=== PATIENT | female | born 1945 | race Caucasian/White ===

== ENCOUNTER 2020-05-25 09:09 | Emergency (ER) | payer MEDICARE, SELFPAY ==
--- NOTE | ~2020-05-25 | XR_ITS ---
XR lumbar spine min 4V 05/25/2020 11:55 Indication: Low back and hip pain Procedure: 5 views of the lumbar spine Comparison: No prior studies for comparison. Findings: There is disc narrowing at all lumbar levels with vacuum phenomena at multiple levels inclu ding T12-L1, L1-2, L2-3. There is grade 1 degenerative spondylolisthesis at L4-5 secondary to facet h ypertrophy. There is moderate multilevel facet degenerative change. There is levoscoliosis. There is a laparoscopic adjustable gastric band. There are cholecystectomy clips. There is a left total hip ar throplasty. Impression: 1: Moderate-severe lumbar spondylosis with levoscoliosis. Reviewed, dictated and finalized at location A. Impression: 1: Moderate-severe lumbar spondylosis with levoscoliosis.
[2020-05-25 09:24] VITALS: BP 142/62; PULSE 57; RESP 18; TEMP 36.6; O2SAT 99
[2020-05-25] MEDS: KETOROLAC (*BKC) 60 MG/2 ML VIAL 15 MG IM (11:45)
[2020-05-25 12:28] LABS: Add Urine Microscopic? YES; Appearance Urine Cloudy (Clear); Bacteria Urine Trace /hpf; Bilirubin Urine Negative (Negative); Blood Urine Negative (Negative); Color Urine Yellow (Yellow); Glucose Urine UA Negative (Negative); Ketones Urine Negative (Negative); Leukocyte Esterase Ur 1+ LEU/UL (Negative); Mucus Urine Rare /lpf; Nitrate Urine Negative (Negative); Protein Urine 1+ mg/dL (Negative); RBC Urine 0-2 /hpf (0-2); Specific Grav Ur 1.021 (1.001-1.035); Squamous Epithelial Cell Urine Many /hpf (Few)
[2020-05-25 12:29] LABS: Basophils Percent Auto 0.6 % (0.2-1.2); Eosinophils Absolute Auto 0.3 K/mm3 (0-0.3); Eosinophils Percent Auto 5.5 % (0-4.4); Hematocrit 40.6 % (37.0-47.0); Hemoglobin 13.4 g/dL (12.0-15.0); Immature Granulocyte Absolute 0.01 K/mm3 (0.00-0.031); Immature Granulocyte Percent A 0.2 % (0-0.5); Lymphocytes Absolute Auto 1.18 K/mm3 (0.9-3.2); Lymphocytes Percent Auto 19.1 % (18.3-44.2); Mean Corpuscular Hemoglobin 30.5 pg (26-34); Mean Corpuscular Volume 92.5 fl (80-100); Mean Platelet Volume 9.5 fl (7.4-10.4); Monocytes Absolute Auto 0.5 K/mm3 (0.1-0.6); Monocytes Percent Auto 8.4 % (2.6-8.5); Neutrophils Absolute Auto 4.1 K/mm3 (1.3-6.7); Neutrophils Percent Auto 66.2 % (45.5-73.1); Platelet Count Result 207 k/mm3 (150-375); Red Blood Count 4.39 M/mm3 (4.2-5.4); Red Cell Distribution Width 13.6 % (11.5-14.5); White Blood Count 6.2 K/mm3 (4.5-10.0)
[2020-05-25 12:38] LABS: Anion Gap 6 mmol/L (8-16); Blood Urea Nitrogen 12 mg/dL (7-17); Calcium 9.5 mg/dL (8.4-10.2); Carbon Dioxide 30 mmol/L (22-30); Chloride 102 mmol/L (98-107); Estimated CRCL calculation 78 ml/min; Estimated Glomerular Filt Rate > 60; Glucose 97 mg/dL (65-105); Potassium 4.5 mmol/L (3.4-5.0); Sodium 138 mmol/L (137-145)
--- NOTE | 2020-05-25 13:08 | ED.GENADULT ---
HPI - General Adult General Chief complaint: Extremity Injury, Lower <Ion Sánchez PA-C - Last Filed: 05/25/20 13:21> Stated complaint: L hip and back pain <Ion Sánchez PA-C - Last Filed: 05/25/20 13:21> Time Seen by Provider: 05/25/20 11:07 <Ion Sánchez PA-C - Last Filed: 05/25/20 13:21> Source: patient and family <Ion Sánchez PA-C - Last Filed: 05/25/20 13:21> Mode of arrival: ambulatory <Ion Sánchez PA-C - Last Filed: 05/25/20 13:21> Limitations: no limitations <Ion Sánchez PA-C - Last Filed: 05/25/20 13:21> History of Present Illness HPI narrative: Patient is a 74-year-old female with low back pain for roughly 1 week noting aching pain to the lower lumbar radiating to the left side and into the hip. Patient denies injury trauma or similar occurrence patient has tried [id number] medications with no improvement. Patient denies recent illness or other complaints or symptoms and presents in no distress with family <Ion Sánchez PA-C - Last Filed: 05/25/20 13:21> Related Data Allergies/adverse reactions: Allergies Allergy/AdvReac Type Severity Reaction Status Date / Time Penicillins Allergy Unknown Verified 07/11/12 08:24 <Ion Sánchez PA-C - Last Filed: 05/25/20 13:21> Review of Systems Review of Systems: All systems reviewed & are unremarkable except as noted in HPI and below <Ion Sánchez PA-C - Last Filed: 05/25/20 13:21> [facility] Past Medical History Medical History: Medical History (Updated 05/25/20 @ 13:16 by Ion Sánchez PA-C) Obesity <Ion Sánchez PA-C - Last Filed: 05/25/20 13:21> Surgical History Surgical History: Surgical History History of orthopedic surgery <Ion Sánchez PA-C - Last Filed: 05/25/20 13:21> Family History Family History: Family History (Updated 07/11/12 @ 08:32 by DOCTOR UNKNOWN) Other Family history of arthritis <Ion Sánchez PA-C - Last Filed: 05/25/20 13:21> Social History Social History: Social History Smoking status: Never smoker Alcohol intake: current Gender identity (if verbalized by the patient): Female <Ion Sánchez PA-C - Last Filed: 05/25/20 13:21> Exam Narrative: Exam Narrative: GENERAL: Well-appearing, obese, and in no acute distress. HEAD: Normocephalic, atraumatic. EYES: PERRLA and EOMI. ENT: Nares clear, no rhinorrhea or epistaxis. Mucous membranes moist. CHEST: Clear to auscultation. No respiratory distress. No wheezes rales or rhonchi HEART: Regular rate and rhythm. No murmur heard. Normal peripheral pulses. ABDOMEN: Soft, nontender,distended EXTREMITIES: Normal range of motion. No edema. Midline lumbar tenderness no rashes or deformities noted SKIN: Warm, dry, no rash. NEURO: No focal deficits. Alert and oriented x3. Cranial nerves II through XII grossly intact PSYCH: Normal mood and affect. <Ion Sánchez PA-C - Last Filed: 05/25/20 13:21> Course Course Emergency Course: Patient in the room aware of case findings treatment plan and diagnosis agreeing to follow-up as directed or to return if symptoms worsen or concerns <Ion Sánchez PA-C - Last Filed: 05/25/20 13:21> Vital Signs Vital signs: Vital Signs Temperature 36.6 C 05/25/20 09:24 Pulse Rate 57 L 05/25/20 09:24 Respiratory Rate 18 05/25/20 09:24 Blood Pressure 142/62 H 05/25/20 09:24 Pulse Oximetry 99 05/25/20 09:24 Temperature 36.6 C 05/25/20 09:24 Pulse Rate 64 05/25/20 13:36 Respiratory Rate 18 05/25/20 13:36 Blood Pressure 148/66 H 05/25/20 13:36 Pulse Oximetry 96 05/25/20 13:36 <MICHAEL Lopez Last Filed: 05/25/20 13:21> Vital Signs Temperature 36.6 C 05/25/20 09:24 Pulse Rate 57 L 05/25/20 09:24 Respiratory Rate 18 09
[2020-05-25 13:36] VITALS: BP 148/66; PULSE 64; RESP 18; O2SAT 96
== END 2020-05-25 13:38 | disposition home or self-care (01) ==
PROVIDERS: Emergency Medicine Emergency Medical Services; Emergency Provider Emergency Medicine; PCP Internal Medicine
DX: N39.0 Urinary tract infection, site not specified (principal); M54.5 Low back pain; E66.9 Obesity, unspecified; Z68.42 Body mass index [BMI] 45.0-49.9, adult
CPT/HCPCS: 36415; 72110; 80048; 81001; 85025; 87086; 87088; 96372; 99283; J1885

== ENCOUNTER 2020-11-05 14:30 | Inpatient (IN) | payer MEDICARE, SELFPAY ==
[2020-11-05] VITALS (9 sets, daily range): BP systolic 138–218; BP diastolic 66–111; PULSE 65–88; RESP 18–29; TEMP 36.4–36.9; O2SAT 92–100
--- NOTE | ~2020-11-05 | XR_ITS ---
EXAMINATION: XR chest 1V portable INDICATION: Shortness of breath TECHNIQUE: Portable AP chest at 1528 hours COMPARISON: 04/08/2017 FINDINGS: There are diffuse interstitial and airspace opacities. Cardiomegaly is noted. There is no p leural effusion or pneumothorax. A gastric lap band is noted in the left upper quadrant. IMPRESSION: 1. Diffuse lung disease, consistent with pneumonia and/or pulmonary edema. Reviewed, dictated and finalized at location A. ATICS PROFESSOR
--- NOTE | ~2020-11-05 | XR_ITS ---
EXAMINATION: XR chest 1V portable EXAM DATE: 11/07/2020 08:37 INDICATION: Edema. TECHNIQUE: Portable AP frontal chest x-ray was obtained. Comparison is made to prior examination from 11/05/2020. FINDINGS: Cardiomegaly and pulmonary vascular congestion. Possible mild pulmonary edema. Linear left mid lung zone atelectasis. No confluent consolidation, pneumothorax or pleural effusion suspected. G astric banding device. Mild to moderate thoracic dextroscoliosis. IMPRESSION: 1. Findings consistent with mild CHF exacerbation. Reviewed, dictated and finalized at location B. GER OF ADMINISTRATION
--- NOTE | 2020-11-05 14:50 | ECG_ITS ---
Measurements Intervals [place] Rate: 75 P: 88 VA: 208 QRS: -54 QRSD: 106 T: 98 QT: 367 QTc: 411 Interpretive Statements SINUS RHYTHM INCOMPLETE RIGHT BUNDLE BRANCH BLOCK LEFT ANTERIOR FASCICULAR BLOCK POSSIBLE LEFT VENTRICULAR HYPERTROPHY CONSIDER HIGH LATERAL INFARCT, AGE INDETERMINATE ABNORMAL ECG Electronically Signed On 11-05-2020 15:11:29 TYPIST by Matt Yung D.O.
--- NOTE | 2020-11-05 14:54 | ED.SOB ---
HPI - SOB/Dyspnea General Chief Complaint: Shortness of Breath/Dyspnea Stated Complaint: SOB Time Seen by Provider: 11/05/20 14:41 Source: patient and family Mode of arrival: ambulatory Limitations: no limitations History of Present Illness HPI Narrative: This is a 74 year old female with history of COPD, cHf , morbid obesity who presents for evaluation of shortness of breath. She developed shortness of breath 2 days. She also reports mild cough for 2 days that is productive with clear phlegm. She denies chest pain, fever, nausea, vomiting. She was found to have audible wheezing in triage. She denies using an inhaler or nebulizer at home. Her family reports she received her covid vaccine 6 days. Related Data Home Medications Medication Instructions Recorded Confirmed aspirin 81 mg PO DAILY 11/05/20 11/05/20 atorvastatin 40 mg PO DAILY 11/05/20 11/05/20 carvedilol 12.5 mg PO BID 11/05/20 11/05/20 clopidogrel 75 mg PO DAILY 11/05/20 11/05/20 famotidine 20 mg PO DAILY 11/05/20 11/05/20 furosemide 60 mg PO BID 11/05/20 11/05/20 sacubitril-valsartan [Entresto] 1 tablet PO BID 11/05/20 11/05/20 spironolactone 12.5 mg PO DAILY 11/05/20 11/05/20 Allergies Allergy/AdvReac Type Severity Reaction Status Date / Time Penicillins Allergy Unknown Rash Verified 11/05/20 14:46 Review of Systems Review of Systems: All systems reviewed & are unremarkable except as noted in HPI and below Constitutional: Constitutional: Denies chills and Denies fever(s) Cardiovascular: Cardiovascular: Denies chest pain and Denies radiating jaw, neck or arm pain Respiratory: Respiratory: Reports cough, Reports dyspnea and Reports wheezing Gastrointestinal: Gastrointestinal: Denies abdominal pain, Denies diarrhea, Denies nausea and Denies vomiting PMF Past Medical History Medical History (Updated 11/05/20 @ 18:49 by Jerrica Perrin MD) CHF (congestive heart failure) Hypertension Obesity Surgical History Surgical History History of orthopedic surgery Family History Family History (Updated 07/11/12 @ 08:32 by DOCTOR UNKNOWN) Other Family history of arthritis Social History Social History Smoking status: Never smoker Alcohol intake: current Gender identity (if verbalized by the patient): Female Exam Const: General: alert and ill appearing Nutritional Appearance: obese Orientation/consciousness: patient oriented x3 Eyes: EOM: EOMs intact bilaterally Chest: Chest palpation & inspection: normal inspection of the chest Resp: Effort & Inspection: no retractions, tachypneic (mild tachypnea, able to talk in complete sentence) and no use of accessory muscles Auscultation: crackles Cardio: Rate: regular rate Rhythm: regular rhythm Heart sounds: no murmurs GI: GI Palp: Yes Soft to palpation, No Tenderness to palpation present (GI) and No Guarding due to palpation present (GI) Auscultation: normal bowel sounds Neuro: General: patient oriented x3 and moves all extremities Extrem: General: edema Psych: Mental Status: mental status grossly normal Affect: normal affect Course Reevaluation(s) Reevaluation #1: Patient understands she will be admitted for diuresis. She is no acute distress. Date: 11/05/20 Time: 17:00 Consultations Consultation #1: I discussed case with Mindi who accepts patient to [facility]. Agrees this is likely CHF. No antibiotics or covid test at this time Date: 11/05/20 Time: 17:00 Vital Signs Vital signs: Vital Signs Temperature 98.4 F 11/05/20 14:37 Pulse Rate 79 11/05/20 14:37 Respiratory Rate 29 H 11/05/20 14:37 Blood Pressure 218/111 H 11/05/20 14:37 Pulse Oximetry 95 11/05/20 14:37 Temperature 98.4 F 11/05/20 14:37 Pulse Rate 84 11/05/20 17:30 Respiratory Rate 20 11/05/20 17:30 Blood Pressure 138/80 11/05/20 17:30 Pulse Oxim
[2020-11-05] MEDS: ALBUTEROL SULFATE (*SP) AEROSOL 1 PUFF 8 PUFF INHALATION (15:01)
[2020-11-05 15:12] LABS: Base Excess ABG 0.6 mEq/l (+/-2.0); Carboxyhemoglobin 1.2 % THb (0-2.0); Fractional Inspired Oxygen 32 %; HCO3 ABG 26.2 mEq/l (22.0-26.0); Methemoglobin ABG 0.3 %THb (0-1.5); Oxygen Content ABG 18.4 %vol (16.0-22.0); Oxygen Saturation ABG 99.2 % (95.0-100.0); Oxyhemoglobin 97.2 % THb (90.0-100.0); PCO2 ABG 45.9 mmHg (35.0-45.0); PO2 ABG 178.7 mmHg (80.0-100.0); PO2 FiO2 Ratio Arterial Blood 5.58 %; Reduced Hemoglobin 1.3 %THb (0-5.0); Total Hemoglobin 13.2 g/dL (12.0-18.0); pH ABG 7.374 (7.350-7.450)
[2020-11-05 15:13] LABS: Device NASAL CANNULA; Modified Allen's Test Pass; Site Drawn LEFT RADIAL
[2020-11-05] MEDS: methylPREDNISolone SOD SUCC 125 MG VIAL IV PUSH (15:19)
[2020-11-05 15:24] LABS: Basophils Percent Auto 0.4 % (0.2-1.2); Eosinophils Absolute Auto 0.4 K/mm3 (0-0.3); Eosinophils Percent Auto 5.3 % (0-4.4); Hematocrit 38.7 % (37.0-47.0); Hemoglobin 12.8 g/dL (12.0-15.0); Immature Granulocyte Absolute 0.04 K/mm3 (0.00-0.031); Immature Granulocyte Percent A 0.5 % (0-0.5); Lymphocytes Absolute Auto 0.89 K/mm3 (0.9-3.2); Lymphocytes Percent Auto 11.4 % (18.3-44.2); Mean Corpuscular HGB Conc 33.1 g/dl (32-36); Mean Corpuscular Hemoglobin 30.9 pg (26-34); Mean Corpuscular Volume 93.5 fl (80-100); Mean Platelet Volume 9.2 fl (7.4-10.4); Monocytes Absolute Auto 0.6 K/mm3 (0.1-0.6); Monocytes Percent Auto 7.6 % (2.6-8.5); Neutrophils Absolute Auto 5.8 K/mm3 (1.3-6.7); Neutrophils Percent Auto 74.8 % (45.5-73.1); Platelet Count Result 191 k/mm3 (150-375); Red Blood Count 4.14 M/mm3 (4.2-5.4); Red Cell Distribution Width 13.3 % (11.5-14.5); White Blood Count 7.8 K/mm3 (4.5-10.0)
[2020-11-05 15:35] LABS: INR 0.9; Lactic Acid Reflex 0.8 mmol/L (0.7-2.1); Prothrombin Time 12.9 Seconds (11.1-14.7)
[2020-11-05 15:36] LABS: Anion Gap 6 mmol/L (8-16); Blood Urea Nitrogen 12 mg/dL (7-17); Calcium 9.1 mg/dL (8.4-10.2); Carbon Dioxide 30 mmol/L (22-30); Chloride 104 mmol/L (98-107); Estimated CRCL calculation 85 ml/min; Estimated Glomerular Filt Rate > 60; Glucose 103 mg/dL (65-105); Partial Thromboplastin Time 28.9 SECONDS (22.3-36.8); Potassium 4.1 mmol/L (3.4-5.0); Sodium 140 mmol/L (137-145)
[2020-11-05 15:48] LABS: NT Pro B Type Natriuretic Pept 1430 PG/ML (5-100); Troponin I < 0.012 ng/mL (0.000-0.034)
[2020-11-05 16:08] LABS: D Dimer 0.48 ug/mL (<0.48)
[2020-11-05 16:53] LABS: Add Urine Microscopic? YES; Appearance Urine Clear (Clear); Bilirubin Urine Negative (Negative); Blood Urine Negative (Negative); Color Urine Yellow (Yellow); Glucose Urine UA Negative (Negative); Ketones Urine Trace mg/dL (Negative); Leukocyte Esterase Ur Negative LEU/UL (Negative); Mucus Urine Rare /lpf; Nitrate Urine Negative (Negative); Protein Urine 1+ mg/dL (Negative); Specific Grav Ur 1.011 (1.001-1.035); Squamous Epithelial Cell Urine Many /hpf (Few); Urobilinogen Urine Negative mg/dL (<2.0); WBC Urine 0-3 /hpf
[2020-11-05] MEDS: FUROSEMIDE INJ 40 MG/4 ML VIAL IV PUSH ×2 (17:15→22:02)
--- NOTE | 2020-11-05 18:55 | ADMGEN ---
This patient, Alyssa Hanson, was admitted to Medical Room 349-01. Patient/family oriented to hospital policies and general routines including ID bracelet, bed and alarms, visiting hours, pain management, procedures, bathroom and other care routines, personal items, smoking policy, room service/diet, and visiting hours. Information on how to activate the Rapid Response Team has been discussed. Patient/Family are encouraged to report perceived risks to care and to ask questions if they do not understand what they are told or what they should do.
--- NOTE | 2020-11-05 19:58 | PM.IMHP ---
H&P: HPI History of Present Illness Date/Time: 11/05/20 21:00 Chief Complaint: Shortness of breath x2 days Narrative: Alyssa Hanson is a 74 year old female With a past medical history of ischemic cardiomyopathy, combined systolic and diastolic congestive heart failure, COPD and morbid obesity who presented to the ER from home due to increased shortness of breath for 2 days. The patient reports that she has CHF but does not take her Lasix as directed. She reports that she pees all the time if she takes the Lasix. So she only takes the Lasix every other day or so. She denies any orthopnea but has had progressive dyspnea on exertion for the last week or more. She denies any chest pain or palpitations. She reports that her shortness of breath was so bad today that she could not make it from her living room to her bathroom so she decided to come in. She reports that she has chronic lower extremity swelling and that her legs have been more swollen recently. She has had a 20 lb weight gain over the last 2 weeks. She does not weigh herself on a regular basis. She reports that she eats a low-salt diet ?for the most part.? She denies orthopnea but sleeps on 2 fluffy pillows at all times. She was supposed to have an outpatient sleep study but this had been put on hold due to the COVID pandemic and she has since failed to follow through with rescheduling the study. Review of Systems Review of Systems: Narrative: 12 systems were reviewed with pertinent positives and negatives per HPI. Except as documented in the HPI, all other systems were reviewed and are negative. [facility] Past Medical History Medical History (Updated 11/06/20 @ 02:34 by Ashlee Justice DO) CHF (congestive heart failure) echocardiogram April 2017 demonstrated EF of 40% with apical and apical anterior thinning, mid anterior hypokinesis, dyskinetic apical and apical anterior segments, echo from 12/2016 demonstrated grade 1 diastolic dysfunction Combined systolic and diastolic congestive heart failure COPD (chronic obstructive pulmonary disease) PFTs July 2019 demonstrated moderate obstructive lung disease without bronchodilator response and moderately decreased diffusion capacity Hypertension Ischemic cardiomyopathy Obesity Surgical History Surgical History (Updated 11/05/20 @ 20:02 by Ashlee Justice DO) History of heart artery stent patient had anterior lateral STEMI december 2016 with 2 stents to the mid LAD History of left hip replacement 10/2017 History of total bilateral knee replacement 2002 with subsequent ORIF of periprosthetic fracture of the left knee in December 2012 Hx of cholecystectomy Hx of laparoscopic gastric banding Family History Family History Mother Cerebrovascular accident Thyroid disease Sibling Thyroid disease Social History Social History (Updated 11/06/20 @ 02:39 by Ashlee Justice DO) Social History: She reports that she has been since 2019. She lives in her own home and does not have any pets. Her bedroom is up a flight of stairs. 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 Primary care physician: Dr. Rob Multani Code status: Full code Surrogate decision maker: Dania Dora (daughter) Smoking status: Never smoker Alcohol intake: never Substance use: never Gender identity (if verbalized by the patient): Female Spiritual care concerns: No Meds Home Medications and Allergies Home Medications Medication Instructions Recorded Confirmed Type acetaminophen [Tylenol Arthritis 650 mg PO Q8H PRN #10 tablet 05/25/20 11/05/20 Rx Pain] aspirin 81 mg PO DAILY 11/05/20 11/05/20 History atorvastatin 40 mg PO DAILY 11/05/20 11/05/20 History carvedilol 12.5 mg PO BID 11/05/20 11/05/20 History clopidogrel 75 mg PO DAILY 11/05/20 11/05/20 History famotidine 20 mg PO DAILY 11/05
[2020-11-05] MEDS: SACUBITRIL/VALSARTAN 97-103 MG TABLET 1 TAB PO (22:02)
[2020-11-05] MEDS: carvediloL 12.5 MG TABLET PO (22:02)
[2020-11-06] VITALS (10 sets, daily range): BP systolic 151–166; BP diastolic 64–82; PULSE 57–71; RESP 18; TEMP 36.1–36.8; O2SAT 94–98; BMI 47.2
[2020-11-06 05:40] LABS: Basophils Percent Auto 0.2 % (0.2-1.2); Hematocrit 38.9 % (37.0-47.0); Hemoglobin 12.9 g/dL (12.0-15.0); Immature Granulocyte Absolute 0.03 K/mm3 (0.00-0.031); Immature Granulocyte Percent A 0.5 % (0-0.5); Lymphocytes Absolute Auto 0.59 K/mm3 (0.9-3.2); Mean Corpuscular HGB Conc 33.2 g/dl (32-36); Mean Corpuscular Hemoglobin 30.4 pg (26-34); Mean Corpuscular Volume 91.5 fl (80-100); Mean Platelet Volume 9.3 fl (7.4-10.4); Monocytes Absolute Auto 0.1 K/mm3 (0.1-0.6); Monocytes Percent Auto 1.2 % (2.6-8.5); Neutrophils Absolute Auto 5.8 K/mm3 (1.3-6.7); Neutrophils Percent Auto 89.1 % (45.5-73.1); Platelet Count Result 238 k/mm3 (150-375); Red Blood Count 4.25 M/mm3 (4.2-5.4); Red Cell Distribution Width 13.2 % (11.5-14.5); White Blood Count 6.5 K/mm3 (4.5-10.0)
[2020-11-06 05:54] LABS: Alanine Aminotransferase 8 U/L (4-35); Alkaline Phosphatase 50 U/L (38-126); Anion Gap 4 mmol/L (8-16); Aspartate Amino Transferase 27 U/L (14-36); Bilirubin,Total 0.8 mg/dL (0.2-1.3); Blood Urea Nitrogen 17 mg/dL (7-17); Carbon Dioxide 33 mmol/L (22-30); Chloride 99 mmol/L (98-107); Estimated CRCL calculation 74 ml/min; Estimated Glomerular Filt Rate > 60; Glucose 139 mg/dL (65-105); Sodium 136 mmol/L (137-145)
[2020-11-06] MEDS: FAMOTIDINE 20 MG TABLET PO (08:58)
[2020-11-06] MEDS: FUROSEMIDE INJ 40 MG/4 ML VIAL IV PUSH ×2 (08:58→20:47)
[2020-11-06] MEDS: carvediloL 12.5 MG TABLET PO ×2 (08:58→20:47)
[2020-11-06] MEDS: SPIRONOLACTONE 12.5 MG TABLET PO (08:58)
[2020-11-06] MEDS: SACUBITRIL/VALSARTAN 97-103 MG TABLET 1 TAB PO ×2 (08:58→20:47)
[2020-11-06] MEDS: CLOPIDOGREL BISULFATE 75 MG TABLET PO (08:58)
[2020-11-06] MEDS: ENOXAPARIN 40 MG/0.4 ML SYRINGE SUB-Q (08:58)
[2020-11-06] MEDS: ASPIRIN 81 MG ENTERIC TABLET PO (08:58)
[2020-11-06] MEDS: ATORVASTATIN 40 MG TABLET PO (08:59)
--- NOTE | 2020-11-06 13:42 | PM.IMPN ---
Progress Note: A&P Assessment and Plan (1) Congestive heart failure: Qualifiers: Heart failure chronicity: acute on chronic Heart failure type: combined systolic and diastolic Qualified Code(s): I50.43 - Acute on chronic combined systolic (congestive) and diastolic (congestive) heart failure Code(s): I50.9 - Heart failure, unspecified Status: Acute Assessment and Plan: Patient has been admitted for acute on chronic systolic and diastolic congestive heart failure exacerbation with pulmonary edema. Patient has been initiated on IV Lasix 40 mg b.i.d.. Feeling slightly better today, now resting comfortably on room air. Continue monitoring. Will monitor strict I&O's and daily weights. Will continue the patient's home Entresto and beta lico. (2) COPD (chronic obstructive pulmonary disease): Code(s): J44.9 - Chronic obstructive pulmonary disease, unspecified Status: Inactive Assessment and Plan: Patient does have a history of COPD but her symptoms are not likely due to COPD exacerbation. (3) Hypertension: Code(s): I10 - Essential (primary) hypertension Status: Inactive Assessment and Plan: Will repeat electrolyte panel in a.m. due to diuretic use. the patient's blood pressures are elevated beyond goal range currently but she is due for her evening antihypertensives. Will continue to monitor blood pressures closely. (4) Noncompliance w/medication treatment due to intermit use of medication: Code(s): Z91.14 - Patient's other noncompliance with medication regimen Status: Acute Additional Plan Patient has been admitted as observation status. This document was completed by using [employer] Direct speech recognition software, therefore, data operations manager variances may occur. Despite proof reading and review of records errors may persist. Time Spent With Patient Time with patient: 25 - 35 minutes Subjective Date/time seen: 11/06/20 13:42 Interval history: Date of service 11/06/2020: Patient reports feeling slightly better today, she is no longer on any oxygen, denies shortness of breath at rest. She is still having some shortness of breath with exertion, abdominal distension and some leg swelling. She otherwise is asking when she can end up going home. She denies any chest pain, fever, chills, nausea, vomiting, abdominal pain, cough, urinary issues, lightheadedness, dizziness or any other symptoms at this time. Review of Systems Review of Systems: All systems reviewed & are unremarkable except as noted in HPI and below Exam Narrative: Exam Narrative: General: 74-year-old woman laying flat in bed with head elevated at 50?. Appears comfortable. In no acute distress. Skin: No jaundice or cyanosis. Good skin turgor. Neck: Full range of motion. Supple. Respiratory: Inspiratory crackles to all anterior and lateral lung koo. No bony chest wall tenderness. Cardiovascular: The heart has a regular rate and rhythm without murmur. Lower extremities: 2+ pitting lower extremity edema, left greater than right. Distal pulses are easily palpated. No calf tenderness to palpation. Gastrointestinal: Distended abdomen, nontympanic, nontender with active bowel sounds. Psychiatric: Lucid and oriented. Memory intact. Neurologic: No focal deficits. Speech is clear. No facial drooping. Objective Data Vital Signs Vital Signs: Vital Signs - 24 hr 11/05/20 14:37 11/05/20 14:44 11/05/20 15:44 Temperature 98.4 F Pulse Rate 79 65 Respiratory Rate 29 H 23 H Blood Pressure 218/111 H 148/66 H Pulse Oximetry 95 97 99 11/05/20 16:30 11/05/20 17:30 11/05/20 19:13 Temperature 97.5 F L Pulse Rate 88 84 73 Respiratory Rate 18 20 18 Blood Pressure 138/70 138/80 160/85 H Pulse Oximetry 100 100 92 0
[2020-11-07] VITALS (7 sets, daily range): BP systolic 114–145; BP diastolic 56–84; PULSE 57–59; RESP 14–18; TEMP 36.1–36.4; O2SAT 95–97
[2020-11-07 06:20] LABS: Anion Gap 3 mmol/L (8-16); Blood Urea Nitrogen 27 mg/dL (7-17); Calcium 9.3 mg/dL (8.4-10.2); Carbon Dioxide 34 mmol/L (22-30); Chloride 99 mmol/L (98-107); Estimated CRCL calculation 82 ml/min; Estimated Glomerular Filt Rate > 60; Glucose 96 mg/dL (65-105); Magnesium 1.9 mg/dL (1.6-2.3); Potassium 3.3 mmol/L (3.4-5.0); Sodium 136 mmol/L (137-145)
[2020-11-07] MEDS: ASPIRIN 81 MG ENTERIC TABLET PO (09:49)
[2020-11-07] MEDS: ENOXAPARIN 40 MG/0.4 ML SYRINGE SUB-Q (09:49)
[2020-11-07] MEDS: FAMOTIDINE 20 MG TABLET PO (09:49)
[2020-11-07] MEDS: POTASSIUM CHLORIDE 20 MEQ TABLET 40 MEQ PO (09:49)
[2020-11-07] MEDS: SACUBITRIL/VALSARTAN 97-103 MG TABLET 1 TAB PO ×2 (09:49→21:11)
[2020-11-07] MEDS: carvediloL 12.5 MG TABLET PO ×2 (09:50→21:11)
[2020-11-07] MEDS: SPIRONOLACTONE 12.5 MG TABLET PO (09:50)
[2020-11-07] MEDS: ATORVASTATIN 40 MG TABLET PO (09:50)
[2020-11-07] MEDS: FUROSEMIDE INJ 40 MG/4 ML VIAL IV PUSH ×2 (09:50→17:21)
[2020-11-07] MEDS: CLOPIDOGREL BISULFATE 75 MG TABLET PO (09:50)
--- NOTE | 2020-11-07 13:13 | PM.IMPN ---
Progress Note: A&P Assessment and Plan (1) Congestive heart failure: Qualifiers: Heart failure chronicity: acute on chronic Heart failure type: combined systolic and diastolic Qualified Code(s): I50.43 - Acute on chronic combined systolic (congestive) and diastolic (congestive) heart failure Code(s): I50.9 - Heart failure, unspecified Status: Acute Assessment and Plan: Patient has been admitted for acute on chronic systolic and diastolic congestive heart failure exacerbation with pulmonary edema. Patient has been initiated on IV Lasix 40 mg b.i.d.. Today shows continued mild CHF exacerbation. Feeling slightly better today, now resting comfortably on room air. was initially concerned of over diuresing her with elevated BUN levels but this is most likely due to her IV Solu-Medrol she received in the emergency room. The IV Solu-Medrol is also probably the cause of her elevated neutrophils, she does not have any signs of an infection normal WBCs. Continue monitoring. Will monitor strict I&O's and daily weights. Will continue the patient's home Entresto and beta lico. (2) COPD (chronic obstructive pulmonary disease): Code(s): J44.9 - Chronic obstructive pulmonary disease, unspecified Status: Inactive Assessment and Plan: Patient does have a history of COPD but her symptoms are not likely due to COPD exacerbation. (3) Hypertension: Code(s): I10 - Essential (primary) hypertension Status: Inactive Assessment and Plan: Blood pressure 145/61 this morning. Slightly elevated prior to her medications. Will continue to monitor blood pressures closely. (4) Noncompliance w/medication treatment due to intermit use of medication: Code(s): Z91.14 - Patient's other noncompliance with medication regimen Status: Acute Assessment and Plan: Patient has not been taking her Lasix as prescribed at home due to increased urination. Expressed the importance of taking her medications as prescribed, checking her weights daily, low-salt diet and elevating legs when possible. She understands and will try better once discharged. (5) Hypokalemia: Code(s): E87.6 - Hypokalemia Status: Acute Assessment and Plan: Patient potassium was 3.3 today. Was replenished with IV potassium 40 mEq and will have her continue taking spironolactone. I do not have concerns for hyperkalemia currently. Recheck in the morning. Additional Plan Patient has been admitted as observation status. This document was completed by using [employer] speech recognition software, therefore, business continuity planning director variances may occur. Despite proof reading and review of records errors may persist. Time Spent With Patient Time with patient: 25 - 35 minutes Subjective Date/time seen: 11/07/20 13:13 Interval history: Date of service 11/07/2020: Patient reports feeling slightly better today she can go home. She still has significant edema to extremities and crackles 2/[address] posteriorly on inspiration. She is still having some shortness of breath with exertion, but it is improving. Reports improvement of abdominal distension but still present. She denies any chest pain, fever, chills, nausea, vomiting, abdominal pain, cough, urinary issues, lightheadedness, dizziness or any other symptoms at this time. Review of Systems Review of Systems: All systems reviewed & are unremarkable except as noted in HPI and below Exam Narrative: Exam Narrative: General: 74-year-old woman sitting up in the chair with her daughter at bedside. Appears comfortable. In no acute distress. Skin: No jaundice or cyanosis. Good skin turgor. Neck: Full range of motion. Supple. Respiratory: Insp
[2020-11-08 06:00] VITALS: BP 143/60; PULSE 64; RESP 18; TEMP 36.2; O2SAT 94
[2020-11-08 06:23] LABS: Anion Gap 4 mmol/L (8-16); Blood Urea Nitrogen 31 mg/dL (7-17); Calcium 8.7 mg/dL (8.4-10.2); Carbon Dioxide 33 mmol/L (22-30); Chloride 100 mmol/L (98-107); Estimated CRCL calculation 59 ml/min; Estimated Glomerular Filt Rate 54; Glucose 96 mg/dL (65-105); Magnesium 1.8 mg/dL (1.6-2.3); Potassium 3.5 mmol/L (3.4-5.0); Sodium 137 mmol/L (137-145)
[2020-11-08 08:31] VITALS: BP 124/60
[2020-11-08] MEDS: FAMOTIDINE 20 MG TABLET PO (08:48)
[2020-11-08] MEDS: SACUBITRIL/VALSARTAN 97-103 MG TABLET 1 TAB PO (08:48)
[2020-11-08] MEDS: SPIRONOLACTONE 12.5 MG TABLET PO (08:48)
[2020-11-08] MEDS: ATORVASTATIN 40 MG TABLET PO (08:48)
[2020-11-08 08:49] VITALS: PULSE 62
[2020-11-08] MEDS: ACETAMINOPHEN 325 MG TABLET 650 MG PO (08:49)
[2020-11-08] MEDS: carvediloL 12.5 MG TABLET PO (08:49)
[2020-11-08] MEDS: ASPIRIN 81 MG ENTERIC TABLET PO (08:49)
[2020-11-08] MEDS: CLOPIDOGREL BISULFATE 75 MG TABLET PO (08:49)
[2020-11-08] MEDS: FUROSEMIDE INJ 40 MG/4 ML VIAL IV PUSH (08:49)
[2020-11-08] MEDS: ENOXAPARIN 40 MG/0.4 ML SYRINGE SUB-Q (08:49)
--- NOTE | 2020-11-08 11:11 | PM.DS ---
DS: Admitting Diagnosis Admitting Diagnosis Admitting Diagnosis: acute on chronic systolic and diastolic heart failure exacerbation with pulmonary edema DS: Discharge Diagnosis Discharge Diagnosis (1) Congestive heart failure: Qualifiers: Heart failure chronicity: acute on chronic Heart failure type: combined systolic and diastolic Qualified Code(s): I50.43 - Acute on chronic combined systolic (congestive) and diastolic (congestive) heart failure Code(s): I50.9 - Heart failure, unspecified Status: Acute Assessment and Plan: Patient admitted for acute on chronic systolic and diastolic congestive heart failure exacerbation with pulmonary edema. Patient has had good urine output, although appears to have positive fluid balance. IV Lasix 40 mg BID since arrival on 11/05. Patient feeling much better today. Minimal crackles on lung exam. She has appointment with Dr. Amado on 11/16. Encouraged low sodium diet and monitoring weight until then Resume home diuretic regimen Continue home entresto and beta lico Rec low sodium diet rec daily weights. F/u with Dr. Amado and PCP Will do BMP next week for further monitoring (2) COPD (chronic obstructive pulmonary disease): Code(s): J44.9 - Chronic obstructive pulmonary disease, unspecified Status: Inactive Assessment and Plan: Patient does have a history of COPD but her symptoms are not likely due to COPD exacerbation. F/u with PCP (3) Hypertension: Code(s): I10 - Essential (primary) hypertension Status: Inactive Assessment and Plan: Blood pressure 120s sys most recently. Will continue home CHF medications F/u with Dr. Amado (4) Noncompliance w/medication treatment due to intermit use of medication: Code(s): Z91.14 - Patient's other noncompliance with medication regimen Status: Acute Assessment and Plan: Patient has not been taking her Lasix as prescribed at home due to increased urination. Expressed the importance of taking her medications as prescribed, checking her weights daily, low-salt diet and elevating legs when possible. She understands and will try better once discharged. (5) Hypokalemia: Code(s): E87.6 - Hypokalemia Status: Acute Assessment and Plan: Patient potassium was 3.5 today Will continue home diuretic regimen BMP and mag level next week DS: Summary Hospital Course Reason for hospitalization: CHF exacerbation Hospital Course: Date of arrival: 11/05/20 Date of discharge: 11/08/20 Patient is a 74 year old female With a past medical history of ischemic cardiomyopathy, combined systolic and diastolic congestive heart failure, COPD and morbid obesity who presented to the ER from home on 11/05 due to increased shortness of breath for the previous 2 days. While in the ED, CXR showed diffuse lung disease consistent with pneumonia and/or pulmonary edema. BNP was shown to be 1430; troponin was negative. She was given IV Lasix in the ED and admitted under setting of CHF exacerbation. Patient did report noncompliance with her home diuretics as she urinated too frequently. COPD exacerbation also suspected initially, and was given IV Solumedrol initially; this was discontinued as this was less likely. Please see H&P for further details. Patient was admitted to the hospitalist service for further management/treatment. Patient continued on IV diuretics and had good urine output with improvement in her LE swelling. She was found to be hypokalemic during stay, likely from diuresis; this was replaced. Clinically, patient had improved and symptoms had improved if not resolved by day of discharge. Plan was for her to follow up with her [employer] at her [facility]
== END 2020-11-08 12:27 | disposition home or self-care (01) | DRG 292 ==
LOC: ANHED 17:37 → ANH3MED 17:48
PROVIDERS: Physician Assistant; Admitting Provider Internal Medicine; Emergency Provider General Practice; PCP Internal Medicine; Visit Provider Internal Medicine
DX: I11.0 Hypertensive heart disease with heart failure (principal); Z68.42 Body mass index [BMI] 45.0-49.9, adult; I50.43 Acute on chronic combined systolic (congestive) and diastolic (congestive) heart failure; J44.9 Chronic obstructive pulmonary disease, unspecified; Z91.14 Patient's other noncompliance with medication regimen; E87.6 Hypokalemia; E66.01 Morbid (severe) obesity due to excess calories; I25.5 Ischemic cardiomyopathy; Z95.5 Presence of coronary angioplasty implant and graft; Z96.642 Presence of left artificial hip joint; Z96.653 Presence of artificial knee joint, bilateral; Z90.49 Acquired absence of other specified parts of digestive tract; Z98.84 Bariatric surgery status
CPT/HCPCS: 36415; 36600; 71045; 80048; 80053; 81001; 82375; 82805; 83050; 83605; 83735; 83880; 84484; 85025; 85380; 85610; 85730; 87040; 93005; 96372; 96374; 96375; 96376; 97161; 97165; 99285; A9270; G0378; J1650; J1940; J2930

== ENCOUNTER 2021-12-10 20:05 | Emergency (ER) | payer MEDICARE, SELFPAY ==
[2021-12-10] VITALS (19 sets, daily range): BP systolic 80–181; BP diastolic 51–99; PULSE 70–72; RESP 16–20; TEMP 36.7; O2SAT 85–96
--- NOTE | ~2021-12-10 | CT_ITS ---
EXAMINATION: CT abdomen pelvis w con DATE: 12/10/2021 23:16 INDICATION: Small bowel obstruction. TECHNIQUE: Computed tomography (CT) of the abdomen and pelvis was performed with 100 mL Omnipaque 350 intravenous contrast. Automated exposure control and iterative reconstruction technique were employe d. The dose-length product was 1494.46 mGy-cm. COMPARISON: Chest CT 04/08/2017 FINDINGS: The visualized portions of the lung bases demonstrate mild atelectasis. There are small ple ural effusions. Cardiomegaly is noted. There are coronary artery calcifications. There is a small per icardial effusion. There is a lap band around the proximal stomach. The liver is normal. There are ch anges of cholecystectomy. The spleen, pancreas, and adrenal glands are normal. There is cortical thin jennifer of the kidneys. There is a 14 mm cyst in left kidney. There is a ventral hernia containing fat. The endometrial complex is thickened at 2.4 cm. There is diverticulosis of the colon without evidence of diverticulitis. The appendix is normal. There are no pathologically enlarged lymph nodes. There i s no free intraperitoneal fluid. There is a direct right inguinal hernia containing fat. There is a t otal left hip arthroplasty with acetabular protrusio. There is severe lumbar spondylosis. There is a chronic compression fracture of T12. Thoracolumbar levoscoliosis is noted. IMPRESSION: 1. Thickened endometrial complex. The differential diagnosis includes endometrial hyperplasia, polyp, submucosal fibroid, and carcinoma. Biopsy is recommended. 2. Small pleural effusions. 3. Small pericardial effusion. 4. Ventral hernia containing fat. Direct right inguinal hernia containing fat. Reviewed, dictated and finalized at location A. IMPRESSION: 1. Thickened endometrial complex. The differential diagnosis includes endometri al hyperplasia, polyp, submucosal fibroid, and carcinoma. Biopsy is recommended . 2. Small pleural effusions. 3. Small pericardial effusion. 4. Ventral hernia containing fat. Direct right inguinal hernia containing fat.
[2021-12-10 20:32] LABS: Basophils Percent Auto 0.8 % (0.2-1.2); Eosinophils Absolute Auto 0.2 K/mm3 (0-0.3); Eosinophils Percent Auto 2.9 % (0-4.4); Hematocrit 40.1 % (37.0-47.0); Hemoglobin 13.1 g/dL (12.0-15.0); Immature Granulocyte Absolute 0.02 K/mm3 (0.00-0.031); Immature Granulocyte Percent A 0.4 % (0-0.5); Lymphocytes Absolute Auto 1.02 K/mm3 (0.9-3.2); Lymphocytes Percent Auto 19.5 % (18.3-44.2); Mean Corpuscular HGB Conc 32.7 g/dl (32-36); Mean Corpuscular Hemoglobin 30.7 pg (26-34); Mean Corpuscular Volume 93.9 fl (80-100); Mean Platelet Volume 9.1 fl (7.4-10.4); Monocytes Absolute Auto 0.7 K/mm3 (0.1-0.6); Monocytes Percent Auto 12.8 % (2.6-8.5); Neutrophils Absolute Auto 3.3 K/mm3 (1.3-6.7); Neutrophils Percent Auto 63.6 % (45.5-73.1); Platelet Count Result 203 k/mm3 (150-375); Red Blood Count 4.27 M/mm3 (4.2-5.4); Red Cell Distribution Width 14.8 % (11.5-14.5); White Blood Count 5.2 K/mm3 (4.5-10.0)
[2021-12-10 20:42] LABS: Alanine Aminotransferase 10 U/L (4-35); Albumin Level 4.1 g/dL (3.5-5.1); Alkaline Phosphatase 62 U/L (38-126); Anion Gap 7 mmol/L (8-16); Aspartate Amino Transferase 27 U/L (14-36); Bilirubin,Total 0.6 mg/dL (0.2-1.3); Blood Urea Nitrogen 15 mg/dL (7-17); Calcium 8.8 mg/dL (8.4-10.2); Carbon Dioxide 28 mmol/L (22-30); Chloride 103 mmol/L (98-107); Estimated CRCL calculation 63 ml/min; Estimated Glomerular Filt Rate > 60; Glucose 97 mg/dL (65-110); Lipase 46 U/L (23-300); Potassium 2.9 mmol/L (3.4-5.0); Sodium 138 mmol/L (137-145)
--- NOTE | 2021-12-10 21:38 | ED.NAVMDI ---
HPI - Nausea/Vomiting/Diarrhea General Chief complaint: Nausea/Vomiting/Diarrhea Stated complaint: diarrhea Time Seen by Provider: 12/10/21 21:29 History of Present Illness HPI Narrative: 68-year-old female presents to the emergency room with complaints of vomiting and diarrhea since Saturday. Vomiting and diarrhea is associated with diffuse abdominal cramping. Patient states she has a history of cholecystectomy and adhesions, they were found on her most recent colonoscopy. Patient reports fever 2 days ago, but has since resolved. Patient also states that she has taken multiple doses of Imodium, but fears that the were vomited. Related Data Home Medications Medication Instructions Recorded Confirmed Entresto 1 tablet PO BID 11/05/20 11/05/20 aspirin 81 mg PO DAILY 11/05/20 11/05/20 atorvastatin 40 mg PO DAILY 11/05/20 11/05/20 carvedilol 12.5 mg PO BID 11/05/20 11/05/20 clopidogrel 75 mg PO DAILY 11/05/20 11/05/20 famotidine 20 mg PO DAILY 11/05/20 11/05/20 furosemide 60 mg PO BID 11/05/20 11/05/20 spironolactone 12.5 mg PO DAILY 11/05/20 11/05/20 Allergies Allergy/AdvReac Type Severity Reaction Status Date / Time Penicillins Allergy Unknown Rash Verified 12/10/21 20:11 Review of Systems Review of Systems: CONSTITUTIONAL: Denies fever, chills, or sweats. EYES: Denies visual changes, redness, or discharge. ENT: Denies rhinorrhea, congestion, sore throat, or otalgia. CARDIOVASCULAR: Denies chest pain, palpitations, or edema. RESPIRATORY: Denies cough or dyspnea. GASTROINTESTINAL: Reports diffuse abdominal pain, nausea, vomiting, diarrhea GENITOURINARY: Denies dysuria or hematuria. SKIN: Denies rash or itching. MUSCULOSKELETAL: Denies back pain, joint pain, or myalgia. NEUROLOGIC: Denies headache, numbness, dizziness, or weakness. PSYCHIATRIC: Denies anxiety or depression. [facility] Past Medical History Medical History CHF (congestive heart failure) echocardiogram April 2017 demonstrated EF of 40% with apical and apical anterior thinning, mid anterior hypokinesis, dyskinetic apical and apical anterior segments, echo from 12/2016 demonstrated grade 1 diastolic dysfunction Combined systolic and diastolic congestive heart failure COPD (chronic obstructive pulmonary disease) PFTs July 2019 demonstrated moderate obstructive lung disease without bronchodilator response and moderately decreased diffusion capacity Hypertension Ischemic cardiomyopathy Obesity Surgical History Surgical History History of heart artery stent patient had anterior lateral STEMI december 2016 with 2 stents to the mid LAD History of left hip replacement 10/2017 History of total bilateral knee replacement 2002 with subsequent ORIF of periprosthetic fracture of the left knee in December 2012 Hx of cholecystectomy Hx of laparoscopic gastric banding Family History Family History Mother Cerebrovascular accident Thyroid disease Sibling Thyroid disease Social History Social History Social History: She reports that she has been since 2018. She lives in her own home and does not have any pets. Her bedroom is up a flight of stairs. 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 She still owned several food carts that she takes to [employer]. Primary care physician: Dr. Rob Multani Code status: Full code Surrogate decision maker: Dania John (daughter) Smoking status: Never smoker Alcohol intake: never Substance use: never Gender identity (if verbalized by the patient): Female Spiritual care concerns: No Exam Narrative: GENERAL: Well-appearing, well-nourished, morbidly obese HEAD: Normocephalic, atraumatic. EYES: PERRLA and EOMI. CHEST: Clear to auscultation. No respiratory distress. No wheezes rales or r
[2021-12-10] MEDS: SODIUM CHLORIDE 0.9% IV 1,000 ML 500 ML IV CONT (21:51)
[2021-12-10] MEDS: ONDANSETRON INJ 4 MG/2 ML VIAL IV PUSH ×2 (21:51→23:53)
[2021-12-10] MEDS: SODIUM CHLORIDE 0.9% IV 250 ML 999 ML (23:51)
== END 2021-12-11 00:40 | disposition home or self-care (01) ==
PROVIDERS: Emergency Medicine; Emergency Provider Nurse Practitioner Family; PCP Internal Medicine
DX: K52.9 Noninfective gastroenteritis and colitis, unspecified (principal); I11.0 Hypertensive heart disease with heart failure; I50.40 Unspecified combined systolic (congestive) and diastolic (congestive) heart failure; J44.9 Chronic obstructive pulmonary disease, unspecified; I25.5 Ischemic cardiomyopathy; E66.9 Obesity, unspecified; Z68.41 Body mass index [BMI] 40.0-44.9, adult; Z95.5 Presence of coronary angioplasty implant and graft; Z96.642 Presence of left artificial hip joint; Z96.653 Presence of artificial knee joint, bilateral; Z98.84 Bariatric surgery status; K43.9 Ventral hernia without obstruction or gangrene; K40.90 Unilateral inguinal hernia, without obstruction or gangrene, not specified as recurrent; R93.89 Abnormal findings on diagnostic imaging of other specified body structures
CPT/HCPCS: 36415; 74177; 80053; 83690; 85025; 96361; 96374; 96376; 99284; J2405; J7030; J7050; Q9967

== ENCOUNTER 2021-12-13 17:19 | Observation (INO) | payer MEDICARE, SELFPAY ==
--- NOTE | ~2021-12-13 | XR_ITS ---
EXAMINATION: XR chest 2V Exam Date/Time: 12/13/2021 18:40 CDT CLINICAL HISTORY: Hx of CHF, swelling, SOB Comparison: CT 12/10/2021. Xray chest 11/07/2020.. RESULT: Lines, tubes, and devices: None. Lungs and pleura: Prominent pulmonary vessels. Bilateral posterior costophrenic angle blunting. Left midlung scar. Cardiomediastinal silhouette: Marked cardiomegaly. Other: No acute osseous or upper abdominal finding. IMPRESSION: Cardiomegaly with pulmonary vascular congestion. Small bilateral effusions. Reviewed, dictated and finalized at location K.
--- NOTE | ~2021-12-13 | US_ITS ---
EXAMINATION: US renal BI DATE: 12/14/2021 13:20 INDICATION: Acute kidney injury. TECHNIQUE: Multiple ultrasound grayscale images of the kidneys were obtained. COMPARISON: CT abdomen and pelvis 12/10/2021 FINDINGS: The right kidney measures 11.5 x 4.4 x 4.5 cm. The left kidney measures 12.4 x 5.1 x 5.7 cm. The kidn eys demonstrate normal parenchymal echogenicity. There is no hydronephrosis. The bladder is decompres sed by a Garcia catheter. IMPRESSION: 1. Normal kidneys. No hydronephrosis. Reviewed, dictated and finalized at location A.
--- NOTE | 2021-12-13 17:33 | ED.GENADULT ---
HPI - General Adult General Chief complaint: Weakness <Gela Curry PA-C - Last Filed: 12/13/21 23:36> Stated complaint: decreased urination, dehydration <Gela Curry PA-C - Last Filed: 12/13/21 23:36> Time Seen by Provider: 12/13/21 17:30 <Gela Curry PA-C - Last Filed: 12/13/21 23:36> Source: patient <Gela Curry PA-C - Last Filed: 12/13/21 23:36> Mode of arrival: ambulatory <MICHAEL Swanson Last Filed: 12/13/21 23:36> Limitations: no limitations <MICHAEL Swanson Last Filed: 12/13/21 23:36> History of Present Illness HPI narrative: Patient is a 76 y/o female who presents to the ED with report of oliguria. Patient reports having nausea, vomiting, diarrhea over the weekend. She was seen in the ED on Saturday at which point she had an unremarkable laboratory evaluation and had a negative CT scan of her abdomen and pelvis. She was given 1 L fluid at that time due to the history of GI losses. Patient had a follow-up phone conversation with her PCP on Saturday at which point he ordered an outpatient UA which showed a urinary tract infection. Patient was started on Cipro and prescribed Zofran on Saturday. She has been taking Cipro as directed however does not think it is helping. She reports having decreased urine output over the past 2 days. She does have fatigue and a decreased appetite, but denies any further vomiting or diarrhea. Last bowel movement on Saturday. Patient does have a history of congestive heart failure. She reports she did not take her diuretic medication (lasix) on Saturday or Saturday, but did take it today. Does report chronic BLE edema. No fever, chills, current abdominal pain, dysuria, hematuria, back/flank pain, chest pain, shortness of breath. Patient also has Hx of CAD with 2 stents 5 yrs ago. She takes ASA/Plavix. <MICHAEL Swanson Last Filed: 12/13/21 23:36> Related Data Home medications: Home Medications Medication Instructions Recorded Confirmed Entresto 1 tablet PO BID 03/06/21 03/06/21 aspirin 81 mg PO DAILY 11/05/20 11/05/20 atorvastatin 40 mg PO DAILY 11/05/20 11/05/20 carvedilol 12.5 mg PO BID 11/05/20 11/05/20 clopidogrel 75 mg PO DAILY 11/05/20 11/05/20 famotidine 20 mg PO DAILY 11/05/20 11/05/20 furosemide 60 mg PO BID 11/05/20 11/05/20 spironolactone 12.5 mg PO DAILY 11/05/20 11/05/20 <Gela Curry PA-C - Last Filed: 12/13/21 23:36> Allergies/adverse reactions: Allergies Allergy/AdvReac Type Severity Reaction Status Date / Time Penicillins Allergy Unknown Rash Verified 12/10/21 20:11 <Gela Curry PA-C - Last Filed: 12/13/21 23:36> Review of Systems Review of Systems: CONSTITUTIONAL: Reports fatigue, decreased appetite. Denies fever, chills. CARDIOVASCULAR: Reports chronic BLE edema. Denies chest pain. RESPIRATORY: Denies dyspnea. GASTROINTESTINAL: Reports nausea, constipation. Denies abdominal pain, vomiting, or diarrhea. GENITOURINARY: Reports oliguria. Denies dysuria or hematuria. MUSCULOSKELETAL: Denies back/flank pain. NEUROLOGIC: Denies headache, numbness, or weakness. <Gela Curry PA-C - Last Filed: 12/13/21 23:36> All systems reviewed & are unremarkable except as noted in HPI and below <Gela Curry PA-C - Last Filed: 12/13/21 23:36> [facility] Past Medical History Medical History: Medical History CHF (congestive heart failure) echocardiogram April 2017 demonstrated EF of 40% with apical and apical anterior thinning, mid anterior hypokinesis, dyskinetic apical and apical anterior segments, echo from 12/2016 demonstrated grade 1 diastolic dysfunction Combined systolic and diastolic congestive heart failure COPD (chronic obstructive pulmonary disease) PFTs July 2019 demonstrated moderate obstructive lung disease without bronchodilator response and moderately decreased diffusion capacity Hypertension Ischemic cardiomyopathy O
[2021-12-13 17:41] VITALS: BP 114/56; PULSE 63; RESP 20; TEMP 36.9; O2SAT 94
--- NOTE | 2021-12-13 18:16 | PC.NURSE ---
Third RN called to attempt IV access.
--- NOTE | 2021-12-13 18:39 | PC.NURSE ---
Pt to xray via stretcher
[2021-12-13 18:59] LABS: Appearance Urine Clear (Clear); Bilirubin Urine 1+ (Negative); Blood Urine Negative (Negative); Color Urine Yellow (Yellow); Glucose Urine UA Negative (Negative); Ketones Urine Negative (Negative); Leukocyte Esterase Ur Negative LEU/UL (Negative); Nitrate Urine Negative (Negative); Protein Urine Trace mg/dL (Negative); Specific Grav Ur 1.025 (1.001-1.035); Urobilinogen Urine 0.2 mg/dL (<2.0)
[2021-12-13 19:16] LABS: Basophils Percent Auto 0.5 % (0.2-1.2); Eosinophils Absolute Auto 0.4 K/mm3 (0-0.3); Eosinophils Percent Auto 5.1 % (0-4.4); Hematocrit 38.1 % (37.0-47.0); Hemoglobin 12.4 g/dL (12.0-15.0); Immature Granulocyte Absolute 0.03 K/mm3 (0.00-0.031); Immature Granulocyte Percent A 0.4 % (0-0.5); Lymphocytes Absolute Auto 1.79 K/mm3 (0.9-3.2); Lymphocytes Percent Auto 20.9 % (18.3-44.2); Mean Corpuscular HGB Conc 32.5 g/dl (32-36); Mean Corpuscular Hemoglobin 30.8 pg (26-34); Mean Corpuscular Volume 94.5 fl (80-100); Mean Platelet Volume 9.6 fl (7.4-10.4); Monocytes Absolute Auto 0.7 K/mm3 (0.1-0.6); Monocytes Percent Auto 8.3 % (2.6-8.5); Neutrophils Absolute Auto 5.6 K/mm3 (1.3-6.7); Neutrophils Percent Auto 64.8 % (45.5-73.1); Platelet Count Result 245 k/mm3 (150-375); Red Blood Count 4.03 M/mm3 (4.2-5.4); Red Cell Distribution Width 15.1 % (11.5-14.5); White Blood Count 8.6 K/mm3 (4.5-10.0)
[2021-12-13 19:21] LABS: Hyaline Casts Urine 30-49 /lpf; Mucus Urine Rare /lpf; RBC Urine 0-2 /hpf (0-2); Squamous Epithelial Cell Urine Rare /hpf (Few); WBC Urine 0-3 /hpf
[2021-12-13 19:25] LABS: Add Urine Microscopic? YES
[2021-12-13 19:27] LABS: Alanine Aminotransferase 13 U/L (4-35); Albumin Level 3.5 g/dL (3.5-5.1); Alkaline Phosphatase 52 U/L (38-126); Anion Gap 6 mmol/L (8-16); Aspartate Amino Transferase 36 U/L (14-36); Bilirubin,Total 0.4 mg/dL (0.2-1.3); Blood Urea Nitrogen 40 mg/dL (7-17); Carbon Dioxide 28 mmol/L (22-30); Chloride 101 mmol/L (98-107); Estimated Glomerular Filt Rate 22; Glucose 86 mg/dL (65-110); Lipase 149 U/L (23-300); Potassium 3.4 mmol/L (3.4-5.0); Sodium 135 mmol/L (137-145)
--- NOTE | 2021-12-13 19:34 | ECG_ITS ---
Measurements Intervals Lamar Rate: 63 P: 94 NV: 206 QRS: -60 QRSD: 121 T: 37 QT: 453 QTc: 466 Interpretive Statements SINUS RHYTHM LEFT ANTERIOR FASCICULAR BLOCK [QRS AXIS <= -45, QR IN I, RS IN II] ANTEROSEPTAL ST ELEVATION, CONSIDER RECENT INFARCTION VERSUS ANEURYSM ANTEROLATERAL INFARCTION, OLD ABNORMAL ECG COMPARED TO ECG 11/05/2020 14:45:16 NO SIGNIFICANT CHANGES Electronically Signed On 12-14-2021 16:43:56 CDT by Deny Haddad M.D.
[2021-12-13 19:42] LABS: NT Pro B Type Natriuretic Pept 11400 pg/mL (5-100)
[2021-12-13] MEDS: ENOXAPARIN 120 MG/0.8 ML SYRINGE 115 MG SUB-Q (20:44)
[2021-12-13] MEDS: FUROSEMIDE INJ 100 MG/10 ML VIAL 60 MG IV PUSH (21:26)
--- NOTE | 2021-12-13 21:35 | PM.IMHP ---
H&P: HPI History of Present Illness Date/Time: 12/13/21 21:35 Chief Complaint: Decreased urine output Narrative: This is a 76-year-old female with past medical history significant for dyslipidemia, COPD, morbid obesity, diastolic and systolic heart failure, cardiomyopathy. Patient presents to the emergency room for the 2nd time after she was evaluated over the weekend for nausea vomiting abdominal pain and diarrhea with a CT of abdomen and pelvis which showed no acute intra-abdominal abnormalities a urinalysis was clean at that time however according to medical records patient had been seen and evaluated at primary care physician's office where a urinalysis was abnormal and patient was prescribed ciprofloxacin and sent home. Patient returns today to the emergency room due to being unable to make urine. Patient denies any fevers, rigors, chills, she has not been eating or drinking well, no chest pain, no PND, no orthopnea, no shortness of breath, no cough, no sputum production, no syncope ,no near-syncope, no lightheadedness or dizziness, no palpitations. Preliminary workup was significant for a brain natriuretic peptide 11,400, creatinine of 2.2 BUN 40 troponin was 1.160 patient has been admitted for the evaluation, management and treatment. Review of Systems Review of Systems: Unable to make urine, nausea vomiting and diarrhea that has subsided now. Constitutional: Constitutional: Denies chills, Denies fatigue, Denies fever(s), Denies lethargy, Denies malaise, Denies night sweats, Denies poor appetite and Denies weakness Eyes: Eyes: Denies change in vision ENT: Denies dysphagia, Denies vertigo, Denies nasal congestion, Denies nasal discharge, Denies nasal obstruction and Denies odynophagia Cardiovascular: Cardiovascular: Denies chest pain, Denies rapid heart rate, Denies pedal edema, Denies claudication, Denies leg edema, Denies lightheadedness, Denies radiating jaw, neck or arm pain, Denies palpitations, Denies dyspnea on exertion, Denies orthopnea and Denies paroxysmal nocturnal dyspnea Respiratory: Respiratory: Denies cough and Denies excessive phlegm production Gastrointestinal: Gastrointestinal: Denies dyspepsia, Denies heartburn, Reports diarrhea, Reports nausea and Reports vomiting Genitourinary: Comments: Decreased urine output Musculoskeletal: Musculoskeletal: Denies arthralgias and Denies joint swelling Integumentary/Breasts: Skin/Breast: Denies rash Neurologic: Denies focal weakness and Denies Sensory deficit (Neuro) Psychiatric: Psychiatric: Reports no additional psychiatric complaints and Reports as per HPI Endocrine: Endocrine: Denies cold intolerance, Denies heat intolerance, Denies polydipsia and Denies palpitations Hematologic/Lymphatic: Hematologic/Lymphatic: Reports no additional hematologic/lymphatic complaints and Reports as per HPI Allergic/Immunologic: Allergic/Immunologic: Reports no additional allergic/immunologic complaints and Reports as per HPI [facility] Past Medical History Medical History (Updated 12/14/21 @ 03:46 by Elijah Bob MD) CHF (congestive heart failure) echocardiogram April 2017 demonstrated EF of 40% with apical and apical anterior thinning, mid anterior hypokinesis, dyskinetic apical and apical anterior segments, echo from 12/2016 demonstrated grade 1 diastolic dysfunction Combined systolic and diastolic congestive heart failure COPD (chronic obstructive pulmonary disease) PFTs July 2019 demonstrated moderate obstructive lung disease without bronchodilator response and moderately decreased diffusion capacity Hypertension Ischemic cardiomyopathy Obesity Surgical History Surgical History History of heart artery stent patient had anterior lateral STEMI december 2016 with 2 stents to the mid LAD History of left hip replacement 10/2017 History of total bilateral knee replacement 2002 with subsequent ORIF of periprosthetic fracture o
--- NOTE | 2021-12-13 22:17 | PC.NURSE ---
unable to perform blood draw, due to patient's vascular status. Lab contacted for lab draw. Lab aware and will draw 3 hr trop.
[2021-12-13 22:48] LABS: SARS-CoV-2 RNA PCR Negative
[2021-12-13 23:51] VITALS: BP 92/66; PULSE 66; RESP 18; O2SAT 96
[2021-12-14] VITALS (13 sets, daily range): BP systolic 117–153; BP diastolic 46–88; PULSE 62–82; RESP 16–20; TEMP 36.3–36.6; O2SAT 94–100; BMI 47.7
--- NOTE | 2021-12-14 | ECHO_ITS ---
Patient Info Name: Alyssa Hanson Age: 76 years : 1945 Gender: Female Ht: 65 in Wt: 286 lbs BSA: 2.51 m2 HR: 68 bpm BP: 120 / 46 mmHg Heart Rhythm: Sinus Rhythm Technical Quality: Poor Exam Date: 12/14/2021 12:00 PM Exam Location: [facility] Patient Status: Outpatient Admit Date: 12/13/2021 Staff Ordering Physician: Elijah Bob MD Buffer Inflated Pad: Kerry Fu RDCS Attending Provider: Elijah Bob MD Referring Physician: Paulino DOUGLASS; Exam Type: CA echo dop color flow w con Study Info Indications I50.9 - Heart failure, unspecified Complete two-dimensional, color flow and Doppler transthoracic echocardiogram is performed with contrast to opacify the left ventricle and to improve the deliniation of the left ventricle endocardial borders. Contrast/Agitated Saline Contrast/Ag. Saline: Definity Amount: 7.00 ml Administered By: Kerry Fu RDCS Existing IV Access: Yes IV Access Condition: patent with no signs of infiltration Reason for Poor Study: patient body habitus Summary 1. Left ventricular chamber dimension is mildly enlarged. 2. Left ventricular systolic function is moderately reduced, estimated at 40-45%. 3. There is mildly increased left ventricular wall thickness. 4. The left ventricular diastolic function is grade I diastolic dysfunction. 5. The inferior wall is hypokinetic. 6. The basal inferolateral wall, and mid inferolateral wall are not visualized. 7. Left atrial chamber dimension is moderately enlarged. 8. Right atrial chamber dimension is mildly enlarged. 9. There is mild mitral valve regurgitation. 10. There is mild tricuspid valve regurgitation. 11. Moderate pulmonary hypertension, estimated pulmonary arterial systolic pressure is 56 mmHg. 12. Technically difficult study. Cannot exclude other wall motion abnormality. Left Ventricle Left ventricular chamber dimension is mildly enlarged. Left ventricular systolic function is moderately reduced, estimated at 40-45%. There is mildly increased left ventricular wall thickness. The left ventricular diastolic function is grade I diastolic dysfunction. The apical septum, apical lateral wall, and apical cap are akinetic. The inferior wall is hypokinetic. The basal inferolateral wall, and mid inferolateral wall are not visualized. All other miranda appear normal. Right Ventricle Right ventricular chamber dimension is normal. Right ventricular systolic function is normal. Left Atria Left atrial chamber dimension is moderately enlarged. Right Atria Right atrial chamber dimension is mildly enlarged. Atrial Septum Intact interatrial septum visualized by color flow imaging. Aortic Valve The aortic valve is trileaflet. There is mild aortic valve sclerosis. There is no aortic valve stenosis. There is trace aortic valve regurgitation. Pulmonic Valve The pulmonic valve is normal. There is no pulmonic valve stenosis. There is trace pulmonic regurgitation. Mitral Valve The mitral valve has calcified annulus. There is no mitral valve stenosis. There is mild mitral valve regurgitation. Tricuspid Valve The tricuspid valve leaflets are normal. There is no significant tricuspid valve stenosis. There is mild tricuspid valve regurgitation. Moderate pulmonary hypertension, estimated pulmonary arterial systolic pressure is 56 mmHg. Pericardium/Pleural The pericardium appears normal.
--- NOTE | 2021-12-14 00:43 | ADMGEN ---
This patient, Alyssa Hanson, was admitted to IMU Room 207-01. Patient/family oriented to hospital policies and general routines including ID bracelet, bed and alarms, visiting hours, pain management, procedures, bathroom and other care routines, personal items, smoking policy, room service/diet, and visiting hours. Information on how to activate the Rapid Response Team has been discussed. Patient/Family are encouraged to report perceived risks to care and to ask questions if they do not understand what they are told or what they should do.
[2021-12-14 05:37] LABS: Troponin I 0.931 ng/mL (0.000-0.034)
[2021-12-14 07:46] LABS: Troponin I 0.918 ng/mL (0.000-0.034)
[2021-12-14] MEDS: carvediloL 12.5 MG TABLET PO ×2 (08:51→21:05)
[2021-12-14] MEDS: FAMOTIDINE 20 MG TABLET PO (08:51)
[2021-12-14] MEDS: ASPIRIN 81 MG ENTERIC TABLET PO (08:52)
[2021-12-14] MEDS: CLOPIDOGREL BISULFATE 75 MG TABLET PO (08:52)
[2021-12-14] MEDS: ATORVASTATIN 40 MG TABLET PO (08:52)
[2021-12-14 10:46] LABS: Basophils Absolute Auto 0.1 K/mm3 (0.0-0.1); Basophils Percent Auto 0.8 % (0.2-1.2); Eosinophils Absolute Auto 0.4 K/mm3 (0-0.3); Eosinophils Percent Auto 5.8 % (0-4.4); Hematocrit 36.4 % (37.0-47.0); Hemoglobin 11.9 g/dL (12.0-15.0); Immature Granulocyte Absolute 0.02 K/mm3 (0.00-0.031); Immature Granulocyte Percent A 0.3 % (0-0.5); Lymphocytes Absolute Auto 1.45 K/mm3 (0.9-3.2); Mean Corpuscular HGB Conc 32.7 g/dl (32-36); Mean Corpuscular Hemoglobin 30.8 pg (26-34); Mean Corpuscular Volume 94.3 fl (80-100); Monocytes Absolute Auto 0.7 K/mm3 (0.1-0.6); Monocytes Percent Auto 9.4 % (2.6-8.5); Neutrophils Percent Auto 64.7 % (45.5-73.1); Platelet Count Result 245 k/mm3 (150-375); Red Blood Count 3.86 M/mm3 (4.2-5.4); Red Cell Distribution Width 14.8 % (11.5-14.5); White Blood Count 7.7 K/mm3 (4.5-10.0)
[2021-12-14 10:47] LABS: Alanine Aminotransferase 12 U/L (4-35); Albumin Level 3.2 g/dL (3.5-5.1); Alkaline Phosphatase 49 U/L (38-126); Anion Gap 8 mmol/L (8-16); Aspartate Amino Transferase 46 U/L (14-36); Bilirubin,Total 0.6 mg/dL (0.2-1.3); Blood Urea Nitrogen 35 mg/dL (7-17); Calcium 7.9 mg/dL (8.4-10.2); Carbon Dioxide 27 mmol/L (22-30); Chloride 102 mmol/L (98-107); Estimated CRCL calculation 38 ml/min; Estimated Glomerular Filt Rate 34; Glucose 86 mg/dL (65-110); Magnesium 2.2 mg/dL (1.6-2.3); Potassium 3.3 mmol/L (3.4-5.0); Sodium 137 mmol/L (137-145)
[2021-12-14] MEDS: POTASSIUM CHLORIDE 20 MEQ TABLET 40 MEQ PO ×2 (11:51→14:22)
[2021-12-14] MEDS: PERFLUTREN LIPID MICROSPHERES 1.5 ML VIAL DILUTED TO 10 ML TOTAL VOLUME IV PUSH (12:36)
--- NOTE | 2021-12-14 14:22 | PM.IMPN ---
Progress Note: A&P Additional Plan 76-year-old female with past medical history significant for dyslipidemia, COPD, morbid obesity, diastolic and systolic heart failure, cardiomyopathy presented with c/o low urine output. Preliminary workup was significant for a brain natriuretic peptide 11,400, creatinine of 2.2 BUN 40 troponin was 1.160 patient was admitted for the evaluation, management and treatment. (1) Oliguria+ELANA: Likely secondary to nausea, vomiting and diarrhea. Patient was also taking diuretics at home Urine output has improved D/C IV fluids Renal USG unremarkable for any acute issues c/w mancera catheter Improving kidney function Will hold lasix, entresto, Aldactone for atleast another day Recheck BMP in AM Avoid nephrotoxins Supplement potassium (2) Elevated troponin: Seems to have flattened No chest pain Await echo Unlikely to be acute cardiac/ischemic etiology Await Cardiology input c/w ASA Plavix, Stain, Coreg (3) Combined systolic and diastolic congestive heart failure: Seems to be stable at moment No resp Distress Holding lasix as mentioned above 4)DVT ppx:Hep SQ 5)Code:Full 6)Dispo:pending improvement Time Spent With Patient Time with patient: 15 - 25 minutes Subjective Date/time seen: 12/14/21 14:22 Feels hungry, really wants to eat. Says hasn't eaten for past 1 week Review of Systems Constitutional: Constitutional: Reports fatigue and Reports weakness Eyes: Eyes: Reports no additional eye complaints ENT: Reports system reviewed and no additional complaints, except as documented Cardiovascular: Cardiovascular: Reports leg edema Respiratory: Respiratory: Reports chest congestion Gastrointestinal: Gastrointestinal: Reports no additional gastrointestinal complaints Neurologic: Reports system reviewed and no additional complaints, except as documented Exam Const: General: no acute distress HENMT: Mouth: Yes moist mucous membranes Eyes: Pupils: Equal, round and reactive pupils present Neck: Neck: supple Resp: Other: decreased breath sounds B/L Cardio: Rate: regular rate Rhythm: regular rhythm GI: GI Palp: Yes Soft to palpation Auscultation: normal bowel sounds Skin: General skin exam: normal color Neuro: Cognition (Neuro): normal cognition Speech: normal speech Extrem: General: pedal edema Psych: Mental Status: mental status grossly normal Objective Data Vital Signs Vital Signs: Vital Signs - 24 hr 12/13/21 17:41 12/13/21 23:51 12/14/21 00:40 Temperature 98.5 F 97.8 F Pulse Rate 63 66 68 Respiratory Rate 20 18 18 Blood Pressure 114/56 L 92/66 L 117/76 Pulse Oximetry 94 96 95 12/14/21 02:00 12/14/21 04:00 12/14/21 06:00 Temperature 97.5 F L Pulse Rate 74 79 72 Respiratory Rate 18 Blood Pressure 120/46 L Pulse Oximetry 95 12/14/21 08:00 12/14/21 08:51 12/14/21 10:00 Temperature 97.7 F Pulse Rate 62 64 73 Respiratory Rate 16 Blood Pressure 146/65 H Pulse Oximetry 95 12/14/21 12:00 Temperature 97.9 F Pulse Rate 64 Respiratory Rate 18 Blood Pressure 151/55 H Pulse Oximetry 95 Intake/Output Intake/Output: Intake & Output 12/11/21 12/12/21 12/13/21 12/14/21 23:59 23:59 23:59 23:59 Intake Total 510 Output Total 1950 Balance -1440 Meds/Results Medications: Active Medications Generic Name Dose Route Start Last Admin Trade Name Shiv PRN Reason Stop Dose Admin Acetaminophen 650 mg 12/14/21 03:08 Acetaminophen 325 Mg Tablet PO Q8H PRN Pain Rated 1-3 Aspirin 81 mg 12/14/21 09:00 12/14/21 08:52 Aspirin 81 Mg Enteric Tablet PO 81 mg QAM UBALDO Administration Atorvastatin Calcium 40 mg 12/14/21 09:00 12/14/21 08:52 Atorvastatin 40 Mg Tablet PO 40 mg DAILY UBALDO Administration Carvedilol 12.5 mg 12/14/21 09:00 12/14/21 08:51 Carvedilol 12.5 Mg Tablet PO 12.5 mg Q12HR UBALDO Administration Clopidogrel Bisulfate 75 mg 12/14/21 09:00 12/14/21 08:5
--- NOTE | 2021-12-14 14:45 | PM.CNCAR ---
Assessment and Plan Assessment and plan (1) Acute kidney injury: Code(s): N17.9 - Acute kidney failure, unspecified Status: Acute Assessment and Plan: Likely from dehydration. Temporarily hold spironolactone and Entresto. These do need to be resumed before discharge once renal function improves. (2) Elevated troponin: Code(s): R77.8 - Other specified abnormalities of plasma proteins Status: Acute Assessment and Plan: Uncertain if this represents an acute coronary syndrome or not at this point. Troponins are trending down. May be related to heart failure and renal failure (3) Congestive heart failure: Qualifiers: Heart failure chronicity: acute on chronic Heart failure type: combined systolic and diastolic Qualified Code(s): I50.43 - Acute on chronic combined systolic (congestive) and diastolic (congestive) heart failure Code(s): I50.9 - Heart failure, unspecified Status: Acute Assessment and Plan: Chronic combined systolic and diastolic heart failure. I do not think that she is in acute exacerbation. I think to her renal function has diminished and cause some degree of volume overload. Echocardiogram is ordered and pending. Continue aspirin, statin, carvedilol, clopidogrel. Resume Entresto and spironolactone when renal function stabilizes. (4) COPD (chronic obstructive pulmonary disease): Code(s): J44.9 - Chronic obstructive pulmonary disease, unspecified Status: Acute (5) Ischemic cardiomyopathy: Code(s): I25.5 - Ischemic cardiomyopathy Status: Acute Assessment and Plan: EF 45-50% previously. History of Present Illness History of Present Illness Consult date/time: 12/14/21 14:45 Requesting physician: Elijah Bob MD Consult reason: congestive heart failure Reason For Visit: CHF exacerbation, elevated troponin, ELANA Narrative: Date of service 12/14/2021 Reason consultation: CHF Requesting provider: Dr. Bob History patient is 68-year-old female patient of Dr. Calvert who has a history of coronary disease and aortic stenosis. She was seen in December of 2016 at [facility] and had an acute anterior wall myocardial infarction. She had PCI to her LAD at that point. This was difficult procedure because of tortuosity. She did receive 2 drug-eluting stents. Ejection fraction was initially very low but did recover to 40-50% range with akinesis in the mid apical anterior wall. Valve area calculated 1.3 centimeter squared. She recently saw Dr. Calvert because of concerns of shortness of breath. Patient started feel poorly last Saturday. She has had some nausea and vomiting. She was diagnosed with ?food poisoning?. She followed up at Dr. Multani is office because of the recent food poisoning incident. Lab work was performed though which was still abnormal and she was started on Cipro as well as Zofran. She felt progressively more weak. She wanted to sleep all the time. Her urinary output declined dramatically. She was short of breath doing simple things such as walking around the house. She has some swelling legs which is not new or different as well as some paroxysmal nocturnal dyspnea which is also not new or different. She denies any chest pain or syncope. Because of the weakness, decreased urinary output and shortness of breath though she decided come the hospital for further workup and evaluation. She is found to be in acute renal failure with a creatinine over 2. BNP was elevated which is triggered a cardiology consultation for heart failure. She also had an elevated troponin Review of Systems Review of Systems: All systems reviewed & are unremarkable except as noted in HPI and below Constitutional: Constitutional: Reports weakness Eyes: Eyes: Denies blurry vision ENT: Reports Normal hearing present Cardiovascular: Cardiovascular: Denies chest pain, Reports pedal edema and Reports leg edema Respira
--- NOTE | 2021-12-14 16:14 | PC.NURSE ---
This patient, Alyssa Hanson, was transferred to [[id number]] on 12/14/21 at 1542. Personal belongings sent with patient. Report given to [ CLEOPATRA Rojo @ [id number]]. Appropriate documentation sent with patient.
--- NOTE | 2021-12-14 16:49 | PC.NURSE ---
This patient, Alyssa Hanson, was received from [[id number]] on 12/14/21 at 1550. Patient/family oriented to unit policies and routines. Report received from CLEOPATRA Saucedo
[2021-12-14] MEDS: HEPARIN SODIUM 5,000 UNITS/ML VIAL 5000 UNITS SUB-Q (21:05)
[2021-12-15] VITALS: PULSE 69
[2021-12-15 04:00] VITALS: PULSE 62
[2021-12-15 06:00] VITALS: BP 149/62; PULSE 71; RESP 20; TEMP 36.2; O2SAT 91
[2021-12-15 06:15] LABS: Basophils Absolute Auto 0.1 K/mm3 (0.0-0.1); Basophils Percent Auto 0.8 % (0.2-1.2); Eosinophils Absolute Auto 0.4 K/mm3 (0-0.3); Eosinophils Percent Auto 6.2 % (0-4.4); Hematocrit 38.4 % (37.0-47.0); Hemoglobin 12.4 g/dL (12.0-15.0); Immature Granulocyte Absolute 0.02 K/mm3 (0.00-0.031); Immature Granulocyte Percent A 0.3 % (0-0.5); Lymphocytes Absolute Auto 1.13 K/mm3 (0.9-3.2); Lymphocytes Percent Auto 17.4 % (18.3-44.2); Mean Corpuscular HGB Conc 32.3 g/dl (32-36); Mean Corpuscular Hemoglobin 30.9 pg (26-34); Mean Corpuscular Volume 95.8 fl (80-100); Mean Platelet Volume 9.4 fl (7.4-10.4); Monocytes Absolute Auto 0.6 K/mm3 (0.1-0.6); Monocytes Percent Auto 9.8 % (2.6-8.5); Neutrophils Absolute Auto 4.3 K/mm3 (1.3-6.7); Neutrophils Percent Auto 65.5 % (45.5-73.1); Platelet Count Result 221 k/mm3 (150-375); Red Blood Count 4.01 M/mm3 (4.2-5.4); Red Cell Distribution Width 14.4 % (11.5-14.5); White Blood Count 6.5 K/mm3 (4.5-10.0)
[2021-12-15 06:19] LABS: Anion Gap 6 mmol/L (8-16); Blood Urea Nitrogen 26 mg/dL (7-17); Calcium 8.3 mg/dL (8.4-10.2); Carbon Dioxide 27 mmol/L (22-30); Chloride 104 mmol/L (98-107); Estimated CRCL calculation 62 ml/min; Estimated Glomerular Filt Rate > 60; Glucose 97 mg/dL (65-110); Magnesium 2.4 mg/dL (1.6-2.3); Potassium 3.7 mmol/L (3.4-5.0); Sodium 137 mmol/L (137-145)
[2021-12-15 08:00] VITALS: PULSE 59
[2021-12-15 08:22] VITALS: PULSE 70
[2021-12-15] MEDS: carvediloL 12.5 MG TABLET PO (08:22)
[2021-12-15] MEDS: FAMOTIDINE 20 MG TABLET PO (08:22)
[2021-12-15] MEDS: ATORVASTATIN 40 MG TABLET PO (08:22)
[2021-12-15] MEDS: ASPIRIN 81 MG ENTERIC TABLET PO (08:22)
[2021-12-15] MEDS: HEPARIN SODIUM 5,000 UNITS/ML VIAL 5000 UNITS SUB-Q (08:23)
[2021-12-15] MEDS: CLOPIDOGREL BISULFATE 75 MG TABLET PO (08:23)
--- NOTE | 2021-12-15 09:06 | PM.PNCARD ---
Progress Note: A&P Assessment and Plan (1) Acute kidney injury: Code(s): N17.9 - Acute kidney failure, unspecified Status: Acute Assessment and Plan: Likely from dehydration. Creatinine has normalized today, 0.90. Resume Entresto and Spironolactone (2) Elevated troponin: Code(s): R77.8 - Other specified abnormalities of plasma proteins Status: Acute Assessment and Plan: Uncertain if this represents an acute coronary syndrome or not at this point. Troponins are trending down. May be related to heart failure and renal failure (3) Congestive heart failure: Qualifiers: Heart failure chronicity: acute on chronic Heart failure type: combined systolic and diastolic Qualified Code(s): I50.43 - Acute on chronic combined systolic (congestive) and diastolic (congestive) heart failure Code(s): I50.9 - Heart failure, unspecified Status: Acute Assessment and Plan: Chronic combined systolic and diastolic heart failure. Echocardiogram showed moderate LV systolic dysfunction, EF 40-45%. She also has grade 1 diastolic dysfunction. Hypokinesis of the inferior wall. Moderate pulmonary hypertension, estimated PASP 56 mmHg. No significant valvular abnormalities Feels better today Continue aspirin, statin, carvedilol, clopidogrel. Resume Entresto and spironolactone OK for discharge home today from a cardiac perspective (4) COPD (chronic obstructive pulmonary disease): Code(s): J44.9 - Chronic obstructive pulmonary disease, unspecified Status: Acute (5) Ischemic cardiomyopathy: Code(s): I25.5 - Ischemic cardiomyopathy Status: Acute Assessment and Plan: EF unchanged from previous echo Subjective Date/time seen: 12/15/21 09:06 Cardiology follow up for CHF She feels better today. Wants to go home. Denies shortness of breath, chest pain, palpitations. She does have some very mild swelling but tells me this is no worse or different than usual for her. Review of Systems Review of Systems: All systems reviewed & are unremarkable except as noted in HPI and below Constitutional: Constitutional: Denies fatigue, Denies headache(s) and Reports weakness Eyes: Eyes: Denies blurry vision ENT: Reports Normal hearing present, Denies headache(s) and Denies neck pain Cardiovascular: Cardiovascular: Denies chest pain, Reports pedal edema, Reports leg edema and Reports dyspnea Respiratory: Respiratory: Reports dyspnea Gastrointestinal: Gastrointestinal: Denies abdominal pain, Reports nausea and Reports vomiting Genitourinary: Genitourinary: Denies flank pain Musculoskeletal: Musculoskeletal: Denies neck pain Integumentary/Breasts: Skin/Breast: Denies dry skin Neurologic: Reports Normal hearing present, Denies headache(s) and Reports weakness Psychiatric: Psychiatric: Denies anxiety Endocrine: Endocrine: Denies fatigue Hematologic/Lymphatic: Hematologic/Lymphatic: Denies easy bleeding Allergic/Immunologic: Allergic/Immunologic: Denies GI upset with certain foods Exam Narrative: Patient awake alert oriented. Appears stated age Const: General: comfortable and no acute distress HENMT: General nose exam: Normal nares present Eyes: Sclera: sclerae normal Neck: Neck: supple and no JVD Resp: Auscultation: clear to auscultation bilaterally Cardio: Rate: regular rate Rhythm: regular rhythm Heart sounds: no murmurs GI: Auscultation: normal bowel sounds Skin: General skin exam: normal color Neuro: Cranial nerves: Yes Normal hearing present Cognition (Neuro): normal cognition Speech: normal speech Extrem: General: pedal edema (trace) Psych: Mental Status: mental status grossly normal Objective Data Vital Signs Vital Signs: Vital Signs - 24 hr 12/14/21 10:00 12/14/21 12:00 12/14/21 14:00 Temperature 36.6 C Pulse Rate 73 64 62 Respiratory Rate 18 Blood Pressure 151/55 H Pulse Oximetry 95 04/
--- NOTE | 2021-12-15 09:07 | PM.IMPN ---
Progress Note: A&P Additional Plan (1) Oliguria+ELANA: resolved creatinine now down to 0.9 from 1.5 was likely secondary to nausea, vomiting and diarrhea. Patient was also taking diuretics at home Urine output has improved Renal USG unremarkable for any acute issues trial of void passed after mancera catheter was removed today. improved kidney function continue lasix, entresto, Aldactone at home. Avoid nephrotoxins Supplement potassium (2) Elevated troponin: Seems to have flattened No chest pain Await echo Unlikely to be acute cardiac/ischemic etiology she was evaluated/ co managed by cardiology and they have signed off per RN. c/w ASA Plavix, Stain, Coreg (3) Combined systolic and diastolic congestive heart failure: Seems to be stable at moment No resp Distress been holding lasix due to ELANA, can continue at home. 4)DVT ppx:Hep SQ 5)Code:Full 6)Dispo:DC home today to follow up with PCP in 3-5 days and [employer] in 1 week. Time Spent With Patient Time with patient: 15 - 25 minutes Subjective Date/time seen: 12/15/21 09:07 Patient seen lying comfortably in bed, she endorsed feeling well and stated that she really wants to be discharged home. Review of Systems Review of Systems: All systems reviewed & are unremarkable except as noted in HPI and below Exam Const: General: cooperative, comfortable and no acute distress Resp: Effort & Inspection: normal respiratory effort and able to speak in complete sentences Auscultation: clear to auscultation bilaterally Cardio: Rate: regular rate Heart sounds: S1 normal heart sound present and S2 normal heart sound present GI: Inspection: obesity GI Palp: No abdominal tenderness and Yes Soft to palpation Auscultation: normal bowel sounds Extrem: General: pedal edema Objective Data Vital Signs Vital Signs: Vital Signs - 24 hr 12/14/21 10:00 12/14/21 12:00 12/14/21 14:00 Temperature 97.9 F Pulse Rate 73 64 62 Respiratory Rate 18 Blood Pressure 151/55 H Pulse Oximetry 95 12/14/21 16:00 12/14/21 16:51 12/14/21 20:00 Temperature 97.4 F L Pulse Rate 62 62 71 Respiratory Rate 20 Blood Pressure 133/88 Pulse Oximetry 94 95 12/14/21 21:59 12/15/21 00:00 04/15/22 04:00 Temperature 98 F Pulse Rate 65 69 62 Respiratory Rate 16 Blood Pressure 153/79 H Pulse Oximetry 95 12/15/21 06:00 12/15/21 08:22 Temperature 97.2 F L Pulse Rate 71 70 Respiratory Rate 20 Blood Pressure 149/62 H Pulse Oximetry 91 Intake/Output Intake/Output: Intake & Output 12/12/21 12/13/21 12/14/21 12/15/21 23:59 23:59 23:59 23:59 Intake Total 640 200 Output Total 2050 600 Balance -1410 -400 Meds/Results Medications: Active Medications Generic Name Dose Route Start Last Admin Trade Name Freq PRN Reason Stop Dose Admin Acetaminophen 650 mg 12/14/21 03:08 Acetaminophen 325 Mg Tablet PO Q8H PRN Pain Rated 1-3 Aspirin 81 mg 12/14/21 09:00 12/15/21 08:22 Aspirin 81 Mg Enteric Tablet PO 81 mg QAM UBALDO Administration Atorvastatin Calcium 40 mg 12/14/21 09:00 12/15/21 08:22 Atorvastatin 40 Mg Tablet PO 40 mg DAILY UBALDO Administration Carvedilol 12.5 mg 12/14/21 09:00 12/15/21 08:22 Carvedilol 12.5 Mg Tablet PO 12.5 mg Q12HR UBALDO Administration Clopidogrel Bisulfate 75 mg 12/14/21 09:00 12/15/21 08:23 Clopidogrel Bisulfate 75 Mg Tablet PO 75 mg DAILY UBALDO Administration Famotidine 20 mg 12/14/21 09:00 12/15/21 08:22 Famotidine 20 Mg Tablet PO 20 mg DAILY UBALDO Administration Heparin Sodium (Porcine) 5,000 units 12/14/21 21:00 12/15/21 08:23 Heparin Sodium 5,000 Units/Ml Vial SUB-Q 5,000 units Q12HR UBALDO Administration Radiology Results: ITS Impressions Chest X-Ray 12/13/21 18:49 IMPRESSION: Cardiomegaly with pulmonary vascular congestion. Small bilateral effusions. Renal Ultrasound 12/14/21 13:23 IMPRESSION: 1. Normal kidneys. No hyd
[2021-12-15 12:00] VITALS: PULSE 66
--- NOTE | 2021-12-15 12:23 | PC.NURSE ---
provider Matthew wanted to check if cariology seen pt today and if possible to go home. call place to provider Mariel, provider stated may go home from their stand point.
--- NOTE | 2021-12-15 13:49 | PM.DS ---
DS: Admitting Diagnosis Discharge Date 12/15/2021 Admitting Diagnosis Acute on Chronic combined heart failure with pulmonary edema. Elevated troponin DS: Discharge Diagnosis Discharge Diagnosis (1) Acute exacerbation of CHF (congestive heart failure): Qualifiers: Heart failure type: combined systolic and diastolic Qualified Code(s): I50.43 - Acute on chronic combined systolic (congestive) and diastolic (congestive) heart failure Code(s): I50.9 - Heart failure, unspecified Status: Acute (2) Elevated troponin: Code(s): R77.8 - Other specified abnormalities of plasma proteins Status: Acute (3) Acute kidney injury: Code(s): N17.9 - Acute kidney failure, unspecified Status: Acute (4) Oliguria: Code(s): R34 - Anuria and oliguria Status: Acute (5) Pulmonary edema: Qualifiers: Chronicity: acute Qualified Code(s): J81.0 - Acute pulmonary edema Code(s): J81.1 - Chronic pulmonary edema Status: Acute DS: Summary Hospital Course Hospital Course: 76-year-old female with dyslipidemia, COPD, morbid obesity, diastolic and systolic heart failure, cardiomyopathy. Patient presented to the emergency room for the 2nd time after she was evaluated over the weekend for nausea, vomiting, abdominal pain and diarrhea with a CT of abdomen and pelvis which showed no acute intra-abdominal abnormalities a urinalysis was clean at that time however according to medical records patient had been seen and evaluated at primary care physician's office where a urinalysis was abnormal and patient was prescribed ciprofloxacin and sent home. Patient returned to the emergency room due to being unable to make urine. Patient denied any fevers, rigors, chills, she has not been eating or drinking well, no chest pain, no PND, no orthopnea, no shortness of breath, no cough, no sputum production, no syncope ,no near-syncope, no lightheadedness or dizziness, no palpitations. Preliminary workup was significant for a brain natriuretic peptide 11,400, creatinine of 2.2 BUN 40 troponin was 1.160 patient has been admitted for the evaluation, management and treatment. Problem list managed is as follows: (1)Oliguria+ELANA: resolved prior to discharge. as at discharge, her creatinine normalized to 0.9 from 1.5 etiology was likely secondary to nausea, vomiting and diarrhea. Patient was also taking diuretics at home Urine output has improved Renal USG unremarkable for any acute issues trial of void passed on 12/15/21 after mancera catheter was removed prior to discharge home. improved kidney function continue lasix, entresto, Aldactone at home. Avoid nephrotoxins (2) Elevated troponin: Seems to have flattened No chest pain per patient. Unlikely to be acute cardiac/ischemic etiology she was evaluated/ co managed by cardiology and they have signed off per RN. c/w ASA Plavix, Stain, Coreg (3) Combined systolic and diastolic congestive heart failure: Seems to be stable at moment No resp Distress while hospitalized, been holding lasix due to ELANA, can continue at home. Time Spent with Patient Time attestation: Total time spent providing and/or coordinating discharge services: 40 minutes Time spent: Greater than 30 minutes Exam Const: General: cooperative, comfortable and no acute distress Nutritional Appearance: obese HENMT: Head: normal to inspection, normocephalic and atraumatic Resp: Effort & Inspection: normal respiratory effort and able to speak in complete sentences Auscultation: clear to auscultation bilaterally Cardio: Rate: regular rate Rhythm: regular rhythm Heart sounds: S1 normal heart sound present and S2 normal heart sound present GI: Inspection: obesity GI Palp: Yes Soft to palpation Auscultation: normal bowel sounds Extrem: General: pedal edema DS: Data Data Completed and Pending Labs on day of discharge: Labs from last 24 hours 12/15/21 12/15/21 05:41 05:41 W
--- NOTE | 2021-12-15 16:12 | PCCCNOTE ---
On 12/15/21, the student, [Julianna Gauthier], provided care and completed [facility] documentation on this patient. I have reviewed the student's documentation and agree with the findings.
== END 2021-12-15 14:25 | disposition home or self-care (01) ==
LOC: ANHED 19:59 → ANHIMU 12-14 01:20 → ANH3MEDSUR 12-15 13:54 → ANHIMU 12-18 09:50
PROVIDERS: Internal Medicine; Physician Assistant; Admitting Provider Internal Medicine; Emergency Provider Emergency Medicine; PCP Internal Medicine; Visit Provider Internal Medicine
DX: N17.9 Acute kidney failure, unspecified (principal); I11.0 Hypertensive heart disease with heart failure; I50.40 Unspecified combined systolic (congestive) and diastolic (congestive) heart failure; I25.10 Atherosclerotic heart disease of native coronary artery without angina pectoris; R34 Anuria and oliguria; J81.0 Acute pulmonary edema; I27.20 Pulmonary hypertension, unspecified; I25.5 Ischemic cardiomyopathy; J44.9 Chronic obstructive pulmonary disease, unspecified; R77.8 Other specified abnormalities of plasma proteins; E66.01 Morbid (severe) obesity due to excess calories; Z20.822 Contact with and (suspected) exposure to COVID-19; Z79.01 Long term (current) use of anticoagulants; Z95.5 Presence of coronary angioplasty implant and graft; Z96.653 Presence of artificial knee joint, bilateral; Z96.642 Presence of left artificial hip joint
CPT/HCPCS: 36415; 71046; 76775; 80048; 80053; 81001; 83690; 83735; 83880; 84484; 85025; 93005; 96372; 96374; 96375; 99285; A9270; C8929; C9803; G0378; J1644; J1650; J1940; Q9957; U0003; U0005

== ENCOUNTER 2021-12-25 17:59 | Inpatient (IN) | payer MEDICARE, SELFPAY ==
[2021-12-25] VITALS (10 sets, daily range): BP systolic 92–145; BP diastolic 56–80; PULSE 75–91; RESP 22–35; TEMP 36.2–36.6; O2SAT 87–98; BMI 43.0
--- NOTE | ~2021-12-25 | US_ITS ---
US abdomen limited DATE: 12/26/2021 10:26 INDICATION: Abnormal liver function tests TECHNIQUE: Real-time imaging of liver, pancreas, gallbladder bed COMPARISON: 12/10/2021 CT abdomen pelvis FINDINGS: No hepatic or pancreatic space-occupying mass lesion is evident. Normal hepatopedal portal venous flow direction. No bile duct or pancreatic duct dilatation. The common bile duct measures 4.4 mm. Status post cholecystectomy.. IMPRESSION: Status post cholecystectomy Reviewed, dictated and finalized at Location [facility]. Reviewed, dictated and finalized at location A. IMPRESSION: Status post cholecystectomy
--- NOTE | ~2021-12-25 | XR_ITS ---
EXAMINATION: XR chest 1V portable INDICATION: Shortness of breath TECHNIQUE: Portable AP chest at 1823 hours COMPARISON: 12/13/2021 FINDINGS: Cardiomegaly is noted. There is a mild diffuse interstitial pattern. No definite pleural ef fusion or pneumothorax is identified. IMPRESSION: 1. Cardiomegaly with mild pulmonary edema. Reviewed, dictated and finalized at location F.
--- NOTE | ~2021-12-25 | NM_ITS ---
EXAMINATION: NM pulmonary perfusion DATE: 12/26/2021 10:51 INDICATION: Shortness of breath. Elevated d-dimer. TECHNIQUE: 5.5 mCi Tc-99m MAA by intravenous route. Scintigraphic images of the chest were obtained. COMPARISON: Chest CT dated 12/26/2021 FINDINGS: There is relatively homogeneous perfusion throughout the lungs. No discrete perfusion defect apprecia sherry. There is an enlarged cardiac silhouette correspond to both cardiomegaly and small to moderate-si zed pericardial effusion with prominent left paracardial fat pad on prior CT. IMPRESSION: 1. Low probability for pulmonary embolism. Reviewed, dictated and finalized at location B.
--- NOTE | ~2021-12-25 | CT_ITS ---
EXAMINATION: CTA chest PE protocol DATE: 12/26/2021 10:01 INDICATION: Shortness of breath. TECHNIQUE: Computed tomography (CT) pulmonary angiogram of the chest was performed with 100 mL Omnipa que-350 intravenous contrast. Additional 3D reconstructions utilizing coronal maximum intensity proje ction (MIP) were performed. Automated exposure control and iterative reconstruction technique were em ployed. The dose-length product was 887.19 mGy-cm. COMPARISON: None FINDINGS: Good contrast opacification of the pulmonary arteries. There is mild streak artifact from dense contr ast in the superior vena cava and right atrium. Mild scattered respiratory motion artifact most promi nent at the lung bases which does not significantly limit evaluation. No pulmonary embolism. Mild dep endent atelectasis in the bilateral lower lobes. There is also some mild scattered discoid atelectasi s at the lingula and right middle lobe. Mosaic attenuation in the lungs with regions of groundglass o pacity likely related to atelectasis and intervening more lucent regions of subsegmental air trapping suggesting small airway disease. Small pneumatocele at the posterior right upper lobe. Very small bi lateral pleural effusions. Cardiomegaly. Atherosclerotic coronary artery calcification. Small to mode rate-sized pericardial effusion. Enlargement of the main pulmonary artery consistent with pulmonary a rterial hypertension. Thoracic aorta is normal in caliber with no dissection. No pathologically enlar ged thoracic lymphadenopathy. Diffuse hepatic steatosis. Adjustable gastric banding procedure in expe cted position. Moderate thoracic spondylosis. IMPRESSION: 1. No pulmonary embolism. 2. Cardiomegaly and small to moderate pericardial effusion. 3. Very small bilateral pleural effusions with mild dependent and scattered discoid atelectasis in th e lungs. Reviewed, dictated and finalized at location B. IMPRESSION: 1. No pulmonary embolism. 2. Cardiomegaly and small to moderate pericardial effusion. 3. Very small bilateral pleural effusions with mild dependent and scattered dis coid atelectasis in the lungs.
--- NOTE | ~2021-12-25 | NM_ITS ---
EXAMINATION: NM mee stress w perfusion DATE: 12/27/2021 10:16 INDICATION: Dyspnea. Coronary artery disease with prior myocardial infarction. TECHNIQUE: Rest images were obtained following intravenous administration of 10.9 mCi Tc99m tetrofosm in (Myoview). The patient was infused intravenously with Lexiscan (Regadenoson). Then, 33.2 mCi Tc99m tetrofosmin (Myoview) was administered intravenously, and stress images were obtained. Data was partha nstructed into short axis and horizontal and vertical long axis SPECT images. Gated SPECT images were also obtained. COMPARISON: CT dated 12/26/2021 FINDINGS: Large severe fixed perfusion defect consistent with infarct involving the apical and surrou nding anterior, lateral, inferior and posterior apical segments as well as the mid anterior, anterola teral, posterolateral and inferolateral segments. No reversible ischemia. There is normal left ventr icular chamber size. The apical and periapical segments which appear thinned with fatty myocardial at rophy on the prior CT consistent with chronic infarct are also akinetic on the gated images. Persiste nt normal left ventricular ejection fraction measuring 51%. IMPRESSION: 1. Chronic infarct with large severe fixed perfusion defect involving the apical, periapical and mid anterior to lateral to posterior segments. No reversible ischemia. 2. Left ventricular ejection fraction measuring 51%. Reviewed, dictated and finalized at location B. IMPRESSION: 1. Chronic infarct with large severe fixed perfusion defect involving the apica l, periapical and mid anterior to lateral to posterior segments. No reversible ischemia. 2. Left ventricular ejection fraction measuring 51%.
--- NOTE | 2021-12-25 18:14 | ECG_ITS ---
Measurements Intervals [place] Rate: 85 P: 90 MS: 178 QRS: -53 QRSD: 101 T: 60 QT: 400 QTc: 476 Interpretive Statements SINUS RHYTHM LEFT ANTERIOR FASCICULAR BLOCK [QRS AXIS <= -45, QR IN I, RS IN II] MINIMAL VOLTAGE CRITERIA FOR LVH, CONSIDER NORMAL VARIANT [MEETS CRITERIA IN ONE OF: R(aVL), S(V1), R(V5), R(V5/V6)+S(V1)] ANTEROLATERAL MYOCARDIAL INFARCTION , POSSIBLY RECENT, VS LEFT VENTRICULAR ANEURYSM COMPARED TO ECG 12/13/2021 20:07:11 NO SIGNIFICANT CHANGE. Electronically Signed On 12-27-2021 13:18:52 CDT by Liza Valladares M.D.
--- NOTE | 2021-12-25 18:19 | ED.SOB ---
HPI - SOB/Dyspnea General Chief Complaint: Shortness of Breath/Dyspnea Stated Complaint: tired, hypoxic Time Seen by Provider: 12/25/21 18:18 Source: patient Mode of arrival: EMS Limitations: no limitations History of Present Illness HPI Narrative: Patient is a 76-year-old female complaining of shortness of breath, worse with exertion that started today. Patient states that she was recently admitted at this hospital due to CHF exacerbation. Patient denies any chest pain, abdominal pain, abdominal distention, nausea, diaphoresis, fever or chills. Related Data Home Medications Medication Instructions Recorded Confirmed Entresto 1 tablet PO BID 11/05/20 12/14/21 aspirin 81 mg PO DAILY 11/05/20 12/14/21 atorvastatin 40 mg PO DAILY 11/05/20 12/14/21 carvedilol 12.5 mg PO BID 11/05/20 12/14/21 clopidogrel 75 mg PO DAILY 11/05/20 12/14/21 famotidine 20 mg PO DAILY 11/05/20 12/14/21 furosemide 60 mg PO DAILY 11/05/20 12/14/21 spironolactone 12.5 mg PO DAILY 11/05/20 12/14/21 Allergies Allergy/AdvReac Type Severity Reaction Status Date / Time Penicillins Allergy Unknown Rash Verified 12/10/21 20:11 Review of Systems Review of Systems: All systems reviewed & are unremarkable except as noted in HPI and below Constitutional: Constitutional: Denies body ache(s), Denies chills, Denies excessive sweating, Denies fatigue, Denies fever(s), Denies headache(s), Denies lethargy, Denies malaise, Denies weakness and Denies weight loss Eyes: Eyes: Denies blurry vision, Denies change in vision and Denies loss of vision ENT: Denies dizziness, Denies ear discharge, Denies headache(s), Denies lip swelling, Denies epistaxis, Denies nasal congestion, Denies neck pain, Denies throat swelling and Denies tongue swelling Cardiovascular: Cardiovascular: Denies chest pain, Denies chest pain at rest, Denies chest pain with activity, Denies diaphoresis, Denies rapid heart rate, Denies edema, Denies irregular heart rhythm, Denies lightheadedness and Denies palpitations Respiratory: Respiratory: Denies chest congestion, Denies cough and Denies hemoptysis Gastrointestinal: Gastrointestinal: Denies abdominal pain, Denies melena, Denies hematochezia, Denies diarrhea, Denies nausea, Denies vomiting and Denies hematemesis Musculoskeletal: Musculoskeletal: Denies abnormal gait, Denies deformity, Denies joint swelling, Denies limited range of motion, Denies neck pain and Denies numbness Neurologic: Denies Abnormal speech present, Denies abnormal gait, Denies confusion, Denies dizziness, Denies headache(s), Denies focal weakness, Denies loss of vision, Denies numbness, Denies Other visual disturbances, Denies Sensory deficit (Neuro) and Denies weakness Psychiatric: Psychiatric: Denies confusion, Denies depression, Denies auditory hallucinations, Denies homicidal ideation and Denies suicidal ideation Endocrine: Endocrine: Denies cold intolerance, Denies excessive sweating, Denies fatigue, Denies heat intolerance and Denies palpitations Hematologic/Lymphatic: Hematologic/Lymphatic: Denies easy bleeding and Denies easy bruising Allergic/Immunologic: Allergic/Immunologic: Denies lip swelling, Denies throat swelling and Denies tongue swelling PMFSH Past Medical History Medical History CHF (congestive heart failure) echocardiogram April 2017 demonstrated EF of 40% with apical and apical anterior thinning, mid anterior hypokinesis, dyskinetic apical and apical anterior segments, echo from 12/2016 demonstrated grade 1 diastolic dysfunction Combined systolic and diastolic congestive heart failure COPD (chronic obstructive pulmonary disease) PFTs July 2019 demonstrated moderate obstructive lung disease without bronchodilator response and moderately decreased diffusion capacity Hypertension Ischemic cardiomyopathy Obesity Surgical History Surgical History History
[2021-12-25] MEDS: ALBUTEROL SULFATE NEB 2.5 MG/0.5 ML INH 5 MG INHALATION (18:29)
[2021-12-25] MEDS: IPRATROPIUM BR 0.02% INH SOLN 0.5 MG/2.5 ML VIAL INHALATION (18:29)
[2021-12-25 18:32] LABS: Alveolar/Arterial O2 Gradient 454.1 mmHg; Base Excess ABG 0.5 mEq/l (+/-2.0); Carboxyhemoglobin 1.9 % THb (0-2.0); Fractional Inspired Oxygen 100 %; HCO3 ABG 27.1 mEq/l (22.0-26.0); Methemoglobin ABG 0.3 %THb (0-1.5); Oxygen Content ABG 19.1 %vol (16.0-22.0); Oxygen Saturation ABG 99.3 % (95.0-100.0); Oxyhemoglobin 96.4 % THb (90.0-100.0); PCO2 ABG 51.2 mmHg (35.0-45.0); PO2 ABG 207.7 mmHg (80.0-100.0); PO2 FiO2 Ratio Arterial Blood 2.08 %; Reduced Hemoglobin 1.4 %THb (0-5.0); Total Hemoglobin 13.8 g/dL (12.0-18.0); pH ABG 7.341 (7.350-7.450)
[2021-12-25 18:33] LABS: Device NON-REBREATHER MASK; Modified Allen's Test Pass; Site Drawn RIGHT RADIAL
[2021-12-25] MEDS: methylPREDNISolone SOD SUCC 125 MG VIAL 80 MG IV PUSH (18:46)
[2021-12-25 18:50] LABS: Basophils Percent Auto 0.3 % (0.2-1.2); Eosinophils Percent Auto 0.1 % (0-4.4); Hematocrit 39.3 % (37.0-47.0); Hemoglobin 12.6 g/dL (12.0-15.0); Immature Granulocyte Absolute 0.12 K/mm3 (0.00-0.031); Lymphocytes Absolute Auto 0.73 K/mm3 (0.9-3.2); Lymphocytes Percent Auto 6.2 % (18.3-44.2); Mean Corpuscular HGB Conc 32.1 g/dl (32-36); Mean Corpuscular Hemoglobin 30.8 pg (26-34); Mean Corpuscular Volume 96.1 fl (80-100); Mean Platelet Volume 9.6 fl (7.4-10.4); Monocytes Absolute Auto 0.7 K/mm3 (0.1-0.6); Monocytes Percent Auto 6.3 % (2.6-8.5); Neutrophils Absolute Auto 10.1 K/mm3 (1.3-6.7); Neutrophils Percent Auto 86.1 % (45.5-73.1); Platelet Count Result 223 k/mm3 (150-375); Red Blood Count 4.09 M/mm3 (4.2-5.4); Red Cell Distribution Width 14.5 % (11.5-14.5); White Blood Count 11.7 K/mm3 (4.5-10.0)
[2021-12-25 19:02] LABS: Albumin Level 3.6 g/dL (3.5-5.1); Alkaline Phosphatase 75 U/L (38-126); Anion Gap 6 mmol/L (8-16); Bilirubin,Total 3.6 mg/dL (0.2-1.3); Blood Urea Nitrogen 18 mg/dL (7-17); Calcium 8.4 mg/dL (8.4-10.2); Carbon Dioxide 32 mmol/L (22-30); Chloride 97 mmol/L (98-107); Estimated CRCL calculation 48 ml/min; Estimated Glomerular Filt Rate 48; Glucose 114 mg/dL (65-110); Potassium 3.9 mmol/L (3.4-5.0); Sodium 135 mmol/L (137-145)
[2021-12-25 19:13] LABS: NT Pro B Type Natriuretic Pept 34800 pg/mL (5-100); Troponin I 0.662 ng/mL (0.000-0.034)
[2021-12-25 19:16] LABS: Alanine Aminotransferase 1965 U/L (4-35)
[2021-12-25 19:26] LABS: D Dimer 3.14 ug/mL (<0.48)
[2021-12-25 19:27] LABS: INR 1.9; Prothrombin Time 20.9 Seconds (11.1-14.7)
[2021-12-25 19:33] LABS: Aspartate Amino Transferase 4306 U/L (14-36)
--- NOTE | 2021-12-25 20:55 | PM.IMHP ---
H&P: HPI History of Present Illness Date/Time: 12/25/21 20:55 Chief Complaint: Shortness of breath. Narrative: This is a 76-year-old female with past medical history significant for morbid obesity, systolic heart failure, pulmonary hypertension, dyslipidemia, COPD, ischemic cardiomyopathy. Patient with recent admission and discharge from [facility] treated for congestive heart failure. Now patient comes back to emergency room due to worsening shortness of breaths on bilateral lower extremity swelling with fatigue and generalized weakness. Patient denies any chest pain, syncope, near syncope, palpitations, nausea vomiting or diarrhea, no fevers, no rigors ,no chills. Has a dry cough but feels that has chest congestion as well. Patient was supposed to be feet tested for CPAP a while back ago but never agree to it. Preliminary workup was significant for a brain natriuretic peptide 33911, LFTs 4300/1965, chest x-ray showed cardiomegaly with pulmonary edema. Patient require supplemental oxygen in emergency room. It has been decided to admit patient for further evaluation, management and treatment. Review of Systems Review of Systems: Shortness of breath, bilateral lower extremity swelling. Constitutional: Constitutional: Denies chills, Denies fatigue, Denies fever(s), Denies frequent falls, Reports lethargy, Denies malaise, Denies night sweats and Reports weakness Eyes: Eyes: Denies change in vision ENT: Denies dysphagia, Denies vertigo, Denies dizziness, Denies nasal congestion, Denies nasal discharge, Denies nasal obstruction and Denies odynophagia Cardiovascular: Cardiovascular: Reports pedal edema, Reports leg edema, Denies lightheadedness, Denies radiating jaw, neck or arm pain, Denies palpitations, Reports dyspnea, Reports dyspnea on exertion and Reports orthopnea Respiratory: Respiratory: Reports chest congestion, Denies cough and Denies excessive phlegm production Gastrointestinal: Gastrointestinal: Denies abdominal pain, Denies dyspepsia, Denies heartburn, Denies diarrhea, Denies nausea and Denies vomiting Genitourinary: Genitourinary: Reports no additional female genitourinary complaints and Reports as per HPI Musculoskeletal: Musculoskeletal: Denies back pain and Denies myalgias Integumentary/Breasts: Skin/Breast: Denies rash Neurologic: Denies focal weakness and Denies Sensory deficit (Neuro) Psychiatric: Psychiatric: Reports no additional psychiatric complaints and Reports as per HPI Endocrine: Endocrine: Denies cold intolerance, Denies heat intolerance, Denies polydipsia and Denies palpitations Hematologic/Lymphatic: Hematologic/Lymphatic: Reports no additional hematologic/lymphatic complaints and Reports as per HPI Allergic/Immunologic: Allergic/Immunologic: Reports no additional allergic/immunologic complaints and Reports as per HPI PMF Past Medical History Medical History CHF (congestive heart failure) echocardiogram April 2017 demonstrated EF of 40% with apical and apical anterior thinning, mid anterior hypokinesis, dyskinetic apical and apical anterior segments, echo from 12/2016 demonstrated grade 1 diastolic dysfunction Combined systolic and diastolic congestive heart failure COPD (chronic obstructive pulmonary disease) PFTs July 2019 demonstrated moderate obstructive lung disease without bronchodilator response and moderately decreased diffusion capacity Hypertension Ischemic cardiomyopathy Obesity Surgical History Surgical History History of heart artery stent patient had anterior lateral STEMI december 2016 with 2 stents to the mid LAD History of left hip replacement 10/2017 History of total bilateral knee replacement 2002 with subsequent ORIF of periprosthetic fracture of the left knee in December 2012 Hx of cholecystectomy Hx of laparoscopic gastric banding Family History Family Histo
--- NOTE | 2021-12-25 21:00 | PC.NURSE ---
Patient requiring new IV access for CTA. 3 unsuccessful attempts by this RN. Patient tolerated well. Bleeding controlled at unsuccessful IV sites. Yeison WHELAN was also unsuccessful with IV insertion x 3, even with US. CYNDIE Rand notified. VQ scan ordered. Nuc Med not available tonight as per EVELYN Carter. CYNDIE Rand also made aware. Will continue to monitor patient.
[2021-12-25] MEDS: FUROSEMIDE INJ 40 MG/4 ML VIAL 20 MG IV PUSH (22:39)
[2021-12-25] MEDS: ENOXAPARIN 120 MG/0.8 ML SYRINGE (22:39)
--- NOTE | 2021-12-25 23:08 | PC.NURSE ---
This patient, Alyssa Hanson, was admitted to IMU Room 232-01. Patient/family oriented to hospital policies and general routines including ID bracelet, bed and alarms, visiting hours, pain management, procedures, bathroom and other care routines, personal items, smoking policy, room service/diet, and visiting hours. Information on how to activate the Rapid Response Team has been discussed. Patient/Family are encouraged to report perceived risks to care and to ask questions if they do not understand what they are told or what they should do.
[2021-12-26] VITALS (15 sets, daily range): BP systolic 121–160; BP diastolic 48–75; PULSE 60–80; RESP 18–22; TEMP 35.9–36.3; O2SAT 90–97
--- NOTE | 2021-12-26 | EST_ITS ---
Patient Info Name: Alyssa Hanson Age: 76 years : 1945 Gender: Female Ht: 65 in Wt: 258 lbs BSA: 2.38 m2 Exam Date: 12/27/2021 8:43 AM Exam Location: [facility] Stress Patient Status: Inpatient Admit Date: 12/25/2021 Staff Ordering Physician: Juanjo Calvert MD Attending Provider: Weston Ly MD Exercise Technologist: Gerardo Moore RDCS, RT Exercise Physician: Liza Valladares MD Exam Type: CA stress mee w NM Study Info A regadenoson stress test was performed. Summary 1. No abnormal ST-T wave changes with lexiscan. 2. Nuclear test results to follow. Protocol: Lexiscan Stress ECG Details Stage: REST Duration (min): 4 min : 24 sec HR (bpm): 58 SBP (mmHg): 155 DBP (mmHg): 70 Stage: REST Duration (min): 6 min : 55 sec HR (bpm): 59 SBP (mmHg): 155 DBP (mmHg): 70 Stage: STAGE 1 Duration (min): 0 min : 59 sec HR (bpm): 65 SBP (mmHg): 142 DBP (mmHg): 69 Stage: RECOVERY Duration (min): 1 min : 0 sec HR (bpm): 67 SBP (mmHg): 142 DBP (mmHg): 69 Stage: RECOVERY Duration (min): 2 min : 0 sec HR (bpm): 65 SBP (mmHg): 148 DBP (mmHg): 64 Stage: RECOVERY Duration (min): 3 min : 0 sec HR (bpm): 64 SBP (mmHg): 144 DBP (mmHg): 65 Stage: RECOVERY Duration (min): 3 min : 51 sec HR (bpm): 64 SBP (mmHg): 144 DBP (mmHg): 65 Rest HR: 59 bpm Peak HR: 67 bpm Rest Sys BP: 155 mmHg Peak Sys BP: 148 mmHg Max Pred HR: 142 bpm % Max Pred HR: 47 % Target HR: 121 bpm Max RPP: 9,916 bpm*mmHg BP Response: Normal blood pressure response Termination Reason: Completed protocol Cardiac Symptoms: None Total Time: 1 min : 0 sec Rest Mason BP: 70 mmHg Peak Mason BP: 64 mmHg Total Dose: 0.4 mg Resting ECG Normal sinus rhythm. Poor R wave progression. Resting ST/T wave changes. Stress ECG No abnormal ST/T wave changes with exercise. Arrhythmias None. Report Signatures
--- NOTE | 2021-12-26 08:24 | PM.IMPN ---
Progress Note: A&P Assessment and Plan (1) Acute exacerbation of CHF (congestive heart failure): Qualifiers: Heart failure type: unspecified Qualified Code(s): I50.9 - Heart failure, unspecified Code(s): I50.9 - Heart failure, unspecified Status: Acute Assessment and Plan: Patient with combined systolic and diastolic heart failure Cor pulmonale as well Aggressive diuresis Daily intake and output Fluid restriction to 1500 cc [place] [address] Recent echo 12/14/2021 with ejection fraction 40-45% grade 1 diastolic dysfunction, inferior wall hypokinetic moderate pulmonary hypertension 56 mm Reamer basal inferolateral wall and mid inferolateral wall not visualized Diuresis with 40 mg IV b.i.d. (2) Elevated troponin: Code(s): R77.8 - Other specified abnormalities of plasma proteins Status: Acute Assessment and Plan: EKG with sinus rhythm, mild ST elevation noted in anteroseptal leads, similar changes in past EKG Recent admission with troponin elevation These looks like a trend from her recent admission Continue to trend Received full-dose Lovenox 12/25/2021 (3) Elevated LFTs: Code(s): R79.89 - Other specified abnormal findings of blood chemistry Status: Acute Assessment and Plan: AST 4300 or 6/ALT 1965/total bilirubin 3.6 normal alkaline phosphatase These were normal 2 weeks ago Hold statin Likely secondary to congestion Right upper quadrant ultrasound unremarkable (4) Ischemic cardiomyopathy: Code(s): I25.5 - Ischemic cardiomyopathy Status: Acute Assessment and Plan: Continue Entresto On aspirin Plavix carvedilol statin at home (5) COPD (chronic obstructive pulmonary disease): Qualifiers: COPD type: unspecified COPD Qualified Code(s): J44.9 - Chronic obstructive pulmonary disease, unspecified Code(s): J44.9 - Chronic obstructive pulmonary disease, unspecified Status: Acute Assessment and Plan: Not actively wheezing Continue to monitor. (6) Elevated d-dimer: Code(s): R79.89 - Other specified abnormal findings of blood chemistry Status: Acute Assessment and Plan: CTA chest to rule out PE has been ordered which is pending V/Q scan low probability as well as CTA negative for PE Subjective Date/time seen: 12/26/21 08:24 Interval history: HPI:This is a 76-year-old female with past medical history significant for morbid obesity, systolic heart failure, pulmonary hypertension, dyslipidemia, COPD, ischemic cardiomyopathy. Patient with recent admission and discharge from [facility] treated for congestive heart failure. Now patient comes back to emergency room due to worsening shortness of breaths on bilateral lower extremity swelling with fatigue and generalized weakness. Patient denies any chest pain, syncope, near syncope, palpitations, nausea vomiting or diarrhea, no fevers, no rigors ,no chills. Has a dry cough but feels that has chest congestion as well. Patient was supposed to be feet tested for CPAP a while back ago but never agree to it. Preliminary workup was significant for a brain natriuretic peptide 80297, LFTs 4300/1965, chest x-ray showed cardiomegaly with pulmonary edema. Patient require supplemental oxygen in emergency room. It has been decided to admit patient for further evaluation, management and treatment. 12/26/2021 no overnight events. Feels okay. Shortness of breath on exertion. Leg swelling reported. Denies any chest pain. Reports tiredness and sleepiness as her main complaint Review of Systems Review of Systems: All systems reviewed & are unremarkable except as noted in HPI and below (HPI) Exam Narrative: Const: General: cooperative, comfortable, no acute distress, HENMT: Normocephalic and atraumatic Eyes: Equal, round and reactive pupils present EOM: EOMs intact bilaterally Neck: Full ROM, no lymphadenopathy, supple an
[2021-12-26] MEDS: carvediloL 12.5 MG TABLET PO ×2 (09:08→16:43)
[2021-12-26] MEDS: SACUBITRIL/VALSARTAN 97-103 MG TABLET 1 TAB PO ×2 (09:08→21:30)
[2021-12-26] MEDS: FUROSEMIDE INJ 40 MG/4 ML VIAL IV PUSH ×2 (09:09→16:43)
[2021-12-26] MEDS: ASPIRIN 81 MG CHEWABLE TABLET PO (09:09)
[2021-12-26] MEDS: CLOPIDOGREL BISULFATE 75 MG TABLET PO (09:09)
--- NOTE | 2021-12-26 16:23 | PM.CNCAR ---
Assessment and Plan Additional Plan This is a 76-year-old lady with history of coronary artery disease and infarction of the anterior wall 5 years ago according to the history. She had very low ejection fraction acutely which apparently improved significantly with affective medical treatment and revascularization. She says now she is in the hospital with shortness of breath that is not an acute problem it has apparently been going on intermittently for a long time. She is admitted with the diagnosis of heart failure. She certainly could develop congestive heart failure but she is not in my history reporting symptoms of orthopnea or PND. One must also remember that she is morbidly obese and this will also many times and resultant dyspnea along with her ischemic LV dysfunction. The patient's recent echocardiogram does not demonstrate any new concerning findings. She has not had a recent ischemia evaluation and so I believe we should for completeness arrange for a Lexiscan stress test tomorrow morning to ensure that she does not have a significant ischemic burden. Obviously if unfavorable findings are reported we may have to consider a follow-up angiogram. I would like to look for the report of the original intervention since there are notes in the chart saying it was difficult and challenging and I am puzzled as to why it is not in our electronic record. Juanjo Calvert MD [facility] History of Present Illness History of Present Illness Consult date/time: 12/26/21 16:23 Consult reason: shortness of breath Reason For Visit: CHF Exacerbation, Elevated Troponin Narrative: This is a 76-year-old woman who is being seen this afternoon at the request of the hospitalist because of dyspnea with which she was admitted to the hospital yesterday. According to the records she is a lady that has a history of coronary artery disease and a anterior wall myocardial infarction back in 2017. The patient apparently was treated with emergency PCI with stenting of the left anterior descending which was a difficult procedure according to notes that are in the chart but ultimately successful. Apparently she had a very low ejection fraction which recovered nicely with medical therapy involving Entresto carvedilol and spironolactone. The patient says the procedure was done by Dr. Amado here at [facility] but I do not see any record of that in the electronic record. In any event she says that she follows with me in the office for follow-up of her ischemic heart disease and LV dysfunction apparently she once again had a very low ejection fraction which improved nicely and she has done well with the above-described medical treatment. She was in the hospital here recently with problems with nausea vomiting and diarrhea which was attributed to food poisoning. Because of that she developed some acute kidney insufficiency and for short time her Entresto and diuretics were placed on hold. She was discharged with medications resumed. She says that she came to the hospital this time with exertional shortness of breath. The symptom she says are not new they have been coming and going off and on intermittently for as long as a year or 2. She denies any symptoms of orthopnea or PND she says that she sleeps well at night. She does have some chronic lower extremity edema which she thinks is possibly a bit worse lately. When she walks and developed shortness of breath she is not having any obvious chest pain that accompanies this. She states that her myocardial infarction in 2017 was marked by severe pressure-like chest pain across the precordium she has not had any of this since that event. An echocardiogram was done during the recent admission described above which demonstrated left ventricular ejection fraction to be 40-45% with no significant valvular disease. Patient's ECG demonstrates sinus mechanism with evidence of previous anterior UT is unchanged compared with previous tracing. Revi
[2021-12-27] VITALS (18 sets, daily range): BP systolic 119–162; BP diastolic 40–96; PULSE 56–77; RESP 16–20; TEMP 35.6–36.6; O2SAT 90–96
[2021-12-27 06:06] LABS: Basophils Percent Auto 0.1 % (0.2-1.2); Hematocrit 41.9 % (37.0-47.0); Hemoglobin 13.2 g/dL (12.0-15.0); Immature Granulocyte Absolute 0.11 K/mm3 (0.00-0.031); Immature Granulocyte Percent A 0.7 % (0-0.5); Lymphocytes Percent Auto 4.7 % (18.3-44.2); Mean Corpuscular HGB Conc 31.5 g/dl (32-36); Mean Corpuscular Hemoglobin 30.1 pg (26-34); Mean Corpuscular Volume 95.7 fl (80-100); Mean Platelet Volume 10.3 fl (7.4-10.4); Monocytes Absolute Auto 0.9 K/mm3 (0.1-0.6); Monocytes Percent Auto 5.7 % (2.6-8.5); Neutrophils Absolute Auto 13.3 K/mm3 (1.3-6.7); Neutrophils Percent Auto 88.8 % (45.5-73.1); Platelet Count Result 174 k/mm3 (150-375); Red Blood Count 4.38 M/mm3 (4.2-5.4)
[2021-12-27 06:50] LABS: Albumin Level 3.7 g/dL (3.5-5.1); Alkaline Phosphatase 97 U/L (38-126); Anion Gap 5 mmol/L (8-16); Bilirubin,Total 1.3 mg/dL (0.2-1.3); Blood Urea Nitrogen 48 mg/dL (7-17); Calcium 8.5 mg/dL (8.4-10.2); Carbon Dioxide 33 mmol/L (22-30); Chloride 99 mmol/L (98-107); Estimated CRCL calculation 34 ml/min; Estimated Glomerular Filt Rate 31; Glucose 112 mg/dL (65-110); Magnesium 2.3 mg/dL (1.6-2.3); Potassium 3.3 mmol/L (3.4-5.0); Sodium 137 mmol/L (137-145)
[2021-12-27 06:57] LABS: Alanine Aminotransferase 2525 U/L (4-35); Aspartate Amino Transferase 3541 U/L (14-36)
[2021-12-27] MEDS: carvediloL 12.5 MG TABLET PO ×2 (09:44→17:37)
[2021-12-27] MEDS: CLOPIDOGREL BISULFATE 75 MG TABLET PO (09:44)
--- NOTE | 2021-12-27 09:44 | PM.IMPN ---
Progress Note: A&P Additional Plan (1) Acute exacerbation of CHF (congestive heart failure): -Patient with combined systolic and diastolic heart failure -[place] [address] -Recent echo 12/14/2021 with ejection fraction 40-45% grade 1 diastolic dysfunction, inferior wall hypokinetic moderate pulmonary hypertension 56 mm Reamer basal inferolateral wall and mid inferolateral wall not visualized -Diuresis with furosemide 40 mg IV b.i.d. --Daily intake and output -Fluid restriction to 1500 cc daily -Electric Transfer Operator is following. (2) Elevated troponin: Code(s): R77.8 - Other specified abnormalities of plasma proteins Status: Acute -EKG with sinus rhythm, mild ST elevation noted in anteroseptal leads, similar changes in past EKG -Recent admission with troponin elevation -These looks like a trend from her recent admission -Continue to trend -Received full-dose Lovenox 12/25/2021. -Electric Transfer Operator following. (3) Elevated LFTs: Code(s): R79.89 - Other specified abnormal findings of blood chemistry Status: Acute Assessment and Plan: -AST 4300 or 6/ALT 1965/total bilirubin 3.6 normal alkaline phosphatase -These were normal 2 weeks ago. -likely hepatic congestion related to volume overload and acute CHF. -Hold statin. -Right upper quadrant ultrasound unremarkable. (4) Ischemic cardiomyopathy: Code(s): I25.5 - Ischemic cardiomyopathy Status: Acute Assessment and Plan: Continue Entresto On aspirin Plavix carvedilol statin at home. (5) COPD (chronic obstructive pulmonary disease): Qualifiers: COPD type: unspecified COPD Qualified Code(s): J44.9 - Chronic obstructive pulmonary disease, unspecified Code(s): J44.9 - Chronic obstructive pulmonary disease, unspecified Status: Acute Assessment and Plan: Not actively wheezing Continue to monitor. (6) Elevated d-dimer: Code(s): R79.89 - Other specified abnormal findings of blood chemistry Status: Acute Assessment and Plan: -CTA chest on 12/26/21 reported as negative for PE. -V/Q scan low probability as well as CTA negative for PE (7) Acute hypokalemia: -K of 3.3 -related to ongoing diuresis. -IV KCl 40meq ordered. -follow up BMP tomorrrow. (8) ELANA: -elevated creatinine of 1.6 from 1.1 yesterday. -likely due to IV furosemide 40mg BID, will decrease to 20mg BID. -follow up BMP tomorrow. Time Spent With Patient Time with patient: 25 - 35 minutes Subjective Date/time seen: 12/27/21 09:44 Patient seen sitting up in bedside chair, her only complain was poor appetite. 2 out of 4 daughters were present at her bedside. Patient discussed, all questions were answered. Review of Systems Review of Systems: All systems reviewed & are unremarkable except as noted in HPI and below Exam Const: General: cooperative and comfortable HENMT: Head: normal to inspection and normocephalic Chest: Chest palpation & inspection: normal inspection of the chest Resp: Effort & Inspection: normal respiratory effort and able to speak in complete sentences Auscultation: crackles Cardio: Rate: regular rate Rhythm: regular rhythm Heart sounds: S1 normal heart sound present and S2 normal heart sound present GI: GI Palp: No abdominal tenderness and Yes Soft to palpation Auscultation: normal bowel sounds Skin: General skin exam: normal color Extrem: General: pedal edema present Objective Data Vital Signs Vital Signs: Vital Signs - 24 hr 12/26/21 10:00 12/26/21 12:00 12/26/21 12:05 Temperature 96.7 F L Pulse Rate 66 60 62 Respiratory Rate 22 H Blood Pressure 160/75 H Pulse Oximetry 95 95 12/26/21 14:00 12/26/21 16:00 12/26/21 16:11 Temperature 96.7 F L Pulse Rate 64 65 61 Respiratory Rate 21 H Blood Pressure 139/66 Pulse Oximetry 95 97 12/26/21 18:00 12/26/21 20:00 12/26/21 22:00 Temperature 97.3 F L Pulse Rate 64 67 76 Respiratory Rate 18
[2021-12-27] MEDS: SACUBITRIL/VALSARTAN 97-103 MG TABLET 1 TAB PO ×2 (09:45→21:18)
[2021-12-27] MEDS: FUROSEMIDE INJ 40 MG/4 ML VIAL IV PUSH (09:45)
[2021-12-27] MEDS: ASPIRIN 81 MG CHEWABLE TABLET PO (09:45)
[2021-12-27] MEDS: POTASSIUM CHLORIDE INJ 40 MEQ in SODIUM CHLORIDE 0.9% IV 500 ML 130 MEQ IVPB (09:59)
--- NOTE | 2021-12-27 16:57 | PM.PNCARD ---
Progress Note: A&P Assessment and Plan (1) Shortness of breath: Code(s): R06.02 - Shortness of breath Status: Acute Assessment and Plan: Shortness of breath likely multifactorial. Due to COPD Acute on chronic heart failure Morbid obesity (2) Acute on chronic combined systolic and diastolic CHF (congestive heart failure): Code(s): I50.43 - Acute on chronic combined systolic (congestive) and diastolic (congestive) heart failure Status: Acute Assessment and Plan: Does have small effusions, a chest x-ray consistent with some CHF, as well as some lower extremity edema and an elevated BNP consistent with acute on chronic diastolic heart failure. Already takes furosemide 60 mg daily at home as well as Entresto and carvedilol. Prior to her admission on 12/13/2021 she was taking furosemide 60 mg b.i.d., so may need a larger dose. BP looks reasonable. Add Jardiance or Farxiga, 10 mg daily. Continue daily BMP (3) CAD (coronary artery disease): Code(s): I25.10 - Atherosclerotic heart disease of [place] coronary artery without angina pectoris Status: Acute Assessment and Plan: CAD, history of anterior MA in 2017. Lexiscan showed large fixed defect but no reversible defects, so no need for cardiac catheterization History of ischemic cardiomyopathy with improvement of left ventricular function, EF 51% by Lexiscan, 40-45% by echo (4) COPD (chronic obstructive pulmonary disease): Qualifiers: COPD type: unspecified COPD Qualified Code(s): J44.9 - Chronic obstructive pulmonary disease, unspecified Code(s): J44.9 - Chronic obstructive pulmonary disease, unspecified Status: Acute (5) Pericardial effusion: Code(s): I31.3 - Pericardial effusion (noninflammatory) Status: Acute Assessment and Plan: No tamponade Check sed rate, rheumatoid factor. Subjective Date/time seen: 12/27/21 16:57 Interval history: Follow-up for shortness of breath, history of CAD, anterior MA 2017 treated with PCI. History of reduced ejection fraction, with recovery of LV function. No recent chest pain. ProBNP on admission: 35,000. Troponin 0.6. 12/2021 echo: EF 40-45%, mild LVH, mild LV enlargement, diastolic dysfunction, hypokinesis of the inferior wall, mild MR/TR, RVSP 56 mmHg. 12/26/[address] Calvert: She is admitted with the diagnosis of heart failure. She certainly could develop congestive heart failure but she is not in my history reporting symptoms of orthopnea or PND. One must also remember that she is morbidly obese and this will also many times and resultant dyspnea along with her ischemic LV dysfunction. The patient's recent echocardiogram does not demonstrate any new concerning findings. She has not had a recent ischemia evaluation and so I believe we should for completeness arrange for a Lexiscan stress test tomorrow morning to ensure that she does not have a significant ischemic burden. Obviously if unfavorable findings are reported we may have to consider a follow-up angiogram. Date of service 12/27/2021: Patient is feeling much better, ?I can not breathe again!? Patient is very apprehensive about returning home since she has had 2 recent hospitalizations and was very short of breath on admission. Off O2 at the present time. Urinating a lot. Daughter at the bedside, has seronegative rheumatoid arthritis which caused some shortness of breath and she felt a lot better with prednisone. Wonders if her mother has the same thing since she improved a lot with prednisone as well. (doubtful, but will check a rheumatoid factor and sed rate). Renal function declined some today, and IV furosemide dose reduced. High liver enzymes noted. Lexiscan as below showed a severe large chronic fixed anterior apical posterior and lateral defect. EF 51%. Review of Systems Constitutional: Constitutional: Reports no additional constitutional complaint
[2021-12-27] MEDS: FUROSEMIDE INJ 40 MG/4 ML VIAL 20 MG IV PUSH (17:38)
[2021-12-28] VITALS (19 sets, daily range): BP systolic 115–161; BP diastolic 44–81; PULSE 52–69; RESP 20–22; TEMP 35.9–36.6; O2SAT 91–99
[2021-12-28 05:21] LABS: Rheumatoid Factor < 8.6 IU/ML (<12)
[2021-12-28 05:23] LABS: Anion Gap 5 mmol/L (8-16); Blood Urea Nitrogen 45 mg/dL (7-17); Calcium 8.3 mg/dL (8.4-10.2); Carbon Dioxide 36 mmol/L (22-30); Chloride 98 mmol/L (98-107); Estimated CRCL calculation 55 ml/min; Estimated Glomerular Filt Rate 54; Glucose 89 mg/dL (65-110); Potassium 3.2 mmol/L (3.4-5.0); Sodium 139 mmol/L (137-145)
[2021-12-28 06:28] LABS: Erythrocyte Sedimentation Rate 19 mm/hr (0-20)
--- NOTE | 2021-12-28 08:39 | PM.IMPN ---
Progress Note: A&P Additional Plan (1) Acute exacerbation of biventricular CHF (congestive heart failure): -Patient with combined systolic and diastolic heart failure -[place] [address] -Recent echo 12/14/2021 with ejection fraction 40-45% grade 1 diastolic dysfunction, inferior wall hypokinetic moderate pulmonary hypertension 56 mm Reamer basal inferolateral wall and mid inferolateral wall not visualized -Diuresis with furosemide 20 mg IV b.i.d. --Daily intake and output -Fluid restriction to 1500 cc daily -Lactation Nurse is following. (2) Elevated troponin: Code(s): R77.8 - Other specified abnormalities of plasma proteins Status: Acute -EKG with sinus rhythm, mild ST elevation noted in anteroseptal leads, similar changes in past EKG -Recent admission with troponin elevation -These looks like a trend from her recent admission -Continue to trend -Received full-dose Lovenox 12/25/2021. -Lactation Nurse following. (3) Elevated LFTs: Code(s): R79.89 - Other specified abnormal findings of blood chemistry Status: Acute Assessment and Plan: -AST 4300 or 6/ALT 1965/total bilirubin 3.6 normal alkaline phosphatase -These were normal 2 weeks ago. -likely hepatic congestion related to volume overload and acute CHF. -Hold statin. -Right upper quadrant ultrasound unremarkable. (4) Ischemic cardiomyopathy: Code(s): I25.5 - Ischemic cardiomyopathy Status: Acute Assessment and Plan: Continue Entresto On aspirin Plavix carvedilol statin at home. (5) COPD (chronic obstructive pulmonary disease): Qualifiers: COPD type: unspecified COPD Qualified Code(s): J44.9 - Chronic obstructive pulmonary disease, unspecified Code(s): J44.9 - Chronic obstructive pulmonary disease, unspecified Status: Acute Assessment and Plan: Not actively wheezing Continue to monitor. (6) Elevated d-dimer: Code(s): R79.89 - Other specified abnormal findings of blood chemistry Status: Acute Assessment and Plan: -CTA chest on 12/26/21 reported as negative for PE. -V/Q scan low probability as well as CTA negative for PE (7) Acute hypokalemia: persistent -K of 3.2 -related to ongoing diuresis. -PO KCl 40meq daily -follow up BMP tomorrrow. (8) ELANA: resolved -elevated creatinine of 1.6 yesterday, decreased furosemide dose, creatinine down to 1.0 today. -follow up BMP tomorrow. (9) Leukocytosis: -no fever, clinically improving. -ROS negative. -continue to monitor closely. Time Spent With Patient Time with patient: 15 - 25 minutes Subjective Date/time seen: 12/28/21 08:39 Patient seen lying in bed, she looked comfortable but stated that she had an episode of prolonged diarrhea this morning. Daughter was present at bedside, case discussed and questions were answered. Exam Const: General: cooperative, comfortable and no acute distress Resp: Effort & Inspection: normal respiratory effort Auscultation: crackles Cardio: Rate: regular rate Rhythm: regular rhythm Heart sounds: S1 normal heart sound present and S2 normal heart sound present GI: Inspection: normal to inspection GI Palp: No abdominal tenderness Auscultation: normal bowel sounds Skin: General skin exam: normal color and no rashes or lesions noted Objective Data Vital Signs Vital Signs: Vital Signs - 24 hr 12/27/21 09:44 12/27/21 10:00 12/27/21 12:00 Temperature Pulse Rate 64 67 58 L Respiratory Rate Blood Pressure Pulse Oximetry 12/27/21 12:18 12/27/21 14:00 12/27/21 16:00 Temperature 96.1 F L Pulse Rate 59 L 60 63 Respiratory Rate 18 Blood Pressure 132/66 Pulse Oximetry 96 12/27/21 16:13 12/27/21 17:37 12/27/21 18:00 Temperature 96.7 F L Pulse Rate 61 59 L 67 Respiratory Rate 20 Blood Pressure 139/66 Pulse Oximetry 95 12/27/21 19:45 12/27/21 20:00 12/27/21 22:00 Temperature 97.8 F Pulse Rate 62 61 68 Respiratory R
[2021-12-28] MEDS: POTASSIUM CHLORIDE 20 MEQ PACKET (FOR LIQUID) 40 MEQ PO (09:30)
[2021-12-28] MEDS: SACUBITRIL/VALSARTAN 97-103 MG TABLET 1 TAB PO ×2 (09:31→20:38)
[2021-12-28] MEDS: ASPIRIN 81 MG CHEWABLE TABLET PO (09:31)
[2021-12-28] MEDS: carvediloL 12.5 MG TABLET PO ×2 (09:31→16:47)
[2021-12-28] MEDS: CLOPIDOGREL BISULFATE 75 MG TABLET PO (09:31)
[2021-12-28] MEDS: EMPAGLIFLOZIN 10 MG TABLET PO (09:31)
[2021-12-28] MEDS: FUROSEMIDE INJ 40 MG/4 ML VIAL 20 MG IV PUSH (09:32)
--- NOTE | 2021-12-28 14:14 | PM.PNCARD ---
Progress Note: A&P Assessment and Plan (1) Shortness of breath: Code(s): R06.02 - Shortness of breath Status: Acute Assessment and Plan: Shortness of breath likely multifactorial. Due to: COPD Acute on chronic heart failure Morbid obesity (2) Acute on chronic combined systolic and diastolic CHF (congestive heart failure): Code(s): I50.43 - Acute on chronic combined systolic (congestive) and diastolic (congestive) heart failure Status: Acute Assessment and Plan: Does have small effusions, a chest x-ray consistent with some CHF, as well as some lower extremity edema and an elevated BNP consistent with acute on chronic diastolic heart failure. Already takes furosemide 60 mg daily at home as well as Entresto and carvedilol. Prior to her admission on 12/13/2021 she was taking furosemide 60 mg b.i.d., so may need a larger dose. Shift to oral furosemide today 40mg b.i.d. BP looks reasonable. Continue Jardiance 10 mg daily. Add spironolactone 25mg daily as part of her HF regimen... K+ reid been low, should help with this as well Continue daily BMP (3) CAD (coronary artery disease): Code(s): I25.10 - Atherosclerotic heart disease of [place] coronary artery without angina pectoris Status: Acute Assessment and Plan: CAD, history of anterior SC in 2017. Lexiscan showed large fixed defect but no reversible defects, so no need for cardiac catheterization History of ischemic cardiomyopathy with improvement of left ventricular function, EF 51% by Lexiscan, 40-45% by echo (4) COPD (chronic obstructive pulmonary disease): Qualifiers: COPD type: unspecified COPD Qualified Code(s): J44.9 - Chronic obstructive pulmonary disease, unspecified Code(s): J44.9 - Chronic obstructive pulmonary disease, unspecified Status: Acute (5) Pericardial effusion: Code(s): I31.3 - Pericardial effusion (noninflammatory) Status: Acute Assessment and Plan: No tamponade Check sed rate, rheumatoid factor. Subjective Date/time seen: 12/28/21 14:14 Interval history: Follow-up for shortness of breath, history of CAD, anterior SC 2017 treated with PCI. History of reduced ejection fraction, with recovery of LV function. No recent chest pain. ProBNP on admission: 35,000. Troponin 0.6. 12/2021 echo: EF 40-45%, mild LVH, mild LV enlargement, diastolic dysfunction, hypokinesis of the inferior wall, mild MR/TR, RVSP 56 mmHg. 12/26/[address] Calvert: She is admitted with the diagnosis of heart failure. She certainly could develop congestive heart failure but she is not in my history reporting symptoms of orthopnea or PND. One must also remember that she is morbidly obese and this will also many times and resultant dyspnea along with her ischemic LV dysfunction. The patient's recent echocardiogram does not demonstrate any new concerning findings. She has not had a recent ischemia evaluation and so I believe we should for completeness arrange for a Lexiscan stress test tomorrow morning to ensure that she does not have a significant ischemic burden. Obviously if unfavorable findings are reported we may have to consider a follow-up angiogram. Date of service 12/27/2021: Patient is feeling much better, ?I can not breathe again!? Patient is very apprehensive about returning home since she has had 2 recent hospitalizations and was very short of breath on admission. Off O2 at the present time. Urinating a lot. Daughter at the bedside, has seronegative rheumatoid arthritis which caused some shortness of breath and she felt a lot better with prednisone. Wonders if her mother has the same thing since she improved a lot with prednisone as well. (doubtful, but will check a rheumatoid factor and sed rate). Renal function declined some today, and IV furosemide dose reduced. High liver enzymes noted. Lexiscan as below showed a severe large chronic fixed anterior ap
[2021-12-28] MEDS: FUROSEMIDE 40 MG TABLET PO (16:48)
[2021-12-29] VITALS (18 sets, daily range): BP systolic 133–166; BP diastolic 65–82; PULSE 54–68; RESP 16–24; TEMP 36.1–36.6; O2SAT 93–98
[2021-12-29 06:40] LABS: Anion Gap 3 mmol/L (8-16); Blood Urea Nitrogen 29 mg/dL (7-17); Calcium 8.4 mg/dL (8.4-10.2); Carbon Dioxide 36 mmol/L (22-30); Chloride 99 mmol/L (98-107); Estimated CRCL calculation 61 ml/min; Estimated Glomerular Filt Rate > 60; Glucose 93 mg/dL (65-110); Magnesium 1.8 mg/dL (1.6-2.3); Sodium 138 mmol/L (137-145)
--- NOTE | 2021-12-29 08:07 | PM.IMPN ---
Progress Note: A&P Additional Plan (1) Acute exacerbation of biventricular CHF (congestive heart failure): -Patient with combined systolic and diastolic heart failure -[place] [address] -Recent echo 12/14/2021 with ejection fraction 40-45% grade 1 diastolic dysfunction, inferior wall hypokinetic moderate pulmonary hypertension 56 mm Reamer basal inferolateral wall and mid inferolateral wall not visualized --Switched to PO furosemide 40 mg BID and Aldactone was started by the veterinarian on 12/28/2021. --Daily intake and output -Fluid restriction to 1500 cc daily -Solar Energy Engineer is following. (2) Elevated troponin: Code(s): R77.8 - Other specified abnormalities of plasma proteins Status: Acute -EKG with sinus rhythm, mild ST elevation noted in anteroseptal leads, similar changes in past EKG -Recent admission with troponin elevation -These looks like a trend from her recent admission -Continue to trend -Received full-dose Lovenox 12/25/2021. -Solar Energy Engineer following. (3) Elevated LFTs: Code(s): R79.89 - Other specified abnormal findings of blood chemistry Status: Acute Assessment and Plan: -AST 4300 or 6/ALT 1965/total bilirubin 3.6 normal alkaline phosphatase -These were normal 2 weeks ago. -likely hepatic congestion related to volume overload and acute CHF. -Hold statin. -Right upper quadrant ultrasound unremarkable. (4) Ischemic cardiomyopathy: Code(s): I25.5 - Ischemic cardiomyopathy Status: Acute Assessment and Plan: Continue Entresto On aspirin Plavix carvedilol statin at home. (5) COPD (chronic obstructive pulmonary disease): Qualifiers: COPD type: unspecified COPD Qualified Code(s): J44.9 - Chronic obstructive pulmonary disease, unspecified Code(s): J44.9 - Chronic obstructive pulmonary disease, unspecified Status: Acute Assessment and Plan: Not actively wheezing Continue to monitor. (6) Elevated d-dimer: Code(s): R79.89 - Other specified abnormal findings of blood chemistry Status: Acute Assessment and Plan: -CTA chest on 12/26/21 reported as negative for PE. -V/Q scan low probability as well as CTA negative for PE (7) Acute hypokalemia: persistent -K of 3.0 -related to ongoing diuresis. -IV KCl 40meq given since she does not tolerate PO KCl -follow up BMP tomorrrow. (8) ELANA: resolved -elevated creatinine of 1.6 on 12/27/21, managed by decreasing furosemide dose, creatinine down to 0.9 today. -follow up BMP tomorrow. (9) Leukocytosis: -no fever, clinically improving. -ROS negative. -continue to monitor closely. Subjective Date/time seen: 12/29/21 08:07 Patient seen lying comfortably in bed, in good spirits, she had no new complains/ Asked when she will be discharged home. Exam Const: General: cooperative, comfortable and no acute distress Resp: Effort & Inspection: normal respiratory effort and able to speak in complete sentences Auscultation: clear to auscultation bilaterally Cardio: Rate: regular rate Rhythm: regular rhythm Heart sounds: S1 normal heart sound present and S2 normal heart sound present GI: Inspection: obesity GI Palp: No abdominal tenderness and Yes Soft to palpation Auscultation: normal bowel sounds Extrem: General: normal to inspection Objective Data Vital Signs Vital Signs: Vital Signs - 24 hr 12/28/21 08:31 12/28/21 09:31 12/28/21 10:00 Temperature 96.8 F L Pulse Rate 60 61 67 Respiratory Rate 20 Blood Pressure 127/50 L Pulse Oximetry 97 12/28/21 12:00 12/28/21 12:22 12/28/21 14:00 Temperature 97.7 F Pulse Rate 52 L 54 L 61 Respiratory Rate 22 H Blood Pressure 142/65 H Pulse Oximetry 99 12/28/21 16:00 12/28/21 16:24 12/28/21 16:47 Temperature 96.9 F L Pulse Rate 61 59 L 61 Respiratory Rate 20 Blood Pressure 150/61 H Pulse Oximetry 99 12/28/21 18:00 12/28/21 20:00 12/28/21 22:15 Temperature 9
[2021-12-29] MEDS: POTASSIUM CHLORIDE INJ 40 MEQ in SODIUM CHLORIDE 0.9% IV 500 ML 130 MEQ IVPB ×2 (08:33→18:37)
[2021-12-29] MEDS: SPIRONOLACTONE 25 MG TABLET PO (08:37)
[2021-12-29] MEDS: SACUBITRIL/VALSARTAN 97-103 MG TABLET 1 TAB PO ×2 (08:37→21:04)
[2021-12-29] MEDS: carvediloL 12.5 MG TABLET PO ×2 (08:38→17:30)
[2021-12-29] MEDS: CLOPIDOGREL BISULFATE 75 MG TABLET PO (08:38)
[2021-12-29] MEDS: EMPAGLIFLOZIN 10 MG TABLET PO (08:38)
[2021-12-29] MEDS: FUROSEMIDE 40 MG TABLET PO ×2 (08:38→17:29)
[2021-12-29] MEDS: ASPIRIN 81 MG CHEWABLE TABLET PO (08:38)
--- NOTE | 2021-12-29 09:57 | PM.PNCARD ---
Progress Note: A&P Assessment and Plan (1) Shortness of breath: Code(s): R06.02 - Shortness of breath Status: Acute Assessment and Plan: Shortness of breath likely multifactorial. Due to: COPD Acute on chronic heart failure Morbid obesity (2) Acute on chronic combined systolic and diastolic CHF (congestive heart failure): Code(s): I50.43 - Acute on chronic combined systolic (congestive) and diastolic (congestive) heart failure Status: Acute Assessment and Plan: Does have small effusions, a chest x-ray consistent with some CHF, as well as some lower extremity edema and an elevated BNP consistent with acute on chronic diastolic heart failure. Already takes furosemide 60 mg daily at home as well as Entresto and carvedilol. Prior to her admission on 12/13/2021 she was taking furosemide 60 mg b.i.d., so may need a larger dose at discharge. Continue furosemide 40mg p.o. b.i.d. BP looks reasonable. Continue Jardiance 10 mg daily. Continue spironolactone 25mg daily as part of her HF regimen... K+ reid been low, should help with this as well Would be ok with me for her to discharge later this afternoon provided her repeat potassium is WNL Will arrange outpatient follow up in our office in 2-3 weeks. (3) CAD (coronary artery disease): Code(s): I25.10 - Atherosclerotic heart disease of [place] coronary artery without angina pectoris Status: Acute Assessment and Plan: CAD, history of anterior PR in 2017. Lexiscan showed large fixed defect but no reversible defects, so no need for cardiac catheterization History of ischemic cardiomyopathy with improvement of left ventricular function, EF 51% by Lexiscan, 40-45% by echo (4) COPD (chronic obstructive pulmonary disease): Qualifiers: COPD type: unspecified COPD Qualified Code(s): J44.9 - Chronic obstructive pulmonary disease, unspecified Code(s): J44.9 - Chronic obstructive pulmonary disease, unspecified Status: Acute (5) Pericardial effusion: Code(s): I31.3 - Pericardial effusion (noninflammatory) Status: Acute Assessment and Plan: No tamponade Sed rate, rheumatoid factor WNL Subjective Date/time seen: 12/29/21 09:57 Interval history: Follow-up for shortness of breath, history of CAD, anterior PR 2017 treated with PCI. History of reduced ejection fraction, with recovery of LV function. No recent chest pain. ProBNP on admission: 35,000. Troponin 0.6. 12/2021 echo: EF 40-45%, mild LVH, mild LV enlargement, diastolic dysfunction, hypokinesis of the inferior wall, mild MR/TR, RVSP 56 mmHg. 12/26/[address] Calvert: She is admitted with the diagnosis of heart failure. She certainly could develop congestive heart failure but she is not in my history reporting symptoms of orthopnea or PND. One must also remember that she is morbidly obese and this will also many times and resultant dyspnea along with her ischemic LV dysfunction. The patient's recent echocardiogram does not demonstrate any new concerning findings. She has not had a recent ischemia evaluation and so I believe we should for completeness arrange for a Lexiscan stress test tomorrow morning to ensure that she does not have a significant ischemic burden. Obviously if unfavorable findings are reported we may have to consider a follow-up angiogram. Date of service 12/27/2021: Patient is feeling much better, ?I can not breathe again!? Patient is very apprehensive about returning home since she has had 2 recent hospitalizations and was very short of breath on admission. Off O2 at the present time. Urinating a lot. Daughter at the bedside, has seronegative rheumatoid arthritis which caused some shortness of breath and she felt a lot better with prednisone. Wonders if her mother has the same thing since she improved a lot with prednisone as well. (doubtful, but will check a rheumatoid factor and sed rate). Renal fu
[2021-12-29] MEDS: FUROSEMIDE INJ 40 MG/4 ML VIAL 20 MG IV PUSH (10:54)
[2021-12-29 14:53] LABS: Potassium 3.3 mmol/L (3.4-5.0)
--- NOTE | 2021-12-29 18:03 | PC.NURSE ---
Verified written potassium IV order (see MAR) with Dr. Castro with regards to the amount of fluids pt is to receive. Dr. Castro confirmed with RN that it is okay to administer IV potassium. Care plan reviewed with Matthew and patient, RN awaiting pending pharmacy approval.
[2021-12-29] MEDS: POTASSIUM CHLORIDE 20 MEQ TABLET PO (23:25)
[2021-12-30] VITALS (8 sets, daily range): BP systolic 156–161; BP diastolic 81–97; PULSE 55–63; RESP 16–20; TEMP 36.4–36.8; O2SAT 92–93
[2021-12-30 05:28] LABS: Anion Gap 2 mmol/L (8-16); Blood Urea Nitrogen 18 mg/dL (7-17); Calcium 8.5 mg/dL (8.4-10.2); Carbon Dioxide 35 mmol/L (22-30); Chloride 101 mmol/L (98-107); Estimated CRCL calculation 68 ml/min; Estimated Glomerular Filt Rate > 60; Glucose 97 mg/dL (65-110); Potassium 3.6 mmol/L (3.4-5.0); Sodium 138 mmol/L (137-145)
--- NOTE | 2021-12-30 07:16 | PM.DS ---
DS: Admitting Diagnosis Discharge Date 12/30/2021 Admitting Diagnosis #Acute exacerbation of CHF #Elevated troponin #Elevated LFT's #Ischemic cardiomyopathy #COPD DS: Discharge Diagnosis Discharge Diagnosis (1) Acute on chronic combined systolic and diastolic CHF (congestive heart failure): Code(s): I50.43 - Acute on chronic combined systolic (congestive) and diastolic (congestive) heart failure Status: Acute (2) Elevated troponin: Code(s): R77.8 - Other specified abnormalities of plasma proteins Status: Acute (3) Elevated LFTs: Code(s): R79.89 - Other specified abnormal findings of blood chemistry Status: Acute (4) Ischemic cardiomyopathy: Code(s): I25.5 - Ischemic cardiomyopathy Status: Acute (5) Hypokalemia: Code(s): E87.6 - Hypokalemia Status: Acute (6) Acute kidney injury: Code(s): N17.9 - Acute kidney failure, unspecified Status: Acute DS: Summary Hospital Course Hospital Course: 76-year-old female with morbid obesity, systolic heart failure, pulmonary hypertension, dyslipidemia, COPD and ischemic cardiomyopathy. Patient with recent admission and discharge from [facility] treated for congestive heart failure. Now patient came back to emergency room due to worsening shortness of breath, bilateral lower extremity swelling with fatigue and generalized weakness. Patient denied any chest pain, syncope, near syncope, palpitations, nausea vomiting or diarrhea, no fevers, no rigors ,no chills. She had a dry cough but feels that she has chest congestion as well. Patient was supposed to be tested for CPAP a while back ago but never agreed to it. Preliminary workup was significant for a brain natriuretic peptide 48974, LFTs 4300/1965, chest x-ray showed cardiomegaly with pulmonary edema. Patient require supplemental oxygen in emergency room. She was admitted for further evaluation, management and treatment. The patient was managed for acute exacerbation of biventricular CHF, she has combined systolic and diastolic heart failure and Cor pulmonale [place]. [place] [address]. Recent echo 12/14/2021 with ejection fraction 40-45% grade 1 diastolic dysfunction, inferior wall hypokinetic moderate pulmonary hypertension 56 mm Reamer basal inferolateral wall and mid inferolateral wall was not visualized. Initial management with fluid restriction of 1500cc/day and IV furosemide 40mg BID with significant improvement of her presenting symptoms, total resolution of her dyspnea. Subsequently switched to PO furosemide 40 mg BID and Aldactone 25mg daily by the corporate travel expert on 12/28/2021. Shuttle Repairer also recommended for her to continue PO Jardiance 10mg daily Regarding her elevated troponin on admission, her EKG was reported with sinus rhythm, mild ST elevation noted in anteroseptal leads, similar changes in past EKG. During her recent admission she had elevated troponin levels. Deemed to be a trend from her recent admission, she did receive full-dose Lovenox 12/25/2021. Shuttle Repairer was consulted. Her LFTs were elevated on admission i.e., AST 4300 or 6/ALT 1965/total bilirubin 3.6 normal alkaline phosphatase from being normal 2 weeks ago. Etiology was likely hepatic congestion related to volume overload and acute CHF. Held her statin during this hospitalization. Right upper quadrant ultrasound done was unremarkable. For her known ischemic cardiomyopathy. Continue Entresto, aspirin, Plavix, carvedilol and statin at home. Her COPD was stable throughout her hospitalization. The patient had an elevated d-dimer on admission, CTA chest on 12/26/21 reported as negative for PE and V/Q scan low probability as well as CTA negative for PE Due to IV diuresis with furosemide she had acute hypokalemia which was replaced with IV KCl since she does not tolerate PO KCl (gives her abdominal pain and caused diarrhea according to the patient). Potassium is 3.6 as at discharge. During
[2021-12-30] MEDS: CLOPIDOGREL BISULFATE 75 MG TABLET PO (08:16)
[2021-12-30] MEDS: FUROSEMIDE 40 MG TABLET PO (08:16)
[2021-12-30] MEDS: SACUBITRIL/VALSARTAN 97-103 MG TABLET 1 TAB PO (08:16)
[2021-12-30] MEDS: SPIRONOLACTONE 25 MG TABLET PO (08:16)
[2021-12-30] MEDS: EMPAGLIFLOZIN 10 MG TABLET PO (08:16)
[2021-12-30] MEDS: carvediloL 12.5 MG TABLET PO (08:17)
[2021-12-30] MEDS: ASPIRIN 81 MG CHEWABLE TABLET PO (08:17)
--- NOTE | 2021-12-30 10:21 | PM.PNCARD ---
Progress Note: A&P Assessment and Plan (1) Shortness of breath: Code(s): R06.02 - Shortness of breath Status: Acute Assessment and Plan: Shortness of breath likely multifactorial. Due to: COPD Acute on chronic heart failure Morbid obesity (2) Acute on chronic combined systolic and diastolic CHF (congestive heart failure): Code(s): I50.43 - Acute on chronic combined systolic (congestive) and diastolic (congestive) heart failure Status: Acute Assessment and Plan: Admitted with small effusions, a chest x-ray consistent with some CHF, as well as some lower extremity edema and an elevated BNP consistent with acute on chronic diastolic heart failure. Already takes furosemide 60 mg daily at home as well as Entresto and carvedilol. Prior to her admission on 12/13/2021 she was taking furosemide 60 mg b.i.d., so may need a larger dose at discharge. Continue furosemide 40mg p.o. b.i.d. HTN but BP looks reasonable for discharge. Wiill FU in office. Continue Jardiance 10 mg daily. Continue spironolactone 25mg daily as part of her HF regimen... K+ has been low, should help with this as well OK for discharge Will arrange outpatient follow up in our office in 2-3 weeks. Reviewed daily weights, low-sodium diet, signs and symptoms of heart disease and CHF, and when to call. BMP in 2 weeks (3) CAD (coronary artery disease): Code(s): I25.10 - Atherosclerotic heart disease of [place] coronary artery without angina pectoris Status: Acute Assessment and Plan: CAD, history of anterior AK in 2017. Lexiscan showed large fixed defect but no reversible defects, so no need for cardiac catheterization History of ischemic cardiomyopathy with improvement of left ventricular function, EF 51% by Lexiscan, 40-45% by echo (4) COPD (chronic obstructive pulmonary disease): Qualifiers: COPD type: unspecified COPD Qualified Code(s): J44.9 - Chronic obstructive pulmonary disease, unspecified Code(s): J44.9 - Chronic obstructive pulmonary disease, unspecified Status: Acute Assessment and Plan: COPD exacerbation, improved (5) Pericardial effusion: Code(s): I31.3 - Pericardial effusion (noninflammatory) Status: Acute Assessment and Plan: No tamponade Sed rate, rheumatoid factor WNL Subjective Date/time seen: 12/30/21 10:21 Interval history: Follow-up for shortness of breath, history of CAD, anterior AK 2017 treated with PCI. History of reduced ejection fraction, with recovery of LV function. No recent chest pain. ProBNP on admission: 35,000. Troponin 0.6. 12/2021 echo: EF 40-45%, mild LVH, mild LV enlargement, diastolic dysfunction, hypokinesis of the inferior wall, mild MR/TR, RVSP 56 mmHg. 12/26/[address] Calvert: She is admitted with the diagnosis of heart failure. She certainly could develop congestive heart failure but she is not in my history reporting symptoms of orthopnea or PND. One must also remember that she is morbidly obese and this will also many times and resultant dyspnea along with her ischemic LV dysfunction. The patient's recent echocardiogram does not demonstrate any new concerning findings. She has not had a recent ischemia evaluation and so I believe we should for completeness arrange for a Lexiscan stress test tomorrow morning to ensure that she does not have a significant ischemic burden. Obviously if unfavorable findings are reported we may have to consider a follow-up angiogram. Date of service 12/27/2021: Patient is feeling much better, ?I can not breathe again!? Patient is very apprehensive about returning home since she has had 2 recent hospitalizations and was very short of breath on admission. Off O2 at the present time. Urinating a lot. Daughter at the bedside, has seronegative rheumatoid arthritis which caused some shortness of breath and she felt a lot better with prednisone. Wonders if he
== END 2021-12-30 12:08 | disposition home or self-care (01) | DRG 291 ==
LOC: ANHED 21:13 → ANHIMU 22:11
PROVIDERS: Internal Medicine; Internal Medicine Cardiovascular Disease; Admitting Provider Internal Medicine; Emergency Provider Emergency Medicine; PCP Internal Medicine; Visit Provider Internal Medicine
DX: I11.0 Hypertensive heart disease with heart failure (principal); I50.43 Acute on chronic combined systolic (congestive) and diastolic (congestive) heart failure; N17.9 Acute kidney failure, unspecified; Z68.41 Body mass index [BMI] 40.0-44.9, adult; I31.3 Pericardial effusion (noninflammatory); J44.9 Chronic obstructive pulmonary disease, unspecified; D72.829 Elevated white blood cell count, unspecified; E78.5 Hyperlipidemia, unspecified; E87.6 Hypokalemia; E66.01 Morbid (severe) obesity due to excess calories; I27.20 Pulmonary hypertension, unspecified; I25.5 Ischemic cardiomyopathy; I25.10 Atherosclerotic heart disease of native coronary artery without angina pectoris; I25.2 Old myocardial infarction; R77.8 Other specified abnormalities of plasma proteins; R79.89 Other specified abnormal findings of blood chemistry; Z95.5 Presence of coronary angioplasty implant and graft; Z96.642 Presence of left artificial hip joint; Z96.653 Presence of artificial knee joint, bilateral; Z90.49 Acquired absence of other specified parts of digestive tract; Z98.84 Bariatric surgery status; Z79.82 Long term (current) use of aspirin; Z79.02 Long term (current) use of antithrombotics/antiplatelets
CPT/HCPCS: 36415; 36600; 71045; 71275; 76705; 78452; 78580; 80048; 80053; 82375; 82805; 83050; 83735; 83880; 84132; 84484; 85025; 85380; 85610; 85652; 85730; 86430; 93005; 93017; 94640; 96372; 96374; 96375; 96376; 99285; A9270; A9502; A9540; G0378; J1650; J1940; J2785; J2930; J3480; J7040; Q9967

== ENCOUNTER 2022-10-15 14:45 | Emergency (ER) | payer MEDICARE, SELFPAY ==
--- NOTE | ~2022-10-15 | XR_ITS ---
EXAM: XR hip LT min 2V DATE: 10/15/2022 19:12 HISTORY: pain, swelling, can't ambulate . COMPARISON: 02/20/2018, images only. CT abdomen and pelvis 12/10/2021. FINDINGS: Decreased mineralization. Left hip arthroplasty, without hardware fracture or perihardware lucency. An acetabular fixation screw projects beyond the cortex of the medial acetabular wall, stab le finding. No acute osseous fracture or dislocation. No lytic or blastic lesion. Joint spaces are ma intained. No erosion or periosteal change. Soft tissues within normal limits. IMPRESSION: No acute finding in the left hip. Reviewed, dictated and finalized at location K. [employer]
--- NOTE | ~2022-10-15 | XR_ITS ---
EXAMINATION: XR chest 2V DATE: 10/15/2022 16:14 INDICATION: Hypertension. Leg swelling. TECHNIQUE: Frontal and lateral views of the chest were obtained. COMPARISON: Chest single view 12/25/2021, chest CT 12/26/2021 FINDINGS: There is mild atelectasis in right lower lung zone and left mid and lower lung zones. No pl eural effusion or pneumothorax. Cardiomegaly is noted. IMPRESSION: 1. Mild atelectasis in right lower lung zone and left mid and lower lung zones. 2. Cardiomegaly. Reviewed, dictated and finalized at location A. L EXAMINER
--- NOTE | ~2022-10-15 | US_ITS ---
EXAMINATION: US venous doppler [facility] DATE: 10/15/2022 18:17 INDICATION: swelling and pain . TECHNIQUE: Grayscale images without and with compression and Doppler images of the left lower extremi ty veins were obtained. COMPARISON: None FINDINGS: Left peroneal veins not visualized. The left common femoral vein, profunda femoral vein, femoral vein , popliteal vein, posterior tibial veins, gastrocnemius vein, and greater saphenous vein are patent. Left calf edema. IMPRESSION: 1. Left peroneal veins not visualized. 2. Otherwise patent left lower extremity veins. No evidence of deep venous thrombosis. Reviewed, dictated and finalized at location K. ED MATERIALS WORKER IMPRESSION: 1. Left peroneal veins not visualized. 2. Otherwise patent left lower extremity veins. No evidence of deep venous thro mbosis.
[2022-10-15 15:28] VITALS: BP 161/55; PULSE 109; RESP 20; TEMP 36.9; O2SAT 98
--- NOTE | 2022-10-15 15:31 | ECG_ITS ---
Measurements Intervals [place] Rate: 76 P: 77 OR: 240 QRS: -53 QRSD: 124 T: 81 QT: 375 QTc: 422 Interpretive Statements SINUS RHYTHM WITH FIRST DEGREE AV BLOCK WITH FREQUENT SUPRAVENTRICULAR PREMATURE COMPLEXES LEFT ANTERIOR FASCICULAR BLOCK [QRS AXIS <= -45, QR IN I, RS IN II] POSSIBLE LEFT VENTRICULAR HYPERTROPHY [VOLTAGE CRITERIA PLUS LAE OR QRS WIDENING] PROBABLE OLD ANTEROLATERAL MYOCARDIAL INFARCTION COMPARED TO ECG 12/25/2021 18:44:10 FIRST DEGREE AV BLOCK NOW PRESENT THE PREVIOUSLY NOTED ST T-WAVE CHANGES HAVE IMPROVED Electronically Signed On 10-16-2022 11:25:08 SALES OPERATIONS ANALYST by Liza Valladares M.D.
--- NOTE | 2022-10-15 17:32 | ED.EXTPRO ---
HPI - Extremity Problem General Chief complaint: Extremity Problem,Nontraumatic <MICHAEL Soni Last Filed: 10/16/22 09:14> Stated complaint: leg pain <Cami Whitman PA-C - Last Filed: 10/16/22 09:14> Time Seen by Provider: 10/15/22 17:18 <Cami Whitman PA-C - Last Filed: 10/16/22 09:14> History of Present Illness HPI Narrative: 76-year-old female with history of HFrEF (EF 40% on echo 12/22) here for evaluation of bilateral lower extremity swelling, L>R. Patient states that her legs are chronically swollen (10+ years) but over the past day they have been painful which is new for her. Denies trauma or obvious trigger. Particularly notes pain in her left hip. She saw her medical secretary receptionist who discussed increasing her 40 of Lasix BID but this has not been done yet. Patient reports chronic shortness of breath, no worse than usual. No chest pain, nausea, vomiting, fevers or chills, cough or congestion. <Cami Whitman PA-C - Last Filed: 10/16/22 09:14> Related Data Home medications: Home Medications Medication Instructions Recorded Confirmed aspirin 81 mg tablet 81 mg PO DAILY 11/05/20 12/25/21 atorvastatin 40 mg tablet 40 mg PO HS 11/05/20 12/25/21 carvedilol 12.5 mg tablet 12.5 mg PO Q12H 11/05/20 12/25/21 clopidogrel 75 mg tablet 75 mg PO DAILY 11/05/20 12/25/21 sacubitril 97 mg-valsartan 103 mg 1 tablet PO Q12H 11/05/20 12/25/21 tablet (Entresto) <MICHAEL Soni Last Filed: 10/16/22 09:14> Allergies/Adverse reactions: Allergies Allergy/AdvReac Type Severity Reaction Status Date / Time Penicillins Allergy Unknown Rash Verified 10/15/22 18:34 <MICHAEL Soni Last Filed: 10/16/22 09:14> Review of Systems Review of Systems: Gen: Denies fevers or chills Eyes: Denies eye pain or visual change ENT: Denies congestion Respiratory: Denies shortness of breath or cough CV: Denies chest pain or palpitations GI: Denies abdominal pain nausea, emesis or diarrhea : denies burning, urgency, frequency or hematuria Musculoskeletal: Reports left hip pain and leg pain and swelling Neuro: Denies numbness, tingling, weakness or focal weakness Skin: Denies rash Except as documented, all other systems reviewed and negative <Cami Whitman PA-C - Last Filed: 10/16/22 09:14> [facility] Past Medical History Medical History: Medical History CHF (congestive heart failure) echocardiogram April 2017 demonstrated EF of 40% with apical and apical anterior thinning, mid anterior hypokinesis, dyskinetic apical and apical anterior segments, echo from 12/2016 demonstrated grade 1 diastolic dysfunction Combined systolic and diastolic congestive heart failure COPD (chronic obstructive pulmonary disease) PFTs July 2019 demonstrated moderate obstructive lung disease without bronchodilator response and moderately decreased diffusion capacity Hypertension Ischemic cardiomyopathy Obesity <Cami Whitman PA-C - Last Filed: 10/16/22 09:14> Surgical History Surgical History: Surgical History History of heart artery stent patient had anterior lateral STEMI december 2016 with 2 stents to the mid LAD History of left hip replacement 10/2017 History of total bilateral knee replacement 2002 with subsequent ORIF of periprosthetic fracture of the left knee in December 2012 Hx of cholecystectomy Hx of laparoscopic gastric banding <Cami Whitman PA-C - Last Filed: 10/16/22 09:14> Family History Family History: Family History Mother Cerebrovascular accident Thyroid disease Sibling Thyroid disease <Cami Whitman PA-C - Last Filed: 10/16/22 09:14> Social History Social History: Social History (Reviewed 12/25/21 @ 18:21 by Mani
[2022-10-15 18:31] VITALS: BP 151/71; PULSE 78; RESP 18; TEMP 36.6
[2022-10-15] MEDS: ACETAMINOPHEN 325 MG TABLET 650 MG PO (18:37)
[2022-10-15 20:34] LABS: Basophils Absolute Auto 0.1 K/mm3 (0.0-0.1); Basophils Percent Auto 0.9 % (0.2-1.2); Eosinophils Absolute Auto 0.5 K/mm3 (0-0.3); Eosinophils Percent Auto 5.3 % (0-4.4); Hematocrit 40.1 % (37.0-47.0); Hemoglobin 13.1 g/dL (12.0-15.0); Immature Granulocyte Absolute 0.03 K/mm3 (0.00-0.031); Immature Granulocyte Percent A 0.3 % (0-0.5); Lymphocytes Absolute Auto 1.63 K/mm3 (0.9-3.2); Lymphocytes Percent Auto 17.9 % (18.3-44.2); Mean Corpuscular HGB Conc 32.7 g/dl (32-36); Mean Corpuscular Hemoglobin 30.8 pg (26-34); Mean Corpuscular Volume 94.4 fl (80-100); Mean Platelet Volume 9.2 fl (7.4-10.4); Monocytes Absolute Auto 0.6 K/mm3 (0.1-0.6); Neutrophils Absolute Auto 6.3 K/mm3 (1.3-6.7); Neutrophils Percent Auto 68.6 % (45.5-73.1); Platelet Count Result 227 k/mm3 (150-375); Red Blood Count 4.25 M/mm3 (4.2-5.4); White Blood Count 9.1 K/mm3 (4.5-10.0)
[2022-10-15 20:45] LABS: Alanine Aminotransferase 12 U/L (6-35); Albumin Level 4.2 g/dL (3.5-5.1); Alkaline Phosphatase 77 U/L (38-126); Anion Gap 5 mmol/L (8-16); Aspartate Amino Transferase 26 U/L (14-36); Bilirubin,Total 0.6 mg/dL (0.2-1.3); Blood Urea Nitrogen 23 mg/dL (7-17); Calcium 9.2 mg/dL (8.4-10.2); Carbon Dioxide 31 mmol/L (22-30); Chloride 100 mmol/L (98-107); Estimated CRCL calculation 51 ml/min; Estimated Glomerular Filt Rate 48; Glucose 86 mg/dL (65-110); Sodium 136 mmol/L (137-145)
[2022-10-15 20:46] LABS: INR 1.1; Prothrombin Time 13.4 Seconds (11.1-14.7)
[2022-10-15 20:47] LABS: Partial Thromboplastin Time 27.7 SECONDS (22.3-36.8)
[2022-10-15 20:56] LABS: NT Pro B Type Natriuretic Pept 962 pg/mL (19.9-100); Troponin I < 0.012 ng/mL (0.000-0.034)
--- NOTE | 2022-10-15 22:10 | PC.NURSE ---
Pt ambulated using walker with steady gait without incident.
[2022-10-15 22:11] VITALS: BP 140/78; PULSE 77; RESP 20; O2SAT 95
== END 2022-10-15 22:11 | disposition home or self-care (01) ==
PROVIDERS: Emergency Medicine; Emergency Provider Physician Assistant
DX: I11.0 Hypertensive heart disease with heart failure (principal); I50.20 Unspecified systolic (congestive) heart failure; J44.9 Chronic obstructive pulmonary disease, unspecified; I25.5 Ischemic cardiomyopathy; E66.9 Obesity, unspecified; Z68.42 Body mass index [BMI] 45.0-49.9, adult; Z95.5 Presence of coronary angioplasty implant and graft; Z96.642 Presence of left artificial hip joint; Z96.653 Presence of artificial knee joint, bilateral; Z79.82 Long term (current) use of aspirin
CPT/HCPCS: 36415; 71046; 73502; 80053; 83880; 84484; 85025; 85610; 85730; 93005; 93971; 99284; A9270

== ENCOUNTER 2022-12-21 10:16 | Inpatient (IN) | payer MEDICARE, SELFPAY ==
[2022-12-21] VITALS (12 sets, daily range): BP systolic 100–129; BP diastolic 39–71; PULSE 60–96; RESP 16–18; TEMP 36.4; O2SAT 83–100; BMI 49.1
--- NOTE | ~2022-12-21 | XR_ITS ---
XR chest 1V portable 12/21/2022 11:41 Indication: CHF Procedure: AP portable chest Comparison: Comparison to multiple prior studies sequentially, with oldest reviewed study dated 04/2021. Findings: Cardiomegaly with mild interstitial edema. No pleural effusion or pneumothorax. No acute os seous abnormality. Impression: 1: Cardiomegaly with mild interstitial edema. Reviewed, dictated and finalized at location A. Impression: 1: Cardiomegaly with mild interstitial edema.
--- NOTE | ~2022-12-21 | US_ITS ---
EXAMINATION: US renal BI DATE: 12/22/2022 10:17 INDICATION: Acute renal failure TECHNIQUE: Multiple grayscale and Doppler ultrasound images of the kidneys were obtained. COMPARISON: 12/14/2021 FINDINGS: The right kidney measures 10.1 x 4.7 x 4.9 cm. The left kidney measures 11.5 x 5.2 x 5.3 cm . The kidneys demonstrate normal parenchymal echogenicity. There is cortical thinning of the kidneys. There is no hydronephrosis. The bladder is mildly distended. IMPRESSION: 1. Cortical thinning of the kidneys without hydronephrosis. Reviewed, dictated and finalized at location A.
--- NOTE | ~2022-12-21 | US_ITS ---
EXAMINATION:US venous doppler LE BI INDICATION:Swelling and tenderness TECHNIQUE: Multiple grayscale, color flow and Doppler images of the right and left lower extremity de ep venous systems were obtained and reviewed. Limited evaluation of the left lower extremity due to i nability to tolerate compression and patient body habitus. COMPARISON:10/15/2022 FINDINGS: The right common femoral, superficial femoral and popliteal veins demonstrate normal respir atory variation, augmentation and compressibility. Color flow is also seen within the posterior tibi al, peroneal, soleus and profunda veins. The left femoral, posterior tibial, peroneal veins and great er saphenous veins are not visualized. The left common femoral, profunda femoral, popliteal, gastrocn emius veins are patent with normal color flow. IMPRESSION: 1: No lower extremity deep venous thrombosis. Limited evaluation of the left lower extremity. Reviewed, dictated and finalized at location A. IMPRESSION: 1: No lower extremity deep venous thrombosis. Limited evaluation of the left l ower extremity.
--- NOTE | 2022-12-21 11:27 | ED.EXTPRO ---
HPI - Extremity Problem General Chief complaint: Extremity Problem,Nontraumatic <Bridger Bee PA-C - Last Filed: 12/21/22 16:47> Stated complaint: Legs are draining <Bridger Bee PA-C - Last Filed: 12/21/22 16:47> Time Seen by Provider: 12/21/22 10:47 <Bridger Bee PA-C - Last Filed: 12/21/22 16:47> Source: patient <MICHAEL Avila Last Filed: 12/21/22 16:47> Mode of arrival: ambulatory <Bridger Bee PA-C - Last Filed: 12/21/22 16:47> Limitations: no limitations <Bridger Bee PA-C - Last Filed: 12/21/22 16:47> History of Present Illness HPI Narrative: This is a 77-year-old female with PMH of CHF (HFrEF with EF 40% on echo December 2021) presents to the ED with chief complaint of bilateral lower leg swelling for the past month and worse in the past couple of weeks. Patient states that she is starting to notice oozing of clear fluid worse this past week. She reports minimal pain in the legs. Reports chronic swelling of the legs and has been on diuretics for many years. Follows with Dr. Calvert. States that he recently changed her medications but is unsure what they are. She is unable to tell me what all she takes. Denies chest pain, shortness of breath, fevers, chills, abdominal pain, nausea, vomiting. <MICHAEL Avila Last Filed: 12/21/22 16:47> Related Data Home medications: Home Medications Medication Instructions Recorded Confirmed aspirin 81 mg tablet 81 mg PO BID 11/05/20 12/21/22 atorvastatin 40 mg tablet 40 mg PO HS 11/05/20 12/21/22 carvedilol 12.5 mg tablet 12.5 mg PO Q12H 11/05/20 12/21/22 clopidogrel 75 mg tablet 75 mg PO DAILY 11/05/20 12/25/21 sacubitril 97 mg-valsartan 103 mg 1 tablet PO Q12H 03/06/21 04/21/23 tablet (Entresto) bumetanide 2 mg tablet 2 mg PO BID 12/21/22 12/21/22 chlorthalidone 25 mg tablet 25 mg PO DAILY 12/21/22 12/21/22 furosemide 20 mg tablet mg 12/21/22 sacubitril 97 mg-valsartan 103 mg tablet 12/21/22 tablet (Entresto) spironolactone 25 mg tablet 12.5 mg PO 12/21/22 torsemide 20 mg tablet mg 12/21/22 <MICHAEL Avila Last Filed: 12/21/22 16:47> Allergies/Adverse reactions: Allergies Allergy/AdvReac Type Severity Reaction Status Date / Time Penicillins Allergy Unknown Rash Verified 12/21/22 15:59 <MICHAEL Avila Last Filed: 12/21/22 16:47> Review of Systems Review of Systems: CONSTITUTIONAL: Denies fever, chills, or sweats. EYES: Denies visual changes, redness, or discharge. ENT: Denies rhinorrhea, congestion, sore throat, or otalgia. CARDIOVASCULAR: Denies chest pain, palpitations, or edema. RESPIRATORY: Denies cough or dyspnea. GASTROINTESTINAL: Denies abdominal pain, nausea, vomiting, or diarrhea. GENITOURINARY: Denies dysuria or hematuria. SKIN: See HPI MUSCULOSKELETAL: See HPI NEUROLOGIC: Denies headache, numbness, dizziness, or weakness. PSYCHIATRIC: Denies anxiety or depression. <MICHAEL Avila Last Filed: 12/21/22 16:47> [facility] Past Medical History Medical History: Medical History CHF (congestive heart failure) echocardiogram April 2017 demonstrated EF of 40% with apical and apical anterior thinning, mid anterior hypokinesis, dyskinetic apical and apical anterior segments, echo from 12/2016 demonstrated grade 1 diastolic dysfunction Combined systolic and diastolic congestive heart failure COPD (chronic obstructive pulmonary disease) PFTs July 2019 demonstrated moderate obstructive lung disease without bronchodilator response and moderately decreased diffusion capacity Hyperlipidemia Hypertension Ischemic cardiomyopathy Obesity <MICHAEL Avila Last Filed: 12/21/22 16:47> Surgical History Surgical History: Surgical History (Updated 12/21/22 @ 16:42 by Mary Orozco NP) H/O cataract extraction Left eye with lens implant H/O lithotripsy History of heart artery stent patient had
[2022-12-21 12:18] LABS: Basophils Absolute Auto 0.1 K/mm3 (0.0-0.1); Basophils Percent Auto 0.6 % (0.2-1.2); Eosinophils Absolute Auto 0.6 K/mm3 (0-0.3); Eosinophils Percent Auto 6.9 % (0-4.4); Hematocrit 32.8 % (37.0-47.0); Hemoglobin 10.8 g/dL (12.0-15.0); Immature Granulocyte Absolute 0.03 K/mm3 (0.00-0.031); Immature Granulocyte Percent A 0.3 % (0-0.5); Lymphocytes Absolute Auto 1.01 K/mm3 (0.9-3.2); Lymphocytes Percent Auto 10.9 % (18.3-44.2); Mean Corpuscular HGB Conc 32.9 g/dl (32-36); Mean Corpuscular Hemoglobin 30.6 pg (26-34); Mean Corpuscular Volume 92.9 fl (80-100); Mean Platelet Volume 10.2 fl (7.4-10.4); Monocytes Absolute Auto 0.7 K/mm3 (0.1-0.6); Monocytes Percent Auto 7.2 % (2.6-8.5); Neutrophils Absolute Auto 6.9 K/mm3 (1.3-6.7); Neutrophils Percent Auto 74.1 % (45.5-73.1); Platelet Count Result 228 k/mm3 (150-375); Red Blood Count 3.53 M/mm3 (4.2-5.4); Red Cell Distribution Width 15.3 % (11.5-14.5); White Blood Count 9.3 K/mm3 (4.5-10.0)
[2022-12-21 12:31] LABS: Anion Gap 11 mmol/L (8-16); Blood Urea Nitrogen 99 mg/dL (7-17); Carbon Dioxide 29 mmol/L (22-30); Chloride 97 mmol/L (98-107); Estimated CRCL calculation 22 ml/min; Estimated Glomerular Filt Rate 17; Glucose 99 mg/dL (65-110); Potassium 4.2 mmol/L (3.4-5.0); Sodium 137 mmol/L (137-145)
[2022-12-21 12:43] LABS: NT Pro B Type Natriuretic Pept 1040 pg/mL (19.9-100); Troponin I 0.018 ng/mL (0.000-0.034)
--- NOTE | 2022-12-21 14:37 | PM.IMHP ---
H&P: HPI History of Present Illness Date/Time: 12/21/22 14:37 Chief Complaint: Edema to lower extremity Narrative: This is a 77-year-old female patient who has a history of congestive heart failure. The patient's chief complaint today was bilateral lower leg swelling for the last month. Patient stated that it has gotten worse over the last couple weeks. Patient is oozing clear fluid from her legs for the last week. She is also complaining of having some pain and swelling to her legs. She has been on diuretics for many years she follows with Dr. Cordero. The patient stated that her medications recently changed she is not sure if she still on Lasix or not. Her H&H is 10.8 and 32.8 which was normal 2 months ago. Her BUN is 99 creatinine is 2.7. BNP was 1040. Venous Doppler no lower extremity deep vein thrombosis. Limited evaluation left lower extremity. Chest x-ray was read as cardiomegaly with mild interstitial edema. The patient is able to get up and walk at least 20 ft before she short of breath. The patient was given a dose of IV Lasix in the emergency room. Cardiology has been consulted. The patient is being admitted to observation status on the date of service of 12/21/2022. Review of Systems Review of Systems: All systems reviewed & are unremarkable except as noted in HPI and below Constitutional: Constitutional: Reports as per HPI and Reports no additional constitutional complaints Eyes: Eyes: Reports as per HPI and Reports no additional eye complaints ENT: Reports system reviewed and no additional complaints, except as documented and Reports Normal hearing present Cardiovascular: Cardiovascular: Reports no additional cardiovascular complaints Respiratory: Respiratory: Reports no additional respiratory complaints and Reports no additional respiratory complaints Gastrointestinal: Gastrointestinal: Reports as per HPI and Reports no additional gastrointestinal complaints Musculoskeletal: Musculoskeletal: Reports no additional musculoskeletal complaints Integumentary/Breasts: Skin/Breast: Reports system reviewed and no additional complaints, except as docu and Reports as per HPI Neurologic: Reports system reviewed and no additional complaints, except as documented, Reports as per HPI and Reports Normal hearing present Psychiatric: Psychiatric: Reports no additional psychiatric complaints and Reports as per HPI Endocrine: Endocrine: Reports no additional endocrine complaints Hematologic/Lymphatic: Hematologic/Lymphatic: Reports no additional hematologic/lymphatic complaints Allergic/Immunologic: Allergic/Immunologic: Reports no additional allergic/immunologic complaints [facility] Past Medical History Medical History CHF (congestive heart failure) echocardiogram April 2017 demonstrated EF of 40% with apical and apical anterior thinning, mid anterior hypokinesis, dyskinetic apical and apical anterior segments, echo from 12/2016 demonstrated grade 1 diastolic dysfunction Combined systolic and diastolic congestive heart failure COPD (chronic obstructive pulmonary disease) PFTs July 2019 demonstrated moderate obstructive lung disease without bronchodilator response and moderately decreased diffusion capacity Hyperlipidemia Hypertension Ischemic cardiomyopathy Obesity Surgical History Surgical History (Updated 12/21/22 @ 16:42 by Mary Orozco NP) H/O cataract extraction Left eye with lens implant H/O lithotripsy History of heart artery stent patient had anterior lateral STEMI december 2016 with 2 stents to the mid LAD History of left hip replacement 10/2017 History of total bilateral knee replacement 2002 with subsequent ORIF of periprosthetic fracture of the left knee in December 2012 Hx of cholecystectomy Hx of laparoscopic gastric banding Family History Family History Mother Cerebrovascular acciden
[2022-12-21] MEDS: FUROSEMIDE INJ 40 MG/4 ML VIAL 20 MG IV PUSH (16:10)
[2022-12-21 16:32] LABS: Troponin I 0.012 ng/mL (0.000-0.034)
--- NOTE | 2022-12-21 16:44 | PC.NURSE ---
This patient, Alyssa Hanson, was admitted to Medical Room 260-. Patient/family oriented to hospital policies and general routines including ID bracelet, bed and alarms, visiting hours, pain management, procedures, bathroom and other care routines, personal items, smoking policy, room service/diet, and visiting hours. Information on how to activate the Rapid Response Team has been discussed. Patient/Family are encouraged to report perceived risks to care and to ask questions if they do not understand what they are told or what they should do.
[2022-12-21] MEDS: carvediloL 12.5 MG TABLET PO (21:19)
[2022-12-21] MEDS: ATORVASTATIN 40 MG TABLET PO (21:19)
[2022-12-21] MEDS: ACETAMINOPHEN 325 MG TABLET 650 MG PO (22:04)
[2022-12-22] VITALS (16 sets, daily range): BP systolic 92–125; BP diastolic 43–59; PULSE 57–101; RESP 18–20; TEMP 36.2–36.9; O2SAT 93–100
[2022-12-22] MEDS: ACETAMINOPHEN 325 MG TABLET 650 MG PO (04:22)
[2022-12-22 06:15] LABS: Basophils Absolute Auto 0.1 K/mm3 (0.0-0.1); Basophils Percent Auto 0.6 % (0.2-1.2); Eosinophils Absolute Auto 0.5 K/mm3 (0-0.3); Eosinophils Percent Auto 5.6 % (0-4.4); Hematocrit 31.7 % (37.0-47.0); Hemoglobin 10.5 g/dL (12.0-15.0); Immature Granulocyte Absolute 0.02 K/mm3 (0.00-0.031); Immature Granulocyte Percent A 0.2 % (0-0.5); Lymphocytes Absolute Auto 1.01 K/mm3 (0.9-3.2); Lymphocytes Percent Auto 10.8 % (18.3-44.2); Mean Corpuscular HGB Conc 33.1 g/dl (32-36); Mean Corpuscular Hemoglobin 30.9 pg (26-34); Mean Corpuscular Volume 93.2 fl (80-100); Mean Platelet Volume 9.9 fl (7.4-10.4); Monocytes Absolute Auto 0.7 K/mm3 (0.1-0.6); Monocytes Percent Auto 7.9 % (2.6-8.5); Neutrophils Percent Auto 74.9 % (45.5-73.1); Platelet Count Result 209 k/mm3 (150-375); White Blood Count 9.3 K/mm3 (4.5-10.0)
[2022-12-22 06:25] LABS: Alanine Aminotransferase 11 U/L (6-35); Albumin Level 3.9 g/dL (3.5-5.1); Alkaline Phosphatase 64 U/L (38-126); Anion Gap 11 mmol/L (8-16); Aspartate Amino Transferase 19 U/L (14-36); Bilirubin,Total 0.8 mg/dL (0.2-1.3); Blood Urea Nitrogen 94 mg/dL (7-17); Calcium 8.7 mg/dL (8.4-10.2); Carbon Dioxide 27 mmol/L (22-30); Chloride 98 mmol/L (98-107); Estimated CRCL calculation 23 ml/min; Estimated Glomerular Filt Rate 19; Glucose 102 mg/dL (65-110); Magnesium 2.9 mg/dL (1.6-2.3); Potassium 3.9 mmol/L (3.4-5.0); Sodium 136 mmol/L (137-145)
[2022-12-22] MEDS: carvediloL 12.5 MG TABLET PO ×2 (08:21→20:10)
[2022-12-22] MEDS: ASPIRIN 81 MG CHEWABLE TABLET PO ×2 (08:21→18:21)
[2022-12-22] MEDS: BUMETANIDE INJ 1 MG/4 ML VIAL IV PUSH ×2 (08:21→18:21)
[2022-12-22] MEDS: EUCERIN CREAM 120 GM JAR 1 APPLIC TOPICAL (08:22)
--- NOTE | 2022-12-22 09:08 | PM.CNNEP ---
Assessment and Plan Assessment and plan (1) Acute kidney injury: Code(s): N17.9 - Acute kidney failure, unspecified Status: Acute Assessment and Plan: The patient has acute kidney injury. It is unclear what is causing this. She has been on Entresto for a while but this is not a new medicine for her. I doubt if this is the primary cause for her renal failure. She has volume overload so is not over diuresed. She states that she is not taking any diuretics either. Patient does have diastolic dysfunction decreased ejection fraction and pulmonary hypertension all of which could lead to some swelling. Her chest x-ray is wet as well so she is overall volume overloaded. And EF of 47% should not be low enough to cause cardiorenal syndrome but the pulmonary hypertension and the left-sided heart issues could lead to substantial swelling and the diuretics to treat that could lead to a higher creatinine. It is just a mystery about whether she is taking her diuretics at home or not. The patient could have sleep apnea contribute to pre renal azotemia as well. This can lead to focal segmental sclerosis which leads to proteinuria and a high creatinine. Obesity can also lead to focal segmental sclerosis which also leads to proteinuria and an elevated creatinine. She does not seem to take [id number] medications and nothing is on her list about nonsteroidal anti-inflammatory agents. Renal venous hypertension could be doing this as well. Primary renal problem could be going on such as a glomerulonephritis or interstitial nephritis. Will check a renal ultrasound, urine electrolytes, fractional excretion of urea, CPK, urinalysis, and try to sort this out. She is already getting bumetanide now (2) Congestive heart failure: Qualifiers: Heart failure chronicity: acute on chronic Heart failure type: combined systolic and diastolic Qualified Code(s): I50.43 - Acute on chronic combined systolic (congestive) and diastolic (congestive) heart failure Code(s): I50.9 - Heart failure, unspecified Status: Acute Assessment and Plan: Ejection fraction is 47%. There is some pulmonary hypertension and diastolic dysfunction. She is getting treated for this. (3) COPD (chronic obstructive pulmonary disease): Qualifiers: COPD type: unspecified COPD Qualified Code(s): J44.9 - Chronic obstructive pulmonary disease, unspecified Code(s): J44.9 - Chronic obstructive pulmonary disease, unspecified Status: Acute (4) Hyperlipidemia: Code(s): E78.5 - Hyperlipidemia, unspecified Status: Acute Assessment and Plan: She is on atorvastatin History of Present Illness Reason for Consult Consult date: 12/22/22 Chief Complaint Chief complaint: ELANA/Bilateral Leg Edema/Venous Stasis Ulcer History of Present Illness Narrative: Moderate is a very pleasant 77-year-old lady who has coronary artery disease status post 2 stents, diastolic dysfunction, reduced ejection fraction of 47%, COPD, hyperlipidemia, hypertension, obesity. The patient says she was well until a month ago when she started getting swollen before that it had been minimal. The patient has a gradually progressed over the last month. She started developing blistering and weeping about a week ago. She said that was so bad that she had to put a towel underneath her feet when she sat up in a chair. Her primary care physicians are changing and so she did not call them. She did call Dr. Calvert on the day of admission and he told her to go to the hospital. In the emergency room she was found to be very swollen. Venous Dopplers were negative. Blood pressure was well controlled. The patient was found have a creatinine of 2.7. This was repeated this morning and is down to 2.5. Renal consultation was requested. In patient denies any bloody urine, foamy urine, kidney stones, bladder infections. No nausea vomiting diarrhea
[2022-12-22 10:00] LABS: Creatine Kinase 111 U/L (30-135)
[2022-12-22 10:08] LABS: Complement C3 132 mg/dL (88-165)
--- NOTE | 2022-12-22 10:30 | PM.IMPN ---
Progress Note: A&P Assessment and Plan (1) CHF (congestive heart failure): Code(s): I50.9 - Heart failure, unspecified Status: Acute Assessment and Plan: Echo on 10/24/2022 shows an EF estimated at 40-45%. Grade 1 diastolic dysfunction. appears to be an acute on chronic diastolic heart failure in exacerbation Chest xray shows cardiomegaly with mild interstitial edema Currently on Bumex 1mg BID for now hold Entresto, jardiance, and chlorthalidone due to Acute on chronic kidney failure Cardiology has been consulted. Fluid restriction of 1200 cc. Continue with Coreg Strict I&O Daily weight (2) ELANA (acute kidney injury): Code(s): N17.9 - Acute kidney failure, unspecified Status: Acute Assessment and Plan: Creatinine 2.7 with a GFR is 17 on admission current BUN/Cr 94/2.50 Baseline appears to be 0.8-1.10 consider Nephrology consult Renal ultrasound urine labs Continue Bumex for now trend labs avoid nephrotoxic medications Most likely medication induced as she is on chlorthalidone and Entresto (3) Hyperlipidemia: Code(s): E78.5 - Hyperlipidemia, unspecified Status: Acute Assessment and Plan: Continue with heart healthy diet and atorvastatin (4) Venous stasis ulcer: Code(s): I83.009 - Varicose veins of unspecified lower extremity with ulcer of unspecified site; L97.909 - Non-pressure chronic ulcer of unspecified part of unspecified lower leg with unspecified severity Status: Acute Assessment and Plan: Left lower leg consider wound consult Continue Minerin creme and wrap trend symptoms consider a wound culture if there is drainage most likely related to CHF exacerbation venous doppler no DVT noted Time Spent With Patient Time: 56 minutes Time with patient: Greater than 35 minutes Subjective Date/time seen: 12/22/22 1030 Interval history: 12/22/22 1030 Patient is currently lying in bed. Patient stated that she is having some major pain in her legs. She currently said that her pain is about a 7/10. She also complains of feeling bowel me today. Creatinine is a little better at 2.5. She denies any chest pain, shortness a breath, nausea, vomiting, diarrhea constipation. She does complain about her legs being swollen and weeping. 12/21/22? 14:37 This is a 77-year-old female patient who has a history of congestive heart failure.? The patient's chief complaint today was bilateral lower leg swelling for the last month.? Patient stated that it has gotten worse over the last couple weeks.? Patient is oozing clear fluid from her legs for the last week.? She is also complaining of having some pain and swelling to her legs.? She has been on diuretics for many years she follows with Dr. Cordero.? The patient stated that her medications recently changed she is not sure if she still on Lasix or not.? Her H&H is 10.8 and 32.8 which was normal 2 months ago.? Her BUN is 99 creatinine is 2.7.? BNP was 1040.? Venous Doppler no lower extremity deep vein thrombosis.? Limited evaluation left lower extremity.? Chest x-ray was read as cardiomegaly with mild interstitial edema.? The patient is able to get up and walk at least 20 ft before she short of breath.? The patient was given a dose of IV Lasix in the emergency room.? Cardiology has been consulted.? The patient is being admitted to observation status on the date of service of 12/21/2022. Review of Systems Review of Systems: All systems reviewed & are unremarkable except as noted in HPI and below Exam Narrative: General: well-nourished, well-appearing 77-year-old female, laying in bed, comfortable, NARD Neuro: awake, alert and oriented x4, speech clear, no focal neuro deficits noted HEENMT: normocephalic, atraumatic, EOMI, sclerae anicteric, moist oral mucosa Respiratory: Clear to auscultation bilaterally with
[2022-12-22 10:38] LABS: Erythrocyte Sedimentation Rate 133 mm/hr (0-20)
--- NOTE | 2022-12-22 11:21 | PM.CNCAR ---
Assessment and Plan Assessment and plan (1) Ischemic cardiomyopathy: Code(s): I25.5 - Ischemic cardiomyopathy Status: Acute Plan this is a 77-year-old lady with coronary disease who does have mild LV systolic dysfunction following prior myocardial infarction. She has much more edema and volume overload then we can explain based on her mildly depressed LV function. Despite aggressive diuretic outpatient efforts this has continued to worsen and she is now hospitalized. Her BUN and creatinine are much higher than they were several months ago. Despite this she is obviously not volume overloaded. For now her Entresto has been placed on hold. I would agree with continuing the IV bumetanide and I am going to try adding some low-dose dopamine to see if a diuresis can be stimulated. Juanjo Calvert MD [facility] History of Present Illness History of Present Illness Consult date/time: 12/22/22 11:21 Reason For Visit: ELANA/Bilateral Leg Edema/Venous Stasis Ulcer Narrative: this is a 77-year-old woman I am seeing at the request of the hospitalist because she was admitted to the hospital with severe weeping lower extremity edema. This is a patient who is known to me with coronary artery disease and is followed in my office for the last several years. She presented to the hospital a few years ago with acute myocardial infarction/ ACS and underwent emergency LAD intervention at this hospital. Following that she has been for is seen in the office regularly in follow-up. She has not had any recurrent ischemic problems and initially had a very low ejection fraction which then improved with medical therapy including carvedilol Entresto and Aldactone. She has had difficulty in recent months with increasing lower extremity edema she has been very frustrated that this has continued to bother her. I have seen her regularly in the office and had been advancing her diuretics. She has currently been on a combination of high-dose IV bumetanide along with chlorthalidone to try to affect diuresis. Despite this she has had worsening weeping edema and comes into the hospital for further evaluation. She is not reporting any chest pain or shortness of breath. She has laboratory data indicating significant worsening in her renal function her BUN is 99 with a creatinine of 2.7 on admission. She is not volume depleted as stated above she is markedly edematous and has weeping edema. Renal consult was obtained this morning. Her currently she has orders for her IV bumetanide her Entresto has been placed on hold presumably because of her worsening renal function. She does have a recent echocardiogram in the office showing her ejection fraction to be about 45%. She does not have any significant valvular dysfunction. In this setting we are seeing her in consultation Review of Systems Constitutional: Constitutional: Reports lethargy Eyes: Eyes: Reports no additional eye complaints ENT: Reports system reviewed and no additional complaints, except as documented Cardiovascular: Cardiovascular: Reports leg edema Respiratory: Respiratory: Reports dyspnea on exertion Gastrointestinal: Gastrointestinal: Reports no additional gastrointestinal complaints Musculoskeletal: Musculoskeletal: Reports back pain Integumentary/Breasts: Skin/Breast: Reports system reviewed and no additional complaints, except as docu Endocrine: Endocrine: Reports no additional endocrine complaints Hematologic/Lymphatic: Hematologic/Lymphatic: Reports no additional hematologic/lymphatic complaints Allergic/Immunologic: Allergic/Immunologic: Reports no additional allergic/immunologic complaints PMFSH Past Medical History Medical History CHF (congestive heart failure) echocardiogram April 2017 demonstrated EF of 40% with apical and apical anterior thinning, mid anterior hypokinesis, dyskinetic apical and apical anterior segmen
--- NOTE | 2022-12-22 12:30 | PC.NURSE ---
This patient, Alyssa Hanson, was received from [facility] on 12/22/22 at 1230. Patient/family oriented to unit policies and routines
[2022-12-22] MEDS: DOPamine 400 MG/D5W 250 ML 400 MG/250 ML BAG 12.66 MG IV CONT (13:22)
[2022-12-22 15:44] LABS: Creatinine Urine 54.4 mg/dL; Urea Random Urine 456 MG/DL
[2022-12-22 15:46] LABS: Creatinine Urine 54.6 mg/dL; Total Protein Urine Random 9 mg/dL; Ur Ttl Prot Creatinine Ratio 0.16 mg/mg (0-0.20)
[2022-12-22 15:47] LABS: Sodium Urine Random 80 meq/L
[2022-12-22 15:48] LABS: Appearance Urine Clear (Clear); Bacteria Urine None Seen /hpf; Bilirubin Urine Negative (Negative); Blood Urine Negative (Negative); Color Urine Yellow (Yellow); Glucose Urine UA Negative (Negative); Ketones Urine Negative (Negative); Leukocyte Esterase Ur 1+ LEU/UL (NEGATIVE); Need Manual Microscopic Reviewed; Nitrate Urine Negative (Negative); Protein Urine Negative (Negative); RBC Urine 0-2 /hpf (0-2); Specific Grav Ur 1.011 (1.001-1.035); Squamous Epithelial Cell Urine None seen /hpf (Few); Urobilinogen Urine 0.2 mg/dL (<2.0); WBC Urine 0-5 /hpf (0-3)
[2022-12-22 15:49] LABS: Add Urine Microscopic? YES
[2022-12-22] MEDS: SPIRONOLACTONE 12.5 MG TABLET PO (18:21)
[2022-12-22] MEDS: ATORVASTATIN 40 MG TABLET PO (20:10)
--- NOTE | 2022-12-22 22:53 | PCRCNOTE ---
pt refuse apnea link tonight.
[2022-12-23] VITALS (17 sets, daily range): BP systolic 100–122; BP diastolic 38–74; PULSE 56–107; RESP 18–20; TEMP 35.8–36.5; O2SAT 95–100
[2022-12-23] MEDS: ACETAMINOPHEN 325 MG TABLET 650 MG PO (02:33)
[2022-12-23 04:16] LABS: Basophils Percent Auto 0.4 % (0.2-1.2); Eosinophils Absolute Auto 0.4 K/mm3 (0-0.3); Eosinophils Percent Auto 3.7 % (0-4.4); Hematocrit 30.8 % (37.0-47.0); Hemoglobin 10.5 g/dL (12.0-15.0); Immature Granulocyte Absolute 0.06 K/mm3 (0.00-0.031); Immature Granulocyte Percent A 0.6 % (0-0.5); Lymphocytes Absolute Auto 1.02 K/mm3 (0.9-3.2); Lymphocytes Percent Auto 9.5 % (18.3-44.2); Mean Corpuscular HGB Conc 34.1 g/dl (32-36); Mean Corpuscular Hemoglobin 31.5 pg (26-34); Mean Corpuscular Volume 92.5 fl (80-100); Mean Platelet Volume 9.8 fl (7.4-10.4); Monocytes Absolute Auto 0.8 K/mm3 (0.1-0.6); Monocytes Percent Auto 7.1 % (2.6-8.5); Neutrophils Absolute Auto 8.4 K/mm3 (1.3-6.7); Neutrophils Percent Auto 78.7 % (45.5-73.1); Platelet Count Result 244 k/mm3 (150-375); Red Blood Count 3.33 M/mm3 (4.2-5.4); Red Cell Distribution Width 14.8 % (11.5-14.5); White Blood Count 10.7 K/mm3 (4.5-10.0)
[2022-12-23 04:25] LABS: Alanine Aminotransferase 11 U/L (6-35); Alkaline Phosphatase 67 U/L (38-126); Anion Gap 7 mmol/L (8-16); Aspartate Amino Transferase 20 U/L (14-36); Bilirubin,Total 0.9 mg/dL (0.2-1.3); Blood Urea Nitrogen 88 mg/dL (7-17); Calcium 9.1 mg/dL (8.4-10.2); Carbon Dioxide 30 mmol/L (22-30); Chloride 98 mmol/L (98-107); Estimated CRCL calculation 29 ml/min; Estimated Glomerular Filt Rate 24; Glucose 111 mg/dL (65-110); Magnesium 2.8 mg/dL (1.6-2.3); Phosphorus 4.7 mg/dL (2.5-4.5); Potassium 3.9 mmol/L (3.4-5.0); Sodium 135 mmol/L (137-145)
--- NOTE | 2022-12-23 05:39 | PCRCNOTE ---
Apnea link devices was shut off. No data was recorded. Rt will try again tonight.
--- NOTE | 2022-12-23 08:34 | PM.PNNEP ---
Progress Note: A&P Assessment and Plan (1) Acute kidney injury: Code(s): N17.9 - Acute kidney failure, unspecified Status: Acute Assessment and Plan: The patient has acute kidney injury. Urine sodium is not low (due to diuretics) but he fractional excretion of urea is only 20% consistent with pre renal azotemia. Renal sonogram shows no hydronephrosis but does show parenchymal atrophy. Sleep test is pending Serology and immunofixation are pending The patient has gotten diuretics and dopamine. Urine output is better. Creatinine has improved is I suspect that she has renal venous hypertension from her pulmonary hypertension and substantial volume overload. Patient denies sleep apnea but we will see what the apnea link shows. Long discussion with the patient (2) Congestive heart failure: Qualifiers: Heart failure chronicity: acute on chronic Heart failure type: combined systolic and diastolic Qualified Code(s): I50.43 - Acute on chronic combined systolic (congestive) and diastolic (congestive) heart failure Code(s): I50.9 - Heart failure, unspecified Status: Acute Assessment and Plan: Ejection fraction is 47%. There is some pulmonary hypertension and diastolic dysfunction. She is getting treated for this. (3) COPD (chronic obstructive pulmonary disease): Qualifiers: COPD type: unspecified COPD Qualified Code(s): J44.9 - Chronic obstructive pulmonary disease, unspecified Code(s): J44.9 - Chronic obstructive pulmonary disease, unspecified Status: Acute (4) Hyperlipidemia: Code(s): E78.5 - Hyperlipidemia, unspecified Status: Acute Assessment and Plan: She is on atorvastatin Subjective Date/time seen: 12/23/22 08:34 Interval history: Alyssa is feeling about the same. She is now on a dopamine drip. Review of Systems Cardiovascular: Cardiovascular: Reports no additional cardiovascular complaints Respiratory: Respiratory: Reports no additional respiratory complaints Gastrointestinal: Gastrointestinal: Reports no additional gastrointestinal complaints Genitourinary: Genitourinary: Reports no additional female genitourinary complaints Exam Narrative: WDWN in NAD skin no rash head ncat lungs clear cor reg no rub abd BS+ nontender and soft ext 2+ bilateral edema. Objective Data Vital Signs Vital Signs: Vital Signs - 24 hr 12/22/22 12:00 12/22/22 13:04 12/22/22 13:22 Temperature 97.1 F L Pulse Rate 59 L 57 L 62 Respiratory Rate 20 Blood Pressure 101/59 L Pulse Oximetry 100 Oxygen Delivery 12/22/22 16:00 12/22/22 16:00 12/22/22 16:00 Temperature 97.6 F Pulse Rate 101 H 62 Respiratory Rate 20 Blood Pressure 98/51 L Pulse Oximetry 93 Oxygen Delivery Room Air 12/22/22 18:00 12/22/22 19:55 12/22/22 20:10 Temperature 97.7 F Pulse Rate 64 66 83 Respiratory Rate 20 Blood Pressure 92/52 L Pulse Oximetry 100 Oxygen Delivery 12/22/22 23:06 12/22/22 20:00 12/22/22 20:00 Temperature 97.4 F L Pulse Rate 71 66 Respiratory Rate 20 Blood Pressure 125/46 L Pulse Oximetry 99 Oxygen Delivery Room Air 12/22/22 22:00 12/23/22 00:00 12/23/22 02:00 Temperature Pulse Rate 80 107 H 80 Respiratory Rate Blood Pressure Pulse Oximetry Oxygen Delivery 12/23/22 00:00 12/23/22 03:46 12/23/22 04:00 Temperature 97.7 F Pulse Rate 64 Respiratory Rate 20 Blood Pressure 112/45 L Pulse Oximetry 99 Oxygen Delivery Room Air Room Air 12/23/22 04:00 12/23/22 06:00 Temperature Pulse Rate 65 58 L Respiratory Rate Blood Pressure Pulse Oximetry Oxygen Delivery Intake/Output Intake/Output: Intake & Output 12/20/22 12/21/22 12/22/22 12/23/22 23:59 23:59 23:59 23:59 Intake Total 240 1080 240 Output Total 100 1750 400 Balance 140 -670 -160 Meds/Results Medications: Active Medications Generic Na
[2022-12-23] MEDS: SPIRONOLACTONE 12.5 MG TABLET PO (10:14)
[2022-12-23] MEDS: EUCERIN CREAM 120 GM JAR 1 APPLIC TOPICAL (10:14)
[2022-12-23] MEDS: carvediloL 12.5 MG TABLET PO ×2 (10:14→20:26)
[2022-12-23] MEDS: BUMETANIDE INJ 1 MG/4 ML VIAL IV PUSH ×2 (10:15→17:56)
[2022-12-23] MEDS: ASPIRIN 81 MG CHEWABLE TABLET PO ×2 (10:15→17:56)
[2022-12-23] MEDS: DOPamine 400 MG/D5W 250 ML 400 MG/250 ML BAG 12.66 MG IV CONT (10:15)
--- NOTE | 2022-12-23 10:15 | P.PNIM_ITS ---
Progress Note: A&P Assessment and Plan (1) CHF (congestive heart failure): Code(s): I50.9 - Heart failure, unspecified Status: Acute Assessment and Plan: * Echo on 10/24/2022 shows an EF estimated at 40-45%. Grade 1 diastolic dysfunction. * appears to be an acute on chronic diastolic heart failure in exacerbation * Chest xray shows cardiomegaly with mild interstitial edema * Currently on Bumex 1mg BID, continued * hold Entresto, jardiance, and chlorthalidone due to Acute on chronic kidney failure * Cardiology has been consulted. * Fluid restriction of 1200 cc. * Continue with Coreg * Strict I&O * Daily weight * Started on dopamine drip for better cardiac support while diuresing (2) Ischemic cardiomyopathy: Code(s): I25.5 - Ischemic cardiomyopathy Status: Acute Assessment and Plan: * See above (3) ELANA (acute kidney injury): Code(s): N17.9 - Acute kidney failure, unspecified Status: Acute Assessment and Plan: * Creatinine 2.7 with a GFR is 17 on admission * current BUN/Cr 88/2.00 * Baseline appears to be 0.8-1.10 * consider Nephrology consult * Renal ultrasound cortical thinning of the kidneys with hydronephrosis * urine labs * Continue Bumex for now * trend labs * avoid nephrotoxic medications * Most likely medication induced as she is on chlorthalidone and Entresto (4) Hyperlipidemia: Code(s): E78.5 - Hyperlipidemia, unspecified Status: Acute Assessment and Plan: * Continue with heart healthy diet and atorvastatin (5) Venous stasis ulcer: Code(s): I83.009 - Varicose veins of unspecified lower extremity with ulcer of unspecified site; L97.909 - Non-pressure chronic ulcer of unspecified part of unspecified lower leg with unspecified severity Status: Acute Assessment and Plan: * Left lower leg * consider wound consult * Continue Minerin creme and wrap * trend symptoms * consider a wound culture if there is drainage * most likely related to CHF exacerbation * venous doppler no DVT noted (6) COPD (chronic obstructive pulmonary disease): Qualifiers: COPD type: unspecified COPD Qualified Code(s): J44.9 - Chronic obstructive pulmonary disease, unspecified Code(s): J44.9 - Chronic obstructive pulmonary disease, unspecified Status: Acute Assessment and Plan: * Stable and chronic * No home medications * no supplemental oxygen demand noted * Continue to trend respiratory status * adjust therapy as indicated Time Spent With Patient Time: 52 minutes Time with patient: Greater than 35 minutes Subjective Date/time seen: 12/23/22 1015 Interval history: 12/23/22 1015 patient seems to be doing okay. She is sitting on the side the bed. She stated that she feels pretty okay however she follow that up with feels like she did when she walked in. She denies any chest pain, shortness a breath, nausea, vomiting, diarrhea constipation. She also stated that she feels like her legs have gone down. Creatinine is better today. 12/22/22 1030 Patient is currently lying in bed. Patient stated that she is having some major pain in her legs. She currently said that her pain is about a 7/10. She also complains of f
--- NOTE | 2022-12-23 10:15 | PM.IMPN ---
Progress Note: A&P Assessment and Plan (1) CHF (congestive heart failure): Code(s): I50.9 - Heart failure, unspecified Status: Acute Assessment and Plan: Echo on 10/24/2022 shows an EF estimated at 40-45%. Grade 1 diastolic dysfunction. appears to be an acute on chronic diastolic heart failure in exacerbation Chest xray shows cardiomegaly with mild interstitial edema Currently on Bumex 1mg BID, continued hold Entresto, jardiance, and chlorthalidone due to Acute on chronic kidney failure Cardiology has been consulted. Fluid restriction of 1200 cc. Continue with Coreg Strict I&O Daily weight Started on dopamine drip for better cardiac support while diuresing (2) Ischemic cardiomyopathy: Code(s): I25.5 - Ischemic cardiomyopathy Status: Acute Assessment and Plan: See above (3) ELANA (acute kidney injury): Code(s): N17.9 - Acute kidney failure, unspecified Status: Acute Assessment and Plan: Creatinine 2.7 with a GFR is 17 on admission current BUN/Cr 88/2.00 Baseline appears to be 0.8-1.10 consider Nephrology consult Renal ultrasound cortical thinning of the kidneys with hydronephrosis urine labs Continue Bumex for now trend labs avoid nephrotoxic medications Most likely medication induced as she is on chlorthalidone and Entresto (4) Hyperlipidemia: Code(s): E78.5 - Hyperlipidemia, unspecified Status: Acute Assessment and Plan: Continue with heart healthy diet and atorvastatin (5) Venous stasis ulcer: Code(s): I83.009 - Varicose veins of unspecified lower extremity with ulcer of unspecified site; L97.909 - Non-pressure chronic ulcer of unspecified part of unspecified lower leg with unspecified severity Status: Acute Assessment and Plan: Left lower leg consider wound consult Continue Minerin creme and wrap trend symptoms consider a wound culture if there is drainage most likely related to CHF exacerbation venous doppler no DVT noted (6) COPD (chronic obstructive pulmonary disease): Qualifiers: COPD type: unspecified COPD Qualified Code(s): J44.9 - Chronic obstructive pulmonary disease, unspecified Code(s): J44.9 - Chronic obstructive pulmonary disease, unspecified Status: Acute Assessment and Plan: Stable and chronic No home medications no supplemental oxygen demand noted Continue to trend respiratory status adjust therapy as indicated Time Spent With Patient Time: 52 minutes Time with patient: Greater than 35 minutes Subjective Date/time seen: 12/23/22 1015 Interval history: 12/23/22 1015 patient seems to be doing okay. She is sitting on the side the bed. She stated that she feels pretty okay however she follow that up with feels like she did when she walked in. She denies any chest pain, shortness a breath, nausea, vomiting, diarrhea constipation. She also stated that she feels like her legs have gone down. Creatinine is better today. 12/22/22 1030 Patient is currently lying in bed. Patient stated that she is having some major pain in her legs. She currently said that her pain is about a 7/10. She also complains of feeling bowel me today. Creatinine is a little better at 2.5. She denies any chest pain, shortness a breath, nausea, vomiting, diarrhea constipation. She does complain about her legs being swollen and weeping. 12/21/22? 14:37 This is a 77-year-old female patient who has a history of congestive heart failure.? The patient's chief complaint today was bilateral lower leg swelling for the last month.? Patient stated that it has gotten worse over the last couple weeks.? Patient is oozing clear fluid from her legs for the last week.? She is also complaining of having some pain and swelling to her legs.? She has been on diuretic
--- NOTE | 2022-12-23 10:28 | PM.PNCARD ---
Progress Note: A&P Assessment and Plan (1) CAD (coronary artery disease): Code(s): I25.10 - Atherosclerotic heart disease of [place] coronary artery without angina pectoris Status: Acute (2) Congestive heart failure: Qualifiers: Heart failure chronicity: acute on chronic Heart failure type: combined systolic and diastolic Qualified Code(s): I50.43 - Acute on chronic combined systolic (congestive) and diastolic (congestive) heart failure Code(s): I50.9 - Heart failure, unspecified Status: Acute Plan 77-year-old female with: Problematic challenging lower extremity edema. Patient has some LV systolic function dysfunction as mentioned in my note but certainly not enough to create this severe edema. She does seem to be responding to low-dose dopamine which hopefully will augment renal perfusion. We will continue this along with IV Bumex as long as it is resulting in benefit. She will probably be in the hospital for a while since she is markedly volume overloaded. When she is in a state of euvolemia will have to determine whether to resume Entresto or some alternative vasodilators such as hydralazine if desires to preserve renal function. Juanjo Calvert MD [facility] Subjective Date/time seen: Date of service: 12/23/22 10:28 Interval history: Follow-up visit in this 77-year-old lady with: Coronary artery disease with previous MA and PCI a number of years ago. She has been stable without any ischemic problems in recent years. She does have mildly depressed LV function with ejection fraction of about 45%. Recent problems have been that of resistant problematic lower extremity edema despite outpatient advances in her diuretics. Patient also has had worsening renal function despite ongoing volume overload. Today she says she feels better after being started on low-dose dopamine yesterday. She is making a diuretic response and today's metabolic profile demonstrates improvement in creatinine. No shortness of breath or other complaints. Upon walking in the room the patient was seated at the bedside with her feet on the floor. Reinforce the need/recommendation for lower extremity elevation as much as possible. Exam Const: General: comfortable Other: Pleasant morbidly obese elderly lady no distress of any kind HENMT: Mouth: Yes moist mucous membranes Eyes: Sclera: sclerae normal Neck: Neck: supple and no JVD Resp: Effort & Inspection: normal respiratory effort Auscultation: clear to auscultation bilaterally Cardio: Rate: regular rate Rhythm: regular rhythm GI: GI Palp: Yes Soft to palpation Auscultation: normal bowel sounds Skin: General skin exam: normal color Neuro: Other: Alert and oriented x3 Extrem: Other: Significant bilateral lower extremity edema some improvement compared with yesterday no longer weeping today Objective Data Vital Signs Vital Signs: Vital Signs - 24 hr 12/22/22 12:00 12/22/22 13:04 12/22/22 13:22 Temperature 36.2 C L Pulse Rate 59 L 57 L 62 Respiratory Rate 20 Blood Pressure 101/59 L Pulse Oximetry 100 Oxygen Delivery 12/22/22 16:00 12/22/22 16:00 12/22/22 16:00 Temperature 36.4 C Pulse Rate 101 H 62 Respiratory Rate 20 Blood Pressure 98/51 L Pulse Oximetry 93 Oxygen Delivery Room Air 12/22/22 18:00 12/22/22 19:55 12/22/22 20:10 Temperature 36.5 C Pulse Rate 64 66 83 Respiratory Rate 20 Blood Pressure 92/52 L Pulse Oximetry 100 Oxygen Delivery 12/22/22 23:06 12/22/22 20:00 12/22/22 20:00 Temperature 36.3 C L Pulse Rate 71 66 Respiratory Rate 20 Blood Pressure 125/46 L Pulse Oximetry 99 Oxygen Delivery Room Air 12/22/22 22:00 12/23/22 00:00 12/23/22 02:00 Temperature Pulse Rate 80 107 H 80 Respiratory Rate Blood Pressure Pulse Oximetry Oxygen Delivery 12/23/22 00:00 12/23/22 03:46 12/23/22 04:00 Temperature 36.5 C Pulse Rate 64 Res
[2022-12-23] MEDS: ATORVASTATIN 40 MG TABLET PO (20:26)
[2022-12-24] VITALS (15 sets, daily range): BP systolic 94–131; BP diastolic 35–84; PULSE 56–99; RESP 18–22; TEMP 36.1–36.8; O2SAT 99–100
[2022-12-24 05:05] LABS: Basophils Absolute Auto 0.1 K/mm3 (0.0-0.1); Basophils Percent Auto 0.8 % (0.2-1.2); Eosinophils Absolute Auto 0.5 K/mm3 (0-0.3); Eosinophils Percent Auto 6.2 % (0-4.4); Hematocrit 29.8 % (37.0-47.0); Immature Granulocyte Absolute 0.02 K/mm3 (0.00-0.031); Immature Granulocyte Percent A 0.3 % (0-0.5); Lymphocytes Percent Auto 13.9 % (18.3-44.2); Mean Corpuscular HGB Conc 33.6 g/dl (32-36); Mean Corpuscular Hemoglobin 31.4 pg (26-34); Mean Corpuscular Volume 93.7 fl (80-100); Mean Platelet Volume 9.7 fl (7.4-10.4); Monocytes Absolute Auto 0.7 K/mm3 (0.1-0.6); Monocytes Percent Auto 8.6 % (2.6-8.5); Neutrophils Absolute Auto 5.5 K/mm3 (1.3-6.7); Neutrophils Percent Auto 70.2 % (45.5-73.1); Platelet Count Result 213 k/mm3 (150-375); Red Blood Count 3.18 M/mm3 (4.2-5.4); Red Cell Distribution Width 14.7 % (11.5-14.5); White Blood Count 7.9 K/mm3 (4.5-10.0)
[2022-12-24 05:19] LABS: Alanine Aminotransferase 10 U/L (6-35); Albumin Level 3.7 g/dL (3.5-5.1); Alkaline Phosphatase 62 U/L (38-126); Anion Gap 9 mmol/L (8-16); Aspartate Amino Transferase 21 U/L (14-36); Bilirubin,Total 0.9 mg/dL (0.2-1.3); Blood Urea Nitrogen 84 mg/dL (7-17); Calcium 8.7 mg/dL (8.4-10.2); Carbon Dioxide 29 mmol/L (22-30); Chloride 96 mmol/L (98-107); Estimated CRCL calculation 30 ml/min; Estimated Glomerular Filt Rate 26; Glucose 108 mg/dL (65-110); Magnesium 2.7 mg/dL (1.6-2.3); Phosphorus 4.9 mg/dL (2.5-4.5); Potassium 3.6 mmol/L (3.4-5.0); Sodium 134 mmol/L (137-145)
[2022-12-24] MEDS: DOPamine 400 MG/D5W 250 ML 400 MG/250 ML BAG 12.66 MG IV CONT (05:32)
--- NOTE | 2022-12-24 08:00 | P.PNIM_ITS ---
Progress Note: A&P Assessment and Plan (1) CHF (congestive heart failure): Code(s): I50.9 - Heart failure, unspecified Status: Acute Assessment and Plan: * Echo on 10/24/2022 shows an EF estimated at 40-45%. Grade 1 diastolic dysfunction. * appears to be an acute on chronic diastolic heart failure in exacerbation * Chest xray shows cardiomegaly with mild interstitial edema * Currently on Bumex 1mg BID, continued * hold Entresto, jardiance, and chlorthalidone due to Acute on chronic kidney failure * Cardiology has been consulted. * Fluid restriction of 1200 cc. * Continue with Coreg * Strict I&O * Daily weight * Started on dopamine drip for better cardiac support while diuresing * Appears to be down about 2 liters (2) Ischemic cardiomyopathy: Code(s): I25.5 - Ischemic cardiomyopathy Status: Acute Assessment and Plan: * See above (3) ELANA (acute kidney injury): Code(s): N17.9 - Acute kidney failure, unspecified Status: Acute Assessment and Plan: * Creatinine 2.7 with a GFR is 17 on admission * current BUN/Cr 84/1.90 * Baseline appears to be 0.8-1.10 * consider Nephrology consult * Renal ultrasound cortical thinning of the kidneys with hydronephrosis * urine labs * Continue Bumex for now * trend labs * avoid nephrotoxic medications * Most likely medication induced as she is on chlorthalidone and Entresto (4) Hyperlipidemia: Code(s): E78.5 - Hyperlipidemia, unspecified Status: Acute Assessment and Plan: * Continue with heart healthy diet and atorvastatin (5) Venous stasis ulcer: Code(s): I83.009 - Varicose veins of unspecified lower extremity with ulcer of unspecified site; L97.909 - Non-pressure chronic ulcer of unspecified part of unspecified lower leg with unspecified severity Status: Acute Assessment and Plan: * Left lower leg * consider wound consult * Continue Minerin creme and wrap * trend symptoms * consider a wound culture if there is drainage * most likely related to CHF exacerbation * venous doppler no DVT noted (6) COPD (chronic obstructive pulmonary disease): Qualifiers: COPD type: unspecified COPD Qualified Code(s): J44.9 - Chronic obstructive pulmonary disease, unspecified Code(s): J44.9 - Chronic obstructive pulmonary disease, unspecified Status: Acute Assessment and Plan: * Stable and chronic * No home medications * no supplemental oxygen demand noted * Continue to trend respiratory status * adjust therapy as indicated Time Spent With Patient Time: 48 minutes Time with patient: Greater than 35 minutes Subjective Date/time seen: 12/24/22 0800 Interval history: 12/24/22 0800 Patient is resting in bed. Patient states that her legs look better today. She also stated that she is feeling a lot better. She denies any current chest pain, shortness a breath, nausea, vomiting, diarrhea or constipation. She is eating well. Patient is itching to go home however she is diuresing pretty well with the dopamine. Will continue diuresis as indicated at this time. Currently patient is stable per tele monitor will continue trend output. 12/23/22 1015 patient seems to be doing okay. She
--- NOTE | 2022-12-24 08:00 | PM.IMPN ---
Progress Note: A&P Assessment and Plan (1) CHF (congestive heart failure): Code(s): I50.9 - Heart failure, unspecified Status: Acute Assessment and Plan: Echo on 10/24/2022 shows an EF estimated at 40-45%. Grade 1 diastolic dysfunction. appears to be an acute on chronic diastolic heart failure in exacerbation Chest xray shows cardiomegaly with mild interstitial edema Currently on Bumex 1mg BID, continued hold Entresto, jardiance, and chlorthalidone due to Acute on chronic kidney failure Cardiology has been consulted. Fluid restriction of 1200 cc. Continue with Coreg Strict I&O Daily weight Started on dopamine drip for better cardiac support while diuresing Appears to be down about 2 liters (2) Ischemic cardiomyopathy: Code(s): I25.5 - Ischemic cardiomyopathy Status: Acute Assessment and Plan: See above (3) ELANA (acute kidney injury): Code(s): N17.9 - Acute kidney failure, unspecified Status: Acute Assessment and Plan: Creatinine 2.7 with a GFR is 17 on admission current BUN/Cr 84/1.90 Baseline appears to be 0.8-1.10 consider Nephrology consult Renal ultrasound cortical thinning of the kidneys with hydronephrosis urine labs Continue Bumex for now trend labs avoid nephrotoxic medications Most likely medication induced as she is on chlorthalidone and Entresto (4) Hyperlipidemia: Code(s): E78.5 - Hyperlipidemia, unspecified Status: Acute Assessment and Plan: Continue with heart healthy diet and atorvastatin (5) Venous stasis ulcer: Code(s): I83.009 - Varicose veins of unspecified lower extremity with ulcer of unspecified site; L97.909 - Non-pressure chronic ulcer of unspecified part of unspecified lower leg with unspecified severity Status: Acute Assessment and Plan: Left lower leg consider wound consult Continue Minerin creme and wrap trend symptoms consider a wound culture if there is drainage most likely related to CHF exacerbation venous doppler no DVT noted (6) COPD (chronic obstructive pulmonary disease): Qualifiers: COPD type: unspecified COPD Qualified Code(s): J44.9 - Chronic obstructive pulmonary disease, unspecified Code(s): J44.9 - Chronic obstructive pulmonary disease, unspecified Status: Acute Assessment and Plan: Stable and chronic No home medications no supplemental oxygen demand noted Continue to trend respiratory status adjust therapy as indicated Time Spent With Patient Time: 48 minutes Time with patient: Greater than 35 minutes Subjective Date/time seen: 12/24/22 0800 Interval history: 12/24/22 0800 Patient is resting in bed. Patient states that her legs look better today. She also stated that she is feeling a lot better. She denies any current chest pain, shortness a breath, nausea, vomiting, diarrhea or constipation. She is eating well. Patient is itching to go home however she is diuresing pretty well with the dopamine. Will continue diuresis as indicated at this time. Currently patient is stable per tele monitor will continue trend output. 12/23/22 1015 patient seems to be doing okay. She is sitting on the side the bed. She stated that she feels pretty okay however she follow that up with feels like she did when she walked in. She denies any chest pain, shortness a breath, nausea, vomiting, diarrhea constipation. She also stated that she feels like her legs have gone down. Creatinine is better today. 12/22/22 1030 Patient is currently lying in bed. Patient stated that she is having some major pain in her legs. She currently said that her pain is about a 7/10. She also complains of feeling bowel me today. Creatinine is a little better at 2.5. She denies any chest pain, shortness a breath, nausea, v
[2022-12-24] MEDS: BUMETANIDE INJ 1 MG/4 ML VIAL IV PUSH ×2 (09:31→18:05)
[2022-12-24] MEDS: ASPIRIN 81 MG CHEWABLE TABLET PO ×2 (09:31→18:05)
[2022-12-24] MEDS: EUCERIN CREAM 120 GM JAR 1 APPLIC TOPICAL (09:31)
[2022-12-24] MEDS: carvediloL 12.5 MG TABLET PO ×2 (09:31→21:15)
[2022-12-24] MEDS: SPIRONOLACTONE 12.5 MG TABLET PO (09:31)
--- NOTE | 2022-12-24 09:55 | PM.PNNEP ---
Progress Note: A&P Assessment and Plan (1) Acute kidney injury: Code(s): N17.9 - Acute kidney failure, unspecified Status: Acute Assessment and Plan: slow improvement noted with current therapy evaluation to date: renal ultrasound cortical thinning which would suggest some element of renal insufficiency/CKD urine electrolytes/FeUrea c/w pre-renal azotemia no significant proteinuria serologies pending better UOP and creatinine with IV dopamine + diuretics suspect renal venous HTN from her pulmonary HTN + volume overload (which is being relieved with current interventions) follow repeat labs and UOP (2) Congestive heart failure: Qualifiers: Heart failure chronicity: acute on chronic Heart failure type: combined systolic and diastolic Qualified Code(s): I50.43 - Acute on chronic combined systolic (congestive) and diastolic (congestive) heart failure Code(s): I50.9 - Heart failure, unspecified Status: Acute Assessment and Plan: EF ~ 47% with some pulmonary hypertension and diastolic dysfunction Cardiology following continue current therapy Subjective Date/time seen: 12/24/22 09:55 Chart reviewed -- assuming care from Dr. Galvan; she states her lower extremity swelling/edema is better but still not back to baseline; no apparent distress noted on my visit; renal function improving with current therapy. Exam Narrative: General: elderly female in NAD Heart: normal S1 and S2; no rub Lungs: clear anteriorly Abdomen: soft, nontender, nondistended, positive bowel sounds Extremities: no cyanosis or clubbing; 1 - 2+ edema Skin: warm and dry Objective Data Vital Signs Vital Signs: Vital Signs Temp Pulse Resp BP Pulse Ox O2 Del Method 12/24/22 09:31 61 12/24/22 08:00 61 12/24/22 08:00 98.3 F 56 L 18 94/35 L 99 12/24/22 06:00 63 12/24/22 04:00 97.7 F 61 22 H 119/69 100 12/24/22 04:00 Room Air 12/24/22 04:00 63 12/24/22 02:00 66 12/24/22 00:00 66 12/24/22 00:00 Room Air 12/23/22 22:00 60 12/23/22 20:00 Room Air 12/23/22 20:00 58 L 12/23/22 22:55 97.6 F 63 20 122/74 99 12/23/22 20:00 97.4 F L 62 20 112/62 100 12/23/22 20:26 56 L 12/23/22 18:00 60 12/23/22 16:00 62 12/23/22 14:00 66 12/23/22 12:00 60 12/23/22 16:00 Room Air 12/23/22 16:00 97.7 F 62 18 115/38 L 99 12/23/22 12:00 96.8 F L 56 L 20 100/41 L 95 12/23/22 11:47 Room Air Intake/Output Intake/Output: Intake & Output 12/21/22 12/22/22 12/23/22 12/24/22 23:59 23:59 23:59 23:59 Intake Total 240 1080 1160 450 Output Total 100 1750 1650 1250 Balance 197 -890 -040 -500 Meds/Results Medications: Active Medications Generic Name Dose Route Start Last Admin Trade Name Freq PRN Reason Stop Dose Admin Acetaminophen 650 mg 12/22/22 04:10 12/23/22 02:33 Acetaminophen 325 Mg Tablet PO 650 mg Q4H PRN Administration Pain 1-4 or fever Aspirin 81 mg 12/22/22 09:00 12/24/22 09:31 Aspirin 81 Mg Chewable Tablet PO 81 mg BID UBALDO Administration Atorvastatin Calcium 40 mg 12/21/22 21:00 12/23/22 20:26 Atorvastatin 40 Mg Tablet PO 40 mg HS UBALDO Administration Bumetanide 1 mg 12/22/22 09:00 12/24/22 09:31 Bumetanide Inj 1 Mg/4 Ml Vial IV PUSH 1 mg BID UBALDO Administration Bumetanide 2 mg 12/22/22 17:00 12/22/22 17:54 Bumetanide 1 Mg Tablet PO Not Given BID UBALDO Carvedilol 12.5 mg 12/21/22 21:00 12/24/22 09:31 Carvedilol 12.5 Mg Tablet PO 12.5 mg Q12H UBALDO Administration Dopamine HCl/Dextrose 400 mg in 250 mls @ 12.656 mls/hr 12/22/22 12:40 12/24/22 05:32 Dopamine 400 Mg/D5w 250 Ml IV CONT 2.5 mcg/kg/min .[id number] UBALDO 12.66 mls/hr Administration 2.5 MCG/KG/MIN Multi-Ingred Cream/Lotion/Oil/Oint 1 applic 12/22/22 09:00 12/24/22
--- NOTE | 2022-12-24 13:20 | PM.PNCARD ---
Progress Note: A&P Assessment and Plan (1) Pulmonary edema: Qualifiers: Chronicity: acute Qualified Code(s): J81.0 - Acute pulmonary edema Code(s): J81.1 - Chronic pulmonary edema Status: Acute Plan 77-year-old lady with worsening chronic kidney disease also has mild LV systolic dysfunction. She seems to be having significant improvement of her edema using low-dose dopamine to augment renal perfusion. We will continue this regimen for now since she is clearly benefiting from it. Since her LV systolic function is not markedly depressed I may resume alternative vasodilators such as hydralazine once she is euvolemic in hopes of preserving renal function as much as can be Juanjo Calvert MD [facility] Subjective Date/time seen: Date of service: 12/24/22 13:20 Interval history: Follow-up visit in this 77-year-old lady with: Severe peripheral edema resistant to outpatient attempts at diuresis. Patient has some underlying LV systolic dysfunction with previous [place] and also significant intrinsic renal disease. She seems to be having a good response to the combination of low-dose dopamine and IV bumetanide. Patient looks and feels better today she does notice for the last couple of days notable decrease in her chronic edema. Exam Const: General: comfortable and no acute distress Other: Pleasant morbidly obese elderly lady no distress of any kind HENMT: Mouth: Yes moist mucous membranes Eyes: Sclera: sclerae normal Pupils: Equal, round and reactive pupils present Neck: Neck: supple and no JVD Other: cannot assess for JVD given her body habitus Resp: Effort & Inspection: normal respiratory effort Auscultation: clear to auscultation bilaterally Other: may have a few crackles at the bases otherwise essentially clear breath sounds Cardio: Rate: regular rate Rhythm: regular rhythm Other: PMI is not palpable no audible murmur gallop GI: Auscultation: normal bowel sounds Skin: General skin exam: normal color Neuro: Cranial nerves: Yes Equal, round and reactive pupils present Other: Alert and oriented x3 Extrem: Other: Patient now has moderate bilateral edema notable improvement for the last 48 hours. No longer any weeping. Objective Data Vital Signs Vital Signs: Vital Signs - 24 hr 12/23/22 16:00 12/23/22 16:00 12/23/22 14:00 Temperature 36.5 C Pulse Rate 62 66 Respiratory Rate 18 Blood Pressure 115/38 L Pulse Oximetry 99 Oxygen Delivery Room Air 12/23/22 16:00 12/23/22 18:00 12/23/22 20:26 Temperature Pulse Rate 62 60 56 L Respiratory Rate Blood Pressure Pulse Oximetry Oxygen Delivery 12/23/22 20:00 12/23/22 22:55 12/23/22 20:00 Temperature 36.3 C L 36.4 C Pulse Rate 62 63 58 L Respiratory Rate 20 20 Blood Pressure 112/62 122/74 Pulse Oximetry 100 99 Oxygen Delivery 12/23/22 20:00 12/23/22 22:00 12/24/22 00:00 Temperature Pulse Rate 60 Respiratory Rate Blood Pressure Pulse Oximetry Oxygen Delivery Room Air Room Air 12/24/22 00:00 12/24/22 02:00 12/24/22 04:00 Temperature Pulse Rate 66 66 63 Respiratory Rate Blood Pressure Pulse Oximetry Oxygen Delivery 12/24/22 04:00 12/24/22 04:00 12/24/22 06:00 Temperature 36.5 C Pulse Rate 61 63 Respiratory Rate 22 H Blood Pressure 119/69 Pulse Oximetry 100 Oxygen Delivery Room Air 12/24/22 08:00 12/24/22 08:00 12/24/22 09:31 Temperature 36.8 C Pulse Rate 56 L 61 61 Respiratory Rate 18 Blood Pressure 94/35 L Pulse Oximetry 99 Oxygen Delivery 12/24/22 12:00 Temperature 36.4 C Pulse Rate 63 Respiratory Rate 20 Blood Pressure 94/44 L Pulse Oximetry 100 Oxygen Delivery Intake/Output Intake/Output: Intake & Output 12/21/22 12/22/22 12/23/22 12/24/22 23:59 23:59 23:59 23:59 Intake Total 240 1080 1160 690 Output Total 100 1750 1650 1850 Balance 140 -670 -490 -1160 Meds/Resul
[2022-12-24] MEDS: ATORVASTATIN 40 MG TABLET PO (21:15)
[2022-12-25] VITALS (17 sets, daily range): BP systolic 106–131; BP diastolic 52–87; PULSE 56–107; RESP 20–22; TEMP 36.2–36.7; O2SAT 96–100
[2022-12-25] MEDS: DOPamine 400 MG/D5W 250 ML 400 MG/250 ML BAG 12.66 MG IV CONT (02:48)
[2022-12-25 05:08] LABS: Basophils Absolute Auto 0.1 K/mm3 (0.0-0.1); Basophils Percent Auto 0.6 % (0.2-1.2); Eosinophils Absolute Auto 0.5 K/mm3 (0-0.3); Eosinophils Percent Auto 5.5 % (0-4.4); Hematocrit 31.4 % (37.0-47.0); Hemoglobin 10.6 g/dL (12.0-15.0); Immature Granulocyte Absolute 0.04 K/mm3 (0.00-0.031); Immature Granulocyte Percent A 0.4 % (0-0.5); Lymphocytes Absolute Auto 1.28 K/mm3 (0.9-3.2); Mean Corpuscular HGB Conc 33.8 g/dl (32-36); Mean Corpuscular Hemoglobin 31.5 pg (26-34); Mean Corpuscular Volume 93.2 fl (80-100); Mean Platelet Volume 9.1 fl (7.4-10.4); Monocytes Absolute Auto 0.8 K/mm3 (0.1-0.6); Monocytes Percent Auto 7.8 % (2.6-8.5); Neutrophils Absolute Auto 7.2 K/mm3 (1.3-6.7); Neutrophils Percent Auto 72.7 % (45.5-73.1); Platelet Count Result 214 k/mm3 (150-375); Red Blood Count 3.37 M/mm3 (4.2-5.4); Red Cell Distribution Width 14.8 % (11.5-14.5); White Blood Count 9.9 K/mm3 (4.5-10.0)
[2022-12-25 05:28] LABS: Alanine Aminotransferase 12 U/L (6-35); Albumin Level 3.9 g/dL (3.5-5.1); Alkaline Phosphatase 62 U/L (38-126); Anion Gap 8 mmol/L (8-16); Aspartate Amino Transferase 22 U/L (14-36); Bilirubin,Total 0.8 mg/dL (0.2-1.3); Blood Urea Nitrogen 84 mg/dL (7-17); Calcium 9.1 mg/dL (8.4-10.2); Carbon Dioxide 32 mmol/L (22-30); Chloride 96 mmol/L (98-107); Estimated CRCL calculation 30 ml/min; Estimated Glomerular Filt Rate 26; Glucose 105 mg/dL (65-110); Magnesium 2.6 mg/dL (1.6-2.3); Potassium 3.9 mmol/L (3.4-5.0); Sodium 136 mmol/L (137-145)
[2022-12-25] MEDS: SPIRONOLACTONE 12.5 MG TABLET PO (09:25)
[2022-12-25] MEDS: EUCERIN CREAM 120 GM JAR 1 APPLIC TOPICAL (09:26)
[2022-12-25] MEDS: BUMETANIDE INJ 1 MG/4 ML VIAL IV PUSH (09:26)
[2022-12-25] MEDS: ASPIRIN 81 MG CHEWABLE TABLET PO ×2 (09:29→18:05)
[2022-12-25] MEDS: carvediloL 12.5 MG TABLET PO ×2 (09:29→21:04)
--- NOTE | 2022-12-25 09:38 | PM.PNNEP ---
Progress Note: A&P Assessment and Plan (1) Acute kidney injury: Code(s): N17.9 - Acute kidney failure, unspecified Status: Acute Assessment and Plan: slow improvement noted with current therapy evaluation to date: renal ultrasound cortical thinning which would suggest some element of renal insufficiency/CKD urine electrolytes/FeUrea c/w pre-renal azotemia no significant proteinuria serologies pending better UOP and creatinine with IV dopamine + diuretics suspect renal venous HTN from her pulmonary HTN + volume overload (which is being relieved with current interventions) this might be a situation where we have to accept a higher creatinine to maintain stability in her LE edema follow repeat labs and UOP (2) Congestive heart failure: Qualifiers: Heart failure chronicity: acute on chronic Heart failure type: combined systolic and diastolic Qualified Code(s): I50.43 - Acute on chronic combined systolic (congestive) and diastolic (congestive) heart failure Code(s): I50.9 - Heart failure, unspecified Status: Acute Assessment and Plan: EF ~ 47% with some pulmonary hypertension and diastolic dysfunction Cardiology following continue current therapy (3) COPD (chronic obstructive pulmonary disease): Qualifiers: COPD type: unspecified COPD Qualified Code(s): J44.9 - Chronic obstructive pulmonary disease, unspecified Code(s): J44.9 - Chronic obstructive pulmonary disease, unspecified Status: Acute Assessment and Plan: stable at this time Will continue to follow. Subjective Date/time seen: 12/25/22 09:38 Ongoing reasonable diuresis with combination therapy of dopamine gtt and IV diuretics; creatinine stable in the last 24 hours and better in comparison to admission; LE edema seems to be improving as well; no apparent distress noted. Exam Narrative: General: elderly female in NAD Heart: normal S1 and S2; no rub Lungs: clear anteriorly Abdomen: soft, nontender, nondistended, positive bowel sounds Extremities: no cyanosis or clubbing; 1 - 2+ edema Skin: warm and intact Objective Data Vital Signs Vital Signs: Vital Signs Temp Pulse Resp BP Pulse Ox O2 Del Method 12/25/22 09:29 67 12/25/22 08:00 97.9 F 64 20 127/52 L 96 12/25/22 06:00 60 12/25/22 04:00 Room Air 12/25/22 04:00 56 L 12/25/22 04:00 97.1 F L 60 22 H 108/56 L 98 12/25/22 02:00 56 L 12/25/22 00:00 64 12/25/22 00:00 Room Air 12/24/22 23:07 97.5 F L 65 20 116/59 L 99 12/24/22 22:00 65 12/24/22 20:00 Room Air 12/24/22 20:00 68 12/24/22 21:15 66 12/24/22 20:00 96.9 F L 64 20 131/84 99 12/24/22 18:00 62 12/24/22 16:00 97.6 F 58 L 18 106/51 L 99 12/24/22 16:00 Room Air 12/24/22 16:00 63 12/24/22 12:00 Room Air 12/24/22 14:00 63 12/24/22 12:00 99 12/24/22 10:00 62 12/24/22 12:00 97.6 F 63 20 94/44 L 100 Intake/Output Intake/Output: Intake & Output 12/22/22 12/23/22 12/24/22 12/25/22 23:59 23:59 23:59 23:59 Intake Total 1080 1160 930 610 Output Total 1750 1650 0690 726 Zcpuhyv -670 -490 -1720 -116 Meds/Results Medications: Active Medications Generic Name Dose Route Start Last Admin Trade Name Shiv PRN Reason Stop Dose Admin Acetaminophen 650 mg 12/22/22 04:10 12/23/22 02:33 Acetaminophen 325 Mg Tablet PO 650 mg Q4H PRN Administration Pain 1-4 or fever Aspirin 81 mg 12/22/22 09:00 12/25/22 09:29 Aspirin 81 Mg Chewable Tablet PO 81 mg BID UBALDO Administration Atorvastatin Calcium 40 mg 12/21/22 21:00 12/24/22 21:15 Atorvastatin 40 Mg Tablet PO 40 mg HS UBALDO Administration Bumetanide 1 mg 12/22/22 09:00 12/25/22 09:26 Bumetanide Inj 1 Mg/4 Ml Vial IV PUSH 1 mg BID UBALDO Administration Bumetanide 2 mg 12/22
--- NOTE | 2022-12-25 10:45 | P.PNIM_ITS ---
Progress Note: A&P Assessment and Plan (1) CHF (congestive heart failure): Code(s): I50.9 - Heart failure, unspecified Status: Acute Assessment and Plan: * Presented with worsening bilateral lower extremity edema * Echo on 10/24/2022 shows an EF estimated at 40-45%. Grade 1 diastolic dysfunction. * appears to be an acute on chronic diastolic heart failure in exacerbation * Chest xray shows cardiomegaly with mild interstitial edema * Currently on Bumex 1mg BID, continued * hold Entresto, Jardiance, and chlorthalidone due to Acute on chronic kidney failure * Cardiology has been consulted. * Fluid restriction of 1200 cc. * Continue with Coreg * Strict I&O * Daily weight * Continue on dopamine drip as it is helping her diuresis * Appears to be down about 2 liters (2) Ischemic cardiomyopathy: Code(s): I25.5 - Ischemic cardiomyopathy Status: Acute Assessment and Plan: * See above (3) ELANA (acute kidney injury): Code(s): N17.9 - Acute kidney failure, unspecified Status: Acute Assessment and Plan: * Creatinine 2.7 with a GFR is 17 on admission * current BUN/Cr 84/1.90 * Baseline appears to be 0.8-1.10 * consider Nephrology consult * Renal ultrasound cortical thinning of the kidneys with hydronephrosis * urine labs * Continue Bumex for now * trend labs * avoid nephrotoxic medications * Most likely medication induced as she is on chlorthalidone and Entresto (4) Hyperlipidemia: Code(s): E78.5 - Hyperlipidemia, unspecified Status: Acute Assessment and Plan: * Continue with heart healthy diet and atorvastatin (5) Venous stasis ulcer: Code(s): I83.009 - Varicose veins of unspecified lower extremity with ulcer of unspecified site; L97.909 - Non-pressure chronic ulcer of unspecified part of unspecified lower leg with unspecified severity Status: Acute Assessment and Plan: * Left lower leg * consider wound consult * Continue Minerin creme and wrap * trend symptoms * consider a wound culture if there is drainage * most likely related to CHF exacerbation * venous doppler no DVT noted (6) COPD (chronic obstructive pulmonary disease): Qualifiers: COPD type: unspecified COPD Qualified Code(s): J44.9 - Chronic obstructive pulmonary disease, unspecified Code(s): J44.9 - Chronic obstructive pulmonary disease, unspecified Status: Acute Assessment and Plan: * Stable and chronic * No home medications * no supplemental oxygen demand noted * Continue to trend respiratory status * adjust therapy as indicated Time Spent With Patient Time: 48 minutes Time with patient: Greater than 35 minutes Subjective Date/time seen: 12/25/22 11:31 Interval history: 12/25/22 1045 Patient stated that she is doing okay at this time. She really would like to go home however she still on the dopamine drip. She denies any chest pain, shortness a breath, nausea, vomiting, diarrhea constipation. Legs look to be still swollen but have gone down. Will try Samir hose 12/24/22 0800 Patient is resting in bed. Patient states that her legs look better today. She also stated that she is feeling a lot better. She denies any current chest
--- NOTE | 2022-12-25 10:45 | PM.IMPN ---
Progress Note: A&P Assessment and Plan (1) CHF (congestive heart failure): Code(s): I50.9 - Heart failure, unspecified Status: Acute Assessment and Plan: Presented with worsening bilateral lower extremity edema Echo on 10/24/2022 shows an EF estimated at 40-45%. Grade 1 diastolic dysfunction. appears to be an acute on chronic diastolic heart failure in exacerbation Chest xray shows cardiomegaly with mild interstitial edema Currently on Bumex 1mg BID, continued hold Entresto, Jardiance, and chlorthalidone due to Acute on chronic kidney failure Cardiology has been consulted. Fluid restriction of 1200 cc. Continue with Coreg Strict I&O Daily weight Continue on dopamine drip as it is helping her diuresis Appears to be down about 2 liters (2) Ischemic cardiomyopathy: Code(s): I25.5 - Ischemic cardiomyopathy Status: Acute Assessment and Plan: See above (3) ELANA (acute kidney injury): Code(s): N17.9 - Acute kidney failure, unspecified Status: Acute Assessment and Plan: Creatinine 2.7 with a GFR is 17 on admission current BUN/Cr 84/1.90 Baseline appears to be 0.8-1.10 consider Nephrology consult Renal ultrasound cortical thinning of the kidneys with hydronephrosis urine labs Continue Bumex for now trend labs avoid nephrotoxic medications Most likely medication induced as she is on chlorthalidone and Entresto (4) Hyperlipidemia: Code(s): E78.5 - Hyperlipidemia, unspecified Status: Acute Assessment and Plan: Continue with heart healthy diet and atorvastatin (5) Venous stasis ulcer: Code(s): I83.009 - Varicose veins of unspecified lower extremity with ulcer of unspecified site; L97.909 - Non-pressure chronic ulcer of unspecified part of unspecified lower leg with unspecified severity Status: Acute Assessment and Plan: Left lower leg consider wound consult Continue Minerin creme and wrap trend symptoms consider a wound culture if there is drainage most likely related to CHF exacerbation venous doppler no DVT noted (6) COPD (chronic obstructive pulmonary disease): Qualifiers: COPD type: unspecified COPD Qualified Code(s): J44.9 - Chronic obstructive pulmonary disease, unspecified Code(s): J44.9 - Chronic obstructive pulmonary disease, unspecified Status: Acute Assessment and Plan: Stable and chronic No home medications no supplemental oxygen demand noted Continue to trend respiratory status adjust therapy as indicated Time Spent With Patient Time: 48 minutes Time with patient: Greater than 35 minutes Subjective Date/time seen: 12/25/22 11:31 Interval history: 12/25/22 1045 Patient stated that she is doing okay at this time. She really would like to go home however she still on the dopamine drip. She denies any chest pain, shortness a breath, nausea, vomiting, diarrhea constipation. Legs look to be still swollen but have gone down. Will try Samir hose 12/24/22 0800 Patient is resting in bed. Patient states that her legs look better today. She also stated that she is feeling a lot better. She denies any current chest pain, shortness a breath, nausea, vomiting, diarrhea or constipation. She is eating well. Patient is itching to go home however she is diuresing pretty well with the dopamine. Will continue diuresis as indicated at this time. Currently patient is stable per tele monitor will continue trend output. 12/23/22 1015 patient seems to be doing okay. She is sitting on the side the bed. She stated that she feels pretty okay however she follow that up with feels like she did when she walked in. She denies any chest pain, shortness a breath, nausea, vomiting, diarrhea constipation. She also stated that she feels like her legs hav
--- NOTE | 2022-12-25 11:14 | PM.PNCARD ---
Progress Note: A&P Assessment and Plan (1) Congestive heart failure: Qualifiers: Heart failure chronicity: acute on chronic Heart failure type: combined systolic and diastolic Qualified Code(s): I50.43 - Acute on chronic combined systolic (congestive) and diastolic (congestive) heart failure Code(s): I50.9 - Heart failure, unspecified Status: Acute (2) Acute kidney injury: Code(s): N17.9 - Acute kidney failure, unspecified Status: Acute (3) Bilateral lower extremity edema: Code(s): R60.0 - Localized edema Status: Acute Plan 77-year-old lady with worsening chronic kidney disease and also has mild LV systolic dysfunction.? She seems to be having significant improvement of her edema using low-dose dopamine to augment?renal perfusion.? We will continue this regimen for now since she is clearly benefiting from it and lower extremities still remain edematous. Given the degree of her renal dysfunction, will be limited in GDMT options for her cardiomyopathy. Subjective Date/time seen: 12/25/22 11:14 Interval history: Reason for visit: Lower extremity edema, cardiomyopathy HPI: This is a 77-year-old woman I am seeing at the request of the hospitalist because she was admitted to the hospital with severe weeping lower extremity edema.? This is a patient who is known to me with coronary artery disease and is followed in my office for the last several years.? She presented to the hospital a few years ago with acute myocardial infarction/ ACS and underwent emergency LAD intervention at this hospital.? Following that she has been for is seen in the office regularly in follow-up.? She has not had any recurrent ischemic problems and initially had a very low ejection fraction which then improved with medical therapy including carvedilol Entresto and Aldactone.? She has had difficulty in recent months with increasing lower extremity edema she has been very frustrated that this has continued to bother her.? I have seen her regularly in the office and had been advancing her diuretics.? She has currently been on a combination of high-dose IV bumetanide along with chlorthalidone to try to affect diuresis.? Despite this she has had worsening weeping edema and comes into the hospital for further evaluation.? She is not reporting any chest pain or shortness of breath.? She has laboratory data indicating significant worsening in her renal function her BUN is 99 with a creatinine of 2.7 on admission.? She is not volume depleted as stated above she is markedly edematous and has weeping edema.? Renal consult was obtained this morning.? Her currently she has orders for her IV bumetanide her Entresto has been placed on hold presumably because of her worsening renal function.? She does have a recent echocardiogram in the office showing her ejection fraction to be about 45%.? She does not have any significant valvular dysfunction.? In this setting we are seeing her in consultation Date of service 12/23: Today she says she feels better after being started on low-dose dopamine yesterday.? She is making a diuretic response and today's metabolic profile demonstrates improvement in creatinine.? No shortness of breath or other complaints.? Upon walking in the room the patient was seated at the bedside with her feet on the floor.? Reinforce the need/recommendation for lower extremity elevation as much as possible. Date of service 12/24: Patient looks and feels better today she does notice for the last couple of days notable decrease in her chronic edema. Date of service 12/25: Patient feeling better today. Improving lower extremity edema. Review of Systems Review of Systems: 8 point ROS obtained. Negative, unless stated in HPI. Exam Const: General: comfortable and no acute distress Other: Pleasant morbidly obese elderly lady in no distress of any kind HENMT: Mouth: Yes moist mucous membranes Eyes: General: appearance normal, both eye
[2022-12-25] MEDS: PHENTOLAMINE MESYLATE 5 MG/ML VIAL XX (20:38)
[2022-12-25] MEDS: ATORVASTATIN 40 MG TABLET PO (21:04)
--- NOTE | 2022-12-25 22:17 | PC.NURSE ---
Patient noted to have extravasation to left arm from infiltrated Dopamine IV infusion. Unknown as to when IV infiltrated due to medication not being paused in OCT. ALVARADO Hendricks notified and received orders for 5 mg Regitine SQ to localized area. Orders also received to have PICC line placed. RN submitted request to [facility] at 1950 and did not receive phone call back within the hour as stated on website. RN called [facility] at 2108 and was notified that no calls would be placed after 2100. ALVARADO Hendricks updated that patient would be receiving a PICC line this evening. Numerous attempts taken to try to gain peripheral IV access with and without ultrasound with no success. Medication administered to effected area on left arm and arm elevated. Area marked to monitor for any additional spreading of the extravasation. Will continue to monitor.
[2022-12-26] VITALS (18 sets, daily range): BP systolic 102–148; BP diastolic 49–68; PULSE 65–114; RESP 16–22; TEMP 35.8–37; O2SAT 95–98
[2022-12-26 05:27] LABS: Alanine Aminotransferase 14 U/L (6-35); Albumin Level 4.5 g/dL (3.5-5.1); Alkaline Phosphatase 72 U/L (38-126); Anion Gap 9 mmol/L (8-16); Aspartate Amino Transferase 31 U/L (14-36); Bilirubin,Total 1.1 mg/dL (0.2-1.3); Blood Urea Nitrogen 64 mg/dL (7-17); Calcium 9.7 mg/dL (8.4-10.2); Carbon Dioxide 30 mmol/L (22-30); Chloride 98 mmol/L (98-107); Estimated CRCL calculation 44 ml/min; Estimated Glomerular Filt Rate 40; Glucose 121 mg/dL (65-110); Magnesium 2.4 mg/dL (1.6-2.3); Potassium 3.6 mmol/L (3.4-5.0); Sodium 137 mmol/L (137-145)
[2022-12-26 05:34] LABS: Basophils Percent Auto 0.3 % (0.2-1.2); Eosinophils Absolute Auto 0.1 K/mm3 (0-0.3); Eosinophils Percent Auto 0.8 % (0-4.4); Hematocrit 34.8 % (37.0-47.0); Hemoglobin 11.6 g/dL (12.0-15.0); Immature Granulocyte Absolute 0.08 K/mm3 (0.00-0.031); Immature Granulocyte Percent A 0.6 % (0-0.5); Lymphocytes Percent Auto 2.9 % (18.3-44.2); Mean Corpuscular HGB Conc 33.3 g/dl (32-36); Mean Corpuscular Hemoglobin 31.3 pg (26-34); Mean Corpuscular Volume 93.8 fl (80-100); Mean Platelet Volume 9.7 fl (7.4-10.4); Monocytes Absolute Auto 0.8 K/mm3 (0.1-0.6); Monocytes Percent Auto 5.9 % (2.6-8.5); Neutrophils Absolute Auto 12.4 K/mm3 (1.3-6.7); Neutrophils Percent Auto 89.5 % (45.5-73.1); Platelet Count Result 230 k/mm3 (150-375); Red Blood Count 3.71 M/mm3 (4.2-5.4); Red Cell Distribution Width 14.8 % (11.5-14.5); White Blood Count 13.8 K/mm3 (4.5-10.0)
[2022-12-26] MEDS: BUMETANIDE INJ 1 MG/4 ML VIAL IV PUSH ×2 (09:04→17:32)
[2022-12-26] MEDS: EUCERIN CREAM 120 GM JAR 1 APPLIC TOPICAL (09:04)
[2022-12-26] MEDS: SPIRONOLACTONE 12.5 MG TABLET PO (09:04)
[2022-12-26] MEDS: carvediloL 12.5 MG TABLET PO ×2 (09:04→20:24)
--- NOTE | 2022-12-26 09:24 | PM.PNCARD ---
Progress Note: A&P Assessment and Plan (1) Congestive heart failure: Qualifiers: Heart failure chronicity: acute on chronic Heart failure type: combined systolic and diastolic Qualified Code(s): I50.43 - Acute on chronic combined systolic (congestive) and diastolic (congestive) heart failure Code(s): I50.9 - Heart failure, unspecified Status: Acute (2) Acute kidney injury: Code(s): N17.9 - Acute kidney failure, unspecified Status: Acute (3) Bilateral lower extremity edema: Code(s): R60.0 - Localized edema Status: Acute Plan 77-year-old lady with worsening chronic kidney disease and also has mild LV systolic dysfunction.? She seems to be having significant improvement of her edema using low-dose dopamine to augment?renal perfusion.? We will continue this regimen for now since she is clearly benefiting from it and lower extremities still remain edematous, although significant improvement. Given the degree of her renal dysfunction, will be limited in GDMT options for her cardiomyopathy. Will continue Dopamine + IV diuersis for today. Hoping to stop Dopamine and transition back to oral diuretics tomorrow. Subjective Date/time seen: 12/26/22 09:24 Interval history: Reason for visit: Lower extremity edema, cardiomyopathy HPI: This is a 77-year-old woman I am seeing at the request of the hospitalist because she was admitted to the hospital with severe weeping lower extremity edema.? This is a patient who is known to me with coronary artery disease and is followed in my office for the last several years.? She presented to the hospital a few years ago with acute myocardial infarction/ ACS and underwent emergency LAD intervention at this hospital.? Following that she has been for is seen in the office regularly in follow-up.? She has not had any recurrent ischemic problems and initially had a very low ejection fraction which then improved with medical therapy including carvedilol Entresto and Aldactone.? She has had difficulty in recent months with increasing lower extremity edema she has been very frustrated that this has continued to bother her.? I have seen her regularly in the office and had been advancing her diuretics.? She has currently been on a combination of high-dose IV bumetanide along with chlorthalidone to try to affect diuresis.? Despite this she has had worsening weeping edema and comes into the hospital for further evaluation.? She is not reporting any chest pain or shortness of breath.? She has laboratory data indicating significant worsening in her renal function her BUN is 99 with a creatinine of 2.7 on admission.? She is not volume depleted as stated above she is markedly edematous and has weeping edema.? Renal consult was obtained this morning.? Her currently she has orders for her IV bumetanide her Entresto has been placed on hold presumably because of her worsening renal function.? She does have a recent echocardiogram in the office showing her ejection fraction to be about 45%.? She does not have any significant valvular dysfunction.? In this setting we are seeing her in consultation Date of service 12/23: Today she says she feels better after being started on low-dose dopamine yesterday.? She is making a diuretic response and today's metabolic profile demonstrates improvement in creatinine.? No shortness of breath or other complaints.? Upon walking in the room the patient was seated at the bedside with her feet on the floor.? Reinforce the need/recommendation for lower extremity elevation as much as possible. Date of service 12/24: Patient looks and feels better today she does notice for the last couple of days notable decrease in her chronic edema. Date of service 12/25: Patient feeling better today. Improving lower extremity edema. Date of service 12/26: No acute events overnight. Still diuresing well. Improving lower extremity edema. Renal function has had significant improvement. Revi
[2022-12-26] MEDS: ASPIRIN 81 MG CHEWABLE TABLET PO ×2 (09:58→17:32)
--- NOTE | 2022-12-26 13:06 | PM.PNNEP ---
Progress Note: A&P Assessment and Plan (1) Acute kidney injury: Code(s): N17.9 - Acute kidney failure, unspecified Status: Acute Assessment and Plan: slow improvement noted with current therapy evaluation to date: renal ultrasound cortical thinning which would suggest some element of renal insufficiency/CKD urine electrolytes/FeUrea c/w pre-renal azotemia no significant proteinuria serologies pending better UOP and creatinine with IV dopamine + diuretics suspect renal venous HTN from her pulmonary HTN + volume overload (which is being relieved with current interventions) this might be a situation where we have to accept a higher creatinine to maintain stability in her LE edema follow repeat labs and UOP (2) Congestive heart failure: Qualifiers: Heart failure chronicity: acute on chronic Heart failure type: combined systolic and diastolic Qualified Code(s): I50.43 - Acute on chronic combined systolic (congestive) and diastolic (congestive) heart failure Code(s): I50.9 - Heart failure, unspecified Status: Acute Assessment and Plan: EF ~ 47% with some pulmonary hypertension and diastolic dysfunction Cardiology following continue current therapy (3) COPD (chronic obstructive pulmonary disease): Qualifiers: COPD type: unspecified COPD Qualified Code(s): J44.9 - Chronic obstructive pulmonary disease, unspecified Code(s): J44.9 - Chronic obstructive pulmonary disease, unspecified Status: Acute Assessment and Plan: stable at this time Will continue to follow. Subjective Date/time seen: 12/26/22 13:46 Sleeping comfortably at the time of my visit; renal function continues to improve with current interventions; negative fluid balance noted; LE swelling/edema slowly getting better; no apparent distress noted. Exam Narrative: General: elderly female in NAD Heart: normal S1 and S2; no rub Lungs: clear anteriorly Abdomen: soft, nontender, nondistended, positive bowel sounds Extremities: no cyanosis or clubbing; 1 - 2+ edema Skin: warm and intact Objective Data Vital Signs Vital Signs: Vital Signs Temp Pulse Resp BP Pulse Ox O2 Del Method 12/26/22 12:00 65 12/26/22 12:00 97.4 F L 65 20 131/68 96 12/26/22 10:00 74 12/26/22 08:00 76 12/26/22 08:00 Room Air 12/26/22 08:00 98.6 F 74 20 118/65 95 12/26/22 09:04 70 12/26/22 06:00 86 12/26/22 04:00 101 H 12/26/22 02:58 87 22 H 96 Room Air 12/26/22 02:53 97.9 F 87 22 H 148/65 H 96 12/26/22 02:00 102 H 12/26/22 00:00 81 12/25/22 23:44 97.8 F 83 22 H 129/77 98 12/25/22 23:32 76 22 H 99 Room Air 12/25/22 22:00 76 12/25/22 20:00 74 12/25/22 20:00 76 22 H 99 Room Air 12/25/22 20:00 98.0 F 73 22 H 131/66 99 12/25/22 21:04 76 12/25/22 19:00 90 106/87 12/25/22 18:00 79 12/25/22 16:00 62 12/25/22 16:00 Room Air 12/25/22 16:00 97.8 F 63 20 106/87 100 12/25/22 14:00 65 Intake/Output Intake/Output: Intake & Output 12/23/22 12/24/22 12/25/22 12/26/22 23:59 23:59 23:59 23:59 Intake Total 1160 938 075 1256 Output Total 1650 2650 2250 1001 Uabjuri -640 -1664 -1340 219 Meds/Results Medications: Active Medications Generic Name Dose Route Start Last Admin Trade Name Shiv PRN Reason Stop Dose Admin Acetaminophen 650 mg 12/22/22 04:10 12/23/22 02:33 Acetaminophen 325 Mg Tablet PO 650 mg Q4H PRN Administration Pain 1-4 or fever Aspirin 81 mg 12/22/22 09:00 12/26/22 09:58 Aspirin 81 Mg Chewable Tablet PO 81 mg BID UBALDO Administration Atorvastatin Calcium 40 mg 12/21/22 21:00 12/25/22 21:04 Atorvastatin 40 Mg Tablet PO 40 mg HS UBALDO Administration Bumetanide 1 mg 12/22/22 09:00 12/26/22 09:04 Bumetanide Inj 1 Mg/4 Ml Vial I
[2022-12-26] MEDS: DOPamine 400 MG/D5W 250 ML 400 MG/250 ML BAG 12.66 MG IV CONT (14:09)
[2022-12-26 15:51] LABS: Osmolality, Urine 361 mOsm/kg (50-1200)
--- NOTE | 2022-12-26 16:13 | P.PNIM_ITS ---
Progress Note: A&P Assessment and Plan (1) CHF (congestive heart failure): Code(s): I50.9 - Heart failure, unspecified Status: Acute Assessment and Plan: * Presented with worsening bilateral lower extremity edema * Echo on 10/24/2022 shows an EF estimated at 40-45%. Grade 1 diastolic dysfunction. * appears to be an acute on chronic diastolic heart failure in exacerbation * Chest xray shows cardiomegaly with mild interstitial edema * Currently on Bumex 1mg BID, continued * hold Entresto, Jardiance, and chlorthalidone due to Acute on chronic kidney failure * Cardiology has been consulted. * Fluid restriction of 1200 cc. * Continue with Coreg * Strict I&O * Daily weight * Continue on dopamine drip as it is helping her diuresis * Appears to be down about 2 liters (2) Ischemic cardiomyopathy: Code(s): I25.5 - Ischemic cardiomyopathy Status: Acute Assessment and Plan: * See above (3) ELANA (acute kidney injury): Code(s): N17.9 - Acute kidney failure, unspecified Status: Acute Assessment and Plan: * Creatinine 2.7 with a GFR is 17 on admission * current BUN/Cr 84/1.90 * Baseline appears to be 0.8-1.10 * consider Nephrology consult * Renal ultrasound cortical thinning of the kidneys with hydronephrosis * urine labs * Continue Bumex for now * trend labs * avoid nephrotoxic medications * Most likely medication induced as she is on chlorthalidone and Entresto (4) Hyperlipidemia: Code(s): E78.5 - Hyperlipidemia, unspecified Status: Acute Assessment and Plan: * Continue with heart healthy diet and atorvastatin (5) Venous stasis ulcer: Code(s): I83.009 - Varicose veins of unspecified lower extremity with ulcer of unspecified site; L97.909 - Non-pressure chronic ulcer of unspecified part of unspecified lower leg with unspecified severity Status: Acute Assessment and Plan: * Left lower leg * consider wound consult * Continue Minerin creme and wrap * trend symptoms * consider a wound culture if there is drainage * most likely related to CHF exacerbation * venous doppler no DVT noted (6) COPD (chronic obstructive pulmonary disease): Qualifiers: COPD type: unspecified COPD Qualified Code(s): J44.9 - Chronic obstructive pulmonary disease, unspecified Code(s): J44.9 - Chronic obstructive pulmonary disease, unspecified Status: Acute Assessment and Plan: * Stable and chronic * No home medications * no supplemental oxygen demand noted * Continue to trend respiratory status * adjust therapy as indicated Subjective Date/time seen: 12/26/22 16:13 Interval history: Patient has no new complaints at this time. Continue to diurese per cardiology. Hopeful for discharge tomorrow. Exam Narrative: GENERAL: Comfortable, no acute distress HENMT: moist mucous membranes EYES: EOM intact b/l NECK: no lymphadenopathy RESPIRATORY: clear to auscultation CARDIO: RRR GI: soft, nontender, bowel sounds present SKIN: no rashes EXTREMITIES: 1+ piting edema from mid mueller down. multiple sores around the ankle from weeping edema Objective Data Vital Signs Vital Signs:
--- NOTE | 2022-12-26 16:13 | PM.IMPN ---
Progress Note: A&P Assessment and Plan (1) CHF (congestive heart failure): Code(s): I50.9 - Heart failure, unspecified Status: Acute Assessment and Plan: Presented with worsening bilateral lower extremity edema Echo on 10/24/2022 shows an EF estimated at 40-45%. Grade 1 diastolic dysfunction. appears to be an acute on chronic diastolic heart failure in exacerbation Chest xray shows cardiomegaly with mild interstitial edema Currently on Bumex 1mg BID, continued hold Entresto, Jardiance, and chlorthalidone due to Acute on chronic kidney failure Cardiology has been consulted. Fluid restriction of 1200 cc. Continue with Coreg Strict I&O Daily weight Continue on dopamine drip as it is helping her diuresis Appears to be down about 2 liters (2) Ischemic cardiomyopathy: Code(s): I25.5 - Ischemic cardiomyopathy Status: Acute Assessment and Plan: See above (3) ELANA (acute kidney injury): Code(s): N17.9 - Acute kidney failure, unspecified Status: Acute Assessment and Plan: Creatinine 2.7 with a GFR is 17 on admission current BUN/Cr 84/1.90 Baseline appears to be 0.8-1.10 consider Nephrology consult Renal ultrasound cortical thinning of the kidneys with hydronephrosis urine labs Continue Bumex for now trend labs avoid nephrotoxic medications Most likely medication induced as she is on chlorthalidone and Entresto (4) Hyperlipidemia: Code(s): E78.5 - Hyperlipidemia, unspecified Status: Acute Assessment and Plan: Continue with heart healthy diet and atorvastatin (5) Venous stasis ulcer: Code(s): I83.009 - Varicose veins of unspecified lower extremity with ulcer of unspecified site; L97.909 - Non-pressure chronic ulcer of unspecified part of unspecified lower leg with unspecified severity Status: Acute Assessment and Plan: Left lower leg consider wound consult Continue Minerin creme and wrap trend symptoms consider a wound culture if there is drainage most likely related to CHF exacerbation venous doppler no DVT noted (6) COPD (chronic obstructive pulmonary disease): Qualifiers: COPD type: unspecified COPD Qualified Code(s): J44.9 - Chronic obstructive pulmonary disease, unspecified Code(s): J44.9 - Chronic obstructive pulmonary disease, unspecified Status: Acute Assessment and Plan: Stable and chronic No home medications no supplemental oxygen demand noted Continue to trend respiratory status adjust therapy as indicated Subjective Date/time seen: 12/26/22 16:13 Interval history: Patient has no new complaints at this time. Continue to diurese per cardiology. Hopeful for discharge tomorrow. Exam Narrative: GENERAL: Comfortable, no acute distress HENMT: moist mucous membranes EYES: EOM intact b/l NECK: no lymphadenopathy RESPIRATORY: clear to auscultation CARDIO: RRR GI: soft, nontender, bowel sounds present SKIN: no rashes EXTREMITIES: 1+ piting edema from mid mueller down. multiple sores around the ankle from weeping edema Objective Data Vital Signs Vital Signs: Vital Signs - 24 hr 12/25/22 18:00 12/25/22 19:00 12/25/22 21:04 Temperature Pulse Rate 79 90 76 Respiratory Rate Blood Pressure 106/87 Pulse Oximetry Oxygen Delivery 12/25/22 20:00 12/25/22 20:00 12/25/22 20:00 Temperature 98.0 F Pulse Rate 73 76 74 Respiratory Rate 22 H 22 H Blood Pressure 131/66 Pulse Oximetry 99 99 Oxygen Delivery Room Air 12/25/22 22:00 12/25/22 23:32 12/25/22 23:44 Temperature 97.8 F Pulse Rate 76 76 83 Respiratory Rate 22 H 22 H Blood Pressure 129/77 Pulse Oximetry 99 98 Oxygen Delivery Room Air 12/26/22 00:00 12/26/22 02:00 12/26/22 02:53 Temperature 97.9 F Pulse Rate 81 102 H 87 Respir
[2022-12-26 18:15] LABS: Complement Total CH50 >60 U/mL (31-60)
[2022-12-26] MEDS: ATORVASTATIN 40 MG TABLET PO (20:24)
[2022-12-27] VITALS (9 sets, daily range): BP systolic 103–123; BP diastolic 46–63; PULSE 59–104; RESP 20–24; TEMP 36.5–36.8; O2SAT 95–99
[2022-12-27 04:35] LABS: Hematocrit 30.9 % (37.0-47.0); Hemoglobin 10.5 g/dL (12.0-15.0); Mean Corpuscular Hemoglobin 31.2 pg (26-34); Mean Corpuscular Volume 91.7 fl (80-100); Mean Platelet Volume 8.8 fl (7.4-10.4); Platelet Count Result 187 k/mm3 (150-375); Red Blood Count 3.37 M/mm3 (4.2-5.4); White Blood Count 9.8 K/mm3 (4.5-10.0)
[2022-12-27 04:52] LABS: Alanine Aminotransferase 16 U/L (6-35); Alkaline Phosphatase 64 U/L (38-126); Anion Gap 7 mmol/L (8-16); Aspartate Amino Transferase 29 U/L (14-36); Blood Urea Nitrogen 46 mg/dL (7-17); Calcium 9.2 mg/dL (8.4-10.2); Carbon Dioxide 33 mmol/L (22-30); Chloride 97 mmol/L (98-107); Estimated CRCL calculation 41 ml/min; Estimated Glomerular Filt Rate 36; Glucose 105 mg/dL (65-110); Potassium 3.3 mmol/L (3.4-5.0); Sodium 137 mmol/L (137-145)
[2022-12-27] MEDS: carvediloL 12.5 MG TABLET PO (09:29)
[2022-12-27] MEDS: SPIRONOLACTONE 12.5 MG TABLET PO (09:31)
[2022-12-27] MEDS: ASPIRIN 81 MG CHEWABLE TABLET PO (09:31)
[2022-12-27] MEDS: POTASSIUM CHLORIDE 20 MEQ PACKET (FOR LIQUID) 40 MEQ PO (09:33)
[2022-12-27] MEDS: EUCERIN CREAM 120 GM JAR 1 APPLIC TOPICAL (09:33)
--- NOTE | 2022-12-27 10:34 | PM.PNCARD ---
Progress Note: A&P Assessment and Plan (1) Congestive heart failure: Qualifiers: Heart failure chronicity: acute on chronic Heart failure type: combined systolic and diastolic Qualified Code(s): I50.43 - Acute on chronic combined systolic (congestive) and diastolic (congestive) heart failure Code(s): I50.9 - Heart failure, unspecified Status: Acute (2) Acute kidney injury: Code(s): N17.9 - Acute kidney failure, unspecified Status: Acute (3) Bilateral lower extremity edema: Code(s): R60.0 - Localized edema Status: Acute Plan 77-year-old lady with worsening chronic kidney disease and also has mild LV systolic dysfunction.? Significant improvement of her edema using low-dose dopamine to augment?renal perfusion.? Stop Dopamine this morning and transition to PO diuretic. Will arrange for follow up in our office. Okay to discharge home this afternoon from our standpoint. Subjective Date/time seen: 12/27/22 10:34 Interval history: Reason for visit: Lower extremity edema, cardiomyopathy HPI: This is a 77-year-old woman I am seeing at the request of the hospitalist because she was admitted to the hospital with severe weeping lower extremity edema.? This is a patient who is known to me with coronary artery disease and is followed in my office for the last several years.? She presented to the hospital a few years ago with acute myocardial infarction/ ACS and underwent emergency LAD intervention at this hospital.? Following that she has been for is seen in the office regularly in follow-up.? She has not had any recurrent ischemic problems and initially had a very low ejection fraction which then improved with medical therapy including carvedilol Entresto and Aldactone.? She has had difficulty in recent months with increasing lower extremity edema she has been very frustrated that this has continued to bother her.? I have seen her regularly in the office and had been advancing her diuretics.? She has currently been on a combination of high-dose IV bumetanide along with chlorthalidone to try to affect diuresis.? Despite this she has had worsening weeping edema and comes into the hospital for further evaluation.? She is not reporting any chest pain or shortness of breath.? She has laboratory data indicating significant worsening in her renal function her BUN is 99 with a creatinine of 2.7 on admission.? She is not volume depleted as stated above she is markedly edematous and has weeping edema.? Renal consult was obtained this morning.? Her currently she has orders for her IV bumetanide her Entresto has been placed on hold presumably because of her worsening renal function.? She does have a recent echocardiogram in the office showing her ejection fraction to be about 45%.? She does not have any significant valvular dysfunction.? In this setting we are seeing her in consultation Date of service 12/23: Today she says she feels better after being started on low-dose dopamine yesterday.? She is making a diuretic response and today's metabolic profile demonstrates improvement in creatinine.? No shortness of breath or other complaints.? Upon walking in the room the patient was seated at the bedside with her feet on the floor.? Reinforce the need/recommendation for lower extremity elevation as much as possible. Date of service 12/24: Patient looks and feels better today she does notice for the last couple of days notable decrease in her chronic edema. Date of service 12/25: Patient feeling better today. Improving lower extremity edema. Date of service 12/26: No acute events overnight. Still diuresing well. Improving lower extremity edema. Renal function has had significant improvement. Date of service 12/27: No acute events overnight. Patient feeling better. Review of Systems Review of Systems: 8 point ROS obtained. Negative, unless stated in HPI. Exam Const: General: comfortable and no acute distress Other:
[2022-12-27] MEDS: BUMETANIDE 1 MG TABLET 2 MG PO (10:48)
--- NOTE | 2022-12-27 12:17 | PM.PNNEP ---
Progress Note: A&P Assessment and Plan (1) Acute kidney injury: Code(s): N17.9 - Acute kidney failure, unspecified Status: Acute Assessment and Plan: slow improvement noted evaluation to date: renal ultrasound cortical thinning noted urine electrolytes/FeUrea c/w pre-renal azotemia no significant proteinuria serologies pending better UOP and creatinine with s/p IV dopamine + IV diuretics suspect ELANA due to renal venous HTN from her pulmonary HTN + volume overload however, history and renal ultrasound suggest some degree of renal insufficiency/CKD furthermore, this might be a situation where we have to accept a higher creatinine to maintain stability in her LE edema follow repeat labs and UOP (2) Congestive heart failure: Qualifiers: Heart failure chronicity: acute on chronic Heart failure type: combined systolic and diastolic Qualified Code(s): I50.43 - Acute on chronic combined systolic (congestive) and diastolic (congestive) heart failure Code(s): I50.9 - Heart failure, unspecified Status: Acute Assessment and Plan: EF ~ 47% with some pulmonary hypertension and diastolic dysfunction Cardiology following continue current therapy (3) COPD (chronic obstructive pulmonary disease): Qualifiers: COPD type: unspecified COPD Qualified Code(s): J44.9 - Chronic obstructive pulmonary disease, unspecified Code(s): J44.9 - Chronic obstructive pulmonary disease, unspecified Status: Acute Assessment and Plan: stable at this time Will continue to follow. Subjective Date/time seen: 12/27/22 12:17 Dopamine gtt off and transitioned to oral diuretics at this time; sleeping comfortably at the time of my visit; swelling/edema in LEs appears better if not stable; renal function relatively stable as well; no issues/events overnight or earlier this AM. Exam Narrative: General: elderly female in NAD Heart: normal S1 and S2; no rub Lungs: clear anteriorly Abdomen: soft, nontender, nondistended, positive bowel sounds Extremities: no cyanosis or clubbing; 1+ edema Skin: warm and intact Objective Data Vital Signs Vital Signs: Vital Signs Temp Pulse Resp BP Pulse Ox O2 Del Method 12/27/22 12:00 98.0 F 62 20 114/59 L 99 12/27/22 09:29 65 12/27/22 08:00 98.2 F 60 24 H 103/46 L 97 12/27/22 06:00 86 12/27/22 04:00 66 12/27/22 04:00 97.7 F 68 22 H 123/63 96 12/27/22 04:00 104 H 22 H 95 Room Air 12/27/22 01:54 104 H 12/27/22 00:00 75 12/26/22 22:00 65 12/27/22 00:00 72 22 H 95 Room Air 12/26/22 23:27 97.8 F 72 22 H 140/60 95 12/26/22 20:00 114 H 12/26/22 20:00 97.2 F L 65 22 H 128/49 L 96 12/26/22 20:24 67 12/26/22 20:00 68 16 98 Room Air 12/26/22 18:00 68 12/26/22 16:00 71 12/26/22 14:00 66 12/26/22 16:00 Room Air 12/26/22 16:00 96.4 F L 65 16 102/68 98 12/26/22 14:09 68 Intake/Output Intake/Output: Intake & Output 12/24/22 12/25/22 12/26/22 12/27/22 23:59 23:59 23:59 23:59 Intake Total 505 156 0116 220 Output Total 2650 2250 1601 1350 Balance -1720 -1340 109 -1130 Meds/Results Medications: Active Medications Generic Name Dose Route Start Last Admin Trade Name Shiv PRN Reason Stop Dose Admin Acetaminophen 650 mg 12/22/22 04:10 12/23/22 02:33 Acetaminophen 325 Mg Tablet PO 650 mg Q4H PRN Administration Pain 1-4 or fever Aspirin 81 mg 12/22/22 09:00 12/27/22 09:31 Aspirin 81 Mg Chewable Tablet PO 81 mg BID UBALDO Administration Atorvastatin Calcium 40 mg 12/21/22 21:00 12/26/22 20:24 Atorvastatin 40 Mg Tablet PO 40 mg HS UBALDO Administration Bumetanide 2 mg 12/27/22 09:35 12/27/22 10:48 Bumetanide 1 Mg Tablet PO 2 mg BID UBALDO Administration Carvedilol 12.5 mg 12/21/22 21:00 12/27/22
[2022-12-27 13:12] LABS: Potassium 3.8 mmol/L (3.4-5.0)
[2022-12-27 13:29] LABS: Kappa\\Lambda Light Chains 2.42 (0.26-1.65); Lambda Light Chain 40.1 mg/L (5.7-26.3)
[2022-12-27 13:49] LABS: Anti Nuclear Antibody Titer 1:40 (Negative)
--- NOTE | 2022-12-27 14:07 | P.DS_ITS ---
DS: Admitting Diagnosis Discharge Date 12/27/22 Admitting Diagnosis CHF exacerbation, ELANA DS: Discharge Diagnosis Discharge Diagnosis (1) CHF (congestive heart failure): Code(s): I50.9 - Heart failure, unspecified Status: Acute Assessment and Plan: * Presented with worsening bilateral lower extremity edema * Echo on 10/24/2022 shows an EF estimated at 40-45%. Grade 1 diastolic dysfunction. * appears to be an acute on chronic diastolic heart failure in exacerbation * Chest xray shows cardiomegaly with mild interstitial edema * hold Entresto, Jardiance, and chlorthalidone due to Acute on chronic kidney failure * Cardiology has been consulted. * Fluid restriction of 1200 cc. * Continue with Coreg * Strict I&O * Daily weight * 12/27 Dopamine drip discontinued and started on Bumex p.o. 2 mg b.i.d. * Appears to be down about 2 liters * Significant improvement in lower extremity edema (2) Ischemic cardiomyopathy: Code(s): I25.5 - Ischemic cardiomyopathy Status: Acute Assessment and Plan: * See above (3) ELANA (acute kidney injury): Code(s): N17.9 - Acute kidney failure, unspecified Status: Acute Assessment and Plan: * Creatinine 2.7 with a GFR is 17 on admission * consider Nephrology consult * Renal ultrasound cortical thinning of the kidneys with hydronephrosis * urine labs * Continue Bumex for now * trend labs * avoid nephrotoxic medications * Most likely medication induced as she is on chlorthalidone and Entresto * Nephrology following patient. On discharge patient BUN and creatinine 46/1.4. Discussed with Nephrology and they believe this could be patient's ne w normal. They are okay with patient being seen by their primary care diff primary care is uncomfortable with following kidney disease they can refer back to Nephrology. (4) Hyperlipidemia: Code(s): E78.5 - Hyperlipidemia, unspecified Status: Acute Assessment and Plan: * Continue with heart healthy diet and atorvastatin (5) Venous stasis ulcer: Code(s): I83.009 - Varicose veins of unspecified lower extremity with ulcer of unspecified site; L97.909 - Non-pressure chronic ulcer of unspecified part of unspecified lower leg with unspecified severity Status: Acute Assessment and Plan: * Left lower leg * wound consult * Continue Minerin creme and wrap * trend symptoms * consider a wound culture if there is drainage * most likely related to CHF exacerbation * venous doppler no DVT noted (6) COPD (chronic obstructive pulmonary disease): Qualifiers: COPD type: unspecified COPD Qualified Code(s): J44.9 - Chronic obstructive pulmonary disease, unspecified Code(s): J44.9 - Chronic obstructive pulmonary disease, unspecified Status: Acute Assessment and Plan: * Stable and chronic * No home medications * no supplemental oxygen demand noted * Continue to trend respiratory status * adjust therapy as indicated DS: Summary Hospital Course Hospital Course: This is a 77-year-old female with a past medical history of congestive heart failure with EF of 40%, COPD, noncompliance with medical treatment, CAD, and venous stasis of present to the ED on 12/21/2022 due to bilateral lower
--- NOTE | 2022-12-27 14:07 | PM.DS ---
DS: Admitting Diagnosis Discharge Date 12/27/22 Admitting Diagnosis CHF exacerbation, ELANA DS: Discharge Diagnosis Discharge Diagnosis (1) CHF (congestive heart failure): Code(s): I50.9 - Heart failure, unspecified Status: Acute Assessment and Plan: Presented with worsening bilateral lower extremity edema Echo on 10/24/2022 shows an EF estimated at 40-45%. Grade 1 diastolic dysfunction. appears to be an acute on chronic diastolic heart failure in exacerbation Chest xray shows cardiomegaly with mild interstitial edema hold Entresto, Jardiance, and chlorthalidone due to Acute on chronic kidney failure Cardiology has been consulted. Fluid restriction of 1200 cc. Continue with Coreg Strict I&O Daily weight 12/27 Dopamine drip discontinued and started on Bumex p.o. 2 mg b.i.d. Appears to be down about 2 liters Significant improvement in lower extremity edema (2) Ischemic cardiomyopathy: Code(s): I25.5 - Ischemic cardiomyopathy Status: Acute Assessment and Plan: See above (3) ELANA (acute kidney injury): Code(s): N17.9 - Acute kidney failure, unspecified Status: Acute Assessment and Plan: Creatinine 2.7 with a GFR is 17 on admission consider Nephrology consult Renal ultrasound cortical thinning of the kidneys with hydronephrosis urine labs Continue Bumex for now trend labs avoid nephrotoxic medications Most likely medication induced as she is on chlorthalidone and Entresto Nephrology following patient. On discharge patient BUN and creatinine 46/1.4. Discussed with Nephrology and they believe this could be patient's new normal. They are okay with patient being seen by their primary care diff primary care is uncomfortable with following kidney disease they can refer back to Nephrology. (4) Hyperlipidemia: Code(s): E78.5 - Hyperlipidemia, unspecified Status: Acute Assessment and Plan: Continue with heart healthy diet and atorvastatin (5) Venous stasis ulcer: Code(s): I83.009 - Varicose veins of unspecified lower extremity with ulcer of unspecified site; L97.909 - Non-pressure chronic ulcer of unspecified part of unspecified lower leg with unspecified severity Status: Acute Assessment and Plan: Left lower leg wound consult Continue Minerin creme and wrap trend symptoms consider a wound culture if there is drainage most likely related to CHF exacerbation venous doppler no DVT noted (6) COPD (chronic obstructive pulmonary disease): Qualifiers: COPD type: unspecified COPD Qualified Code(s): J44.9 - Chronic obstructive pulmonary disease, unspecified Code(s): J44.9 - Chronic obstructive pulmonary disease, unspecified Status: Acute Assessment and Plan: Stable and chronic No home medications no supplemental oxygen demand noted Continue to trend respiratory status adjust therapy as indicated DS: Summary Hospital Course Hospital Course: This is a 77-year-old female with a past medical history of congestive heart failure with EF of 40%, COPD, noncompliance with medical treatment, CAD, and venous stasis of present to the ED on 12/21/2022 due to bilateral lower leg edema. Patient does report chronic swelling has been on diuretics for many years. Patient follows Dr. Calvert. Patient reports oozing clear liquid from her legs. Patient's BUN and creatinine on admission was 99/2.7. Patient's BNP was 1040. Venous Doppler lower extremities negative for DVT. Chest x-ray revealing cardiomegaly with mild interstitial edema. Patient started on IV Lasix and Cardiology consulted. Nephrology also consulted due to ELANA. Patient put on a fluid restriction of 1200 cc, daily weights and strict I&Os. Per Cardiology patient was switched to IV be tandem I would on 12/22/2022 and a l
[2023-01-04 15:42] LABS: Creatinine, Random Urine 54 mg/dL (20-275); Total Protein/Creatinine Ratio 93 mg/g creat (24-184)
== END 2022-12-27 15:50 | disposition home or self-care (01) | DRG 291 ==
LOC: ANHED 14:36 → ANH2MED 15:10 → ANHIMU 12-22 12:35
PROVIDERS: Internal Medicine Nephrology; Nurse Practitioner; Admitting Provider Internal Medicine; Emergency Provider Physician Assistant; PCP Physician Assistant Medical; Visit Provider Internal Medicine Critical Care Medicine
DX: I13.0 Hypertensive heart and chronic kidney disease with heart failure and stage 1 through stage 4 chronic kidney disease, or unspecified chronic kidney disease (principal); I50.43 Acute on chronic combined systolic (congestive) and diastolic (congestive) heart failure; Z68.42 Body mass index [BMI] 45.0-49.9, adult; N17.9 Acute kidney failure, unspecified; L97.829 Non-pressure chronic ulcer of other part of left lower leg with unspecified severity; N18.30 Chronic kidney disease, stage 3 unspecified; I83.028 Varicose veins of left lower extremity with ulcer other part of lower leg; E78.5 Hyperlipidemia, unspecified; E66.9 Obesity, unspecified; I25.5 Ischemic cardiomyopathy; I27.20 Pulmonary hypertension, unspecified; I25.2 Old myocardial infarction; I25.10 Atherosclerotic heart disease of native coronary artery without angina pectoris; J44.9 Chronic obstructive pulmonary disease, unspecified; T50.2X5A Adverse effect of carbonic-anhydrase inhibitors, benzothiadiazides and other diuretics, initial encounter; T44.5X5A Adverse effect of predominantly beta-adrenoreceptor agonists, initial encounter; Z91.199 Patient's noncompliance with other medical treatment and regimen due to unspecified reason; Z79.82 Long term (current) use of aspirin; Z79.02 Long term (current) use of antithrombotics/antiplatelets; Z96.653 Presence of artificial knee joint, bilateral; Z90.49 Acquired absence of other specified parts of digestive tract; Z98.84 Bariatric surgery status; Z98.42 Cataract extraction status, left eye; Z96.1 Presence of intraocular lens; Z95.5 Presence of coronary angioplasty implant and graft; Z88.0 Allergy status to penicillin
CPT/HCPCS: 36415; 71045; 76775; 80048; 80053; 81001; 82550; 82570; 83735; 83880; 83883; 83935; 84100; 84132; 84156; 84166; 84300; 84443; 84484; 84540; 85025; 85027; 85652; 86038; 86039; 86160; 86162; 86334; 86335; 93970; 96365; 96366; 96375; 99285; A9270; G0378; J1265; J1940; J2760

== ENCOUNTER 2022-12-29 18:49 | Inpatient (IN) | payer MEDICARE, SELFPAY ==
--- NOTE | ~2022-12-29 | XR_ITS ---
EXAMINATION: XR chest 1V portable DATE: 12/29/2022 19:18 INDICATION: Weakness TECHNIQUE: frontal view of the chest was obtained. COMPARISON: Chest radiograph dated 12/21/2022 FINDINGS: Mild elevation the left hemidiaphragm. Cardiomegaly with bilateral small paracardial fat pads. No foc al airspace opacities, pulmonary edema, pleural effusion or pneumothorax. Adjustable lap scopic vadim ng procedure in expected position. IMPRESSION: 1. Cardiomegaly. No other acute cardiopulmonary disease. Reviewed, dictated and finalized at location A.
[2022-12-29 18:53] VITALS: BP 87/48; PULSE 62; RESP 16; TEMP 36.7; O2SAT 97
--- NOTE | 2022-12-29 19:03 | ECG_ITS ---
Measurements Intervals [place] Rate: 62 P: 85 NC: 214 QRS: -49 QRSD: 123 T: 79 QT: 417 QTc: 425 Interpretive Statements SINUS RHYTHM WITH FIRST DEGREE AV BLOCK LEFT ANTERIOR FASCICULAR BLOCK [QRS AXIS <= -45, QR IN I, RS IN II] LEFT VENTRICULAR HYPERTROPHY AND ST-T CHANGE [VOLTAGE CRITERIA PLUS ST/T ABNORMALITY] ANTEROLATERAL MYOCARDIAL INFARCTION , OLD COMPARED TO ECG 10/15/2022 15:44:52 NO SIGNIFICANT CHANGES Electronically Signed On 12-30-2022 13:38:31 CDT by Chey Duncan M.D.
[2022-12-29 19:16] LABS: Basophils Absolute Auto 0.1 K/mm3 (0.0-0.1); Basophils Percent Auto 0.5 % (0.2-1.2); Eosinophils Absolute Auto 0.3 K/mm3 (0-0.3); Eosinophils Percent Auto 2.1 % (0-4.4); Hematocrit 31.2 % (37.0-47.0); Hemoglobin 10.6 g/dL (12.0-15.0); Immature Granulocyte Absolute 0.08 K/mm3 (0.00-0.031); Immature Granulocyte Percent A 0.6 % (0-0.5); Lymphocytes Absolute Auto 1.17 K/mm3 (0.9-3.2); Lymphocytes Percent Auto 8.1 % (18.3-44.2); Mean Corpuscular Hemoglobin 31.3 pg (26-34); Mean Platelet Volume 9.7 fl (7.4-10.4); Monocytes Absolute Auto 1.4 K/mm3 (0.1-0.6); Monocytes Percent Auto 9.7 % (2.6-8.5); Neutrophils Absolute Auto 11.4 K/mm3 (1.3-6.7); Platelet Count Result 252 k/mm3 (150-375); Red Blood Count 3.39 M/mm3 (4.2-5.4); Red Cell Distribution Width 15.7 % (11.5-14.5); White Blood Count 14.4 K/mm3 (4.5-10.0)
[2022-12-29 19:45] LABS: Alanine Aminotransferase 19 U/L (6-35); Albumin Level 4.2 g/dL (3.5-5.1); Alkaline Phosphatase 67 U/L (38-126); Anion Gap 13 mmol/L (8-16); Aspartate Amino Transferase 31 U/L (14-36); Bilirubin,Total 0.9 mg/dL (0.2-1.3); Blood Urea Nitrogen 79 mg/dL (7-17); Calcium 8.9 mg/dL (8.4-10.2); Carbon Dioxide 26 mmol/L (22-30); Chloride 94 mmol/L (98-107); Estimated CRCL calculation 14 ml/min; Estimated Glomerular Filt Rate 10; Glucose 118 mg/dL (65-110); Potassium 3.8 mmol/L (3.4-5.0); Sodium 133 mmol/L (137-145)
[2022-12-29 19:52] LABS: Appearance Urine Clear (Clear); Bilirubin Urine Negative (Negative); Blood Urine Negative (Negative); Color Urine Yellow (Yellow); Glucose Urine UA Negative (Negative); Ketones Urine Negative (Negative); Leukocyte Esterase Ur Negative LEU/UL (Negative); Nitrate Urine Negative (Negative); Protein Urine 1+ mg/dL (Negative); Specific Grav Ur 1.015 (1.001-1.035); Urobilinogen Urine 0.2 mg/dL (<2.0)
--- NOTE | 2022-12-29 19:58 | ED.WEAKNESS ---
HPI - Weakness General Chief complaint: Weakness Stated complaint: feels horrible Time Seen by Provider: 12/29/22 19:10 History of Present Illness HPI Narrative: Patient is a 77-year-old female with a history of diabetes, CHF, CKD presenting with generalized weakness. Patient states that she was discharged 2 days ago after being admitted for IV diuresis. States that since going home she has been feeling generally unwell. States that she feels weak all over. States that she has had multiple episodes of diarrhea today. She denies pain. No chest pain, shortness of breath, cough, abdominal pain, nausea or vomiting, dysuria. States that her leg swelling has significantly improved. Related Data Home Medications Medication Instructions Recorded Confirmed aspirin 81 mg tablet 81 mg PO BID 11/05/20 12/30/22 carvedilol 12.5 mg tablet 12.5 mg PO Q12H 11/05/20 12/30/22 sacubitril 97 mg-valsartan 103 mg 1 tablet PO Q12H 11/05/20 12/30/22 tablet (Entresto) bumetanide 2 mg tablet 2 mg PO BID 12/21/22 12/30/22 atorvastatin 40 mg tablet 40 mg PO HS 12/30/22 12/30/22 Allergies Allergy/AdvReac Type Severity Reaction Status Date / Time Penicillins Allergy Unknown Rash Verified 12/30/22 00:20 Review of Systems Review of Systems: All systems reviewed & are unremarkable except as noted in HPI and below PMFSH Past Medical History Medical History (Updated 12/30/22 @ 19:56 by Sissy Castellanos MD) CHF (congestive heart failure) echocardiogram April 2017 demonstrated EF of 40% with apical and apical anterior thinning, mid anterior hypokinesis, dyskinetic apical and apical anterior segments, echo from 12/2016 demonstrated grade 1 diastolic dysfunction Chronic renal failure, stage 3 (moderate) Combined systolic and diastolic congestive heart failure COPD (chronic obstructive pulmonary disease) PFTs July 2019 demonstrated moderate obstructive lung disease without bronchodilator response and moderately decreased diffusion capacity Hyperlipidemia Hypertension Ischemic cardiomyopathy Obesity Surgical History Surgical History H/O cataract extraction Left eye with lens implant H/O lithotripsy History of heart artery stent patient had anterior lateral STEMI december 2016 with 2 stents to the mid LAD History of left hip replacement 10/2017 History of total bilateral knee replacement 2002 with subsequent ORIF of periprosthetic fracture of the left knee in December 2012 Hx of cholecystectomy Hx of laparoscopic gastric banding Family History Family History Mother Cerebrovascular accident Thyroid disease Sibling Thyroid disease Social History Social History Social History: She reports that she has been since 2019. She lives in her own home and does not have any pets. Her bedroom is up a flight of stairs. 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 She has 5 children. Primary care physician: Dr. Rob Multani Code status: Full code Surrogate decision maker: Dania John (daughter) Smoking status: Never smoker Second hand tobacco smoke exposure: No Alcohol intake: never Substance use: never Substance use type: does not use Lack of Transportation: No Lack of Food: Never True Current Housing: I Have Housing Concerned About Future Housing: No Difficulty Paying Gas/Electric Bills: No Difficulty Paying for Meds: No Currently Unemployed: No Education: Trade/Vocational Certificate Difficulty w/ Childcare or Family Care: No Gender identity (if verbalized by the patient): Female Spiritual care concerns: No Exam Narrative: GENERAL: Obese elderly female laying in bed in no acute distress HEAD: Normocephalic, atraumatic. EYES: PERRLA and EOMI. ENT: Nares clear,
[2022-12-29 20:00] VITALS: BP 93/50; PULSE 57; RESP 14; O2SAT 100
[2022-12-29] MEDS: SODIUM CHLORIDE 0.9% IV 1,000 ML 999 ML IV CONT (20:03)
[2022-12-29 20:16] LABS: Add Urine Microscopic? YES; Bacteria Urine None Seen /hpf; Hyaline Casts Urine Present /lpf; Mucus Urine Present /lpf; Non Pathogenic Casts >20; RBC Urine 0-2 /hpf (0-2); Squamous Epithelial Cell Urine Few /hpf (Few); WBC Urine 0-5 /hpf
[2022-12-29 21:00] VITALS: BP 112/60; PULSE 100; RESP 14; O2SAT 99
--- NOTE | 2022-12-29 22:04 | PM.IMHP ---
H&P: HPI History of Present Illness Date/Time: 12/29/22 22:04 Chief Complaint: weakness Narrative: This is a 73-year-old female patient with a history of congestive heart failure. She has an EF of around 40%. The patient was discharged from this facility approximately 2 days ago. The patient was discharged back to home on 12/27/2022. She was continued with her Entresto, Bumex, tortillas, and chlorthalidone. Cardiology has seen the patient and she was placed on a fluid restriction. The patient had lost at least 2 L during that admission. The patient had also been in acute renal failure and she was seen by Nephrology. Renal ultrasound showed cortical thinning of the kidneys with hydronephrosis. The patient came to the emergency room today because she felt weak. She has also had several episodes of diarrhea today. She denies any fever chills or any nausea vomiting. Her swelling has significantly decreased. Her white count was found to be 14.4. H&H is 10.6 and 31.2 which is comparable to 2 days ago. Her BUN is 79 today head creatinine 4.1. GFR is 10. Her creatinine had gone down to 1.4 upon discharge. Previously her creatinine had gone up to 2.7. A stool was sent for cultures. Her sodium is now 133. The patient was given a L of fluids in the emergency room. Chest x-ray was read as cardiomegaly no other acute cardiopulmonary disease. The patient is being admitted to observation status on the date of service of 12/29/2022. Review of Systems Review of Systems: All systems reviewed & are unremarkable except as noted in HPI and below Constitutional: Constitutional: Reports as per HPI and Reports no additional constitutional complaints Eyes: Eyes: Reports as per HPI and Reports no additional eye complaints ENT: Reports system reviewed and no additional complaints, except as documented and Reports Normal hearing present Cardiovascular: Cardiovascular: Reports no additional cardiovascular complaints Respiratory: Respiratory: Reports no additional respiratory complaints and Reports no additional respiratory complaints Gastrointestinal: Gastrointestinal: Reports as per HPI and Reports no additional gastrointestinal complaints Musculoskeletal: Musculoskeletal: Reports no additional musculoskeletal complaints Integumentary/Breasts: Skin/Breast: Reports system reviewed and no additional complaints, except as docu and Reports as per HPI Neurologic: Reports system reviewed and no additional complaints, except as documented, Reports as per HPI and Reports Normal hearing present Psychiatric: Psychiatric: Reports no additional psychiatric complaints and Reports as per HPI Endocrine: Endocrine: Reports no additional endocrine complaints Hematologic/Lymphatic: Hematologic/Lymphatic: Reports no additional hematologic/lymphatic complaints Allergic/Immunologic: Allergic/Immunologic: Reports no additional allergic/immunologic complaints [facility] Past Medical History Medical History (Updated 12/29/22 @ 23:51 by Mary Oorzco NP) CHF (congestive heart failure) echocardiogram April 2017 demonstrated EF of 40% with apical and apical anterior thinning, mid anterior hypokinesis, dyskinetic apical and apical anterior segments, echo from 12/2016 demonstrated grade 1 diastolic dysfunction Chronic renal failure, stage 3 (moderate) Combined systolic and diastolic congestive heart failure COPD (chronic obstructive pulmonary disease) PFTs July 2019 demonstrated moderate obstructive lung disease without bronchodilator response and moderately decreased diffusion capacity Hyperlipidemia Hypertension Ischemic cardiomyopathy Obesity Surgical History Surgical History H/O cataract extraction Left eye with lens implant H/O lithotripsy History of heart artery stent patient had anterior lateral STEMI december 2016 with 2 stents to the mid LAD History of left hip replacement 10/2017 History of tot
[2022-12-29 22:29] VITALS: BP 108/54; PULSE 107; RESP 14; O2SAT 100
[2022-12-30] VITALS (12 sets, daily range): BP systolic 92–119; BP diastolic 41–58; PULSE 56–102; RESP 18; TEMP 36.4–37; O2SAT 95–99; BMI 47.2
--- NOTE | 2022-12-30 00:15 | ADMGEN ---
This patient, Alyssa Hanson, was admitted to Medical Room 250-01. Patient/family oriented to hospital policies and general routines including ID bracelet, bed and alarms, visiting hours, pain management, procedures, bathroom and other care routines, personal items, smoking policy, room service/diet, and visiting hours. Information on how to activate the Rapid Response Team has been discussed. Patient/Family are encouraged to report perceived risks to care and to ask questions if they do not understand what they are told or what they should do.
[2022-12-30] MEDS: metroNIDAZOLE 500 MG/ISO 100ML 500 MG/100 ML BAG 100 MG IVPB ×3 (00:18→16:28)
[2022-12-30 00:58] LABS: IFOB Positive Control Positive; Immunochemical Fecal Occult Bl Positive (N)
[2022-12-30 01:25] LABS: Toxigenic C. Diff NEGATIVE (NEGATIVE)
[2022-12-30 07:04] LABS: Basophils Absolute Auto 0.1 K/mm3 (0.0-0.1); Basophils Percent Auto 0.4 % (0.2-1.2); Eosinophils Absolute Auto 0.4 K/mm3 (0-0.3); Eosinophils Percent Auto 3.9 % (0-4.4); Hematocrit 28.8 % (37.0-47.0); Hemoglobin 9.6 g/dL (12.0-15.0); Immature Granulocyte Absolute 0.07 K/mm3 (0.00-0.031); Immature Granulocyte Percent A 0.6 % (0-0.5); Lymphocytes Absolute Auto 1.37 K/mm3 (0.9-3.2); Lymphocytes Percent Auto 12.1 % (18.3-44.2); Mean Corpuscular HGB Conc 33.3 g/dl (32-36); Mean Corpuscular Hemoglobin 30.8 pg (26-34); Mean Corpuscular Volume 92.3 fl (80-100); Mean Platelet Volume 9.3 fl (7.4-10.4); Monocytes Percent Auto 8.9 % (2.6-8.5); Neutrophils Absolute Auto 8.4 K/mm3 (1.3-6.7); Neutrophils Percent Auto 74.1 % (45.5-73.1); Platelet Count Result 214 k/mm3 (150-375); Red Blood Count 3.12 M/mm3 (4.2-5.4); Red Cell Distribution Width 15.3 % (11.5-14.5); White Blood Count 11.3 K/mm3 (4.5-10.0)
[2022-12-30 07:17] LABS: Alanine Aminotransferase 15 U/L (6-35); Albumin Level 3.6 g/dL (3.5-5.1); Alkaline Phosphatase 59 U/L (38-126); Anion Gap 10 mmol/L (8-16); Aspartate Amino Transferase 24 U/L (14-36); Bilirubin,Total 0.7 mg/dL (0.2-1.3); Blood Urea Nitrogen 79 mg/dL (7-17); Calcium 8.4 mg/dL (8.4-10.2); Carbon Dioxide 26 mmol/L (22-30); Chloride 98 mmol/L (98-107); Estimated CRCL calculation 15 ml/min; Estimated Glomerular Filt Rate 11; Glucose 92 mg/dL (65-110); Lactate Dehydrogenase 172 U/L (120-246); Magnesium 2.5 mg/dL (1.6-2.3); Potassium 3.4 mmol/L (3.4-5.0); Sodium 134 mmol/L (137-145)
[2022-12-30 08:26] LABS: Thyroid Stimulating Hormone Reflex 0.921 uIU/mL (0.465-4.68)
[2022-12-30] MEDS: ASPIRIN 81 MG ENTERIC TABLET PO ×2 (08:43→16:28)
--- NOTE | 2022-12-30 11:35 | PM.CNNEP ---
Assessment and Plan Assessment and plan (1) Acute kidney injury: Code(s): N17.9 - Acute kidney failure, unspecified Status: Acute Assessment and Plan: on last hospitalization, thought to be secondary to renal venous HTN from pulmonary hypertension + volume overload along with dimished renal blood flow improved at that time with IV dopamine and diuretics however, on this admission, suspect other issues in play: relative hypotension and associated renal hypoperfusion prerenal factors from diarrhea ongoing use of diuretics + Entresto with relative volume depletion s/p IVFs in ER previous renal ultrasound with cortical thinning recheck urine electrolytes and eosinophils check dsDNA-ab given positive AMANDA given issues with relative hypotension, consider midodrine(?) follow repeat labs and UOP (2) Diarrhea: Code(s): R19.7 - Diarrhea, unspecified Status: Acute Assessment and Plan: etiology?? - viral versus bacterial? stool culture pending on metronidazole empirically (3) Congestive heart failure: Qualifiers: Heart failure chronicity: acute on chronic Heart failure type: combined systolic and diastolic Qualified Code(s): I50.43 - Acute on chronic combined systolic (congestive) and diastolic (congestive) heart failure Code(s): I50.9 - Heart failure, unspecified Status: Chronic Assessment and Plan: appears compensated at this time diuretics and Entresto on hold given #1 follow volume status closely (4) COPD (chronic obstructive pulmonary disease): Qualifiers: COPD type: unspecified COPD Qualified Code(s): J44.9 - Chronic obstructive pulmonary disease, unspecified Code(s): J44.9 - Chronic obstructive pulmonary disease, unspecified Status: Chronic Assessment and Plan: stable at this time continue inhalers PRN Extensive discussion with both the patient and her family at bedside (> 20 minutes) regarding her renal dysfunction, relative hypotension, congestive heart failure, and diuretic therapy for both her CHF as well as her lower extremity edema and the balancing act of trying to maintain all of these issues in general. I will continue to follow patient with you while she remains hospitalized to make further recommendations depending on her hospital course. Thank you for allowing me to participate in care of this patient. History of Present Illness Reason for Consult Consult date: 12/30/22 Reason for consult: acute renal failure Chief Complaint Chief complaint: janina History of Present Illness Narrative: The patient is a 73-year-old female with a past medical history as outlined below who presented to [facility] Emergency room with complaints of generalized weakness. It should be noted the patient was just recently discharged from [facility] approximately 2-3 days ago after being hospitalized for a CHF exacerbation as well as significant lower extremity edema. During that hospital stay, she also had acute kidney injury with her creatinine peaking at around 2.7 mg/dL. She was treated with a combination of IV dopamine to improve renal perfusion as well as IV diuretics and her kidney function improved to around 1.3 to 1.4 mg/dL and she diuresed approximately 5 L of fluid. Imaging of her kidneys at that time demonstrated cortical thinning suggestive of some degree of mild renal insufficiency. She was eventually transitioned to oral diuretic therapy and subsequently discharged. Since her discharge from the hospital, she reports that she has been feeling weak which has been exacerbated by the fact that she has had several episodes of diarrhea in the last 24 hours. She reports no fevers, chills, nausea, vomiting, or abdominal pain. Her fluid status/lower extremity edema remains fairly well since her discharge from the hospital. However, given the ongoing weakness and fatigue, she presented o
--- NOTE | 2022-12-30 14:11 | PM.IMPN ---
Progress Note: A&P Assessment and Plan (1) Acute kidney injury: Code(s): N17.9 - Acute kidney failure, unspecified Status: Acute Assessment and Plan: likely multifactorial secondary to dehydration from diarrhea, hypoperfusion from relative hypotension, and over-diuresis baseline creatinine appears to be around 1.9-2 creatinine elevated up to 4.1 on presentation improved to 3.8 today after 1 L of fluid holding on continuous fluids given CHF Bumex, chlorthalidone, Entresto, and Jardiance on hold appreciate nephrology consultation renal ultrasound from 1 week prior showed cortical thinning of the kidneys without hydronephrosis bladder scan to rule out urinary retention (2) Congestive heart failure: Qualifiers: Heart failure chronicity: acute on chronic Heart failure type: combined systolic and diastolic Qualified Code(s): I50.43 - Acute on chronic combined systolic (congestive) and diastolic (congestive) heart failure Code(s): I50.9 - Heart failure, unspecified Status: Acute Assessment and Plan: recent hospital admission for CHF appears euvolemic at this time diuretics on hold as above monitor volume status closely (3) Venous stasis ulcer: Code(s): I83.009 - Varicose veins of unspecified lower extremity with ulcer of unspecified site; L97.909 - Non-pressure chronic ulcer of unspecified part of unspecified lower leg with unspecified severity Status: Acute Assessment and Plan: chronic, no acute issues at this time (4) Diarrhea: Code(s): R19.7 - Diarrhea, unspecified Status: Acute Assessment and Plan: patient with onset of diarrhea, multiple loose stools. patient reports her son was concern for blood in her stool no episodes of diarrhea so far today patient was rehydrated stool cultures are pending patient started on Flagyl for possible colitis, however at this time no signs/ symptoms to indicate an acute infectious etiology. Continue while awaiting stool culture results stool occult blood test is positive. may be due to possible colitis. No evidence of active GI bleeding. slight decline in H&H from presentation, however this is likely dilutional from IV fluids consider GI consult if diarrhea persists or if further decline in H&H Subjective Date/time seen: 12/30/22 14:11 Interval history: date of service: 12/30/2022 Alyssa Hanson is a 77-year-old female with a history of CHF, COPD, CKD, hypertension, hyperlipidemia who is seen in follow-up for acute kidney injury. Patient reports she is tired and weak today. She has had decreased urine output at home, states she has not really been urinating much. She denies hematuria, dysuria, dark urine. She did have diarrhea prior to presentation but she has not had any bowel movements today. She denies shortness of breath, orthopnea, dyspnea on exertion, or swelling of her extremities. Review of Systems Review of Systems: All systems reviewed & are unremarkable except as noted in HPI and below Exam Narrative: General: Obese, chronically ill-appearing 77-year-old female, sitting up in bed, comfortable, NARD Neuro: awake, alert and oriented x4, speech clear, no focal neuro deficits noted HEENMT: normocephalic, atraumatic, EOMI, sclerae anicteric, moist oral mucosa Respiratory: clear to auscultation bilaterally, nonlabored breathing Cardio: regular rate, regular rhythm with S1-S2 Abdomen: nondistended, normoactive bowel sounds, soft, nontender to palpation Extremities: no edema, erythema, or tenderness to palpation\ Skin: no rashes or lesions, warm and dry Psych: appropriate mood and affect, judgment and insight intact Objective Data Vital Signs Vital Signs: Vital Signs - 24 hr 12/29/22 18:53 12/29/22 20:00 12/29/22 21:00 Temperature 98.1 F Pulse Rate 62 57 L 100 Respiratory Rate 16 14 14 Blood Pressure 87/48 L 9
[2022-12-30] MEDS: carvediloL 12.5 MG TABLET PO (21:34)
[2022-12-31] VITALS (12 sets, daily range): BP systolic 106–130; BP diastolic 48–56; PULSE 56–76; RESP 14–21; TEMP 36.2–36.8; O2SAT 97–100
[2022-12-31] MEDS: metroNIDAZOLE 500 MG/ISO 100ML 500 MG/100 ML BAG 100 MG IVPB ×3 (00:17→17:50)
[2022-12-31 00:34] LABS: Sodium Urine Random 60 meq/L
[2022-12-31 00:37] LABS: Creatinine Urine 106.5 mg/dL; Total Protein Urine Random 16 mg/dL; Ur Ttl Prot Creatinine Ratio 0.15 mg/mg (0-0.20)
[2022-12-31 00:43] LABS: Urea Random Urine 700 MG/DL
[2022-12-31 03:10] LABS: Eosinophil Urine None Seen % (None Seen)
[2022-12-31 04:07] LABS: Urine Eos QC 2nd Tech Confirmed
[2022-12-31 05:20] LABS: Hematocrit 28.4 % (37.0-47.0); Hemoglobin 9.6 g/dL (12.0-15.0); Mean Corpuscular HGB Conc 33.8 g/dl (32-36); Mean Corpuscular Hemoglobin 31.3 pg (26-34); Mean Corpuscular Volume 92.5 fl (80-100); Mean Platelet Volume 8.8 fl (7.4-10.4); Platelet Count Result 205 k/mm3 (150-375); Red Blood Count 3.07 M/mm3 (4.2-5.4); Red Cell Distribution Width 15.4 % (11.5-14.5); White Blood Count 9.7 K/mm3 (4.5-10.0)
[2022-12-31 05:32] LABS: Albumin Level 3.5 g/dL (3.5-5.1); Anion Gap 10 mmol/L (8-16); Blood Urea Nitrogen 69 mg/dL (7-17); Calcium 8.2 mg/dL (8.4-10.2); Carbon Dioxide 27 mmol/L (22-30); Chloride 100 mmol/L (98-107); Creatine Kinase 36 U/L (30-135); Estimated CRCL calculation 20 ml/min; Estimated Glomerular Filt Rate 16; Glucose 95 mg/dL (65-110); Phosphorus 5.4 mg/dL (2.5-4.5); Potassium 3.6 mmol/L (3.4-5.0); Sodium 137 mmol/L (137-145)
[2022-12-31] MEDS: ASPIRIN 81 MG ENTERIC TABLET PO ×2 (08:51→17:50)
[2022-12-31] MEDS: carvediloL 12.5 MG TABLET PO ×2 (08:53→20:37)
--- NOTE | 2022-12-31 11:00 | P.PNNP_ITS ---
Progress Note: A&P Assessment and Plan (1) Acute kidney injury: Code(s): N17.9 - Acute kidney failure, unspecified Status: Acute Assessment and Plan: * improving * on last hospitalization, thought to be secondary to renal venous HTN from pulmonary hypertension + volume overload along with dimished renal blood flow * improved at that time with IV dopamine and diuretics * however, on this admission, suspect other issues in play: * relative hypotension and associated renal hypoperfusion * prerenal factors from diarrhea * ongoing use of diuretics + Entresto with relative volume depletion * s/p IVFs in ER * previous renal ultrasound with cortical thinning * repeat urine electrolytes slightly prerenal * urine eosinophils negative * it would seem that she is quite sensitive to BP fluctuations and diuretics in general * follow repeat labs and UOP (2) Diarrhea: Code(s): R19.7 - Diarrhea, unspecified Status: Acute Assessment and Plan: * etiology?? - viral versus bacterial? * stool culture pending * on metronidazole empirically (3) Congestive heart failure: Qualifiers: Heart failure chronicity: acute on chronic Heart failure type: combined systolic and diastolic Qualified Code(s): I50.43 - Acute on chronic combined systolic (congestive) and diastolic (congestive) heart failure Code(s): I50.9 - Heart failure, unspecified Status: Chronic Assessment and Plan: * appears compensated at this time * diuretics and Entresto on hold given #1 * follow volume status closely (4) COPD (chronic obstructive pulmonary disease): Qualifiers: COPD type: unspecified COPD Qualified Code(s): J44.9 - Chronic obstructive pulmonary disease, unspecified Code(s): J44.9 - Chronic obstructive pulmonary disease, unspecified Status: Chronic Assessment and Plan: * stable at this time * continue inhalers PRN Will continue to follow. Subjective Date/time seen: 12/31/22 11:00 Interval history: Follow-up on acute kidney injury/acute renal failure. Renal function has improved with holding diuretics and BP medications as noted by AM labs; eating and drinking okay; no acute complaints or apparent distress voiced at the time of my visit; no issues/events overnight or earlier this morning. Exam Narrative: General: elderly female in NAD Heart: normal S1 and S2; no rub Lungs: clear anteriorly Abdomen: soft, nontender, nondistended, positive bowel sounds Extremities: no cyanosis or clubbing; 1+ edema Skin:warm and dry Objective Data Vital Signs Vital Signs: Vital Signs Temp Pulse Resp BP Pulse Ox O2 Del Method 12/31/22 09:35 Room Air 12/31/22 09:02 76 14 130/56 L 99 12/31/22 08:53 76 12/31/22 06:00 97.8 F 61 18 114/51 L 97 12/31/22 04:00 68 12/31/22 03:06 64 12/30/22 20:00 57 L 12/30/22 21:20 Room Air 12/30/22 21:34 91 12/30/22 19:30 98.6 F 57 L 18 119/54 L 99 12/30/22 16:00 58 L 12/30/22 13:50 97.6 F 83 18 101/58 L 97 12/30/22 12:00 57 L Intake/Output Intake/Output: Intake & Output 12/28/22 12/29/22 12/30/22 12/31/22 23:59 23:59 23:59 23:59
--- NOTE | 2022-12-31 11:00 | PM.PNNEP ---
Progress Note: A&P Assessment and Plan (1) Acute kidney injury: Code(s): N17.9 - Acute kidney failure, unspecified Status: Acute Assessment and Plan: improving on last hospitalization, thought to be secondary to renal venous HTN from pulmonary hypertension + volume overload along with dimished renal blood flow improved at that time with IV dopamine and diuretics however, on this admission, suspect other issues in play: relative hypotension and associated renal hypoperfusion prerenal factors from diarrhea ongoing use of diuretics + Entresto with relative volume depletion s/p IVFs in ER previous renal ultrasound with cortical thinning repeat urine electrolytes slightly prerenal urine eosinophils negative it would seem that she is quite sensitive to BP fluctuations and diuretics in general follow repeat labs and UOP (2) Diarrhea: Code(s): R19.7 - Diarrhea, unspecified Status: Acute Assessment and Plan: etiology?? - viral versus bacterial? stool culture pending on metronidazole empirically (3) Congestive heart failure: Qualifiers: Heart failure chronicity: acute on chronic Heart failure type: combined systolic and diastolic Qualified Code(s): I50.43 - Acute on chronic combined systolic (congestive) and diastolic (congestive) heart failure Code(s): I50.9 - Heart failure, unspecified Status: Chronic Assessment and Plan: appears compensated at this time diuretics and Entresto on hold given #1 follow volume status closely (4) COPD (chronic obstructive pulmonary disease): Qualifiers: COPD type: unspecified COPD Qualified Code(s): J44.9 - Chronic obstructive pulmonary disease, unspecified Code(s): J44.9 - Chronic obstructive pulmonary disease, unspecified Status: Chronic Assessment and Plan: stable at this time continue inhalers PRN Will continue to follow. Subjective Date/time seen: 12/31/22 11:00 Interval history: Follow-up on acute kidney injury/acute renal failure. Renal function has improved with holding diuretics and BP medications as noted by AM labs; eating and drinking okay; no acute complaints or apparent distress voiced at the time of my visit; no issues/events overnight or earlier this morning. Exam Narrative: General: elderly female in NAD Heart: normal S1 and S2; no rub Lungs: clear anteriorly Abdomen: soft, nontender, nondistended, positive bowel sounds Extremities: no cyanosis or clubbing; 1+ edema Skin:warm and dry Objective Data Vital Signs Vital Signs: Vital Signs Temp Pulse Resp BP Pulse Ox O2 Del Method 12/31/22 09:35 Room Air 12/31/22 09:02 76 14 130/56 L 99 12/31/22 08:53 76 12/31/22 06:00 97.8 F 61 18 114/51 L 97 12/31/22 04:00 68 12/31/22 03:06 64 12/30/22 20:00 57 L 12/30/22 21:20 Room Air 12/30/22 21:34 91 12/30/22 19:30 98.6 F 57 L 18 119/54 L 99 12/30/22 16:00 58 L 12/30/22 13:50 97.6 F 83 18 101/58 L 97 12/30/22 12:00 57 L Intake/Output Intake/Output: Intake & Output 12/28/22 12/29/22 12/30/22 12/31/22 23:59 23:59 23:59 23:59 Intake Total 1000 1090 340 Output Total 1000 300 Balance 1000 90 40 Meds/Results Medications: Active Medications Generic Name Dose Route Start Last Admin Trade Name Freq PRN Reason Stop Dose Admin Acetaminophen 650 mg 12/30/22 00:43 Acetaminophen 325 Mg Tablet PO Q8H PRN Pain Rated 1-3 Albuterol 2 puff 12/29/22 23:58 Albuterol Sulfate (*Sp) Aerosol 1 Puff INHALATION Q6HRT PRN Shortness Of Breath Aspirin 81 mg 12/30/22 09:00 12/31/22 08:51 Aspirin 81 Mg Enteric Tablet PO 81 mg BID UBALDO Administration Carvedilol 12.5 mg 12/30/22 09:00 12/31/22 08:53 Carvedilol 12.5 Mg Tablet PO 12.5 mg Q12HR UBALDO Administration Metronidazole 500
--- NOTE | 2022-12-31 16:38 | PM.IMPN ---
Progress Note: A&P Assessment and Plan (1) Acute kidney injury: Code(s): N17.9 - Acute kidney failure, unspecified Status: Acute Assessment and Plan: likely multifactorial secondary to dehydration from diarrhea, hypoperfusion from relative hypotension, and over-diuresis baseline creatinine appears to be around 1.9-2 creatinine elevated up to 4.1 on presentation improved to 2.8 today after receiving 1 L of fluid on admission and holding diuretics holding on continuous fluids given CHF Bumex, chlorthalidone, Entresto, and Jardiance on hold appreciate nephrology consultation renal ultrasound from 1 week prior showed cortical thinning of the kidneys without hydronephrosis no evidence of urinary retention (2) Congestive heart failure: Qualifiers: Heart failure chronicity: acute on chronic Heart failure type: combined systolic and diastolic Qualified Code(s): I50.43 - Acute on chronic combined systolic (congestive) and diastolic (congestive) heart failure Code(s): I50.9 - Heart failure, unspecified Status: Chronic Assessment and Plan: recent hospital admission for CHF appears euvolemic at this time diuretics on hold as above monitor volume status closely (3) Venous stasis ulcer: Code(s): I83.009 - Varicose veins of unspecified lower extremity with ulcer of unspecified site; L97.909 - Non-pressure chronic ulcer of unspecified part of unspecified lower leg with unspecified severity Status: Acute Assessment and Plan: chronic, no acute issues at this time (4) Diarrhea: Code(s): R19.7 - Diarrhea, unspecified Status: Acute Assessment and Plan: patient with onset of diarrhea, multiple loose stools. patient reports her son was concern for blood in her stool no episodes of diarrhea during admission patient was rehydrated stool cultures are pending. C diff negative patient started on Flagyl for possible colitis, however at this time no signs/ symptoms to indicate an acute infectious etiology. Continue while awaiting final stool culture results stool occult blood test is positive. may be due to possible colitis. No evidence of active GI bleeding. slight decline in H&H from presentation, however this is likely dilutional from IV fluids and Hgb remaining stable today consider GI consult if diarrhea persists or if further decline in H&H (5) Occult blood in stools: Code(s): R19.5 - Other fecal abnormalities Status: Acute Assessment and Plan: stool occult blood test is positive see plan as above discussed findings with patient. Discussed considering GI consultation. Patient requests this to be deferred and continue with monitoring H&H Subjective Date/time seen: 12/31/22 16:38 Interval history: date of service: 12/31/2022 Alyssa Hanson is a 77-year-old female with a history of CHF, COPD, CKD, hypertension, hyperlipidemia who is seen in follow-up for acute kidney injury She complains of midback pain today which is worsened when lying in bed. She then no episodes of diarrhea today and reports her last bowel movement was 2 days ago. M she denies abdominal pain. No nausea or vomiting. She has been able to get out of bed and is tolerating activity. She denies dizziness or lightheadedness. Review of Systems Review of Systems: All systems reviewed & are unremarkable except as noted in HPI and below Exam Narrative: General: Obese, chronically ill-appearing 77-year-old female, sitting up in bed, comfortable, NARD Neuro: awake, alert and oriented x4, speech clear, no focal neuro deficits noted HEENMT: normocephalic, atraumatic, EOMI, sclerae anicteric, moist oral mucosa Respiratory: clear to auscultation bilaterally, nonlabored breathing Cardio: regular rate, regular rhythm with S1-S2 Abdomen: nondistended, normoactive bowel sounds, soft, nontender to palpation
[2022-12-31] MEDS: ATORVASTATIN 40 MG TABLET PO (20:37)
[2022-12-31] MEDS: metroNIDAZOLE 250 MG TABLET 500 MG PO (20:51)
[2023-01-01] VITALS (13 sets, daily range): BP systolic 91–115; BP diastolic 39–53; PULSE 55–120; RESP 18–20; TEMP 36.4–36.8; O2SAT 97–99
[2023-01-01] MEDS: ACETAMINOPHEN 325 MG TABLET 650 MG PO (02:11)
[2023-01-01 05:50] LABS: Hematocrit 27.3 % (37.0-47.0); Hemoglobin 9.2 g/dL (12.0-15.0); Mean Corpuscular HGB Conc 33.7 g/dl (32-36); Mean Corpuscular Hemoglobin 30.6 pg (26-34); Mean Corpuscular Volume 90.7 fl (80-100); Mean Platelet Volume 9.2 fl (7.4-10.4); Platelet Count Result 222 k/mm3 (150-375); Red Blood Count 3.01 M/mm3 (4.2-5.4); Red Cell Distribution Width 15.1 % (11.5-14.5); White Blood Count 9.7 K/mm3 (4.5-10.0)
[2023-01-01 05:58] LABS: Albumin Level 3.5 g/dL (3.5-5.1); Anion Gap 5 mmol/L (8-16); Blood Urea Nitrogen 60 mg/dL (7-17); Calcium 8.6 mg/dL (8.4-10.2); Carbon Dioxide 29 mmol/L (22-30); Chloride 101 mmol/L (98-107); Estimated CRCL calculation 30 ml/min; Estimated Glomerular Filt Rate 26; Glucose 90 mg/dL (65-110); Phosphorus 3.8 mg/dL (2.5-4.5); Potassium 3.5 mmol/L (3.4-5.0); Sodium 135 mmol/L (137-145)
[2023-01-01] MEDS: metroNIDAZOLE 250 MG TABLET 500 MG PO ×3 (06:10→21:09)
[2023-01-01] MEDS: ASPIRIN 81 MG ENTERIC TABLET PO ×2 (09:36→17:41)
--- NOTE | 2023-01-01 10:45 | PM.PNNEP ---
Progress Note: A&P Assessment and Plan (1) Acute kidney injury: Code(s): N17.9 - Acute kidney failure, unspecified Status: Acute Assessment and Plan: continue to improve on last hospitalization, thought to be secondary to renal venous HTN from pulmonary hypertension + volume overload along with dimished renal blood flow improved at that time with IV dopamine and diuretics however, on this admission, suspect other issues in play: relative hypotension and associated renal hypoperfusion prerenal factors from diarrhea ongoing use of diuretics + Entresto with relative volume depletion s/p IVFs in ER previous renal ultrasound with cortical thinning repeat urine electrolytes slightly prerenal urine eosinophils negative it would seem that she is quite sensitive to BP fluctuations and diuretics/BP medications in general follow repeat labs and UOP (2) Diarrhea: Code(s): R19.7 - Diarrhea, unspecified Status: Acute Assessment and Plan: etiology?? - viral versus bacterial? stool culture pending on metronidazole empirically (3) Congestive heart failure: Qualifiers: Heart failure chronicity: acute on chronic Heart failure type: combined systolic and diastolic Qualified Code(s): I50.43 - Acute on chronic combined systolic (congestive) and diastolic (congestive) heart failure Code(s): I50.9 - Heart failure, unspecified Status: Chronic Assessment and Plan: appears compensated at this time diuretics and Entresto on hold given #1 follow volume status closely (4) COPD (chronic obstructive pulmonary disease): Qualifiers: COPD type: unspecified COPD Qualified Code(s): J44.9 - Chronic obstructive pulmonary disease, unspecified Code(s): J44.9 - Chronic obstructive pulmonary disease, unspecified Status: Chronic Assessment and Plan: stable at this time continue inhalers PRN Will continue to follow. Subjective Date/time seen: 01/01/23 10:45 Interval history: Follow-up on acute kidney injury/acute renal failure. Renal function continues to improve with current interventions (holding diuretics and BP/cardiac medications); BP remains soft at times as well; ambulating okay as well as eating and drinking okay. Exam Narrative: General: elderly female in NAD Heart: normal S1 and S2; no rub Lungs: clear anteriorly Abdomen: soft, nontender, nondistended, positive bowel sounds Extremities: no cyanosis or clubbing; 1+ edema Skin:warm and dry Objective Data Vital Signs Vital Signs: Vital Signs Temp Pulse Resp BP Pulse Ox O2 Del Method 01/01/23 09:42 97 Room Air 01/01/23 08:53 91/39 L 01/01/23 07:52 Room Air 01/01/23 06:43 98.1 F 60 20 102/45 L 98 01/01/23 04:00 55 L 01/01/23 00:00 59 L 12/31/22 22:48 98.3 F 56 L 21 H 129/56 L 100 12/31/22 20:00 66 12/31/22 20:37 70 12/31/22 16:00 61 12/31/22 15:27 Room Air 12/31/22 14:07 97.1 F L 60 16 106/48 L 100 Intake/Output Intake/Output: Intake & Output 12/29/22 12/30/22 12/31/22 01/01/23 23:59 23:59 23:59 23:59 Intake Total 1000 1090 1040 520 Output Total 1000 1050 500 Balance 1000 90 -10 20 Meds/Results Medications: Active Medications Generic Name Dose Route Start Last Admin Trade Name Freq PRN Reason Stop Dose Admin Acetaminophen 650 mg 12/30/22 00:43 01/01/23 02:11 Acetaminophen 325 Mg Tablet PO 650 mg Q8H PRN Administration Pain Rated 1-3 Albuterol 2 puff 12/29/22 23:58 Albuterol Sulfate (*Sp) Aerosol 1 Puff INHALATION Q6HRT PRN Shortness Of Breath Aspirin 81 mg 12/30/22 09:00 01/01/23 09:36 Aspirin 81 Mg Enteric Tablet PO 81 mg BID UBALDO Administration Atorvastatin Calcium 40 mg 12/31/22 21:00 12/31/22 20:37 Atorvastatin 40 Mg Tablet PO 40 mg HS UBALDO Administration Carvedilol
--- NOTE | 2023-01-01 10:45 | P.PNNP_ITS ---
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 hypertension + volume overload along with dimished renal blood flow * improved at that time with IV dopamine and diuretics * however, on this admission, suspect other issues in play: * relative hypotension and associated renal hypoperfusion * prerenal factors from diarrhea * ongoing use of diuretics + Entresto with relative volume depletion * s/p IVFs in ER * previous renal ultrasound with cortical thinning * repeat urine electrolytes slightly prerenal * urine eosinophils negative * it would seem that she is quite sensitive to BP fluctuations and diuretics/BP medications in general * follow repeat labs and UOP (2) Diarrhea: Code(s): R19.7 - Diarrhea, unspecified Status: Acute Assessment and Plan: * etiology?? - viral versus bacterial? * stool culture pending * on metronidazole empirically (3) Congestive heart failure: Qualifiers: Heart failure chronicity: acute on chronic Heart failure type: combined systolic and diastolic Qualified Code(s): I50.43 - Acute on chronic combined systolic (congestive) and diastolic (congestive) heart failure Code(s): I50.9 - Heart failure, unspecified Status: Chronic Assessment and Plan: * appears compensated at this time * diuretics and Entresto on hold given #1 * follow volume status closely (4) COPD (chronic obstructive pulmonary disease): Qualifiers: COPD type: unspecified COPD Qualified Code(s): J44.9 - Chronic obstructive pulmonary disease, unspecified Code(s): J44.9 - Chronic obstructive pulmonary disease, unspecified Status: Chronic Assessment and Plan: * stable at this time * continue inhalers PRN Will continue to follow. Subjective Date/time seen: 01/01/23 10:45 Interval history: Follow-up on acute kidney injury/acute renal failure. Renal function continues to improve with current interventions (holding diuretics and BP/cardiac medications); BP remains soft at times as well; ambulating okay as well as eating and drinking okay. Exam Narrative: General: elderly female in NAD Heart: normal S1 and S2; no rub Lungs: clear anteriorly Abdomen: soft, nontender, nondistended, positive bowel sounds Extremities: no cyanosis or clubbing; 1+ edema Skin:warm and dry Objective Data Vital Signs Vital Signs: Vital Signs Temp Pulse Resp BP Pulse Ox O2 Del Method 01/01/23 09:42 97 Room Air 01/01/23 08:53 91/39 L 01/01/23 07:52 Room Air 01/01/23 06:43 98.1 F 60 20 102/45 L 98 01/01/23 04:00 55 L 01/01/23 00:00 59 L 12/31/22 22:48 98.3 F 56 L 21 H 129/56 L 100 12/31/22 20:00 66 12/31/22 20:37 70 12/31/22 16:00 61 12/31/22 15:27 Room Air 12/31/22 14:07 97.1 F L 60 16 106/48 L 100 Intake/Output Intake/Output: Intake & Output 12/29/22 12/30/22 12/31/22 01/01/23 23:59 23:59 23:59 23:59 Intake Total 1000 1090 1040 520 O
--- NOTE | 2023-01-01 15:42 | PM.IMPN ---
Progress Note: A&P Assessment and Plan (1) Acute kidney injury: Code(s): N17.9 - Acute kidney failure, unspecified Status: Acute Assessment and Plan: likely multifactorial secondary to dehydration from diarrhea, hypoperfusion from relative hypotension, and over-diuresis baseline creatinine appears to be around 1.9-2 creatinine elevated up to 4.1 on presentation improved to 1.9 today after receiving 1 L of fluid on admission and holding diuretics holding on continuous fluids given CHF Bumex, chlorthalidone, Entresto, and Jardiance on hold appreciate nephrology consultation renal ultrasound from 1 week prior showed cortical thinning of the kidneys without hydronephrosis no evidence of urinary retention Creatinine nearly back to baseline. Continue to monitor (2) Congestive heart failure: Qualifiers: Heart failure chronicity: acute on chronic Heart failure type: combined systolic and diastolic Qualified Code(s): I50.43 - Acute on chronic combined systolic (congestive) and diastolic (congestive) heart failure Code(s): I50.9 - Heart failure, unspecified Status: Chronic Assessment and Plan: recent hospital admission from 12/21-12/27/22 for CHF appears euvolemic at this time diuretics on hold as above monitor volume status closely Creatinine is nearly back to baseline, however will continue to hold on restarting diuretics at this time due to soft blood pressures. If BP remains soft, will request further recommendations from Cardiology for appropriate management of CHF (3) Venous stasis ulcer: Code(s): I83.009 - Varicose veins of unspecified lower extremity with ulcer of unspecified site; L97.909 - Non-pressure chronic ulcer of unspecified part of unspecified lower leg with unspecified severity Status: Acute Assessment and Plan: chronic, no acute issues at this time (4) Diarrhea: Code(s): R19.7 - Diarrhea, unspecified Status: Acute Assessment and Plan: Resolved. patient with onset of diarrhea, multiple loose stools 1 day prior to admission. no episodes of diarrhea during admission patient was rehydrated stool cultures are pending, negative to date. Awaiting salmonella and shigella cultures.. C diff negative patient started on Flagyl for possible colitis, however at this time no signs/ symptoms to indicate any acute infectious etiology. Diarrhea has resolved. At this time will discontinue antibiotics as infectious etiology is unlikely stool occult blood test is positive. No evidence of active GI bleeding. slight decline in H&H from presentation, however this is likely dilutional from IV fluids and Hgb remaining stable consider GI consult if diarrhea persists or if further decline in H&H (5) Occult blood in stools: Code(s): R19.5 - Other fecal abnormalities Status: Acute Assessment and Plan: stool occult blood test is positive see plan as above discussed findings with patient. Discussed considering GI consultation. Patient requests this to be deferred and continue with monitoring H&H Subjective Date/time seen: 01/01/23 15:42 Interval history: date of service: 12/31/2022 Alyssa Hanson is a 77-year-old female with a history of CHF, COPD, CKD, hypertension, hyperlipidemia who is seen in follow-up for acute kidney injury. Patient states that overall she is feeling well today. She had some trouble sleeping last night. She denies any shortness breath, cough, chest pain dizziness, lightheadedness, dyspnea on exertion, or swelling of her extremities. She denies urinary symptoms. No nausea or vomiting. Denies dizziness or lightheadedness. She does complain of feeling weak. Review of Systems Review of Systems: All systems reviewed & are unremarkable except as noted in HPI and below Exam Narrative: General: obese, chronically ill-appearing 77-year-old f
[2023-01-01] MEDS: carvediloL 12.5 MG TABLET PO (20:41)
[2023-01-01] MEDS: ATORVASTATIN 40 MG TABLET PO (20:41)
[2023-01-02] VITALS (17 sets, daily range): BP systolic 95–124; BP diastolic 35–68; PULSE 55–98; RESP 17–20; TEMP 36.2–36.6; O2SAT 97–100
[2023-01-02] MEDS: ACETAMINOPHEN 325 MG TABLET 650 MG PO (00:15)
[2023-01-02] MEDS: metroNIDAZOLE 250 MG TABLET 500 MG PO (05:04)
[2023-01-02 05:46] LABS: Hematocrit 29.6 % (37.0-47.0); Hemoglobin 9.8 g/dL (12.0-15.0); Mean Corpuscular HGB Conc 33.1 g/dl (32-36); Mean Corpuscular Hemoglobin 30.4 pg (26-34); Mean Corpuscular Volume 91.9 fl (80-100); Mean Platelet Volume 8.8 fl (7.4-10.4); Platelet Count Result 227 k/mm3 (150-375); Red Blood Count 3.22 M/mm3 (4.2-5.4); White Blood Count 9.2 K/mm3 (4.5-10.0)
[2023-01-02 06:11] LABS: Albumin Level 3.8 g/dL (3.5-5.1); Anion Gap 7 mmol/L (8-16); Blood Urea Nitrogen 46 mg/dL (7-17); Calcium 8.9 mg/dL (8.4-10.2); Carbon Dioxide 29 mmol/L (22-30); Chloride 100 mmol/L (98-107); Estimated CRCL calculation 37 ml/min; Estimated Glomerular Filt Rate 33; Glucose 113 mg/dL (65-110); Phosphorus 3.3 mg/dL (2.5-4.5); Potassium 3.5 mmol/L (3.4-5.0); Sodium 136 mmol/L (137-145)
[2023-01-02] MEDS: ASPIRIN 81 MG ENTERIC TABLET PO ×2 (09:10→16:54)
--- NOTE | 2023-01-02 10:03 | P.PNIM_ITS ---
Progress Note: A&P Assessment and Plan (1) Acute kidney injury: Code(s): N17.9 - Acute kidney failure, unspecified Status: Acute Assessment and Plan: likely multifactorial secondary to dehydration from diarrhea, hypoperfusion from relative hypotension, and over-diuresis * baseline creatinine appears to be around 1.9-2 * creatinine elevated up to 4.1 on presentation * improved to 1.5 today after receiving 1 L of fluid on admission and holding diuretics * holding on continuous fluids given HFrEF * Bumex, chlorthalidone, Entresto, and Jardiance on hold * appreciate nephrology consultation * renal ultrasound from 1 week prior showed cortical thinning of the kidneys without hydronephrosis * no evidence of urinary retention * Creatinine nearly back to baseline. Continue to monitor (2) Congestive heart failure: Qualifiers: Heart failure chronicity: acute on chronic Heart failure type: combined systolic and diastolic Qualified Code(s): I50.43 - Acute on chronic combined systolic (congestive) and diastolic (congestive) heart failure Code(s): I50.9 - Heart failure, unspecified Status: Chronic Assessment and Plan: recent hospital admission from 12/21-12/27/22 for CHF * appears euvolemic at this time * diuretics on hold as above * monitor volume status closely * Creatinine is nearly back to baseline, however will continue to hold on restarting diuretics at this time due to soft blood pressures. If BP remains soft, will request further recommendations from Cardiology for appropriate management of CHF * Orthostatic vitals with SBP drop 122 to 93 sitting to standing. (3) Venous stasis ulcer: Qualifiers: Venous stasis ulcer site: unspecified site Varicose vein presence: without varicose veins Code(s): I83.009 - Varicose veins of unspecified lower extremity with ulcer of unspecified site; L97.909 - Non-pressure chronic ulcer of unspecified part of unspecified lower leg with unspecified severity Status: Acute Assessment and Plan: chronic, mild pedal edema noted on assessment. * No acute issues at this time. * Diuretics on hold due to ELANA. * Patient cannot tolerate Samir hose. * Encouraged elevation while at rest (4) Diarrhea: Qualifiers: Diarrhea type: unspecified type Qualified Code(s): R19.7 - Diarrhea, unspecified Code(s): R19.7 - Diarrhea, unspecified Status: Acute Assessment and Plan: Resolved. patient with onset of diarrhea, multiple loose stools 1 day prior to admission. * no episodes of diarrhea during admission * patient was rehydrated * patient started on Flagyl for possible colitis, however at this time no signs/ symptoms to indicate any acute infectious etiology. Diarrhea has resolved. At this time will discontinue antibiotics as infectious etiology is unlikely * stool occult blood test is positive. No evidence of active GI bleeding. slight decline in H&H from presentation, however this is likely dilutional from IV fluids and Hgb remaining stable * Stool studies negative. Unlikely to be infectious. Patient is not having any stools at this time. Stop Flagyl (5) Occult blood in stools: Code(s): R19.5 - Other fecal abnormalities Status: Acute Assessment and Plan: stool occult blood test is positive * see plan as above * discussed findings with patient. Discussed considering GI consultation. Patient requests this to be deferred and continue with monitoring H&H Time Spent With Patient
--- NOTE | 2023-01-02 10:03 | PM.IMPN ---
Progress Note: A&P Assessment and Plan (1) Acute kidney injury: Code(s): N17.9 - Acute kidney failure, unspecified Status: Acute Assessment and Plan: likely multifactorial secondary to dehydration from diarrhea, hypoperfusion from relative hypotension, and over-diuresis baseline creatinine appears to be around 1.9-2 creatinine elevated up to 4.1 on presentation improved to 1.5 today after receiving 1 L of fluid on admission and holding diuretics holding on continuous fluids given HFrEF Bumex, chlorthalidone, Entresto, and Jardiance on hold appreciate nephrology consultation renal ultrasound from 1 week prior showed cortical thinning of the kidneys without hydronephrosis no evidence of urinary retention Creatinine nearly back to baseline. Continue to monitor (2) Congestive heart failure: Qualifiers: Heart failure chronicity: acute on chronic Heart failure type: combined systolic and diastolic Qualified Code(s): I50.43 - Acute on chronic combined systolic (congestive) and diastolic (congestive) heart failure Code(s): I50.9 - Heart failure, unspecified Status: Chronic Assessment and Plan: recent hospital admission from 12/21-12/27/22 for CHF appears euvolemic at this time diuretics on hold as above monitor volume status closely Creatinine is nearly back to baseline, however will continue to hold on restarting diuretics at this time due to soft blood pressures. If BP remains soft, will request further recommendations from Cardiology for appropriate management of CHF Orthostatic vitals with SBP drop 122 to 93 sitting to standing. (3) Venous stasis ulcer: Qualifiers: Venous stasis ulcer site: unspecified site Varicose vein presence: without varicose veins Code(s): I83.009 - Varicose veins of unspecified lower extremity with ulcer of unspecified site; L97.909 - Non-pressure chronic ulcer of unspecified part of unspecified lower leg with unspecified severity Status: Acute Assessment and Plan: chronic, mild pedal edema noted on assessment. No acute issues at this time. Diuretics on hold due to LEANA. Patient cannot tolerate Samir hose. Encouraged elevation while at rest (4) Diarrhea: Qualifiers: Diarrhea type: unspecified type Qualified Code(s): R19.7 - Diarrhea, unspecified Code(s): R19.7 - Diarrhea, unspecified Status: Acute Assessment and Plan: Resolved. patient with onset of diarrhea, multiple loose stools 1 day prior to admission. no episodes of diarrhea during admission patient was rehydrated patient started on Flagyl for possible colitis, however at this time no signs/ symptoms to indicate any acute infectious etiology. Diarrhea has resolved. At this time will discontinue antibiotics as infectious etiology is unlikely stool occult blood test is positive. No evidence of active GI bleeding. slight decline in H&H from presentation, however this is likely dilutional from IV fluids and Hgb remaining stable Stool studies negative. Unlikely to be infectious. Patient is not having any stools at this time. Stop Flagyl (5) Occult blood in stools: Code(s): R19.5 - Other fecal abnormalities Status: Acute Assessment and Plan: stool occult blood test is positive see plan as above discussed findings with patient. Discussed considering GI consultation. Patient requests this to be deferred and continue with monitoring H&H Time Spent With Patient Time with patient: 25 - 35 minutes Subjective Date/time seen: 01/02/23 10:03 Interval history: Patient is a 77-year-old female with a history of CHF, COPD, CKD, hypertension, hyperlipidemia who is seen in follow-up for acute kidney injury.? She reports feeling well today and denies complaints of shortness of breath, chest pain, palpitations, dizziness, abdominal pain, nausea, vomiting, diarrhea, consti
--- NOTE | 2023-01-02 13:04 | PM.PNNEP ---
Progress Note: A&P Assessment and Plan (1) Acute kidney injury: Code(s): N17.9 - Acute kidney failure, unspecified Status: Acute Assessment and Plan: continue to improve on last hospitalization, thought to be secondary to renal venous HTN from pulmonary hypertension + volume overload along with dimished renal blood flow improved at that time with IV dopamine and diuretics however, on this admission, suspect other issues in play: relative hypotension and associated renal hypoperfusion prerenal factors from diarrhea ongoing use of diuretics + Entresto with relative volume depletion s/p IVFs in ER previous renal ultrasound with cortical thinning (suggesting some degree of renal insufficiency) repeat urine electrolytes slightly prerenal urine eosinophils negative it would seem that she is quite sensitive to BP fluctuations and diuretics/BP medications in general resume GDMT for her cardiac issues if BP can tolerated she likely need diuretics on discharge as well follow repeat labs and UOP (2) Diarrhea: Code(s): R19.7 - Diarrhea, unspecified Status: Acute Assessment and Plan: etiology?? - viral versus bacterial? stool culture results noted off antibiotics (3) Congestive heart failure: Qualifiers: Heart failure chronicity: acute on chronic Heart failure type: combined systolic and diastolic Qualified Code(s): I50.43 - Acute on chronic combined systolic (congestive) and diastolic (congestive) heart failure Code(s): I50.9 - Heart failure, unspecified Status: Chronic Assessment and Plan: appears compensated at this time diuretics and Entresto on hold given #1 resume GDMT as tolerated by hemodyanmics follow volume status closely (4) COPD (chronic obstructive pulmonary disease): Qualifiers: COPD type: unspecified COPD Qualified Code(s): J44.9 - Chronic obstructive pulmonary disease, unspecified Code(s): J44.9 - Chronic obstructive pulmonary disease, unspecified Status: Chronic Assessment and Plan: stable at this time continue inhalers PRN Will continue to follow. Subjective Date/time seen: 01/02/23 13:04 Interval history: Follow-up on acute kidney injury/acute renal failure. Renal function continues to improve if not close to baseline with current interventions (holding diuretics and cardiac medications); anxious for discharge at this time; no apparent distress or new concerns voiced at the time of my visit. Exam Narrative: General: elderly female in NAD Heart: normal S1 and S2; no rub Lungs: clear anteriorly Abdomen: soft, nontender, nondistended, positive bowel sounds Extremities: no cyanosis or clubbing; 1+ edema Skin:warm and intact Objective Data Vital Signs Vital Signs: Vital Signs Temp Pulse Resp BP Pulse Ox O2 Del Method 01/02/23 12:00 67 01/02/23 08:00 55 L 01/02/23 10:14 97.6 F 60 18 124/53 L 98 01/02/23 08:30 Room Air 01/02/23 10:19 60 95/35 L 99 01/02/23 10:16 63 122/47 L 99 01/02/23 10:14 60 124/53 L 98 01/02/23 09:42 61 01/02/23 09:09 108/68 01/02/23 06:00 97.2 F L 60 18 102/45 L 97 01/02/23 04:00 58 L 01/02/23 00:00 59 L 01/01/23 20:00 61 01/01/23 22:41 97.5 F L 61 20 115/40 L 99 01/01/23 20:00 Room Air 01/01/23 20:41 120 H Intake/Output Intake/Output: Intake & Output 12/30/22 12/31/22 01/01/23 01/02/23 23:59 23:59 23:59 23:59 Intake Total 1090 1040 1060 480 Output Total 1000 1050 1350 300 Balance 90 -10 -290 180 Meds/Results Medications: Active Medications Generic Name Dose Route Start Last Admin Trade Name Freq PRN Reason Stop Dose Admin Acetaminophen 650 mg 12/30/22 00:43 01/02/23 00:15 Acetaminophen 325 Mg Tablet PO 650 mg Q8H PRN Administration Pain Rated 1-3 Albuterol 2 puff 04
--- NOTE | 2023-01-02 13:04 | P.PNNP_ITS ---
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 hypertension + volume overload along with dimished renal blood flow * improved at that time with IV dopamine and diuretics * however, on this admission, suspect other issues in play: * relative hypotension and associated renal hypoperfusion * prerenal factors from diarrhea * ongoing use of diuretics + Entresto with relative volume depletion * s/p IVFs in ER * previous renal ultrasound with cortical thinning (suggesting some degree of renal insufficiency) * repeat urine electrolytes slightly prerenal * urine eosinophils negative * it would seem that she is quite sensitive to BP fluctuations and diuretics/BP medications in general * resume GDMT for her cardiac issues if BP can tolerated * she likely need diuretics on discharge as well * follow repeat labs and UOP (2) Diarrhea: Code(s): R19.7 - Diarrhea, unspecified Status: Acute Assessment and Plan: * etiology?? - viral versus bacterial? * stool culture results noted * off antibiotics (3) Congestive heart failure: Qualifiers: Heart failure chronicity: acute on chronic Heart failure type: combined systolic and diastolic Qualified Code(s): I50.43 - Acute on chronic combined systolic (congestive) and diastolic (congestive) heart failure Code(s): I50.9 - Heart failure, unspecified Status: Chronic Assessment and Plan: * appears compensated at this time * diuretics and Entresto on hold given #1 * resume GDMT as tolerated by hemodyanmics * follow volume status closely (4) COPD (chronic obstructive pulmonary disease): Qualifiers: COPD type: unspecified COPD Qualified Code(s): J44.9 - Chronic obstructive pulmonary disease, unspecified Code(s): J44.9 - Chronic obstructive pulmonary disease, unspecified Status: Chronic Assessment and Plan: * stable at this time * continue inhalers PRN Will continue to follow. Subjective Date/time seen: 01/02/23 13:04 Interval history: Follow-up on acute kidney injury/acute renal failure. Renal function continues to improve if not close to baseline with current interventions (holding diuretics and cardiac medications); anxious for discharge at this time; no apparent distress or new concerns voiced at the time of my visit. Exam Narrative: General: elderly female in NAD Heart: normal S1 and S2; no rub Lungs: clear anteriorly Abdomen: soft, nontender, nondistended, positive bowel sounds Extremities: no cyanosis or clubbing; 1+ edema Skin:warm and intact Objective Data Vital Signs Vital Signs: Vital Signs Temp Pulse Resp BP Pulse Ox O2 Del Method 01/02/23 12:00 67 01/02/23 08:00 55 L 01/02/23 10:14 97.6 F 60 18 124/53 L 98 01/02/23 08:30 Room Air 01/02/23 10:19 60 95/35 L 99 01/02/23 10:16 63 122/47 L 99 01/02/23 10:14 60 124/53 L 98 01/02/23 09:42 61 01/02/23 09:09 108/68 01/02/23 06:00 97.2 F L 60 18 102/45 L 97 01/02/23 04:00 58 L 01/02/23 00:00 59 L
--- NOTE | 2023-01-02 18:24 | PC.NURSE ---
pt refuses to wear [employer] wraps, states she has had those in the past and cannot tolerate them
[2023-01-02] MEDS: ATORVASTATIN 40 MG TABLET PO (20:14)
[2023-01-02] MEDS: carvediloL 6.25 MG TABLET PO (20:14)
[2023-01-03] VITALS (7 sets, daily range): BP systolic 103–126; BP diastolic 49–65; PULSE 60–97; RESP 18; TEMP 36.8; O2SAT 99–100
[2023-01-03 06:13] LABS: Albumin Level 3.8 g/dL (3.5-5.1); Anion Gap 7 mmol/L (8-16); Blood Urea Nitrogen 40 mg/dL (7-17); Calcium 9.1 mg/dL (8.4-10.2); Carbon Dioxide 28 mmol/L (22-30); Chloride 102 mmol/L (98-107); Estimated CRCL calculation 42 ml/min; Estimated Glomerular Filt Rate 40; Glucose 97 mg/dL (65-110); Phosphorus 3.2 mg/dL (2.5-4.5); Potassium 3.6 mmol/L (3.4-5.0); Sodium 137 mmol/L (137-145)
--- NOTE | 2023-01-03 07:47 | P.DS_ITS ---
DS: Admitting Diagnosis Discharge Date 01/03/2023 Admitting Diagnosis Acute kidney failure, unspecified Heart failure, unspecified Chronic renal failure, stage 3 (moderate) Venous stasis ulcer, chronic Hyperlipidemia, unspecified Chronic obstructive pulmonary disease, unspecified Diarrhea, unspecified DS: Discharge Diagnosis Discharge Diagnosis (1) Acute kidney injury: Code(s): N17.9 - Acute kidney failure, unspecified Status: Acute Assessment and Plan: likely multifactorial secondary to dehydration from diarrhea, hypoperfusion from relative hypotension, and over-diuresis. baseline creatinine appears to be around 1.9-2 * creatinine elevated up to 4.1 on dmission * improved to 1.5 after receiving 1 L of fluid on admission and holding diuretics * Further IV fluids held d/t HFrEF comorbidity. * Bumex, chlorthalidone, Entresto, and Jardiance on hold * Nephrology consulted and assisted with management. * renal ultrasound from 1 week prior (last admission) showed cortical thinning of the kidneys without hydronephrosis * no evidence of urinary retention * 01/03/23 Renal function at discharge- BUN 40, creatinine 1.3, GFR 40 and improved. (2) Congestive heart failure: Qualifiers: Heart failure chronicity: acute on chronic Heart failure type: combined systolic and diastolic Qualified Code(s): I50.43 - Acute on chronic combined systolic (congestive) and diastolic (congestive) heart failure Code(s): I50.9 - Heart failure, unspecified Status: Chronic Assessment and Plan: recent hospital admission from 12/21-12/27/22 for CHF exacerbation. * Renal function significantly worsened on admission and patient appeared dry. Given 1L NS fluids in ED. * diuretics, ARB/ARNI held during hospitalization. * monitored I/O closely. * Creatinine improved and near baseline, however continued to hold diuretics due to soft blood pressures. * 01/02/23 Orthostatic vitals with SBP drop 122 to 93 sitting to standing. She was asymptomatic at that time. * 01/03/23 BP 122/56 to 126/59 and improved. Repeat orthostatics 01/02 improved. Low dose entresto 24/26 mg BID, farxiga 10 mg daily and coreg dose decreased 6.25 mg BID at discharge. * She was counseled on daily weights and when to call for fluid retention, including >2 lb weight gain overnight, 3-5 lb gain in 1 week, increased leg swelling and increased SOB. She was counseled to take 0.5 mg bumex PO PRN daily if above symptoms occur. * Diet modifications and medication adherence reviewed. * She was instructed to schedule Cardiology and Nephrology follow up appointments outpatient. (3) Venous stasis ulcer: Qualifiers: Varicose vein presence: without varicose veins Venous stasis ulcer site: unspecified site Non-pressure ulcer stage: limited to breakdown of skin Qualified Code(s): I87.2 - Venous insufficiency (chronic) (peripheral); L97.901 - Non-pressure chronic ulcer of unspecified part of unspecified lower leg limited to breakdown of skin Code(s): I83.009 - Varicose veins of unspecified lower extremity with ulcer of unspecified site; L97.909 - Non-pressure chronic ulcer of unspecified part of unspecified lower leg with unspecified severity Status: Chronic Assessment and Plan: chronic, mild pedal edema noted on assessment. * No acute issues at this time. * Diuretics on hold due to ELANA. PRN bumex at discharged. * Patient cannot tolerate Samir hose. * Encouraged elevation while at rest (4) Diarrhea: Qualifiers: Diarrhea type: unspecified
--- NOTE | 2023-01-03 07:47 | PM.DS ---
DS: Admitting Diagnosis Discharge Date 01/03/2023 Admitting Diagnosis Acute kidney failure, unspecified Heart failure, unspecified Chronic renal failure, stage 3 (moderate) Venous stasis ulcer, chronic Hyperlipidemia, unspecified Chronic obstructive pulmonary disease, unspecified Diarrhea, unspecified DS: Discharge Diagnosis Discharge Diagnosis (1) Acute kidney injury: Code(s): N17.9 - Acute kidney failure, unspecified Status: Acute Assessment and Plan: likely multifactorial secondary to dehydration from diarrhea, hypoperfusion from relative hypotension, and over-diuresis. baseline creatinine appears to be around 1.9-2 creatinine elevated up to 4.1 on dmission improved to 1.5 after receiving 1 L of fluid on admission and holding diuretics Further IV fluids held d/t HFrEF comorbidity. Bumex, chlorthalidone, Entresto, and Jardiance on hold Nephrology consulted and assisted with management. renal ultrasound from 1 week prior (last admission) showed cortical thinning of the kidneys without hydronephrosis no evidence of urinary retention 01/03/23 Renal function at discharge- BUN 40, creatinine 1.3, GFR 40 and improved. (2) Congestive heart failure: Qualifiers: Heart failure chronicity: acute on chronic Heart failure type: combined systolic and diastolic Qualified Code(s): I50.43 - Acute on chronic combined systolic (congestive) and diastolic (congestive) heart failure Code(s): I50.9 - Heart failure, unspecified Status: Chronic Assessment and Plan: recent hospital admission from 12/21-12/27/22 for CHF exacerbation. Renal function significantly worsened on admission and patient appeared dry. Given 1L NS fluids in ED. diuretics, ARB/ARNI held during hospitalization. monitored I/O closely. Creatinine improved and near baseline, however continued to hold diuretics due to soft blood pressures. 01/02/23 Orthostatic vitals with SBP drop 122 to 93 sitting to standing. She was asymptomatic at that time. 01/03/23 BP 122/56 to 126/59 and improved. Repeat orthostatics 01/02 improved. Low dose entresto 24/26 mg BID, farxiga 10 mg daily and coreg dose decreased 6.25 mg BID at discharge. She was counseled on daily weights and when to call for fluid retention, including >2 lb weight gain overnight, 3-5 lb gain in 1 week, increased leg swelling and increased SOB. She was counseled to take 0.5 mg bumex PO PRN daily if above symptoms occur. Diet modifications and medication adherence reviewed. She was instructed to schedule Cardiology and Nephrology follow up appointments outpatient. (3) Venous stasis ulcer: Qualifiers: Varicose vein presence: without varicose veins Venous stasis ulcer site: unspecified site Non-pressure ulcer stage: limited to breakdown of skin Qualified Code(s): I87.2 - Venous insufficiency (chronic) (peripheral); L97.901 - Non-pressure chronic ulcer of unspecified part of unspecified lower leg limited to breakdown of skin Code(s): I83.009 - Varicose veins of unspecified lower extremity with ulcer of unspecified site; L97.909 - Non-pressure chronic ulcer of unspecified part of unspecified lower leg with unspecified severity Status: Chronic Assessment and Plan: chronic, mild pedal edema noted on assessment. No acute issues at this time. Diuretics on hold due to ELANA. PRN bumex at discharged. Patient cannot tolerate Samir hose. Encouraged elevation while at rest (4) Diarrhea: Qualifiers: Diarrhea type: unspecified type Qualified Code(s): R19.7 - Diarrhea, unspecified Code(s): R19.7 - Diarrhea, unspecified Status: Acute Assessment and Plan: Resolved. patient with onset of diarrhea, multiple loose stools 1 day prior to admission. no episodes of diarrhea during admission patient was rehydrated in ED and diuretics held as above patient started on Flagyl for possible coliti
[2023-01-03] MEDS: carvediloL 6.25 MG TABLET PO (09:12)
[2023-01-03] MEDS: SACUBITRIL/VALSARTAN 24-26 MG TABLET 1 TAB PO (09:12)
[2023-01-03] MEDS: ASPIRIN 81 MG ENTERIC TABLET PO (09:12)
[2023-01-03] MEDS: EMPAGLIFLOZIN 10 MG TABLET PO (09:12)
[2023-01-05 15:36] LABS: Chloride Rand Ur 36 mmol/L (32-290); Chloride/Creatinine Rand Ur 32 (38-318); Creatinine Random Urine 111 mg/dL (20-275)
== END 2023-01-03 12:05 | disposition home or self-care (01) | DRG 682 ==
LOC: ANHED 19:45 → ANH2MED 23:27
PROVIDERS: Emergency Medicine; Internal Medicine Nephrology; Nurse Practitioner; Physician Assistant; Admitting Provider Internal Medicine; Emergency Provider Emergency Medicine; PCP Physician Assistant Medical; Visit Provider Nurse Practitioner Family
DX: N17.9 Acute kidney failure, unspecified (principal); I13.0 Hypertensive heart and chronic kidney disease with heart failure and stage 1 through stage 4 chronic kidney disease, or unspecified chronic kidney disease; I50.43 Acute on chronic combined systolic (congestive) and diastolic (congestive) heart failure; Z68.42 Body mass index [BMI] 45.0-49.9, adult; E86.0 Dehydration; R19.7 Diarrhea, unspecified; E11.22 Type 2 diabetes mellitus with diabetic chronic kidney disease; E78.5 Hyperlipidemia, unspecified; E66.9 Obesity, unspecified; I25.5 Ischemic cardiomyopathy; I73.9 Peripheral vascular disease, unspecified; I95.9 Hypotension, unspecified; I87.8 Other specified disorders of veins; J44.9 Chronic obstructive pulmonary disease, unspecified; N18.30 Chronic kidney disease, stage 3 unspecified; Z79.82 Long term (current) use of aspirin; Z88.0 Allergy status to penicillin; Z95.5 Presence of coronary angioplasty implant and graft; Z98.49 Cataract extraction status, unspecified eye; Z96.0 Presence of urogenital implants; Z90.49 Acquired absence of other specified parts of digestive tract; Z98.84 Bariatric surgery status; Z96.653 Presence of artificial knee joint, bilateral; Z96.642 Presence of left artificial hip joint
CPT/HCPCS: 36415; 71045; 80053; 80069; 81001; 82274; 82436; 82550; 82570; 83615; 83735; 84156; 84300; 84443; 84540; 85025; 85027; 85999; 86140; 86225; 87045; 87269; 87272; 87427; 87493; 93005; 96361; 96365; 97161; 97165; 97530; 97535; 99285; A9270; G0378; J7030

== ENCOUNTER 2023-11-19 12:51 | Emergency (ER) | payer MEDICARE, SELFPAY ==
--- NOTE | ~2023-11-19 | XR_ITS ---
XR chest 2V DATE: 11/19/2023 14:54 INDICATION: Shortness of breath. Right rib pain. History of hypertension. TECHNIQUE: AP and lateral views COMPARISON: December 29, 2022 portable AP chest FINDINGS: Scattered band again noted. Cardiomegaly. Coronary artery calcification and/or coronary artery stent. Aortic arch calcification. Discoid atelectasis in the left mid and lower lung zone. No pulmonary consolidation, pleural effusion or pneumothorax. There is pulmonary vascular redistribut ion suggesting pulmonary venous hypertension. Osteopenia. Osteophytic change at the glenohumeral joints, probable rotator cuff atrophy, especially on the right. Dextroscoliosis of the thoracic spine and levoscoliosis of the lumbar spine. Prominent loss of height and anterior wedging of a lower thoracic vertebral body, likely T12. IMPRESSION: Cardiomegaly, pulmonary vascular redistribution, suggesting mild congestive change Robert atelectasis, left mid and lower lung zones Aortic atherosclerosis Lap band Bilateral glenohumeral osteoarthritis, probable rotator cuff atrophy Osteopenia Scoliosis and degenerative changes of the thoracic and lumbar spine. Prominent fracture deformity of T12 Reviewed, dictated and finalized at location L. IMPRESSION: Cardiomegaly, pulmonary vascular redistribution, suggesting mild co ngestive change Robert atelectasis, left mid and lower lung zones Aortic atherosclerosis Lap band Bilateral glenohumeral osteoarthritis, probable rotator cuff atrophy Osteopenia Scoliosis and degenerative changes of the thoracic and lumbar spine. Prominent fracture deformity of T12
[2023-11-19 13:27] VITALS: BP 150/86; PULSE 71; RESP 17; TEMP 36.5; O2SAT 97
--- NOTE | 2023-11-19 14:16 | ED.GENADULT ---
HPI - General Adult General Chief complaint: Unspecified <MICHAEL Babcock Last Filed: 11/19/23 14:33> Stated complaint: right ribcage pain <MICHAEL Babcock Last Filed: 11/19/23 14:33> Time Seen by Provider: 11/19/23 14:16 <MICHAEL Babcock Last Filed: 11/19/23 14:33> Focused HPI: Patient is a 77 y/o female, with PMH of CHF, CAD s/p stenting, sees Dr. Calvert, who presents to the ED with c/o R sided lateral chest pain. Pain for the last 2 days. Pain worse with movement, taking deep breaths. Reports pain is sharp at times. C/o intermittent shortness of breath. Did have episode of anterior chest pain yesterday and took 2 nitroglycerin at home, which resolved the pain. Patient also reports having intermittent shortness of breath, denies recent cough or cold symptoms. Denies fevers. Denies significant swelling in lower extremities. Denies abdominal pain, nausea, vomiting. GENERAL: Elderly, obese with BMI of 47.6, and in no acute distress. HEAD: Normocephalic, atraumatic. CHEST: Clear to auscultation. ?No respiratory distress. HEART: Regular rate and rhythm.? MSK: TTP along R lateral chest wall. Venous stasis changes BLE. ABD: No appreciable tenderness throughout upper abdomen. NEURO: ?Alert and oriented x3. Patient screened in triage and initial orders placed.? ?Additional care and disposition to be based upon?diagnostic testing and treatment. <MICHAEL Babcock Last Filed: 11/19/23 14:33> Source: patient and old records reviewed <MICHAEL Babcock Last Filed: 11/19/23 14:33> Mode of arrival: ambulatory <MICHAEL Babcock Last Filed: 11/19/23 14:33> Limitations: no limitations <MICHAEL Babcock Last Filed: 11/19/23 14:33> History of Present Illness HPI narrative: 77-year-old female presenting with right-sided rib pain. States it started about 2 days ago. States that it feels worse whenever she abducts her right arm or takes a big breath. States that she took some Tylenol and ibuprofen which did not really seem to help much. Complains of chronic shortness of breath. No left-sided chest pain. States she is concerned because her blood pressure has been high for the last several weeks. Denies any symptoms with these high readings. States that her legs have been a little bit more swollen than normal so she has been taking her Bumex twice a day. States that she has had a mild cough lately. No fevers or chills, nasal congestion, sore throat, abdominal pain, nausea vomiting, diarrhea, dysuria. No further complaints. <Sissy Cervantes MD - Last Filed: 11/22/23 21:30> Related Data Home medications: Home Medications Medication Instructions Recorded Confirmed aspirin 81 mg tablet 81 mg PO BID 11/05/20 08/20/23 bumetanide 2 mg tablet 2 mg PO DAILY 08/20/23 08/20/23 <Gela Shipman PA-C - Last Filed: 11/19/23 14:33> Allergies/adverse reactions: Allergies Allergy/AdvReac Type Severity Reaction Status Date / Time Penicillins Allergy Unknown Rash Verified 11/19/23 12:52 <Gela Shipman PA-C - Last Filed: 11/19/23 14:33> Review of Systems Review of Systems: All systems reviewed & are unremarkable except as noted in HPI and below <Sissy Cervantes MD - Last Filed: 11/22/23 21:30> [facility] Past Medical History Medical History: Medical History Aftercare following left hip joint replacement surgery CHF (congestive heart failure) echocardiogram April 2017 demonstrated EF of 40% with apical and apical anterior thinning, mid anterior hypokinesis, dyskinetic apical and apical anterior segments, echo from 12/2016 demonstrated grade 1 diastolic dysfunction Chronic renal failure, stage 3 (moderate) Combined systolic and diastolic congestive heart failure COPD (chronic obstructive pulmonary disease) PFTs Novemb
--- NOTE | 2023-11-19 14:18 | ECG_ITS ---
Measurements Intervals [place] Rate: 63 P: 82 MI: 204 QRS: -60 QRSD: 113 T: 56 QT: 440 QTc: 451 Interpretive Statements SINUS RHYTHM LEFT ANTERIOR FASCICULAR BLOCK LEFT VENTRICULAR HYPERTROPHY MINIMAL Q WAVES- HIGH LATERAL LEADS CANNOT RULE OUT SEPTAL INFARCT, AGE INDETERMINATE ABNORMAL ECG COMPARED TO ECG 12/29/2022 19:04:55 NO SIGNIFICANT CHANGES Electronically Signed On 11-19-2023 15:16:45 CDT by Matt Yung D.O.
[2023-11-19 14:51] LABS: Basophils Absolute Auto 0.1 K/mm3 (0.0-0.1); Basophils Percent Auto 0.9 % (0.2-1.2); Eosinophils Absolute Auto 0.4 K/mm3 (0-0.3); Eosinophils Percent Auto 3.8 % (0-4.4); Hematocrit 45.3 % (37.0-47.0); Hemoglobin 14.5 g/dL (12.0-15.0); Immature Granulocyte Absolute 0.03 K/mm3 (0.00-0.031); Immature Granulocyte Percent A 0.3 % (0-0.5); Lymphocytes Absolute Auto 1.04 K/mm3 (0.9-3.2); Lymphocytes Percent Auto 10.4 % (18.3-44.2); Mean Corpuscular Hemoglobin 29.4 pg (26-34); Mean Corpuscular Volume 91.9 fl (80-100); Mean Platelet Volume 9.6 fl (7.4-10.4); Monocytes Absolute Auto 0.8 K/mm3 (0.1-0.6); Monocytes Percent Auto 8.3 % (2.6-8.5); Neutrophils Absolute Auto 7.7 K/mm3 (1.3-6.7); Neutrophils Percent Auto 76.3 % (45.5-73.1); Platelet Count Result 234 k/mm3 (150-375); Red Blood Count 4.93 M/mm3 (4.2-5.4); Red Cell Distribution Width 15.3 % (11.5-14.5)
[2023-11-19 15:02] LABS: Prothrombin Time 13.6 Seconds (11.1-14.7)
[2023-11-19 15:03] LABS: Partial Thromboplastin Time 28.5 Seconds (22.3-36.8)
[2023-11-19 15:07] LABS: Alanine Aminotransferase 12 U/L (6-35); Albumin Level 4.4 g/dL (3.5-5.1); Alkaline Phosphatase 67 U/L (38-126); Anion Gap 9 mmol/L (8-16); Aspartate Amino Transferase 31 U/L (14-36); Bilirubin,Total 1.1 mg/dL (0.2-1.3); Blood Urea Nitrogen 14 mg/dL (7-17); Calcium 9.8 mg/dL (8.4-10.2); Carbon Dioxide 27 mmol/L (22-30); Chloride 103 mmol/L (98-107); Estimated CRCL calculation 65 ml/min; Estimated Glomerular Filt Rate > 60; Glucose 96 mg/dL (65-110); Lipase 85 U/L (23-300); Potassium 3.4 mmol/L (3.4-5.0); Sodium 139 mmol/L (137-145)
[2023-11-19 15:18] LABS: NT Pro B Type Natriuretic Pept 2340 pg/mL (19.9-100); Troponin I < 0.012 ng/mL (0.000-0.034)
[2023-11-19 15:31] VITALS: BP 177/83; PULSE 64; RESP 19; O2SAT 98
[2023-11-19 15:31] LABS: D Dimer 0.45 ug/mL (<0.48)
[2023-11-19 16:16] VITALS: BP 189/79; PULSE 64; RESP 21; O2SAT 98
[2023-11-19 17:31] VITALS: BP 185/111; PULSE 69; RESP 21; O2SAT 98
[2023-11-19 18:31] VITALS: BP 180/98; PULSE 66; RESP 17; O2SAT 95
== END 2023-11-19 18:43 | disposition home or self-care (01) ==
PROVIDERS: Physician Assistant; Emergency Provider Emergency Medicine; PCP Physician Assistant Medical
DX: R07.89 Other chest pain (principal); I13.0 Hypertensive heart and chronic kidney disease with heart failure and stage 1 through stage 4 chronic kidney disease, or unspecified chronic kidney disease; E87.70 Fluid overload, unspecified; N18.30 Chronic kidney disease, stage 3 unspecified; I50.40 Unspecified combined systolic (congestive) and diastolic (congestive) heart failure; I25.10 Atherosclerotic heart disease of native coronary artery without angina pectoris; I25.5 Ischemic cardiomyopathy; J44.9 Chronic obstructive pulmonary disease, unspecified; E78.5 Hyperlipidemia, unspecified; E66.9 Obesity, unspecified; Z68.42 Body mass index [BMI] 45.0-49.9, adult; M16.0 Bilateral primary osteoarthritis of hip; Z95.5 Presence of coronary angioplasty implant and graft; Z96.1 Presence of intraocular lens; Z98.42 Cataract extraction status, left eye; Z96.642 Presence of left artificial hip joint; Z96.653 Presence of artificial knee joint, bilateral; Z98.84 Bariatric surgery status; Z90.49 Acquired absence of other specified parts of digestive tract; Z79.82 Long term (current) use of aspirin; Z79.84 Long term (current) use of oral hypoglycemic drugs; I44.4 Left anterior fascicular block; I51.7 Cardiomegaly; R94.31 Abnormal electrocardiogram [ECG] [EKG]; I70.0 Atherosclerosis of aorta; M85.88 Other specified disorders of bone density and structure, other site; M41.9 Scoliosis, unspecified
CPT/HCPCS: 36415; 71046; 80053; 83690; 83880; 84484; 85025; 85380; 85610; 85730; 93005; 99284

== ENCOUNTER 2024-01-16 15:07 | Emergency (ER) | payer MEDICARE, SELFPAY ==
--- NOTE | ~2024-01-16 | XR_ITS ---
EXAMINATION: XR pelvis 1-2V DATE: 01/16/2024 17:07 INDICATION: Right hip pain. TECHNIQUE: An anteroposterior view of the pelvis was obtained. COMPARISON: Left hip radiographs 10/15/2022 FINDINGS: There is a total left hip arthroplasty in near-anatomic alignment. There are lucencies arou nd the femoral component. No fracture. There is moderate right hip osteoarthritis. There is lumbar le vocurvature and severe spondylosis. IMPRESSION: 1. Moderate right hip osteoarthritis. 2. Total left hip arthroplasty with new lucencies around the femoral component suspicious for infecti on or particle disease. Reviewed, dictated and finalized at location E. IMPRESSION: 1. Moderate right hip osteoarthritis. 2. Total left hip arthroplasty with new lucencies around the femoral component suspicious for infection or particle disease.
--- NOTE | ~2024-01-16 | CT_ITS ---
EXAMINATION: CT lumbar spine wo con DATE: 01/16/2024 17:19 INDICATION: Low back pain. TECHNIQUE: Computed tomography (CT) of the lumbar spine was performed without intravenous contrast. A utomated exposure control and iterative reconstruction technique were employed. The dose-length produ ct was 1563.86 mGy-cm. COMPARISON: None FINDINGS: There is a lap band at the proximal stomach. There is a healing fracture of the right 11th rib. There is a total left hip arthroplasty. There is 23 degrees levoscoliosis of lumbar spine. There is 3 mm anterolisthesis of L4 on L5. There is mild chronic anterior wedging of T12 vertebral body. T here is moderately decreased disc height at T11-T12, severely decreased disc height from T12-L1 throu gh L2-L3, and moderately decreased disc height at L3-L4, L4-L5, and L5-S1. The following disc levels are specifically discussed: L1-L2: The disc is bulging. There is severe bilateral facet joint osteoarthritis. There is moderate r ight and mild left neural foraminal stenosis. There is mild central canal stenosis. L2-L3: The disc is bulging. There is severe bilateral facet joint osteoarthritis. There is moderate r ight and mild left neural foraminal stenosis. There is mild central canal stenosis. L3-L4: The disc is bulging. There is severe bilateral facet joint osteoarthritis. There is mild right and moderate left neural foraminal stenosis. There is mild central canal stenosis. L4-L5: The disc is bulging. There is severe bilateral facet joint osteoarthritis. There is moderate b ilateral neural foraminal stenosis. There is mild central canal stenosis. L5-S1: The disc is bulging. There is severe bilateral facet joint osteoarthritis. There is mild right and moderate left neural foraminal stenosis. There is mild central canal stenosis. IMPRESSION: 1. Severe lumbar spondylosis. 2. Lumbar levoscoliosis. Reviewed, dictated and finalized at location E.
[2024-01-16 15:09] VITALS: BP 149/72; PULSE 64; RESP 20; TEMP 36.6; O2SAT 99
[2024-01-16] MEDS: CYCLOBENZAPRINE HCL 5 MG TABLET PO (17:31)
[2024-01-16] MEDS: LIDOCAINE 5% PATCH 1 PATCH TRANSDERM (17:32)
--- NOTE | 2024-01-16 18:18 | ED.BACK ---
HPI - Back Pain/Injury General Chief Complaint: Back Pain/Injury Stated Complaint: Back pain Time Seen by Provider: 01/16/24 16:12 History of Present Illness HPI Narrative: This is an 78-year-old female, with history left hip replacement and lumbar radiculopathy, who presents emergency department complaining of right lower back pain. Patient describes the pain as cramping and sharp, rated 6/10 radiating to the right leg in aggravated with movement. She states she had a steroid injection with her primary care provider several days ago, but her pain has increased. She denies associated fevers, chills, loss of sensation in the groin, loss of bowel/bladder control or weakness in the legs. She denies recent trauma and has no other complaints at this time. She states she tried tramadol at home without significant improvement. Related Data Home Medications Medication Instructions Recorded Confirmed aspirin 81 mg tablet 81 mg PO BID 11/05/20 01/09/24 bumetanide 2 mg tablet 2 mg PO DAILY 08/20/23 01/09/24 Allergies Allergy/AdvReac Type Severity Reaction Status Date / Time Penicillins Allergy Unknown Rash Verified 01/16/24 15:54 Review of Systems Review of Systems: All systems reviewed & are unremarkable except as noted in HPI and below PMFSH Past Medical History Medical History Aftercare following left hip joint replacement surgery CHF (congestive heart failure) echocardiogram April 2017 demonstrated EF of 40% with apical and apical anterior thinning, mid anterior hypokinesis, dyskinetic apical and apical anterior segments, echo from 12/2016 demonstrated grade 1 diastolic dysfunction Chronic renal failure, stage 3 (moderate) Combined systolic and diastolic congestive heart failure COPD (chronic obstructive pulmonary disease) PFTs July 2019 demonstrated moderate obstructive lung disease without bronchodilator response and moderately decreased diffusion capacity Hyperlipidemia Hypertension Ischemic cardiomyopathy Left hip pain Obesity Primary osteoarthritis of left hip Primary osteoarthritis of right hip Sciatica, left side Trochanteric bursitis of left hip Surgical History Surgical History H/O cataract extraction Left eye with lens implant H/O lithotripsy History of heart artery stent patient had anterior lateral STEMI december 2016 with 2 stents to the mid LAD History of left hip replacement 10/2017 History of total bilateral knee replacement 2002 with subsequent ORIF of periprosthetic fracture of the left knee in December 2012 Hx of cholecystectomy Hx of laparoscopic gastric banding Presence of left artificial hip joint Family History Family History Mother Cerebrovascular accident Thyroid disease Sibling Thyroid disease Social History Social History Social History: She reports that she has been since 2019. She lives in her own home and does not have any pets. Her bedroom is up a flight of stairs. 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 She has 5 children. Primary care physician: Dr. Rob Multani Code status: Full code Surrogate decision maker: Dania John (daughter) Smoking status: Never smoker Second hand tobacco smoke exposure: No Alcohol intake: never Substance use: never Substance use type: does not use Do You Feel Safe in your Home?: Yes Lack of Transportation: No Lack of Food: Never True Current Housing: I Have Housing Concerned About Future Housing: No Difficulty Paying Gas/Electric Bills: No Difficulty Paying for Meds: No Currently Unemployed: No Education: Trade/Vocational Certificate Difficulty w/ Childcare or Family Care: No Gender identity (if verbalized by the pat
[2024-01-16 18:40] VITALS: BP 177/85; PULSE 67; RESP 20; O2SAT 99
== END 2024-01-16 18:40 | disposition home or self-care (01) ==
PROVIDERS: Emergency Provider Preventive Medicine Aerospace Medicine; PCP Physician Assistant Medical
DX: M47.26 Other spondylosis with radiculopathy, lumbar region (principal); I13.0 Hypertensive heart and chronic kidney disease with heart failure and stage 1 through stage 4 chronic kidney disease, or unspecified chronic kidney disease; N18.30 Chronic kidney disease, stage 3 unspecified; I50.40 Unspecified combined systolic (congestive) and diastolic (congestive) heart failure; E78.5 Hyperlipidemia, unspecified; I25.5 Ischemic cardiomyopathy; E66.9 Obesity, unspecified; Z68.44 Body mass index [BMI] 60.0-69.9, adult; M16.0 Bilateral primary osteoarthritis of hip; Z96.642 Presence of left artificial hip joint; Z79.84 Long term (current) use of oral hypoglycemic drugs
CPT/HCPCS: 72131; 72170; 99284; A9270

== ENCOUNTER 2024-02-05 09:37 | Outpatient (CLI) | payer MEDICARE, SELFPAY ==
--- NOTE | ~2024-02-05 | CT_ITS ---
EXAMINATION: CT hip LT wo con DATE: 02/05/2024 10:10 INDICATION: Total left hip arthroplasty. TECHNIQUE: Computed tomography (CT) of the left hip was performed without intravenous contrast. Autom ated exposure control and iterative reconstruction technique were employed. The dose-length product w as 733.68 mGy-cm. COMPARISON: CT abdomen and pelvis 12/10/2021, radiographs 01/28/2024 FINDINGS: There is a total left hip arthroplasty with acetabular protrusio. There is osteolysis adjac ent to the acetabular cup measuring 1.7 x 1.3 x 1.9 cm. There is extensive osteolysis adjacent to the femoral component. No fracture. IMPRESSION: 1. Total left hip arthroplasty with osteolysis adjacent to the acetabular and femoral components, whi ch may be particle disease or infection. Reviewed, dictated and finalized at location A. IMPRESSION: 1. Total left hip arthroplasty with osteolysis adjacent to the acetabular and f emoral components, which may be particle disease or infection.
== END 2024-02-05 09:38 | disposition home or self-care (01) ==
LOC: ANHIMG 09:40
PROVIDERS: PCP Physician Assistant Medical; Visit Provider Orthopaedic Surgery
DX: T84.051A Periprosthetic osteolysis of internal prosthetic left hip joint, initial encounter (principal); Y83.8 Other surgical procedures as the cause of abnormal reaction of the patient, or of later complication, without mention of misadventure at the time of the procedure
CPT/HCPCS: 73700

== ENCOUNTER 2024-07-11 08:13 | Inpatient (IN) | payer MEDICARE, SELFPAY ==
[2024-07-11] VITALS (14 sets, daily range): BP systolic 115–151; BP diastolic 46–70; PULSE 68–79; RESP 12–18; TEMP 36.2–36.4; O2SAT 98–100; BMI 46.4
--- NOTE | ~2024-07-11 | US_ITS ---
EXAMINATION: US renal BI DATE: 07/11/2024 14:46 INDICATION: elevated creatinine TECHNIQUE: Multiple grayscale and Doppler ultrasound images of the kidneys were obtained. COMPARISON: 12/22/2022; CT abdomen pelvis 07/11/2024. FINDINGS: The right kidney measures 11.0 x 4.3 x 4.6 cm. The left kidney measures 12.3 x 5.0 x 4.5 cm. The kidn eys demonstrate normal parenchymal echogenicity. Bilateral cortical thinning. There is no hydronephro sis. The bladder is decompressed. IMPRESSION: Renal cortical thinning, without hydronephrosis. Reviewed, dictated and finalized at location [facility]
--- NOTE | ~2024-07-11 | CT_ITS ---
EXAMINATION: CT chest abdomen pelvis w con DATE: 07/14/2024 13:44 INDICATION: Metastatic disease. TECHNIQUE: Computed tomography (CT) of the chest, abdomen, and pelvis was performed with 100 mL Omnip aque 350 intravenous contrast. Automated exposure control and iterative reconstruction technique were employed. The dose-length product was 1821.20 mGy-cm. COMPARISON: CT abdomen and pelvis 07/11/2024 FINDINGS: CHEST CT: The lungs demonstrate mild atelectasis. There are trace right and small left pleural effusions. 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 There are coronary artery calcifications. No pericardial effusion. The central pulmonary ar teries are enlarged, consistent with pulmonary arterial hypertension. There are widespread mixed lyti c and sclerotic lesions of bone. There are multiple healing pathologic rib fractures on either side. There are acute fractures of left ninth and 11th ribs. There is severe thoracic spondylosis. There ar e chronic compression fractures of T7 and T12. ABDOMEN/PELVIS CT: The liver and spleen are normal. There are changes of cholecystectomy. There is a lap band around the proximal stomach. The pancreas and adrenal glands are normal. There is cortical thinning of the kidn eys. There is a 19 mm cyst in left kidney. There is diverticulosis of the colon without evidence of d iverticulitis. The appendix is normal. There are no dilated loops of bowel. There are umbilical and s upraumbilical ventral hernias containing fat. There are no pathologically enlarged lymph nodes. There is no free intraperitoneal fluid. There is thickening of the endometrial complex. There is a total l eft hip arthroplasty. There are widespread mixed lytic and sclerotic lesions of bone. IMPRESSION: 1. Widespread bone lesions, consistent with metastatic disease versus multiple myeloma. 2. Acute fractures of left ninth and 11th ribs. Multiple healing bilateral pathologic rib fractures. 3. Thickening of the endometrial complex suspicious for endometrial carcinoma. 4. Umbilical and supraumbilical ventral hernias containing fat. Reviewed, dictated and finalized at location A. E INSTALLATION TECHNICIAN IMPRESSION: 1. Widespread bone lesions, consistent with metastatic disease versus multiple myeloma. 2. Acute fractures of left ninth and 11th ribs. Multiple healing bilateral path ologic rib fractures. 3. Thickening of the endometrial complex suspicious for endometrial carcinoma. 4. Umbilical and supraumbilical ventral hernias containing fat.
--- NOTE | ~2024-07-11 | CT_ITS ---
Non-contrast Head CT History: Head pain, bone lesions Technique: Axial non-contrast imaging of the brain was performed. Dose reduction technique was used on this scan by utilizing automated exposure control and iterative reconstruction technique. The dose -length product (DLP) was 681.00 mGy-cm. Findings: There is no evidence of intracranial hemorrhage, mass lesion, or acute infarct. Brain par enchyma appears normal. The ventricles and subarachnoid spaces are normal in size. Suspected focal s ubtle intramedullary lytic lesion in the left frontal bone (series 4 image 30).. The visualized para nasal sinuses and mastoid air cells are clear. Impression: No intracranial abnormality. Possible subtle lytic left frontal bone lesion. Reviewed, dictated and finalized at location M. HIC DESIGN TEACHER Impression: No intracranial abnormality. Possible subtle lytic left frontal bone lesion.
--- NOTE | ~2024-07-11 | XR_ITS ---
EXAMINATION: XR chest 1V portable DATE: 07/11/2024 10:52 INDICATION: Left scapular pain. TECHNIQUE: A single frontal view of the chest was obtained. COMPARISON: Chest 2 views 11/19/2023, CT abdomen and pelvis 07/11/2024 FINDINGS: There is mild atelectasis in left mid and lower lung zones. No pleural effusion or pneumoth orax. Cardiomegaly is noted. There is severe osteoarthritis of left glenohumeral joint. IMPRESSION: 1. Mild atelectasis in left mid and lower lung zones. 2. Cardiomegaly. Reviewed, dictated and finalized at location A. TO PEELER
--- NOTE | ~2024-07-11 | XR_ITS ---
EXAM: XR abdomen/kub 1V DATE: 07/18/2024 16:10 HISTORY: constipation . COMPARISON: None available. FINDINGS: Streaky left basilar opacities and mild left costophrenic angle blunting. Cholecystomy cli ps. Gastric band. Partially visualized left hip arthroplasty hardware. Normal bowel gas pattern. Enla rged liver. No abnormal abdominal calcification. Regional bones and soft tissues normal for age. IMPRESSION: Subsegmental left basilar atelectasis/consolidation, with possible small left pleural eff usion. Hepatomegaly. No radiographic evidence of obstruction or ileus. Reviewed, dictated and finalized at location K. ERCIAL DRIVER'S LICENSE DRIVER IMPRESSION: Subsegmental left basilar atelectasis/consolidation, with possible small left pleural effusion. Hepatomegaly. No radiographic evidence of obstruct ion or ileus.
--- NOTE | ~2024-07-11 | CT_ITS ---
EXAMINATION: CT abdomen pelvis wo con DATE: 07/11/2024 10:46 INDICATION: Flank pain. Back pain. TECHNIQUE: Computed tomography (CT) of the abdomen and pelvis was performed without intravenous contr ast. Automated exposure control and iterative reconstruction technique were employed. The dose-length product was 1504.77 mGy-cm. COMPARISON: CT abdomen and pelvis 12/10/2021 FINDINGS: The visualized portions of the lung bases demonstrate mild atelectasis. No pleural effusion . Cardiomegaly is noted. There is a large distribution of old infarct in left ventricle centered at t he apex with apical true aneurysm. There is a trace pericardial effusion. There is a lap band of the proximal stomach. The liver and spleen are normal. There are changes of cholecystectomy. The pancreas and adrenal glands are normal. There are 5 mm and 3 mm stones in right kidney. There is a 16 mm cyst in left kidney. There is diverticulosis of the colon without evidence of diverticulitis. There are n o dilated loops of bowel. The appendix is normal. There is a supraumbilical ventral hernia containing a wall of nonobstructed transverse colon. There is a ventral hernia containing nonobstructed small b owel. There are no pathologically enlarged lymph nodes. There is no free intraperitoneal fluid. There is a total left hip arthroplasty. There are healing bilateral rib fractures. There are widespread mi xed lytic and sclerotic lesions of bone. There is a chronic compression fracture of T12. There is a c hronic compression fracture of T7. IMPRESSION: 1. Ventral hernias containing nonobstructed bowel. 2. Widespread bone lesions, consistent with metastatic disease versus multiple myeloma. Healing bilat eral pathologic rib fractures. Reviewed, dictated and finalized at location A. IE CLEANER IMPRESSION: 1. Ventral hernias containing nonobstructed bowel. 2. Widespread bone lesions, consistent with metastatic disease versus multiple myeloma. Healing bilateral pathologic rib fractures.
--- NOTE | ~2024-07-11 | CT_ITS ---
Noncontrast CT scan of the cervical spine Technique: Multiple contiguous axial [address] images of the cervical spine were obtained and rec onstructed in 2D sagittal and coronal planes on the acquisition scanner. Dose reduction technique was used on this scan by utilizing automated exposure control, adjustment of the mA and/or kV according to patient size. The dose-length product (DLP) was 399.41 mGy-cm. Clinical History: Pain, lytic lesions Findings: No acute fracture and 5. There is minimal grade 1 anterolisthesis of C3 over C4, and C4 ove r C5. There is advanced degenerative disc narrowing at C5-C6 and C6-C7. There is extensive facet arth ropathy throughout the cervical spine. There is a large lytic lesion extensively involving the C2 vertebral body, and extending into the rig ht C2 pedicle and lamina. There is a smaller lytic lesion in the right side of the C3 vertebral body. There is a lytic lesion in the left side of the C4 vertebral body. There is a probable lytic lesion at the anterior skull base/clivus. There is degenerative right neural foraminal narrowing at C2-C3 with right facet arthropathy. There i s bilateral facet arthropathy at C3-C4 with possible minimal left neural foraminal narrowing. Probabl e mild bilateral neural foraminal narrowing at C4-C5. There is right neural foraminal narrowing at C5 -C6. There is bilateral neural foraminal narrowing at C6-C7. No prevertebral soft tissue swelling. Impression: No acute fracture. Lytic lesions in the spine, as above, most notably at the C2, C3, C4 vertebral bodies. Correlate for metastatic disease or multiple myeloma. Moderate to advanced degenerative spondylosis, as above. Reviewed, dictated and finalized at [facility]. HBORHOOD AIDE Impression: No acute fracture. Lytic lesions in the spine, as above, most notably at the C2, C3, C4 vertebral bodies. Correlate for metastatic disease or multiple myeloma. Moderate to advanced degenerative spondylosis, as above.
--- NOTE | 2024-07-11 08:41 | ECG_ITS ---
Test Date: 2024-07-11 08:53:09 Measurements Intervals [place] Rate: 74 P: 0 [place]: 0 QRS: -49 QRSD: 129 T: 78 QT: 411 QTc: 456 Interpretive Statements SINUS RHYTHM LEFT ANTERIOR FASCICULAR BLOCK LEFT VENTRICULAR HYPERTROPHY AND ST-T CHANGE ANTEROLATERAL INFARCT, AGE INDETERMINATE HIGH LATERAL INFARCT, AGE INDETERMINATE BASELINE ARTIFACT- I, II, AVR, AVL, AVF, V4-V6 ABNORMAL ECG No previous ECG available for comparison Electronically Signed On 07-11-2024 11:41:43 RETINA SUBSPECIALIST by Matt Yung D.O.
--- NOTE | 2024-07-11 09:04 | ECG_ITS ---
Test Date: 2024-07-11 09:10:48 Measurements Intervals [place] Rate: 67 P: 83 [place]: 247 QRS: -49 QRSD: 122 T: 76 QT: 413 QTc: 437 Interpretive Statements SINUS RHYTHM WITH FIRST DEGREE AV BLOCK LEFT ANTERIOR FASCICULAR BLOCK LEFT VENTRICULAR HYPERTROPHY WITH ST-T CHANGE ANTEROLATERAL INFARCT, AGE INDETERMINATE HIGH LATERAL INFARCT, AGE INDETERMINATE BASELINE ARTIFACT- I, II, III, AVR, AVL, AVF ABNORMAL ECG Compared to ECG 07/11/2024 08:53:09 First degree AV block now present Electronically Signed On 07-11-2024 11:43:42 ASSISTANT PROFESSOR SCULPTURE by Matt Yung D.O.
--- NOTE | 2024-07-11 09:22 | ED.GENADULT ---
HPI - General Adult General Chief complaint: Back Pain/Injury Stated complaint: L. back pain Time Seen by Provider: 07/11/24 08:30 History of Present Illness HPI narrative: Patient is a 78-year-old female who presents emergency department with chief complaint of pain all over. Patient reports that she has history of chronic left flank pain but now is having pain on the left side of her thorax on the back. The patient reports that she has had no rashes reports the pain comes down into her abdomen the patient reports the pain is worse with movement and improved with rest. Related Data Home Medications Medication Instructions Recorded Confirmed aspirin 81 mg tablet 81 mg PO BID 11/05/20 01/23/24 bumetanide 2 mg tablet 2 mg PO DAILY 08/20/23 01/23/24 Allergies Allergy/AdvReac Type Severity Reaction Status Date / Time Penicillins Allergy Unknown Rash Verified 07/11/24 08:15 Review of Systems Review of Systems: A 10 system review of systems was completed on the patient and is negative except for what is stated in the HPI. Nursing and ancillary documentation was reviewed. [facility] Past Medical History Medical History Aftercare following left hip joint replacement surgery CHF (congestive heart failure) echocardiogram April 2017 demonstrated EF of 40% with apical and apical anterior thinning, mid anterior hypokinesis, dyskinetic apical and apical anterior segments, echo from 12/2016 demonstrated grade 1 diastolic dysfunction Chronic renal failure, stage 3 (moderate) Combined systolic and diastolic congestive heart failure COPD (chronic obstructive pulmonary disease) PFTs July 2019 demonstrated moderate obstructive lung disease without bronchodilator response and moderately decreased diffusion capacity Hyperlipidemia Hypertension Ischemic cardiomyopathy Left hip pain Obesity Primary osteoarthritis of left hip Primary osteoarthritis of right hip Sciatica, left side Trochanteric bursitis of left hip Surgical History Surgical History H/O cataract extraction Left eye with lens implant H/O lithotripsy History of heart artery stent patient had anterior lateral STEMI december 2016 with 2 stents to the mid LAD History of left hip replacement 10/2017 History of total bilateral knee replacement 2002 with subsequent ORIF of periprosthetic fracture of the left knee in December 2012 Hx of cholecystectomy Hx of laparoscopic gastric banding Presence of left artificial hip joint Family History Family History Mother Cerebrovascular accident Thyroid disease Sibling Thyroid disease Social History Social History Social History: She reports that she has been since 2019. She lives in her own home and does not have any pets. Her bedroom is up a flight of stairs. 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 She has 5 children. Primary care physician: Dr. Rob Multani Code status: Full code Surrogate decision maker: Dania John (daughter) Smoking status: Never smoker Second hand tobacco smoke exposure: No Alcohol intake: never Substance use: never Substance use type: does not use Do You Feel Safe in your Home?: Yes Lack of Transportation: No Lack of Food: Never True Current Housing: I Have Housing Concerned About Future Housing: No Difficulty Paying Gas/Electric Bills: No Difficulty Paying for Meds: No Currently Unemployed: No Education: Trade/Vocational Certificate Difficulty w/ Childcare or Family Care: No Gender identity (if verbalized by the patient): Female Spiritual care concerns: No Exam Narrative: GENERAL: Well-appearing, morbidly obese, and in no acute distress. HEAD: Normocephalic, atraumatic. EYES: PERRLA and EOMI. ENT: Nares clear, no rhinorrhea or epistaxis. Mucous membranes moist. NECK: Supple. CHEST: Clear to auscultation. No respiratory distress. HEART: Regular rate and rhythm. No murmur heard. Normal peripheral pulses. ABDOMEN: Soft, nontender, nondistended, normal active bowel sounds. EXTREMITIES: Normal range of motion. No edema. Back: There is tenderness to palpation thoracic back inferior to the left scapula SKIN: Warm, dry, no rash. NEURO: No focal deficits. Alert and oriented x3. PSYCH: Normal mood and affect. Course Vital Signs Vital signs: Vital Signs Temperature 36.4 C 07/11/24 08:20 Pulse Rate 69 07/11/24 08:20 Respiratory Rate 12 07/11/24 08:20 Blood Pressure 135/53 L 07/11/24 08:20 Pulse Oximetry 99 07/11/24 08:20 Oxygen Delivery Room Air 07/11/24 08:20 Temperature 36.4 C 07/11/24 08:20 Pulse Rate 69 07/11/24 10:01 Respiratory Rate 16 07/11/24 10:01 Blood Pressure 127/55 L 07/11/24 10:01 Pulse Oximetry 99 07/11/24 10:01 Oxygen Delivery Room Air 07/11/24 08:20 Medical Decision Making MDM Narrative Medical decision making narrative: Differential diagnosis includes UTI, pyelonephritis, acute kidney injury, intra-abdominal infection, neoplasm, Laboratory studies were obtained on the patient showed a white count of 8.8 hemoglobin was 12.6 electrolytes showed a BUN of 58 creatinine 1.9 troponin is 0.020 procalcitonin 0.1 urinalysis showed greater than 100 white blood cells in the urine 3+ leukocyte esterase 4+ bacteria COVID flu RSV were negative CT scan of the abdomen pelvis showed FINDINGS: The visualized portions of the lung bases demonstrate mild atelectasis. No pleural effusion. Cardiomegaly is noted. 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 There is a trace pericardial effusion. There is a lap band of the proximal stomach. The liver and spleen are normal. There are changes of cholecystectomy. The pancreas and adrenal glands are normal. There are 5 mm and 3 mm stones in right kidney. There is a 16 mm cyst in left kidney. There is diverticulosis of the colon without evidence of diverticulitis. There are no dilated loops of bowel. The appendix is normal. There is a supraumbilical ventral hernia containing a wall of nonobstructed transverse colon. There is a ventral hernia containing nonobstructed small bowel. There are no pathologically enlarged lymph nodes. There is no free intraperitoneal fluid. There is a total left hip arthroplasty. There are healing bilateral rib fractures. There are widespread mixed lytic and sclerotic lesions of bone. There is a chronic compression fracture of T12. There is a chronic compression fracture of T7. IMPRESSION: 1. Ventral hernias containing nonobstructed bowel. 2. Widespread bone lesions, consistent with metastatic disease versus multiple myeloma. Healing bilateral pathologic rib fractures Patient was started on Rocephin as well as gentle hydration. The case was discussed with the hospitalist the patient will be admitted for further care Vital Signs Vital Signs: Vital Signs Temperature 36.4 C 07/11/24 08:20 Pulse Rate 69 07/11/24 08:20 Respiratory Rate 12 07/11/24 08:20 Blood Pressure 135/53 L 07/11/24 08:20 Pulse Oximetry 99 07/11/24 08:20 Oxygen Delivery Room Air 07/11/24 08:20 Temperature 36.4 C 07/11/24 08:20 Pulse Rate 69 07/11/24 10:01 Respiratory Rate 16 07/11/24 10:01 Blood Pressure 127/55 L 07/11/24 10:01 Pulse Oximetry 99 07/11/24 10:01 Oxygen Delivery Room Air 07/11/24 08:20 Lab Data 07/11/24 09:38 07/11/24 09:38 Labs: Lab Results 07/11/24 07/11/24 07/11/24 Range/Units 09:37 09:38 09:44 WBC 8.8 (4.5-10.0) K/mm3 RBC 4.09 L (4.2-5.4) M/mm3 Hgb 12.6 (12.0-15.0) g/dL Hct 37.8 (37.0-47.0) % MCV 92.4 (80-100) fl MCH 30.8 (26-34) pg MCHC 33.3 (32-36) g/dl RDW 15.2 H (11.5-14.5) % Plt Count 219 (150-375) k/mm3 MPV 9.8 (7.4-10.4) fl Immature Gran % (Auto) 0.6 H (0-0.5) % Neut % (Auto) 73.7 H (45.5-73.1) % Lymph % (Auto) 12.1 L (18.3-44.2) % [place] % (Auto) 8.2 (2.6-8.5) % Eos % (Auto) 4.6 H (0-4.4) % Baso % (Auto) 0.8 (0.2-1.2) % Lymph # (Auto) 1.06 (0.9-3.2) K/mm3 [place] # (Auto) 0.7 H (0.1-0.6) K/mm3 Eos # (Auto) 0.4 H (0-0.3) K/mm3 Baso # (Auto) 0.1 (0.0-0.1) K/mm3 Abs Immat Gran (auto) 0.05 H (0.00-0.031) K/mm3 Absolute Neuts (auto) 6.5 (1.3-6.7) K/mm3 Absolute Nucleated RBC 0.000 (0.0-0.012) K/mm3 Nucleated RBC % 0.0 (0.0-0.2) % PT 13.6 (11.1-14.7) Seconds INR 1.0 APTT 27.9 (22.3-36.8) Seconds Sodium 135 L (137-145) mmol/L Potassium 3.1 L (3.4-5.0) mmol/L Chloride 95 L (98-107) mmol/L Carbon Dioxide 33 H (22-30) mmol/L Anion Gap 7 (4-12) mmol/L BUN 58 H D (7-17) mg/dL Creatinine 1.90 H (0.7-1.0) mg/dL Estim Creat Clear Calc 29 ml/min Estimated GFR 25 L (59 - ) Glucose 100 (65-110) mg/dL Calcium 10.1 (8.4-10.2) mg/dL Magnesium 2.5 H (1.6-2.3) mg/dL Total Bilirubin 1.2 (0.2-1.3) mg/dL AST 65 H (14-36) U/L ALT 10 (6-35) U/L Alkaline Phosphatase 134 H (38-126) U/L Troponin I 0.020 (0.000-0.034) ng/mL Total Protein 8.0 (6.3-8.2) g/dL Albumin 4.3 (3.5-5.1) g/dL Lipase 139 (23-300) U/L Procalcitonin 0.1 ng/mL Urine Color (Yellow) Urine Appearance (Clear) Urine pH (5.0-9.0) Ur Specific [place] (1.001-1.035) Urine Protein (Negative) mg/dL Urine Glucose (UA) (Negative) mg/dL Urine Ketones (Negative) mg/dL Ur Blood (Man) (Negative) Urine Nitrate (Negative) Urine Bilirubin (Negative) Urine Urobilinogen (<2.0) mg/dL Add Ur Microanalysis Leukocyte Esterase Rfl (Negative) GAVIN/UL Urine RBC (0-2) /hpf Urine WBC (0-3) /hpf Ur Squamous Epith Cells (Few) /hpf Urine Bacteria /hpf Urine Casts Influenza A (RT-PCR) Negative (Negative) Influenza B (RT-PCR) Negative (Negative) RSV (RT-PCR) Negative (Negative) SARS-CoV-2 RNA (RT-PCR) Negative (Negative) 07/11/24 Range/Units 10:24 WBC (4.5-10.0) K/mm3 RBC (4.2-5.4) M/mm3 Hgb (12.0-15.0) g/dL Hct (37.0-47.0) % MCV (80-100) fl MCH (26-34) pg MCHC (32-36) g/dl RDW (11.5-14.5) % Plt Count (150-375) k/mm3 MPV (7.4-10.4) fl Immature Gran % (Auto) (0-0.5) % Neut % (Auto) (45.5-73.1) % Lymph % (Auto) (18.3-44.2) % [place] % (Auto) (2.6-8.5) % Eos % (Auto) (0-4.4) % Baso % (Auto) (0.2-1.2) % Lymph # (Auto) (0.9-3.2) K/mm3 [place] # (Auto) (0.1-0.6) K/mm3 Eos # (Auto) (0-0.3) K/mm3 Baso # (Auto) (0.0-0.1) K/mm3 Abs Immat Gran (auto) (0.00-0.031) K/mm3 Absolute Neuts (auto) (1.3-6.7) K/mm3 Absolute Nucleated RBC (0.0-0.012) K/mm3 Nucleated RBC % (0.0-0.2) % PT (11.1-14.7) Seconds INR APTT (22.3-36.8) Seconds Sodium (137-145) mmol/L Potassium (3.4-5.0) mmol/L Chloride (98-107) mmol/L Carbon Dioxide (22-30) mmol/L Anion Gap (4-12) mmol/L BUN (7-17) mg/dL Creatinine (0.7-1.0) mg/dL Estim Creat Clear Calc ml/min Estimated GFR (59 - ) Glucose (65-110) mg/dL Calcium (8.4-10.2) mg/dL Magnesium (1.6-2.3) mg/dL Total Bilirubin (0.2-1.3) mg/dL AST (14-36) U/L ALT (6-35) U/L Alkaline Phosphatase (38-126) U/L Troponin I (0.000-0.034) ng/mL Total Protein (6.3-8.2) g/dL Albumin (3.5-5.1) g/dL Lipase (23-300) U/L Procalcitonin ng/mL Urine Color Dark yellow (Yellow) Urine Appearance Turbid H (Clear) Urine pH 5.0 (5.0-9.0) Ur Specific [place] 1.021 (1.001-1.035) Urine Protein 1+ H (Negative) mg/dL Urine Glucose (UA) Trace H (Negative) mg/dL Urine Ketones Negative (Negative) mg/dL Ur Blood (Man) 3+ H (Negative) Urine Nitrate Negative (Negative) Urine Bilirubin Negative (Negative) Urine Urobilinogen 1.0 (<2.0) mg/dL Add Ur Microanalysis Reviewed Leukocyte Esterase Rfl 3+ H (Negative) GAVIN/UL Urine RBC 6-10 H (0-2) /hpf Urine WBC >100 H (0-3) /hpf Ur Squamous Epith Cells Many H (Few) /hpf Urine Bacteria 4+ H /hpf Urine Casts >20 Influenza A (RT-PCR) (Negative) Influenza B (RT-PCR) (Negative) RSV (RT-PCR) (Negative) SARS-CoV-2 RNA (RT-PCR) (Negative) Discharge Plan Discharge Clinical Impression: Pathologic rib fracture, Acute kidney injury, Acute UTI Patient Disposition: Still a Patient Condition: Stable Prescriptions: No Action bumetanide 2 mg tablet 2 mg PO DAILY acetaminophen [Tylenol Arthritis Pain] 650 mg tablet extended release 650 mg PO Q8H PRN (Reason: pain) Qty: 10 0RF Jardiance 10 mg Tablet 10 mg PO DAILY Qty: 30 0RF aspirin 81 mg Tablet 81 mg PO BID sacubitril-valsartan 24-26 mg tablet 1 tablet PO BID 30 Days Qty: 60 0RF Hold Instructions: Patient Condition Rx Instructions: Hold if your blood pressure is 90/40 or less. lidocaine 5 % adhesive patch,medicated 1 patch topical DAILY Qty: 30 0RF Rx Instructions: leave on most painful area for up to 12 hrs oxybutynin chloride 5 mg tablet extended release 24hr 5 mg PO DAILY Qty: 90 3RF methylprednisolone [Medrol (Chetan)] 4 mg tablets,dose pack 4 mg PO QAM Qty: 21 0RF cyclobenzaprine 5 mg tablet 5 mg PO BID PRN (Reason: muscle spasm) Qty: 20 0RF hydrocodone-acetaminophen 5-325 mg tablet 1 tablet PO Q6H PRN (Reason: pain) Qty: 30 0RF Follow-up/Referrals: Rosa Albright PA-C [Primary Care Provider] - Time of Disposition: 11:17
[2024-07-11 09:47] LABS: Basophils Absolute Auto 0.1 K/mm3 (0.0-0.1); Basophils Percent Auto 0.8 % (0.2-1.2); Eosinophils Absolute Auto 0.4 K/mm3 (0-0.3); Eosinophils Percent Auto 4.6 % (0-4.4); Hematocrit 37.8 % (37.0-47.0); Hemoglobin 12.6 g/dL (12.0-15.0); Immature Granulocyte Absolute 0.05 K/mm3 (0.00-0.031); Immature Granulocyte Percent A 0.6 % (0-0.5); Lymphocytes Absolute Auto 1.06 K/mm3 (0.9-3.2); Lymphocytes Percent Auto 12.1 % (18.3-44.2); Mean Corpuscular HGB Conc 33.3 g/dl (32-36); Mean Corpuscular Hemoglobin 30.8 pg (26-34); Mean Corpuscular Volume 92.4 fl (80-100); Mean Platelet Volume 9.8 fl (7.4-10.4); Monocytes Absolute Auto 0.7 K/mm3 (0.1-0.6); Monocytes Percent Auto 8.2 % (2.6-8.5); Neutrophils Absolute Auto 6.5 K/mm3 (1.3-6.7); Neutrophils Percent Auto 73.7 % (45.5-73.1); Platelet Count Result 219 k/mm3 (150-375); Red Blood Count 4.09 M/mm3 (4.2-5.4); Red Cell Distribution Width 15.2 % (11.5-14.5); White Blood Count 8.8 K/mm3 (4.5-10.0)
[2024-07-11 10:00] LABS: Partial Thromboplastin Time 27.9 Seconds (22.3-36.8); Prothrombin Time 13.6 Seconds (11.1-14.7)
[2024-07-11 10:09] LABS: Alanine Aminotransferase 10 U/L (6-35); Albumin Level 4.3 g/dL (3.5-5.1); Alkaline Phosphatase 134 U/L (38-126); Anion Gap 7 mmol/L (4-12); Aspartate Amino Transferase 65 U/L (14-36); Bilirubin,Total 1.2 mg/dL (0.2-1.3); Blood Urea Nitrogen 58 mg/dL (7-17); Calcium 10.1 mg/dL (8.4-10.2); Carbon Dioxide 33 mmol/L (22-30); Chloride 95 mmol/L (98-107); Estimated CRCL calculation 29 ml/min; Estimated Glomerular Filt Rate 25; Glucose 100 mg/dL (65-110); Lipase 139 U/L (23-300); Magnesium 2.5 mg/dL (1.6-2.3); Potassium 3.1 mmol/L (3.4-5.0); Sodium 135 mmol/L (137-145)
[2024-07-11 10:31] LABS: Procalcitonin 0.1 ng/mL
[2024-07-11 10:46] LABS: Influenza A QL RT-PCR Negative (Negative); Influenza B QL RT-PCR Negative (Negative); RSV RNA, RT-PCR Negative (Negative); SARS-CoV-2 RNA PCR Negative (Negative)
[2024-07-11 10:51] LABS: Add Urine Microscopic? YES; Appearance Urine Turbid (Clear); Bacteria Urine 4+ /hpf; Bilirubin Urine Negative (Negative); Blood Urine 3+ (Negative); Color Urine Dark Yellow (Yellow); Glucose Urine UA Trace mg/dL (Negative); Ketones Urine Negative (Negative); Leukocyte Esterase Ur 3+ LEU/UL (Negative); Need Manual Microscopic Reviewed; Nitrate Urine Negative (Negative); Non Pathogenic Casts >20; Protein Urine 1+ mg/dL (Negative); Specific Grav Ur 1.021 (1.001-1.035); Squamous Epithelial Cell Urine Many /hpf (Few); WBC Urine >100 /hpf (0-3)
[2024-07-11] MEDS: SODIUM CHLORIDE 0.9% IV 1,000 ML 75 ML IV CONT ×2 (11:39→23:16)
--- NOTE | 2024-07-11 11:50 | ECG_ITS ---
Test Date: 2024-07-11 11:57:55 Measurements Intervals [place] Rate: 70 P: -42 [place]: 206 QRS: -50 QRSD: 138 T: 77 QT: 435 QTc: 470 Interpretive Statements SINUS RHYTHM WITH FIRST DEGREE AV BLOCK INTRAVENTRICULAR CONDUCTION DELAY LEFT VENTRICULAR HYPERTROPHY AND ST-T CHANGE ANTEROLATERAL INFARCT, AGE INDETERMINATE HIGH LATERAL INFARCT, AGE INDETERMINATE BASELINE ARTIFACT- I, II, AVR ABNORMAL ECG Compared to ECG 07/11/2024 09:10:48 NO SIGNIFICANT CHANGE Electronically Signed On 07-11-2024 16:13:12 METER CALIBRATOR by Matt Yung D.O.
[2024-07-11 12:20] LABS: Troponin I 0.017 ng/mL (0.000-0.034)
--- NOTE | 2024-07-11 12:35 | PM.IMHP ---
H&P: HPI History of Present Illness Date/Time: 07/11/24 12:55 Chief Complaint: Pain all over. Narrative: This is a pleasant 78-year-old female with history of chronic back pain, ischemic cardiomyopathy, combined systolic and diastolic congestive heart failure, hypertension, chronic kidney disease, and chronic obstructive pulmonary disease who presented to the emergency department via private vehicle for evaluation of pain all over. The patient provides the following history. She endorses chronic left lower back pain for which she has previously seen pain management. For the last week or so she has noticed that the pain is more severe and seems to be occurring and places that she typically does not have pain. For instance in the neck and lower part of the base of the head and diffusely throughout her left side. The pains are sharp and do not necessarily radiate. They are worse with minimal movement to the point were she was not able to really get herself out of her chair this morning. She is taking acetaminophen and on rare occasion ibuprofen for the pain without much benefit. She also reports intermittent, painless hematuria and feelings as though she is not able to completely empty her bladder. She denies recent falls. She also denies fever, chills, sweats, weight loss, cold and flu symptoms, focal weakness, paresthesias, chest pain, pleuritic pain, palpitations, abdominal pain, nausea, vomiting, diarrhea, dysuria, calf pain, syncope, and near syncope. She has no known history of malignancy. On exam she was found to have a right breast mass and she admits that she has never had a mammogram. She has not noticed any nipple discharge. In the ED: She was afebrile on arrival with stable vital signs. Labs were significant for a sodium of 135, potassium 3.1, chloride 95, carbon dioxide 33, BUN 58, creatinine 1.90, AST 65, ALT 134. Urinalysis was positive for 1+ protein, trace glucose, 3+ blood, 3+ leukocyte esterase, 6 to 10 RBC, greater than 100 WBC, 4+ bacteria, many squamous cells, and greater than 20 casts per high-power field. She tested negative for influenza, RSV, and COVID. Chest x-ray showed mild atelectasis in left mid and lower lung zones and cardiomegaly. CT of the abdomen and pelvis showed widespread bone lesions consistent with metastatic disease versus multiple myeloma and healing bilateral pathologic rib fractures. She was given morphine for pain and ceftriaxone 1 g for a possible urinary tract infection and she is being admitted in this setting for further workup. Review of Systems Review of Systems: 12 systems were reviewed and are negative except for as per HPI. [facility] Past Medical History Medical History Chronic obstructive pulmonary disease PFTs in July 2019 demonstrated moderate obstructive lung disease without bronchodilator response and moderately decreased diffusion capacity. Chronic pain syndrome Chronic renal failure, stage 3 (moderate) Combined systolic and diastolic congestive heart failure Coronary artery disease Hyperlipidemia Hypertension Ischemic cardiomyopathy Surgical History Surgical History History of appendectomy History of cataract extraction with lens replacement History of cholecystectomy History of heart artery stent patient had anterior lateral STEMI december 2016 with 2 stents to the mid LAD History of laparoscopic adjustable gastric banding History of left hip replacement (10/2017) History of lithotripsy History of total bilateral knee replacement (2002) with subsequent ORIF of periprosthetic fracture of the left knee in December 2012 Family History Family History Mother Cerebrovascular accident Thyroid disease Sibling Thyroid disease Social History Social History (Updated 07/11/24 @ 20:17 by Mindi Hameed PA-C) Social History: Surrogate decision maker: Dania John (daughter). Code status: Full code. Smoking status: Never smoker Second hand tobacco smoke exposure: No Alcohol intake: never Substance use: never Substance use type: does not use Do You Feel Safe in your Home?: Yes Lack of Transportation: No Lack of Food: Never True Current Housing: I Have Housing Concerned About Future Housing: No Difficulty Paying Gas/Electric Bills: No Difficulty Paying for Meds: No Currently Unemployed: No Education: Trade/Vocational Certificate Difficulty w/ Childcare or Family Care: No Additional living arrangements comments: as of 2018. Has 5 children. Lives in her own home in [place]. 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 Spiritual care concerns: No Meds Home Medications and Allergies Home Medications Medication Instructions Recorded Confirmed Type acetaminophen 650 mg 650 mg PO Q8H PRN pain #10 tabs 05/25/20 07/11/24 Rx tablet,extended release (Tylenol Arthritis Pain) aspirin 81 mg tablet 81 mg PO BID 11/05/20 07/11/24 History empagliflozin 10 mg tablet 10 mg PO DAILY #30 tabs 12/30/21 07/11/24 Rx (Jardiance) sacubitril 24 mg-valsartan 26 mg 1 tablet PO BID 30 days #60 tabs 01/03/23 07/11/24 Rx tablet bumetanide 2 mg tablet 2 mg PO BID 08/20/23 07/11/24 History oxybutynin chloride 5 mg 5 mg PO DAILY #90 tabs 08/30/23 07/11/24 Rx tablet,extended release 24 hr lidocaine 5 % topical patch 1 patch topical DAILY #30 ea 01/16/24 07/11/24 Rx Adults Multivitamin 1 tablet PO DAILY 07/11/24 07/11/24 History atorvastatin 40 mg tablet 40 mg PO DAILY 07/11/24 07/11/24 History chlorthalidone 25 mg tablet 25 mg PO DAILY 07/11/24 07/11/24 History famotidine 20 mg tablet 20 mg PO DAILY 07/11/24 07/11/24 History nitroglycerin 0.4 mg sublingual 0.4 mg sublingual Q5MIN PRN Chest 07/11/24 07/11/24 History tablet Pain Allergies Allergy/AdvReac Type Severity Reaction Status Date / Time Penicillins Allergy Unknown Rash Verified 07/11/24 08:15 Vital Signs Vital Signs - 24 hr 07/11/24 08:20 07/11/24 08:24 07/11/24 08:47 Temperature 97.6 F Pulse Rate 69 69 68 Respiratory Rate 12 17 12 Blood Pressure 135/53 L 135/53 L 123/51 L Pulse Oximetry 99 100 100 Oxygen Delivery Room Air 07/11/24 09:01 07/11/24 10:01 07/11/24 11:02 Temperature Pulse Rate 76 69 71 Respiratory Rate 17 16 13 Blood Pressure 115/51 L 127/55 L Pulse Oximetry 98 99 Oxygen Delivery 07/11/24 11:41 07/11/24 11:42 07/11/24 11:45 Temperature Pulse Rate 79 70 72 Respiratory Rate 15 18 12 Blood Pressure 148/70 H Pulse Oximetry 100 100 100 Oxygen Delivery 07/11/24 11:47 07/11/24 12:00 07/11/24 12:15 Temperature Pulse Rate 72 72 72 Respiratory Rate 17 13 16 Blood Pressure 135/62 Pulse Oximetry 100 100 Oxygen Delivery Exam Narrative: General: Chronically ill appearing female in the semi-Cage position in bed in no acute distress. Weight: 126.5 kg. BMI: 46.4. HEENT: PERRL, EOMI. Sclera anicteric. Tacky mucous membranes. Oropharynx is crowded. Neck: Supple. No lymphadenopathy. Mild tenderness to palpation over the cervical paraspinous muscles. No midline vertebral tenderness. Respiratory: Respirations are nonlabored. Lung sounds are a bit diminished at the bases but are otherwise clear to auscultation. Cardiovascular: Regular rate and rhythm with S1-S2. Soft murmur at the left sternal border. Chest: Firm, non mobile, nontender right outer quadrant breast mass with mild inversion of the nipple. Gastrointestinal: Abdomen is soft, obese, nontender, and nondistended with positive bowel sounds. Skin: Warm and dry. Chronic skin changes of the lower legs bilaterally Extremities: No cyanosis or clubbing. To 3+ pedal edema softening towards the knees. No palpable knots or cords. Neurological: Alert and oriented. Cranial nerves 2-12 are grossly intact. Generalized weakness without gross focal findings. Psychiatric: Pleasant and cooperative with appropriate mood and affect. H&P: Results Labs Labs: Short CBC 07/11/24 Range/Units 09:38 WBC 8.8 (4.5-10.0) K/mm3 Hgb 12.6 (12.0-15.0) g/dL Hct 37.8 (37.0-47.0) % Plt Count 219 (150-375) k/mm3 [facility] 07/11/24 09:38 Sodium 135 L Potassium 3.1 L Chloride 95 L Carbon Dioxide 33 H BUN 58 H D Creatinine 1.90 H Glucose 100 Calcium 10.1 Cardiac Enzymes 07/11/24 07/11/24 Range/Units 09:38 11:53 Troponin I 0.020 0.017 (0.000-0.034) ng/mL Liver Function 07/11/24 Range/Units 09:38 Total Bilirubin 1.2 (0.2-1.3) mg/dL AST 65 H (14-36) U/L ALT 10 (6-35) U/L Alkaline Phosphatase 134 H (38-126) U/L Albumin 4.3 (3.5-5.1) g/dL Urine 07/11/24 Range/Units 10:24 Urine Color Dark yellow (Yellow) Urine Appearance Turbid H (Clear) Urine pH 5.0 (5.0-9.0) Ur Specific [place] 1.021 (1.001-1.035) Urine Protein 1+ H (Negative) mg/dL Urine Glucose (UA) Trace H (Negative) mg/dL Imaging Abdomen/Pelvis CT 07/11/24 10:52 IMPRESSION: 1. Ventral hernias containing nonobstructed bowel. 2. Widespread bone lesions, consistent with metastatic disease versus multiple myeloma. Healing bilateral pathologic rib fractures. Chest X-Ray 07/11/24 11:01 IMPRESSION: 1. Mild atelectasis in left mid and lower lung zones. 2. Cardiomegaly. Assessment and Plan Assessment and plan (1) Acute kidney injury: Code(s): N17.9 - Acute kidney failure, unspecified Status: Acute (2) Bone lesion: Code(s): M89.9 - Disorder of bone, unspecified Status: Acute (3) Mass of right breast: Code(s): N63.10 - Unspecified lump in the right breast, unspecified quadrant Status: Acute (4) Electrolyte abnormality: Code(s): E87.8 - Other disorders of electrolyte and fluid balance, not elsewhere classified Status: Acute (5) Bacteriuria with pyuria: Code(s): R82.71 - Bacteriuria; R82.81 - Pyuria Status: Acute (6) Chronic pain syndrome: Code(s): G89.4 - Chronic pain syndrome Status: Acute (7) Coronary artery disease: Code(s): I25.10 - Atherosclerotic heart disease of [place] coronary artery without angina pectoris Status: Acute (8) Chronic obstructive pulmonary disease: Code(s): J44.9 - Chronic obstructive pulmonary disease, unspecified Status: Acute (9) Combined systolic and diastolic congestive heart failure: Code(s): I50.40 - Unspecified combined systolic (congestive) and diastolic (congestive) heart failure Status: Acute (10) Hypertension: Code(s): I10 - Essential (primary) hypertension Status: Acute Plan The patient presented to the emergency department for evaluation of pain all over as detailed in HPI. Labs, imaging, EKG, and all reports were personally reviewed. Her chronic pain has been worsening and spreading recently and imaging shows widespread mixed lytic and sclerotic lesions of the bone consistent with metastatic disease versus multiple myeloma. A contrast-enhanced CT of the chest, abdomen, and pelvis would be helpful however is unable to be performed at this time as she also has an acute kidney injury. Serum and urine protein electrophoresis and kappa lambda ratio are pending to evaluate for possible multiple myeloma. A renal ultrasound has been ordered. She may be over diuresed as she has several electrolyte abnormalities including a sodium of 135, potassium 3.1, and chloride of 95 (she is on bumetanide 2 mg b.i.d. and chlorthalidone 25 mg daily). Continue judicious IV fluid rehydration with close monitoring of volume status with daily weights and strict I/Os. Hold diuretics but continue sacubitril-valsartan for now as she is on a low dose. Right breast mass is concerning for malignancy which could perhaps be biopsied during her stay or she could be referred to breast specialist Dr. Tara Weldon with [facility]; this could explain the bony lesions. She has pyuria with bacteriuria and has been started on ceftriaxone pending urine culture as she does report some urinary symptoms. Blood pressures were reviewed, are stable, and will be monitored closely as she will not be receiving some of her medications as above. Analgesics are available as needed for pain. No recent or acute issues with regards to her coronary artery disease or chronic obstructive pulmonary disease. Her home medications will be reviewed and resumed as appropriate. Findings and treatment plan were discussed with the patient. Questions were solicited and answered to satisfaction. The patient's medical management will be taken over by the hospitalist team in a.m. Quality VTE Prophylaxis VTE prophylaxis: mechanical ordered If No VTE Prophylaxis Answer both mechanical and pharmacologic: Reason no pharmacologic proph: medical contraindication (hold pending brain CT) The patient has been admitted under observation status. Hospitalist [facility] Advance Care Plan I have confirmed that the patient's Advanced Care Plan is present, code status is documented, or surrogate decision maker is listed in patient medical record.: Yes Medication Reconciliation I have utilized all available resources to obtain, update and review the patients current medications (includes all prescriptions, OTC, herbals, cannabis, and nutritional supplements).: Yes
--- NOTE | 2024-07-11 12:48 | ADMGEN ---
This patient, Alyssa Hanson, was admitted to Medical Room 340-01. Patient/family oriented to hospital policies and general routines including ID bracelet, bed and alarms, visiting hours, pain management, procedures, bathroom and other care routines, personal items, smoking policy, room service/diet, and visiting hours. Information on how to activate the Rapid Response Team has been discussed. Patient/Family are encouraged to report perceived risks to care and to ask questions if they do not understand what they are told or what they should do.
[2024-07-11] MEDS: HYDROcodone/acetaminophen (*CRX) 5-325 MG TABLET 1 TAB PO (13:25)
--- NOTE | 2024-07-11 13:26 | PM.CNNEP ---
Assessment and Plan Assessment and plan (1) Acute kidney injury: Code(s): N17.9 - Acute kidney failure, unspecified Status: Acute Assessment and Plan: Patient has acute kidney injury. Her baseline creatinine is 0.8 but the current creatinine is 1.9. She does not get around very well and I suspect that she has not been eating as well as she says. She might be dehydrated. She did have the CT of the abdomen pelvis and chest and this did not show any hydronephrosis. She says that she does take a little ibuprofen but has not had any in the last week. She takes mostly Tylenol. I do not think this has anything to do with her kidney disease. She does have lesions in her bone consistent with metastatic disease. She also has some blood in her urine off and on and so could have a bladder cancer with Mets to the bone. Because the CT scan was without contrast it was not a complete look at the chest abdomen and pelvis so there might be something going on in 1 on those regions that would be a clue. Other causes of kidney disease include glomerulonephritis, interstitial nephritis, and infiltrative diseases. These are all less likely. At this point will continue IV fluid. Will get renal electrolytes, and CPK. Will get a renal ultrasound as well Discussed with the patient and her 2 daughters (2) Acute UTI: Code(s): N39.0 - Urinary tract infection, site not specified Status: Acute Assessment and Plan: The patient has pyuria. Will get a urine culture. Unfortunately she artery receive ceftriaxone in the ER. (3) Hypertension: Code(s): I10 - Essential (primary) hypertension Status: Acute Assessment and Plan: Blood pressure is under good control (4) Combined systolic and diastolic congestive heart failure: Code(s): I50.40 - Unspecified combined systolic (congestive) and diastolic (congestive) heart failure Status: Acute Assessment and Plan: Volume status seems pretty good. She does have some swelling. He sees a forklift supervisor (5) Bone lesion: Code(s): M89.9 - Disorder of bone, unspecified Status: Acute Assessment and Plan: Etiology of these are unclear. Will check an SPEP UPEP and kappa lambda ratio. She probably needs a urology consult as well. (6) Chronic obstructive pulmonary disease: Code(s): J44.9 - Chronic obstructive pulmonary disease, unspecified Status: Acute Assessment and Plan: She sees Pulmonary as an outpatient History of Present Illness Reason for Consult Consult date: 07/11/24 Chief Complaint Chief complaint: Acute Kidney Injury, UTI History of Present Illness Narrative: Noted is a very pleasant 78-year-old lady who has multiple medical problems including chronic kidney disease, proteinuria, hypertension, chronic swelling, hyperlipidemia, COPD, ischemic cardiomyopathy, chronic arthritis, high body mass index, combined systolic and diastolic heart failure. The patient has been weak for the last week or 2. She went to the emergency room. She was evaluated in the ER. Labs showed an elevated creatinine and a low potassium. She had a CT scan which showed lesions in the bones consistent with metastatic disease. She says that she has not had pain with urination but has had blood in the urine occasionally in the last few months. She has not had this investigated. She says that she does not do anymore cancer surveillance because of her age. The patient was last seen in my office in December and had an appointment for last Saturday but she canceled it because she could not get to the doctor's office she said. She said that she has been generally weak. She lives alone but her daughters bring her food and she says she has been eating pretty well. She has been drinking fluid. She has not had any diarrhea. No fevers or chills. No foamy cloudy or smelly urine. No kidney stones. Review of Systems Constitutional: Constitutional: Reports no additional constitutional complaints Eyes: Eyes: Reports no additional eye complaints ENT: Reports system reviewed and no additional complaints, except as documented Cardiovascular: Cardiovascular: Reports no additional cardiovascular complaints Respiratory: Respiratory: Reports no additional respiratory complaints Gastrointestinal: Gastrointestinal: Reports no additional gastrointestinal complaints Genitourinary: Genitourinary: Reports no additional female genitourinary complaints Musculoskeletal: Musculoskeletal: Reports no additional musculoskeletal complaints Integumentary/Breasts: Skin/Breast: Reports system reviewed and no additional complaints, except as docu Neurologic: Reports system reviewed and no additional complaints, except as documented Psychiatric: Psychiatric: Reports no additional psychiatric complaints Endocrine: Endocrine: Reports no additional endocrine complaints [facility] Past Medical History Medical History Chronic obstructive pulmonary disease PFTs in July 2019 demonstrated moderate obstructive lung disease without bronchodilator response and moderately decreased diffusion capacity. Chronic pain syndrome Chronic renal failure, stage 3 (moderate) Combined systolic and diastolic congestive heart failure Coronary artery disease Hyperlipidemia Hypertension Ischemic cardiomyopathy Surgical History Surgical History History of appendectomy History of cataract extraction with lens replacement History of cholecystectomy History of heart artery stent patient had anterior lateral STEMI december 2016 with 2 stents to the mid LAD History of laparoscopic adjustable gastric banding History of left hip replacement (10/2017) History of lithotripsy History of total bilateral knee replacement (2002) with subsequent ORIF of periprosthetic fracture of the left knee in December 2012 Family History Family History Mother Cerebrovascular accident Thyroid disease Sibling Thyroid disease Social History Social History Social History: Surrogate decision maker: Dania John (daughter). Code status: Full code. Smoking status: Never smoker Second hand tobacco smoke exposure: No Alcohol intake: never Substance use: never Substance use type: does not use Do You Feel Safe in your Home?: Yes Lack of Transportation: No Lack of Food: Never True Current Housing: I Have Housing Concerned About Future Housing: No Difficulty Paying Gas/Electric Bills: No Difficulty Paying for Meds: No Currently Unemployed: No Education: Trade/Vocational Certificate Difficulty w/ Childcare or Family Care: No Additional living arrangements comments: as of 2018. Has 5 children. Lives in her own home in [place]. 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 Spiritual care concerns: No Meds Home Medications and Allergies Home Medications Medication Instructions Recorded Confirmed Type acetaminophen 650 mg 650 mg PO Q8H PRN pain #10 tabs 05/25/20 07/11/24 Rx tablet,extended release (Tylenol Arthritis Pain) aspirin 81 mg tablet 81 mg PO BID 11/05/20 07/11/24 History empagliflozin 10 mg tablet 10 mg PO DAILY #30 tabs 12/30/21 07/11/24 Rx (Jardiance) sacubitril 24 mg-valsartan 26 mg 1 tablet PO BID 30 days #60 tabs 01/03/23 07/11/24 Rx tablet bumetanide 2 mg tablet 2 mg PO BID 08/20/23 07/11/24 History oxybutynin chloride 5 mg 5 mg PO DAILY #90 tabs 08/30/23 07/11/24 Rx tablet,extended release 24 hr lidocaine 5 % topical patch 1 patch topical DAILY #30 ea 01/16/24 07/11/24 Rx Adults Multivitamin 1 tablet PO DAILY 07/11/24 07/11/24 History atorvastatin 40 mg tablet 40 mg PO DAILY 07/11/24 07/11/24 History chlorthalidone 25 mg tablet 25 mg PO DAILY 07/11/24 07/11/24 History famotidine 20 mg tablet 20 mg PO DAILY 07/11/24 07/11/24 History nitroglycerin 0.4 mg sublingual 0.4 mg sublingual Q5MIN PRN Chest 07/11/24 07/11/24 History tablet Pain Allergies Allergy/AdvReac Type Severity Reaction Status Date / Time Penicillins Allergy Unknown Rash Verified 07/11/24 08:15 Vital Signs Vital Signs - 24 hr 07/11/24 08:20 07/11/24 08:24 07/11/24 08:47 Temperature 97.6 F Pulse Rate 69 69 68 Respiratory Rate 12 17 12 Blood Pressure 135/53 L 135/53 L 123/51 L Pulse Oximetry 99 100 100 Oxygen Delivery Room Air 07/11/24 09:01 07/11/24 10:01 07/11/24 11:02 Temperature Pulse Rate 76 69 71 Respiratory Rate 17 16 13 Blood Pressure 115/51 L 127/55 L Pulse Oximetry 98 99 Oxygen Delivery 07/11/24 11:41 07/11/24 11:42 07/11/24 11:45 Temperature Pulse Rate 79 70 72 Respiratory Rate 15 18 12 Blood Pressure 148/70 H Pulse Oximetry 100 100 100 Oxygen Delivery 07/11/24 11:47 07/11/24 12:00 07/11/24 12:15 Temperature Pulse Rate 72 72 72 Respiratory Rate 17 13 16 Blood Pressure 135/62 Pulse Oximetry 100 100 Oxygen Delivery Exam Narrative: Exam Narrative: Well developed well-nourished female in no acute distress Skin is warm and dry without rash Head normocephalic atraumatic Eyes normal sclerae and conjunctivae Mouth normal lips teeth and gums Neck no nodes no thyromegaly no carotid bruits Axillae no nodes Back no CVA tenderness Lungs symmetric and clear to auscultation and percussion Heart regular rate and rhythm without rub or gallop Abdomen bowel sounds positive soft nontender, no HSM, masses, or bruits. Extremities no cyanosis, clubbing, but 1+ bilateral edema Pulses 2+ equal in radial arteries Psychological not anxious or depressed Neuro alert and oriented x3 motor 5/5 cranial nerves 2-12 intact reflexes 2+ and equal in the biceps and patellar tendons cerebellar normal rapid alternating movements Results Lab Results 07/11/24 09:38 07/11/24 09:38 Lab results: Most recent lab results Calcium 10.1 mg/dL (8.4-10.2) 07/11/24 09:38 Magnesium 2.5 mg/dL (1.6-2.3) H 07/11/24 09:38
[2024-07-11 13:50] LABS: Creatine Kinase 47 U/L (30-135)
[2024-07-11] MEDS: ASPIRIN 81 MG CHEWABLE TABLET PO (17:34)
[2024-07-11] MEDS: SACUBITRIL/VALSARTAN 24-26 MG TABLET 1 TAB PO (17:34)
[2024-07-11] MEDS: MORPHINE SULFATE (*CRX) 2 MG/ML INJ IV PUSH ×3 (17:35→22:41)
[2024-07-11 22:31] LABS: Anion Gap 7 mmol/L (4-12); Blood Urea Nitrogen 48 mg/dL (7-17); Calcium 9.7 mg/dL (8.4-10.2); Carbon Dioxide 31 mmol/L (22-30); Chloride 98 mmol/L (98-107); Estimated CRCL calculation 41 ml/min; Estimated Glomerular Filt Rate 39; Glucose 109 mg/dL (65-110); Magnesium 2.3 mg/dL (1.6-2.3); Sodium 136 mmol/L (137-145)
[2024-07-11] MEDS: POTASSIUM CHLORIDE 20 MEQ ER TABLET 40 MEQ PO (23:13)
[2024-07-12] MEDS: MORPHINE SULFATE (*CRX) 2 MG/ML INJ IV PUSH ×2 (00:52→05:20)
[2024-07-12 05:22] VITALS: BP 136/58; PULSE 73; RESP 16; TEMP 36.2; O2SAT 98
[2024-07-12 06:20] LABS: Hematocrit 38.5 % (37.0-47.0); Mean Corpuscular HGB Conc 31.2 g/dl (32-36); Mean Corpuscular Hemoglobin 30.4 pg (26-34); Mean Corpuscular Volume 97.5 fl (80-100); Mean Platelet Volume 9.8 fl (7.4-10.4); Platelet Count Result 219 k/mm3 (150-375); Red Blood Count 3.95 M/mm3 (4.2-5.4); Red Cell Distribution Width 15.1 % (11.5-14.5); White Blood Count 7.9 K/mm3 (4.5-10.0)
[2024-07-12 06:34] LABS: Alanine Aminotransferase 9 U/L (6-35); Albumin Level 3.9 g/dL (3.5-5.1); Alkaline Phosphatase 111 U/L (38-126); Anion Gap 9 mmol/L (4-12); Aspartate Amino Transferase 50 U/L (14-36); Bilirubin,Total 0.7 mg/dL (0.2-1.3); Blood Urea Nitrogen 44 mg/dL (7-17); Calcium 10.1 mg/dL (8.4-10.2); Carbon Dioxide 30 mmol/L (22-30); Chloride 99 mmol/L (98-107); Estimated CRCL calculation 49 ml/min; Estimated Glomerular Filt Rate 48; Glucose 98 mg/dL (65-110); Magnesium 2.5 mg/dL (1.6-2.3); Potassium 3.8 mmol/L (3.4-5.0); Sodium 138 mmol/L (137-145)
[2024-07-12] MEDS: oxyBUTYnin CHLORIDE XL 5 MG TAB.ER.24 PO (09:27)
[2024-07-12] MEDS: ASPIRIN 81 MG CHEWABLE TABLET PO ×2 (09:27→16:57)
[2024-07-12] MEDS: SACUBITRIL/VALSARTAN 24-26 MG TABLET 1 TAB PO ×2 (09:27→16:57)
[2024-07-12] MEDS: MULTIVITAMINS THERAPEUTIC TAB (*BKC) 1 TABLET PO (09:28)
[2024-07-12] MEDS: ATORVASTATIN 40 MG TABLET PO (09:28)
[2024-07-12] MEDS: EMPAGLIFLOZIN 10 MG TABLET PO (09:28)
[2024-07-12] MEDS: LIDOCAINE 5% PATCH 1 PATCH TOPICAL (09:28)
[2024-07-12] MEDS: FAMOTIDINE 20 MG TABLET PO (09:28)
--- NOTE | 2024-07-12 09:28 | PM.IMPN ---
Progress Note: A&P Assessment and Plan (1) Acute kidney injury: Code(s): N17.9 - Acute kidney failure, unspecified Status: Acute Assessment and Plan: A contrast-enhanced CT of the chest, abdomen, and pelvis would be helpful however is unable to be performed at this time as she also has an acute kidney injury. Serum and urine protein electrophoresis and kappa lambda ratio are pending to evaluate for possible multiple myeloma. A renal ultrasound has been ordered. She may be over diuresed as she has several electrolyte abnormalities including a sodium of 135, potassium 3.1, and chloride of 95 (she is on bumetanide 2 mg b.i.d. and chlorthalidone 25 mg daily). Continue judicious IV fluid rehydration with close monitoring of volume status with daily weights and strict I/Os. Hold diuretics but continue sacubitril-valsartan for now as she is on a low dose. nephrology following (2) Bone lesion: Code(s): M89.9 - Disorder of bone, unspecified Status: Acute (3) Mass of right breast: Code(s): N63.10 - Unspecified lump in the right breast, unspecified quadrant Status: Acute Assessment and Plan: Right breast mass is concerning for malignancy which could perhaps be biopsied during her stay or she could be referred to breast specialist Dr. Tara Weldon with [facility]; this could explain the bony lesions. will order ultrasound biopsy (4) Electrolyte abnormality: Code(s): E87.8 - Other disorders of electrolyte and fluid balance, not elsewhere classified Status: Acute (5) Bacteriuria with pyuria: Code(s): R82.71 - Bacteriuria; R82.81 - Pyuria Status: Acute (6) Chronic pain syndrome: Code(s): G89.4 - Chronic pain syndrome Status: Acute (7) Coronary artery disease: Code(s): I25.10 - Atherosclerotic heart disease of [place] coronary artery without angina pectoris Status: Acute (8) Chronic obstructive pulmonary disease: Code(s): J44.9 - Chronic obstructive pulmonary disease, unspecified Status: Acute (9) Combined systolic and diastolic congestive heart failure: Code(s): I50.40 - Unspecified combined systolic (congestive) and diastolic (congestive) heart failure Status: Acute (10) Hypertension: Code(s): I10 - Essential (primary) hypertension Status: Acute Plan The patient presented to the emergency department for evaluation of pain all over as detailed in HPI. Labs, imaging, EKG, and all reports were personally reviewed. Her chronic pain has been worsening and spreading recently and imaging shows widespread mixed lytic and sclerotic lesions of the bone consistent with metastatic disease versus multiple myeloma. She has pyuria with bacteriuria and has been started on ceftriaxone pending urine culture as she does report some urinary symptoms. Blood pressures were reviewed, are stable, and will be monitored closely as she will not be receiving some of her medications as above. Analgesics are available as needed for pain. No recent or acute issues with regards to her coronary artery disease or chronic obstructive pulmonary disease. Time Spent With Patient Time with patient: Greater than 35 minutes Subjective Date/time seen: 07/12/24 09:28 Interval history: Narrative retrieved from H/P: This is a pleasant 78-year-old female with history of chronic back pain, ischemic cardiomyopathy, combined systolic and diastolic congestive heart failure, hypertension, chronic kidney disease, and chronic obstructive pulmonary disease who presented to the emergency department via private vehicle for evaluation of pain all over. The patient provides the following history. She endorses chronic left lower back pain for which she has previously seen pain management. For the last week or so she has noticed that the pain is more severe and seems to be occurring and places that she typically does not have pain. For instance in the neck and lower part of the base of the head and diffusely throughout her left side. The pains are sharp and do not necessarily radiate. They are worse with minimal movement to the point were she was not able to really get herself out of her chair this morning. She is taking acetaminophen and on rare occasion ibuprofen for the pain without much benefit. She also reports intermittent, painless hematuria and feelings as though she is not able to completely empty her bladder. She denies recent falls. She also denies fever, chills, sweats, weight loss, cold and flu symptoms, focal weakness, paresthesias, chest pain, pleuritic pain, palpitations, abdominal pain, nausea, vomiting, diarrhea, dysuria, calf pain, syncope, and near syncope. She has no known history of malignancy. On exam she was found to have a right breast mass and she admits that she has never had a mammogram. She has not noticed any nipple discharge. In the ED: She was afebrile on arrival with stable vital signs. Labs were significant for a sodium of 135, potassium 3.1, chloride 95, carbon dioxide 33, BUN 58, creatinine 1.90, AST 65, ALT 134. Urinalysis was positive for 1+ protein, trace glucose, 3+ blood, 3+ leukocyte esterase, 6 to 10 RBC, greater than 100 WBC, 4+ bacteria, many squamous cells, and greater than 20 casts per high-power field. She tested negative for influenza, RSV, and COVID. Chest x-ray showed mild atelectasis in left mid and lower lung zones and cardiomegaly. CT of the abdomen and pelvis showed widespread bone lesions consistent with metastatic disease versus multiple myeloma and healing bilateral pathologic rib fractures. She was given morphine for pain and ceftriaxone 1 g for a possible urinary tract infection and she is being admitted in this setting for further workup. 07/12- pt is seen and examined. she is up in the chair, receiving IV fluids, c/o back pain Review of Systems Review of Systems: 12 systems were reviewed and are negative except for as per HPI. Exam Narrative: General: Chronically ill appearing female in the semi-Cage position in bed in no acute distress. Weight: 126.5 kg. BMI: 46.4. HEENT: PERRL, EOMI. Sclera anicteric. Tacky mucous membranes. Oropharynx is crowded. Neck: Supple. No lymphadenopathy. Mild tenderness to palpation over the cervical paraspinous muscles. No midline vertebral tenderness. Respiratory: Respirations are nonlabored. Lung sounds are a bit diminished at the bases but are otherwise clear to auscultation. Cardiovascular: Regular rate and rhythm with S1-S2. Soft murmur at the left sternal border. Chest: Firm, non mobile, nontender right outer quadrant breast mass with mild inversion of the nipple. Gastrointestinal: Abdomen is soft, obese, nontender, and nondistended with positive bowel sounds. Skin: Warm and dry. Chronic skin changes of the lower legs bilaterally Extremities: No cyanosis or clubbing. To 3+ pedal edema softening towards the knees. No palpable knots or cords. Neurological: Alert and oriented. Cranial nerves 2-12 are grossly intact. Generalized weakness without gross focal findings. Psychiatric: Pleasant and cooperative with appropriate mood and affect. Objective Data Vital Signs Vital Signs: Vital Signs - 24 hr 07/11/24 10:01 07/11/24 11:02 07/11/24 11:41 Temperature Pulse Rate 69 71 79 Respiratory Rate 16 13 15 Blood Pressure 127/55 L Pulse Oximetry 99 100 Oxygen Delivery 07/11/24 11:42 07/11/24 11:45 07/11/24 11:47 Temperature Pulse Rate 70 72 72 Respiratory Rate 18 12 17 Blood Pressure 148/70 H 135/62 Pulse Oximetry 100 100 100 Oxygen Delivery 07/11/24 12:00 07/11/24 12:15 07/11/24 14:07 Temperature 97.2 F L Pulse Rate 72 72 73 Respiratory Rate 13 16 18 Blood Pressure 151/67 H Pulse Oximetry 100 98 Oxygen Delivery 07/11/24 13:00 07/11/24 20:25 07/11/24 20:00 Temperature 97.3 F L Pulse Rate 73 Respiratory Rate 18 Blood Pressure 117/46 L Pulse Oximetry 100 Oxygen Delivery Room Air Room Air 07/12/24 05:22 Temperature 97.2 F L Pulse Rate 73 Respiratory Rate 16 Blood Pressure 136/58 L Pulse Oximetry 98 Oxygen Delivery Intake/Output Intake/Output: Intake & Output 07/09/24 07/10/24 07/11/24 07/12/24 23:59 23:59 23:59 23:59 Intake Total 1091.3 390 Output Total 300 675 Balance 791.3 -285 Meds/Results Medications: Active Medications Generic Name Dose Route Start Last Admin Trade Name Freq PRN Reason Stop Dose Admin Acetaminophen 650 mg 07/11/24 11:11 Acetaminophen 325 Mg Tablet PO Q4H PRN Mild Pain (1-3) or Fever Hydrocodone Bitart/Acetaminophen 1 tab 07/11/24 12:46 07/11/24 13:25 Hydrocodone/Acetaminophen (*Crx) 5-325 Mg Tablet PO 1 tab Q6H PRN Administration Pain Rated 4-6 Aspirin 81 mg 07/11/24 17:00 07/11/24 17:34 Aspirin 81 Mg Chewable Tablet PO 08/10/24 16:59 81 mg BID UBALDO Administration Atorvastatin Calcium 40 mg 07/12/24 09:00 Atorvastatin 40 Mg Tablet PO DAILY UBALDO Empagliflozin 10 mg 07/12/24 09:00 Empagliflozin 10 Mg Tablet PO DAILY UBALDO Famotidine 20 mg 07/12/24 09:00 Famotidine 20 Mg Tablet PO DAILY [facility] Ceftriaxone Sodium 1 gm in 50 mls @ 100 mls/hr 07/12/24 09:00 Rocephin 1 Gm/Ns 50 Ml IVPB QAM UBALDO Sodium Chloride 1,000 mls @ 75 mls/hr 07/11/24 11:15 07/11/24 23:16 Normal Saline Iv IV CONT 75 mls/hr .[id number] UBALDO Administration Lidocaine 1 patch 07/12/24 09:00 Lidocaine 5% Patch TOPICAL DAILY UBALDO Morphine Sulfate 2 mg 07/11/24 11:11 07/12/24 05:20 Morphine Sulfate (*Crx) 2 Mg/Ml Inj IV PUSH 2 mg Q2H PRN Administration Pain Rated 7-10 Multivitamins Therapeutic 1 tablet 07/12/24 09:00 Multivitamins Therapeutic Tab (*Bkc) PO 08/11/24 08:59 DAILY UBALDO Oxybutynin Chloride 5 mg 07/12/24 09:00 Oxybutynin Chloride Xl 5 Mg Tab.Er.24 PO DAILY UBALDO Sacubitril/Valsartan 1 tab 07/11/24 17:00 07/11/24 17:34 Sacubitril/Valsartan 24-26 Mg Tablet PO 1 tab BID UBALDO Administration Radiology Results: ITS Impressions Abdomen/Pelvis CT 07/11/24 10:52 IMPRESSION: 1. Ventral hernias containing nonobstructed bowel. 2. Widespread bone lesions, consistent with metastatic disease versus multiple myeloma. Healing bilateral pathologic rib fractures. Chest X-Ray 07/11/24 11:01 IMPRESSION: 1. Mild atelectasis in left mid and lower lung zones. 2. Cardiomegaly. Renal Ultrasound 07/11/24 17:24 IMPRESSION: Renal cortical thinning, without hydronephrosis. Head CT 07/12/24 07:35 Impression: No intracranial abnormality. Possible subtle lytic left frontal bone lesion. Cervical Spine CT 07/12/24 07:40 Impression: No acute fracture. Lytic lesions in the spine, as above, most notably at the C2, C3, C4 vertebral bodies. Correlate for metastatic disease or multiple myeloma. Moderate to advanced degenerative spondylosis, as above. Labs Labs: Laboratory Results - last 24 hr 07/11/24 07/11/24 07/11/24 09:37 09:38 09:44 WBC 8.8 RBC 4.09 L Hgb 12.6 Hct 37.8 MCV 92.4 MCH 30.8 MCHC 33.3 RDW 15.2 H Plt Count 219 MPV 9.8 Immature Gran % (Auto) 0.6 H Neut % (Auto) 73.7 H Lymph % (Auto) 12.1 L [place] % (Auto) 8.2 Eos % (Auto) 4.6 H Baso % (Auto) 0.8 Lymph # (Auto) 1.06 [place] # (Auto) 0.7 H Eos # (Auto) 0.4 H Baso # (Auto) 0.1 Abs Immat Gran (auto) 0.05 H Absolute Neuts (auto) 6.5 Absolute Nucleated RBC 0.000 Nucleated RBC % 0.0 PT 13.6 INR 1.0 APTT 27.9 Sodium 135 L Potassium 3.1 L Chloride 95 L Carbon Dioxide 33 H Anion Gap 7 BUN 58 H D Creatinine 1.90 H Estim Creat Clear Calc 29 Estimated GFR 25 L Glucose 100 Calcium 10.1 Phosphorus Magnesium 2.5 H Total Bilirubin 1.2 Direct Bilirubin AST 65 H ALT 10 Alkaline Phosphatase 134 H Total Creatine Kinase Troponin I 0.020 Total Protein 8.0 Albumin 4.3 Lipase 139 Procalcitonin 0.1 TSH (Reflex) Urine Color Urine Appearance Urine pH Ur Specific [place] Urine Protein Urine Glucose (UA) Urine Ketones Ur Blood (Man) Urine Nitrate Urine Bilirubin Urine Urobilinogen Add Ur Microanalysis Leukocyte Esterase Rfl Urine RBC Urine WBC Ur Squamous Epith Cells Urine Bacteria Urine Casts Influenza A (RT-PCR) Negative Influenza B (RT-PCR) Negative RSV (RT-PCR) Negative SARS-CoV-2 RNA (RT-PCR) Negative 07/11/24 07/11/24 07/11/24 10:24 11:52 11:53 WBC RBC Hgb Hct MCV MCH MCHC RDW Plt Count MPV Immature Gran % (Auto) Neut % (Auto) Lymph % (Auto) [place] % (Auto) Eos % (Auto) Baso % (Auto) Lymph # (Auto) [place] # (Auto) Eos # (Auto) Baso # (Auto) Abs Immat Gran (auto) Absolute Neuts (auto) Absolute Nucleated RBC Nucleated RBC % PT INR APTT Sodium Potassium Chloride Carbon Dioxide Anion Gap BUN Creatinine Estim Creat Clear Calc Estimated GFR Glucose Calcium Phosphorus Magnesium Total Bilirubin Direct Bilirubin AST ALT Alkaline Phosphatase Total Creatine Kinase 47 Troponin I 0.017 Total Protein Albumin Lipase Procalcitonin TSH (Reflex) Urine Color Dark yellow Urine Appearance Turbid H Urine pH 5.0 Ur Specific [place] 1.021 Urine Protein 1+ H Urine Glucose (UA) Trace H Urine Ketones Negative Ur Blood (Man) 3+ H Urine Nitrate Negative Urine Bilirubin Negative Urine Urobilinogen 1.0 Add Ur Microanalysis Reviewed Leukocyte Esterase Rfl 3+ H Urine RBC 6-10 H Urine WBC >100 H Ur Squamous Epith Cells Many H Urine Bacteria 4+ H Urine Casts >20 Influenza A (RT-PCR) Influenza B (RT-PCR) RSV (RT-PCR) SARS-CoV-2 RNA (RT-PCR) 07/11/24 07/12/24 22:14 05:59 WBC 7.9 RBC 3.95 L Hgb 12.0 Hct 38.5 MCV 97.5 D MCH 30.4 MCHC 31.2 L RDW 15.1 H Plt Count 219 MPV 9.8 Immature Gran % (Auto) Neut % (Auto) Lymph % (Auto) [place] % (Auto) Eos % (Auto) Baso % (Auto) Lymph # (Auto) [place] # (Auto) Eos # (Auto) Baso # (Auto) Abs Immat Gran (auto) Absolute Neuts (auto) Absolute Nucleated RBC Nucleated RBC % PT INR APTT Sodium 136 L 138 Potassium 3.0 L 3.8 Chloride 98 99 Carbon Dioxide 31 H 30 Anion Gap 7 9 BUN 48 H D 44 H Creatinine 1.30 H 1.10 H Estim Creat Clear Calc 41 49 Estimated GFR 39 L 48 L Glucose 109 98 Calcium 9.7 10.1 Phosphorus 4.0 Magnesium 2.3 2.5 H Total Bilirubin 0.7 Direct Bilirubin 0.0 AST 50 H ALT 9 Alkaline Phosphatase 111 Total Creatine Kinase Troponin I Total Protein 7.0 Albumin 3.9 Lipase Procalcitonin TSH (Reflex) 2.900 Urine Color Urine Appearance Urine pH Ur Specific [place] Urine Protein Urine Glucose (UA) Urine Ketones Ur Blood (Man) Urine Nitrate Urine Bilirubin Urine Urobilinogen Add Ur Microanalysis Leukocyte Esterase Rfl Urine RBC Urine WBC Ur Squamous Epith Cells Urine Bacteria Urine Casts Influenza A (RT-PCR) Influenza B (RT-PCR) RSV (RT-PCR) SARS-CoV-2 RNA (RT-PCR) Quality VTE Prophylaxis VTE prophylaxis: mechanical ordered
[2024-07-12 09:30] VITALS: O2SAT 98
--- NOTE | 2024-07-12 10:32 | PM.PNNEP ---
Progress Note: A&P Assessment and Plan (1) Acute kidney injury: Code(s): N17.9 - Acute kidney failure, unspecified Status: Acute Assessment and Plan: Patient has acute kidney injury. Her baseline creatinine is 0.8 but the admission creatinine was 1.9. Urine electrolytes are pending Ultrasound showed bilateral cortical thickening She received IV fluids yesterday Creatinine has come down to 1.1 Most likely the patient was dehydrated. Will continue IV fluids 1 more day (2) Acute UTI: Code(s): N39.0 - Urinary tract infection, site not specified Status: Acute Assessment and Plan: The patient has pyuria. 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 She does have some swelling. He sees a insecticide maker (5) Bone lesion: Code(s): M89.9 - Disorder of bone, unspecified Status: Acute Assessment and Plan: Etiology of these are unclear. Will check an SPEP UPEP and kappa lambda ratio. She probably needs a urology consult as well. (6) Chronic obstructive pulmonary disease: Code(s): J44.9 - Chronic obstructive pulmonary disease, unspecified Status: Acute Assessment and Plan: She sees Pulmonary as an outpatient Subjective Date/time seen: 07/12/24 10:32 Interval history: Patient feels better. She is eating breakfast pretty well. She denies shortness of breath Review of Systems Cardiovascular: Cardiovascular: Reports no additional cardiovascular complaints Respiratory: Respiratory: Reports no additional respiratory complaints Gastrointestinal: Gastrointestinal: Reports no additional gastrointestinal complaints Genitourinary: Genitourinary: Reports no additional female genitourinary complaints Exam Narrative: WDWN in NAD skin no rash head ncat lungs clear cor reg no rub abd BS+ nontender and soft ext no edema. Objective Data Vital Signs Vital Signs: Vital Signs - 24 hr 07/11/24 11:02 07/11/24 11:41 07/11/24 11:42 Temperature Pulse Rate 71 79 70 Respiratory Rate 13 15 18 Blood Pressure 148/70 H Pulse Oximetry 100 100 Oxygen Delivery 07/11/24 11:45 07/11/24 11:47 07/11/24 12:00 Temperature Pulse Rate 72 72 72 Respiratory Rate 12 17 13 Blood Pressure 135/62 Pulse Oximetry 100 100 100 Oxygen Delivery 07/11/24 12:15 07/11/24 14:07 07/11/24 13:00 Temperature 97.2 F L Pulse Rate 72 73 Respiratory Rate 16 18 Blood Pressure 151/67 H Pulse Oximetry 98 Oxygen Delivery Room Air 07/11/24 20:25 07/11/24 20:00 07/12/24 05:22 Temperature 97.3 F L 97.2 F L Pulse Rate 73 73 Respiratory Rate 18 16 Blood Pressure 117/46 L 136/58 L Pulse Oximetry 100 98 Oxygen Delivery Room Air Intake/Output Intake/Output: Intake & Output 07/09/24 07/10/24 07/11/24 07/12/24 23:59 23:59 23:59 23:59 Intake Total 1091.3 390 Output Total 300 675 Balance 791.3 -285 Meds/Results Medications: Active Medications Generic Name Dose Route Start Last Admin Trade Name Freq PRN Reason Stop Dose Admin Acetaminophen 650 mg 07/11/24 11:11 Acetaminophen 325 Mg Tablet PO Q4H PRN Mild Pain (1-3) or Fever Hydrocodone Bitart/Acetaminophen 1 tab 07/11/24 12:46 07/11/24 13:25 Hydrocodone/Acetaminophen (*Crx) 5-325 Mg Tablet PO 1 tab Q6H PRN Administration Pain Rated 4-6 Aspirin 81 mg 07/11/24 17:00 07/12/24 09:27 Aspirin 81 Mg Chewable Tablet PO 08/10/24 16:59 81 mg BID UBALDO Administration Atorvastatin Calcium 40 mg 07/12/24 09:00 07/12/24 09:28 Atorvastatin 40 Mg Tablet PO 40 mg DAILY UBALDO Administration Empagliflozin 10 mg 07/12/24 09:00 07/12/24 09:28 Empagliflozin 10 Mg Tablet PO 10 mg DAILY UBALDO Administration Famotidine 20 mg 07/12/24 09:00 07/12/24 09:28 Famotidine 20 Mg Tablet PO 20 mg DAILY UBALDO Administration Ceftriaxone Sodium 1 gm in 50 mls @ 100 mls/hr 07/12/24 09:00 07/12/24 09:28 Rocephin 1 Gm/Ns 50 Ml IVPB 100 mls/hr QAM UBALDO Administration Sodium Chloride 1,000 mls @ 75 mls/hr 07/11/24 11:15 07/11/24 23:16 Normal Saline Iv IV CONT 75 mls/hr .[id number] UBALDO Administration Lidocaine 1 patch 07/12/24 09:00 07/12/24 09:28 Lidocaine 5% Patch TOPICAL 1 patch DAILY UBALDO Administration Morphine Sulfate 2 mg 07/11/24 11:11 07/12/24 05:20 Morphine Sulfate (*Crx) 2 Mg/Ml Inj IV PUSH 2 mg Q2H PRN Administration Pain Rated 7-10 Multivitamins Therapeutic 1 tablet 07/12/24 09:00 07/12/24 09:28 Multivitamins Therapeutic Tab (*Bkc) PO 08/11/24 08:59 1 tablet DAILY UBALDO Administration Oxybutynin Chloride 5 mg 07/12/24 09:00 07/12/24 09:27 Oxybutynin Chloride Xl 5 Mg Tab.Er.24 PO 5 mg DAILY UBALDO Administration Sacubitril/Valsartan 1 tab 07/11/24 17:00 07/12/24 09:27 Sacubitril/Valsartan 24-26 Mg Tablet PO 1 tab BID UBALDO Administration Radiology Results: ITS Impressions Abdomen/Pelvis CT 07/11/24 10:52 IMPRESSION: 1. Ventral hernias containing nonobstructed bowel. 2. Widespread bone lesions, consistent with metastatic disease versus multiple myeloma. Healing bilateral pathologic rib fractures. Chest X-Ray 07/11/24 11:01 IMPRESSION: 1. Mild atelectasis in left mid and lower lung zones. 2. Cardiomegaly. Renal Ultrasound 07/11/24 17:24 IMPRESSION: Renal cortical thinning, without hydronephrosis. Head CT 07/12/24 07:35 Impression: No intracranial abnormality. Possible subtle lytic left frontal bone lesion. Cervical Spine CT 07/12/24 07:40 Impression: No acute fracture. Lytic lesions in the spine, as above, most notably at the C2, C3, C4 vertebral bodies. Correlate for metastatic disease or multiple myeloma. Moderate to advanced degenerative spondylosis, as above. Labs Labs: Laboratory Results - last 24 hr 07/11/24 07/11/24 07/11/24 09:44 10:24 11:52 WBC RBC Hgb Hct MCV MCH MCHC RDW Plt Count MPV Sodium Potassium Chloride Carbon Dioxide Anion Gap BUN Creatinine Estim Creat Clear Calc Estimated GFR Glucose Calcium Phosphorus Magnesium Total Bilirubin Direct Bilirubin AST ALT Alkaline Phosphatase Total Creatine Kinase 47 Troponin I Total Protein Albumin TSH (Reflex) Urine Color Dark yellow Urine Appearance Turbid H Urine pH 5.0 Ur Specific [place] 1.021 Urine Protein 1+ H Urine Glucose (UA) Trace H Urine Ketones Negative Ur Blood (Man) 3+ H Urine Nitrate Negative Urine Bilirubin Negative Urine Urobilinogen 1.0 Add Ur Microanalysis Reviewed Leukocyte Esterase Rfl 3+ H Urine RBC 6-10 H Urine WBC >100 H Ur Squamous Epith Cells Many H Urine Bacteria 4+ H Urine Casts >20 Influenza A (RT-PCR) Negative Influenza B (RT-PCR) Negative RSV (RT-PCR) Negative SARS-CoV-2 RNA (RT-PCR) Negative 07/11/24 07/11/24 07/12/24 11:53 22:14 05:59 WBC 7.9 RBC 3.95 L Hgb 12.0 Hct 38.5 MCV 97.5 D MCH 30.4 MCHC 31.2 L RDW 15.1 H Plt Count 219 MPV 9.8 Sodium 136 L 138 Potassium 3.0 L 3.8 Chloride 98 99 Carbon Dioxide 31 H 30 Anion Gap 7 9 BUN 48 H D 44 H Creatinine 1.30 H 1.10 H Estim Creat Clear Calc 41 49 Estimated GFR 39 L 48 L Glucose 109 98 Calcium 9.7 10.1 Phosphorus 4.0 Magnesium 2.3 2.5 H Total Bilirubin 0.7 Direct Bilirubin 0.0 AST 50 H ALT 9 Alkaline Phosphatase 111 Total Creatine Kinase Troponin I 0.017 Total Protein 7.0 Albumin 3.9 TSH (Reflex) 2.900 Urine Color Urine Appearance Urine pH Ur Specific [place] Urine Protein Urine Glucose (UA) Urine Ketones Ur Blood (Man) Urine Nitrate Urine Bilirubin Urine Urobilinogen Add Ur Microanalysis Leukocyte Esterase Rfl Urine RBC Urine WBC Ur Squamous Epith Cells Urine Bacteria Urine Casts Influenza A (RT-PCR) Influenza B (RT-PCR) RSV (RT-PCR) SARS-CoV-2 RNA (RT-PCR)
[2024-07-12 13:38] VITALS: BP 123/69; PULSE 67; RESP 18; TEMP 36.7; O2SAT 95
[2024-07-12 15:19] LABS: Creatinine Urine 75.6 mg/dL; Total Protein Urine Random 12 mg/dL; Ur Ttl Prot Creatinine Ratio 0.16 mg/mg (0-0.20)
[2024-07-12 15:27] LABS: Urea Random Urine 888 MG/DL
[2024-07-12 15:30] LABS: Sodium Urine Random 93 meq/L
[2024-07-12 15:57] VITALS: O2SAT 96
[2024-07-12] MEDS: HYDROcodone/acetaminophen (*CRX) 5-325 MG TABLET 1 TAB PO ×2 (16:56→23:34)
[2024-07-12 22:03] VITALS: BP 139/53; PULSE 71; RESP 18; TEMP 36.3; O2SAT 97
[2024-07-13] MEDS: MORPHINE SULFATE (*CRX) 2 MG/ML INJ IV PUSH ×3 (02:26→22:46)
[2024-07-13 05:54] VITALS: BP 119/65; PULSE 64; RESP 16; TEMP 36.2; O2SAT 95
[2024-07-13] MEDS: HYDROcodone/acetaminophen (*CRX) 5-325 MG TABLET 1 TAB PO ×3 (05:57→21:34)
[2024-07-13 06:19] LABS: Anion Gap 7 mmol/L (4-12); Blood Urea Nitrogen 28 mg/dL (7-17); Carbon Dioxide 31 mmol/L (22-30); Chloride 100 mmol/L (98-107); Estimated CRCL calculation 53 ml/min; Estimated Glomerular Filt Rate 53; Glucose 92 mg/dL (65-110); Potassium 3.4 mmol/L (3.4-5.0); Sodium 138 mmol/L (137-145)
[2024-07-13 07:22] VITALS: O2SAT 96
[2024-07-13 09:20] VITALS: O2SAT 96
[2024-07-13] MEDS: ATORVASTATIN 40 MG TABLET PO (09:20)
[2024-07-13] MEDS: FAMOTIDINE 20 MG TABLET PO (09:20)
[2024-07-13] MEDS: ASPIRIN 81 MG CHEWABLE TABLET PO ×2 (09:20→17:33)
[2024-07-13] MEDS: SACUBITRIL/VALSARTAN 24-26 MG TABLET 1 TAB PO ×2 (09:20→17:33)
[2024-07-13] MEDS: oxyBUTYnin CHLORIDE XL 5 MG TAB.ER.24 PO (09:21)
[2024-07-13] MEDS: LIDOCAINE 5% PATCH 1 PATCH TOPICAL (09:21)
[2024-07-13] MEDS: EMPAGLIFLOZIN 10 MG TABLET PO (09:21)
[2024-07-13] MEDS: MULTIVITAMINS THERAPEUTIC TAB (*BKC) 1 TABLET PO (09:21)
--- NOTE | 2024-07-13 10:00 | PM.IMPN ---
Progress Note: A&P Assessment and Plan (1) Acute kidney injury: Code(s): N17.9 - Acute kidney failure, unspecified Status: Acute Assessment and Plan: A contrast-enhanced CT of the chest, abdomen, and pelvis would be helpful however is unable to be performed at this time as she also has an acute kidney injury. Serum and urine protein electrophoresis and kappa lambda ratio are pending to evaluate for possible multiple myeloma. A renal ultrasound has been ordered. She may be over diuresed as she has several electrolyte abnormalities including a sodium of 135, potassium 3.1, and chloride of 95 (she is on bumetanide 2 mg b.i.d. and chlorthalidone 25 mg daily). Continue judicious IV fluid rehydration with close monitoring of volume status with daily weights and strict I/Os. Hold diuretics but continue sacubitril-valsartan for now as she is on a low dose. nephrology following (2) Bone lesion: Code(s): M89.9 - Disorder of bone, unspecified Status: Acute Assessment and Plan: will order ct chest/abd/pelvis- tomorrow- 48 h since kidney normalized (3) Mass of right breast: Code(s): N63.10 - Unspecified lump in the right breast, unspecified quadrant Status: Acute Assessment and Plan: Right breast mass is concerning for malignancy which could perhaps be biopsied during her stay or she could be referred to breast specialist Dr. Tara Weldon with [facility]; this could explain the bony lesions. will order ultrasound biopsy-unable to do it for some reason while in the hospital -will elave it to oncology and/or do it as an outpt (4) Electrolyte abnormality: Code(s): E87.8 - Other disorders of electrolyte and fluid balance, not elsewhere classified Status: Acute (5) Bacteriuria with pyuria: Code(s): R82.71 - Bacteriuria; R82.81 - Pyuria Status: Acute Assessment and Plan: repeat UA (6) Chronic pain syndrome: Code(s): G89.4 - Chronic pain syndrome Status: Acute (7) Coronary artery disease: Code(s): I25.10 - Atherosclerotic heart disease of [place] coronary artery without angina pectoris Status: Acute (8) Chronic obstructive pulmonary disease: Code(s): J44.9 - Chronic obstructive pulmonary disease, unspecified Status: Acute (9) Combined systolic and diastolic congestive heart failure: Code(s): I50.40 - Unspecified combined systolic (congestive) and diastolic (congestive) heart failure Status: Acute (10) Hypertension: Code(s): I10 - Essential (primary) hypertension Status: Acute Plan The patient presented to the emergency department for evaluation of pain all over as detailed in HPI. Labs, imaging, EKG, and all reports were personally reviewed. Her chronic pain has been worsening and spreading recently and imaging shows widespread mixed lytic and sclerotic lesions of the bone consistent with metastatic disease versus multiple myeloma. She has pyuria with bacteriuria and has been started on ceftriaxone pending urine culture as she does report some urinary symptoms. Blood pressures were reviewed, are stable, and will be monitored closely as she will not be receiving some of her medications as above. Analgesics are available as needed for pain. No recent or acute issues with regards to her coronary artery disease or chronic obstructive pulmonary disease. Time Spent With Patient Time with patient: Greater than 35 minutes Subjective Date/time seen: 07/13/24 10:00 Interval history: Narrative retrieved from H/P: This is a pleasant 78-year-old female with history of chronic back pain, ischemic cardiomyopathy, combined systolic and diastolic congestive heart failure, hypertension, chronic kidney disease, and chronic obstructive pulmonary disease who presented to the emergency department via private vehicle for evaluation of pain all over. The patient provides the following history. She endorses chronic left lower back pain for which she has previously seen pain management. For the last week or so she has noticed that the pain is more severe and seems to be occurring and places that she typically does not have pain. For instance in the neck and lower part of the base of the head and diffusely throughout her left side. The pains are sharp and do not necessarily radiate. They are worse with minimal movement to the point were she was not able to really get herself out of her chair this morning. She is taking acetaminophen and on rare occasion ibuprofen for the pain without much benefit. She also reports intermittent, painless hematuria and feelings as though she is not able to completely empty her bladder. She denies recent falls. She also denies fever, chills, sweats, weight loss, cold and flu symptoms, focal weakness, paresthesias, chest pain, pleuritic pain, palpitations, abdominal pain, nausea, vomiting, diarrhea, dysuria, calf pain, syncope, and near syncope. She has no known history of malignancy. On exam she was found to have a right breast mass and she admits that she has never had a mammogram. She has not noticed any nipple discharge. In the ED: She was afebrile on arrival with stable vital signs. Labs were significant for a sodium of 135, potassium 3.1, chloride 95, carbon dioxide 33, BUN 58, creatinine 1.90, AST 65, ALT 134. Urinalysis was positive for 1+ protein, trace glucose, 3+ blood, 3+ leukocyte esterase, 6 to 10 RBC, greater than 100 WBC, 4+ bacteria, many squamous cells, and greater than 20 casts per high-power field. She tested negative for influenza, RSV, and COVID. Chest x-ray showed mild atelectasis in left mid and lower lung zones and cardiomegaly. CT of the abdomen and pelvis showed widespread bone lesions consistent with metastatic disease versus multiple myeloma and healing bilateral pathologic rib fractures. She was given morphine for pain and ceftriaxone 1 g for a possible urinary tract infection and she is being admitted in this setting for further workup. 07/12- pt is seen and examined. she is up in the chair, receiving IV fluids, c/o back pain 07/13- labs better-cr is back to normal. she is depressed but doensot want to start any medication. Encouraged to f/u with pcp for counselling/support group refferal. Review of Systems Review of Systems: 12 systems were reviewed and are negative except for as per HPI. Exam Narrative: General: Chronically ill appearing female in the semi-Cage position in bed in no acute distress. Weight: 126.5 kg. BMI: 46.4. HEENT: PERRL, EOMI. Sclera anicteric. Tacky mucous membranes. Oropharynx is crowded. Neck: Supple. No lymphadenopathy. Mild tenderness to palpation over the cervical paraspinous muscles. No midline vertebral tenderness. Respiratory: Respirations are nonlabored. Lung sounds are a bit diminished at the bases but are otherwise clear to auscultation. Cardiovascular: Regular rate and rhythm with S1-S2. Soft murmur at the left sternal border. Chest: Firm, non mobile, nontender right outer quadrant breast mass with mild inversion of the nipple. Gastrointestinal: Abdomen is soft, obese, nontender, and nondistended with positive bowel sounds. Skin: Warm and dry. Chronic skin changes of the lower legs bilaterally Extremities: No cyanosis or clubbing. To 3+ pedal edema softening towards the knees. No palpable knots or cords. Neurological: Alert and oriented. Cranial nerves 2-12 are grossly intact. Generalized weakness without gross focal findings. Psychiatric: Pleasant and cooperative with appropriate mood and affect. Objective Data Vital Signs Vital Signs: Vital Signs - 24 hr 07/12/24 13:38 07/12/24 15:57 07/12/24 20:00 Temperature 98.1 F Pulse Rate 67 Respiratory Rate 18 Blood Pressure 123/69 Pulse Oximetry 95 96 Oxygen Delivery Room Air Room Air 07/12/24 22:03 07/13/24 05:54 07/13/24 07:22 Temperature 97.3 F L 97.1 F L Pulse Rate 71 64 Respiratory Rate 18 16 Blood Pressure 139/53 L 119/65 Pulse Oximetry 97 95 96 Oxygen Delivery Room Air Intake/Output Intake/Output: Intake & Output 07/10/24 07/11/24 07/12/24 07/13/24 23:59 23:59 23:59 23:59 Intake Total 1091.3 1120 200 Output Total 300 1175 700 Balance 791.3 -55 -500 Meds/Results Medications: Active Medications Generic Name Dose Route Start Last Admin Trade Name Freq PRN Reason Stop Dose Admin Acetaminophen 650 mg 07/11/24 11:11 Acetaminophen 325 Mg Tablet PO Q4H PRN Mild Pain (1-3) or Fever Hydrocodone Bitart/Acetaminophen 1 tab 07/11/24 12:46 07/13/24 05:57 Hydrocodone/Acetaminophen (*Crx) 5-325 Mg Tablet PO 1 tab Q6H PRN Administration Pain Rated 4-6 Aspirin 81 mg 07/11/24 17:00 07/13/24 09:20 Aspirin 81 Mg Chewable Tablet PO 08/10/24 16:59 81 mg BID UBALDO Administration Atorvastatin Calcium 40 mg 07/12/24 09:00 07/13/24 09:20 Atorvastatin 40 Mg Tablet PO 40 mg DAILY UBALDO Administration Empagliflozin 10 mg 07/12/24 09:00 07/13/24 09:21 Empagliflozin 10 Mg Tablet PO 10 mg DAILY UBALDO Administration Famotidine 20 mg 07/12/24 09:00 07/13/24 09:20 Famotidine 20 Mg Tablet PO 20 mg DAILY UBALDO Administration Ceftriaxone Sodium 1 gm in 50 mls @ 100 mls/hr 07/12/24 09:00 07/13/24 09:21 Rocephin 1 Gm/Ns 50 Ml IVPB 100 mls/hr QAM UBALDO Administration Lidocaine 1 patch 07/12/24 09:00 07/13/24 09:21 Lidocaine 5% Patch TOPICAL 1 patch DAILY UBALDO Administration Morphine Sulfate 2 mg 07/11/24 11:11 07/13/24 02:26 Morphine Sulfate (*Crx) 2 Mg/Ml Inj IV PUSH 2 mg Q2H PRN Administration Pain Rated 7-10 Multivitamins Therapeutic 1 tablet 07/12/24 09:00 07/13/24 09:21 Multivitamins Therapeutic Tab (*Bkc) PO 08/11/24 08:59 1 tablet DAILY UBALDO Administration Oxybutynin Chloride 5 mg 07/12/24 09:00 07/13/24 09:21 Oxybutynin Chloride Xl 5 Mg Tab.Er.24 PO 5 mg DAILY UBALDO Administration Sacubitril/Valsartan 1 tab 07/11/24 17:00 07/13/24 09:20 Sacubitril/Valsartan 24-26 Mg Tablet PO 1 tab BID UBALDO Administration Radiology Results: ITS Impressions Abdomen/Pelvis CT 07/11/24 10:52 IMPRESSION: 1. Ventral hernias containing nonobstructed bowel. 2. Widespread bone lesions, consistent with metastatic disease versus multiple myeloma. Healing bilateral pathologic rib fractures. Chest X-Ray 07/11/24 11:01 IMPRESSION: 1. Mild atelectasis in left mid and lower lung zones. 2. Cardiomegaly. Renal Ultrasound 07/11/24 17:24 IMPRESSION: Renal cortical thinning, without hydronephrosis. Head CT 07/12/24 07:35 Impression: No intracranial abnormality. Possible subtle lytic left frontal bone lesion. Cervical Spine CT 07/12/24 07:40 Impression: No acute fracture. Lytic lesions in the spine, as above, most notably at the C2, C3, C4 vertebral bodies. Correlate for metastatic disease or multiple myeloma. Moderate to advanced degenerative spondylosis, as above. Labs Labs: Laboratory Results - last 24 hr 07/11/24 07/13/24 14:35 05:10 Sodium 138 Potassium 3.4 Chloride 100 Carbon Dioxide 31 H Anion Gap 7 BUN 28 H D Creatinine 1.00 Estim Creat Clear Calc 53 Estimated GFR 53 L Glucose 92 Calcium 10.0 U Random Total Protein 12 Ur Random Sodium 93 Ur Random Urea 888 Urine Creatinine 75.6 Protein/Creat Ratio 2 0.16 Quality VTE Prophylaxis VTE prophylaxis: mechanical ordered
--- NOTE | 2024-07-13 12:08 | P.PNNP_ITS ---
Progress Note: A&P Assessment and Plan (1) Acute kidney injury: Code(s): N17.9 - Acute kidney failure, unspecified Status: Acute Assessment and Plan: Patient has acute kidney injury. Her baseline creatinine is 0.8 but the admission creatinine was 1.9. Urine electrolytes are pending Ultrasound showed bilateral cortical thickening She received IV fluids yesterday Creatinine has come down to 1.0 Most likely the patient was dehydrated. off IV fluids and patient is eating. Will check on labs tomorrow (2) Acute UTI: Code(s): N39.0 - Urinary tract infection, site not specified Status: Acute Assessment and Plan: The patient has pyuria. 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 She does have some swelling. She sees a fighting vehicle systems maintainer (5) Bone lesion: Code(s): M89.9 - Disorder of bone, unspecified Status: Acute Assessment and Plan: Etiology of these are unclear. Will check an SPEP UPEP and kappa lambda ratio. She probably needs a urology consult as well. (6) Chronic obstructive pulmonary disease: Code(s): J44.9 - Chronic obstructive pulmonary disease, unspecified Status: Acute Assessment and Plan: She sees Pulmonary as an outpatient Subjective Date/time seen: 07/13/24 12:08 Interval history: patient feels about the same. Not as weak but still has pain Exam Narrative: WDWN in NAD skin no rash or subcu nodules head ncat lungs clear bilaterally cor reg no rub abd BS+ nontender and soft ext no edema. Objective Data Vital Signs Vital Signs: Vital Signs - 24 hr 07/12/24 13:38 07/12/24 15:57 07/12/24 20:00 Temperature 98.1 F Pulse Rate 67 Respiratory Rate 18 Blood Pressure 123/69 Pulse Oximetry 95 96 Oxygen Delivery Room Air Room Air 07/12/24 22:03 07/13/24 05:54 07/13/24 07:22 Temperature 97.3 F L 97.1 F L Pulse Rate 71 64 Respiratory Rate 18 16 Blood Pressure 139/53 L 119/65 Pulse Oximetry 97 95 96 Oxygen Delivery Room Air Intake/Output Intake/Output: Intake & Output 07/10/24 07/11/24 07/12/24 07/13/24 23:59 23:59 23:59 23:59 Intake Total 1091.3 1120 320 Output Total 300 1175 1110 Balance 791.3 -55 790 Meds/Results Medications: Active Medications Generic Name Dose Route Start Last Admin Trade Name Freq PRN Reason Stop Dose Admin Acetaminophen 650 mg 07/11/24 11:11 Acetaminophen 325 Mg Tablet PO Q4H PRN Mild Pain (1-3) or Fever Hydrocodone Bitart/Acetaminophen 1 tab 07/11/24 12:46 07/13/24 05:57 Hydrocodone/Acetaminophen (*Crx) 5-325 Mg Tablet PO 1 tab Q6H PRN Administration Pain Rated 4-6 Aspirin 81 mg 07/11/24 17:00 07/13/24 09:20 Aspirin 81 Mg Chewable Tablet PO 08/10/24 16:59 81 mg BID UBALDO Administration Atorvastatin Calcium 40 mg 07/12/24 09:00 07/13/24 09:20 Atorvastatin 40 Mg Tablet PO 40 mg DAILY UBALDO Administration Empagliflozin 10 mg 07/12/24 09:00 07/13/24 09:21 Empagliflozin 10 Mg Tablet PO 10 mg DAILY UBALDO Administration Famotidine 20 mg 07/12/24 09:00 07/13/24 09:20 Famotidine 20 Mg Tablet PO 20 mg DAILY UBALDO Administration Ceftriaxone Sodium 1 gm in 50 mls @ 100 mls/hr 07/12/24 09:00 07/13/24 09:21 Rocephin 1 Gm/Ns 50 Ml IVPB 100 mls/hr QAM UBALDO Administration Lidocaine 1 patch 07/12/24 09:00 07/13/24 09:21 Lidocaine 5% Patch TOPICAL 1 patch DAILY UBALDO Administration Morphine Sulfate 2 mg 07/11/24 11:11 07/13/24 10:47 Morphine Sulfate (*Crx) 2 Mg/Ml Inj IV PUSH 2 mg Q2H PRN Administration Pain Rated 7-10 Multivitamins Therapeutic 1 tablet 07/12/24 09:00 07/13/24 09:21 Multivitamins Therapeutic Tab (*Bkc) PO 08/11/24 08:59 1 tablet DAILY UBALDO Administration Oxybutynin Chloride 5 mg 07/12/24 09:00 07/13/24 09:21 Oxybutynin Chloride Xl 5 Mg Tab.Er.24 PO 5 mg DAILY UBALDO Administration Sacubitril/Valsartan 1 tab 07/11/24 17:00 07/13/24 09:20 Sacubitril/Valsartan 24-26 Mg Tablet PO 1 tab BID UBALDO Administration Radiology Results: ITS Impressions Abdomen/Pelvis CT 07/11/24 10:52 IMPRESSION: 1. Ventral hernias containing nonobstructed bowel. 2. Widespread bone lesions, consistent with metastatic disease versus multiple myeloma. Healing bilateral pathologic rib fractures. Chest X-Ray 07/11/24 11:01 IMPRESSION: 1. Mild atelectasis in left mid and lower lung zones. 2. Cardiomegaly. Renal Ultrasound 07/11/24 17:24 IMPRESSION: Renal cortical thinning, without hydronephrosis. Head CT 07/12/24 07:35 Impression: No intracranial abnormality. Possible subtle lytic left frontal bone lesion. Cervical Spine CT 07/12/24 07:40 Impression: No acute fracture. Lytic lesions in the spine, as above, most notably at the C2, C3, C4 vertebral bodies. Correlate for metastatic disease or multiple myeloma. Moderate to advanced degenerative spondylosis, as above. Labs Labs: Laboratory Results - last 24 hr 07/11/24 07/13/24 14:35 05:10 Sodium 138 Potassium 3.4 Chloride 100 Carbon Dioxide 31 H Anion Gap 7 BUN 28 H D Creatinine 1.00 Estim Creat Clear Calc 53 Estimated GFR 53 L Glucose 92 Calcium 10.0 U Random Total Protein 12 Ur Random Sodium 93 Ur Random Urea 888 Urine Creatinine 75.6 Protein/Creat Ratio 2 0.16
--- NOTE | 2024-07-13 12:11 | WPDURCON ---
Assessment and Plan Assessment and plan (1) Abnormal urinalysis: Code(s): R82.90 - Unspecified abnormal findings in urine Status: Acute Assessment and Plan: This is an abnormal urinalysis. Highly contaminated urine sample. According to the patient it was taken from a hat and was not a clean-catch. Urine culture confirms findings consistent with contamination. Renal ultrasound unremarkable. At this point I would recommend a properly obtained urine sample either by a proper clean-catch or by catheterized specimen. If shows microscopic hematuria can be seen in the office for cystoscopy. Would also need upper tract imaging and a CT scan of the abdomen pelvis with contrast if a properly collected urinalysis documents microscopic hematuria. If repeat urinalysis unremarkable then no further workup is required from a urologic standpoint Urology Consult Note HPI Date Seen: 07/13/24 Requesting Physician: Juan Beckwith MD Primary Care Provider: Shahana Bryant PA-C Consult Narrative Reason for consult: Abnormal urinalysis Narrative: Alyssa Hanson is a 78 year old female seen at the request of the hospitalist for an abnormal urinalysis. She is currently hospitalized with bony pains CT scan shows numerous bony lesions consistent with multiple myeloma or metastatic cancer. She is currently undergoing workup. I am specifically consulted for abnormal urinalysis. Upon talking to the patient this was not a clean-catch sample. The urine was taken from a hat. The urinalysis is highly contaminated with a few red blood cells, white blood cells, many squamous epithelial cells. Urine culture shows low growth of gram-positive organisms consistent with contamination. She has no symptoms of urinary tract infection. She is a nonsmoker. She has no history of kidney stones. Review of Systems Review of Systems: Her main complaint is back pain All systems reviewed & are unremarkable except as noted in HPI and below PMFSH Past Medical History Medical History Chronic obstructive pulmonary disease PFTs in July 2019 demonstrated moderate obstructive lung disease without bronchodilator response and moderately decreased diffusion capacity. Chronic pain syndrome Chronic renal failure, stage 3 (moderate) Combined systolic and diastolic congestive heart failure Coronary artery disease Hyperlipidemia Hypertension Ischemic cardiomyopathy Surgical History Surgical History History of appendectomy History of cataract extraction with lens replacement History of cholecystectomy History of heart artery stent patient had anterior lateral STEMI december 2016 with 2 stents to the mid LAD History of laparoscopic adjustable gastric banding History of left hip replacement (10/2017) History of lithotripsy History of total bilateral knee replacement (2002) with subsequent ORIF of periprosthetic fracture of the left knee in December 2012 Family History Family History Mother Cerebrovascular accident Thyroid disease Sibling Thyroid disease Social History Social History Social History: Surrogate decision maker: Dania John (daughter). Code status: Full code. Smoking status: Never smoker Second hand tobacco smoke exposure: No Alcohol intake: never Substance use: never Substance use type: does not use Do You Feel Safe in your Home?: Yes Lack of Transportation: No Lack of Food: Never True Current Housing: I Have Housing Concerned About Future Housing: No Difficulty Paying Gas/Electric Bills: No Difficulty Paying for Meds: No Currently Unemployed: No Education: Trade/Vocational Certificate Difficulty w/ Childcare or Family Care: No Additional living arrangements comments: as of 2018. Has 5 children. Lives in her own home in [place]. 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 Spiritual care concerns: No Meds Home Medications and Allergies Home Medications Medication Instructions Recorded Confirmed Type acetaminophen 650 mg 650 mg PO Q8H PRN pain #10 tabs 05/25/20 07/11/24 Rx tablet,extended release (Tylenol Arthritis Pain) aspirin 81 mg tablet 81 mg PO BID 11/05/20 07/11/24 History empagliflozin 10 mg tablet 10 mg PO DAILY #30 tabs 12/30/21 07/11/24 Rx (Jardiance) sacubitril 24 mg-valsartan 26 mg 1 tablet PO BID 30 days #60 tabs 01/03/23 07/11/24 Rx tablet bumetanide 2 mg tablet 2 mg PO BID 08/20/23 07/11/24 History oxybutynin chloride 5 mg 5 mg PO DAILY #90 tabs 08/30/23 07/11/24 Rx tablet,extended release 24 hr lidocaine 5 % topical patch 1 patch topical DAILY #30 ea 01/16/24 07/11/24 Rx Adults Multivitamin 1 tablet PO DAILY 07/11/24 07/11/24 History atorvastatin 40 mg tablet 40 mg PO DAILY 07/11/24 07/11/24 History chlorthalidone 25 mg tablet 25 mg PO DAILY 07/11/24 07/11/24 History famotidine 20 mg tablet 20 mg PO DAILY 07/11/24 07/11/24 History nitroglycerin 0.4 mg sublingual 0.4 mg sublingual Q5MIN PRN Chest 07/11/24 07/11/24 History tablet Pain Allergies Allergy/AdvReac Type Severity Reaction Status Date / Time Penicillins Allergy Unknown Rash Verified 07/11/24 08:15 Vital Signs Vital Signs - 24 hr 07/12/24 13:38 07/12/24 15:57 07/12/24 20:00 Temperature 98.1 F Pulse Rate 67 Respiratory Rate 18 Blood Pressure 123/69 Pulse Oximetry 95 96 Oxygen Delivery Room Air Room Air 07/12/24 22:03 07/13/24 05:54 07/13/24 07:22 Temperature 97.3 F L 97.1 F L Pulse Rate 71 64 Respiratory Rate 18 16 Blood Pressure 139/53 L 119/65 Pulse Oximetry 97 95 96 Oxygen Delivery Room Air Exam Const: General: cooperative and obese; No acute distress, lethargic or patient obtunded Nutritional Appearance: overweight Orientation/consciousness: patient oriented x3 HENMT: Head: normal to inspection Eyes: General: appearance normal, both eyes and all related structures Resp: Effort & Inspection: normal respiratory effort and no cough GI: Inspection: normal to inspection Skin: General skin exam: normal color, no rashes or lesions noted and elasticity normal Extrem: General: normal to inspection and full ROM Psych: Appearance: grossly normal Results Labs 07/12/24 05:59 07/13/24 05:10 Labs: BMP 07/13/24 05:10 Sodium 138 Potassium 3.4 Chloride 100 Carbon Dioxide 31 H BUN 28 H D Creatinine 1.00 Glucose 92 Calcium 10.0 Imaging My impression: Renal ultrasound unremarkable
[2024-07-13 14:00] VITALS: BP 120/68; PULSE 74; RESP 16; TEMP 36.3; O2SAT 98
--- NOTE | 2024-07-13 15:28 | P.CONONC_ITS ---
HPI - Date of Consult Date/Time: 07/13/24 15:28 Requesting Physician: Juan Beckwith MD Primary Care Provider: Shahana Bryant PA-C - Consult Narrative Reason for consult: Widespread bone lesions Narrative: Alyssa Hanson is a 78 year old female who presented to ER on 07/11/24 with one week hx of severe pain in left scapula and cervical spine. Patient reported new pain in the neck and lower part of the base of the head and diffusely throughout her left side. No radiation of pain and pain worse with minimal movement to the point that she was not able to ambulate. Patient denied recent falls. She also denies fever, chills, sweats, weight loss, cold and flu symptoms, focal weakness, paresthesias, chest pain, pleuritic pain, palpitations, abdominal pain, nausea, vomiting, diarrhea, dysuria, calf pain, syncope, and near syncope. She is also found to have urinary tract infection during this admission and has been getting treatment with IV ceftriaxone. Patient reports that she has been feeling a right breast lump for at least past 6 months and has been growing in size. She denies any pain, skin changes, nipple discharge in the right breast. Review of Systems - Constitutional Reports fatigue, Reports lack of energy, Reports malaise, Reports weakness, Reports weight loss - Eyes Comments: Normal - ENT Comments: Normal - Cardiovascular Comments: Denies chest pain or shortness of breath. - Respiratory Comments: No cough or phlegm production - Gastrointestinal Comments: No nausea vomiting diarrhea - Integumentary/Breasts Skin/Breast: Reports breast lump, Reports change in breast shape - Neurologic Reports system reviewed and no additional complaints, except as documented PMFSH Medical History: Medical History (Last Reviewed 07/13/24 @ 12:12 by Ryan Keene MD) Chronic obstructive pulmonary disease PFTs in July 2019 demonstrated moderate obstructive lung disease without bronchodilator response and moderately decreased diffusion capacity. Chronic pain syndrome Chronic renal failure, stage 3 (moderate) Combined systolic and diastolic congestive heart failure Coronary artery disease Hyperlipidemia Hypertension Ischemic cardiomyopathy Surgical History: Surgical History (Last Reviewed 07/13/24 @ 12:12 by Ryan Keene MD) History of appendectomy History of cataract extraction with lens replacement History of cholecystectomy History of heart artery stent patient had anterior lateral STEMI december 2016 with 2 stents to the mid LAD History of laparoscopic adjustable gastric banding History of left hip replacement Onset Date: 10/2017 History of lithotripsy History of total bilateral knee replacement Onset Date: 2002 with subsequent ORIF of periprosthetic fracture of the left knee in December 2012 Family History: Family History (Last Reviewed 07/13/24 @ 12:13 by Ryan Keene MD) Mother Cerebrovascular accident Thyroid disease Sibling Thyroid disease - Social History Social History: Social History (Last Reviewed 07/13/24 @ 12:13 by Ryan Keene MD) Alcohol Use: Alcohol intake: never Substance Use: Substance use: never Substance use type: does not use Others: Spiritual care concerns: No Smoking Status: Smoking status: Never smoker Second hand tobacco smoke exposure: No Social Determinants of Health: Do You Feel Safe in your Home?: Yes Has the Lack of Transportation Kept You From Medical Appointments or From Getting Medications?: No Within the Past 12 Months, Were You Worried Whether Your Food Would Run Out Before You Got Money to Buy More?: Never True What is Your Housing Situation Today?: I Have Housing Are You Worried That in the Next 2 Months, You May Not Have Your Own Housing to Live In?: No Do You Have Trouble Paying Your Heating Or Electricity Bill?: No Do You Have Trouble Paying For Medicines?: No Are You Currently Unemployed and Looking for Work?: No Highest Level of Education Completed: Trade/Vocational Certific Do You Have Trouble With Childcare or the Care of a Family Member?: No Exam - Vital Signs Vital Signs - 24 hr 07/12/24 15:57 07/12/24 20:00 07/12/24 22:03 Temperature 36.3 C L Pulse Rate 71 Respiratory Rate 18 Blood Pressure 139/53 L Pulse Oximetry 96 97 Oxygen Delivery Room Air Room Air 07/13/24 05:54 07/13/24 07:22 07/13/24 09:20 Temperature 36.2 C L Pulse Rate 64 Respiratory Rate 16 Blood Pressure 119/65 Pulse Oximetry 95 96 96 Oxygen Delivery Room Air Room Air 07/13/24 14:00 Temperature 36.3 C L Pulse Rate 74 Respiratory Rate 16 Blood Pressure 120/68 Pulse Oximetry 98 Oxygen Delivery - Exam HEENT: EOMI, PERRLA Neck: supple Lungs: clear to auscultation Heart: no murmurs, gallops, or rubs Abdomen: abdomen soft, non-distended, normal bowel sounds Integumentary: no abnormalities Neurological: normal speech, sensation intact Other physical findings: Her right breast exam-findings of large right breast mass in her mid outer section 8 to 9 o'clock position - Lab Results Laboratory Last Values WBC 7.9 K/mm3 (4.5-10.0) 07/12/24 05:59 RBC 3.95 M/mm3 (4.2-5.4) L 07/12/24 05:59 Hgb 12.0 g/dL (12.0-15.0) 07/12/24 05:59 Hct 38.5 % (37.0-47.0) 07/12/24 05:59 MCV 97.5 fl (80-100) D 07/12/24 05:59 MCH 30.4 pg (26-34) 07/12/24 05:59 MCHC 31.2 g/dl (32-36) L 07/12/24 05:59 RDW 15.1 % (11.5-14.5) H 07/12/24 05:59 Plt Count 219 k/mm3 (150-375) 07/12/24 05:59 MPV 9.8 fl (7.4-10.4) 07/12/24 05:59 Immature Gran % (Auto) 0.6 % (0-0.5) H 07/11/24 09:38 Neut % (Auto) 73.7 % (45.5-73.1) H 07/11/24 09:38 Lymph % (Auto) 12.1 % (18.3-44.2) L 07/11/24 09:38 Frontier % (Auto) 8.2 % (2.6-8.5) 07/11/24 09:38 Eos % (Auto) 4.6 % (0-4.4) H 07/11/24 09:38 Baso % (Auto) 0.8 % (0.2-1.2) 07/11/24 09:38 Lymph # (Auto) 1.06 K/mm3 (0.9-3.2) 07/11/24 09:38 Frontier # (Auto) 0.7 K/mm3 (0.1-0.6) H 07/11/24 09:38 Eos # (Auto) 0.4 K/mm3 (0-0.3) H 07/11/24 09:38 Baso # (Auto) 0.1 K/mm3 (0.0-0.1) 07/11/24 09:38 Abs Immat Gran (auto) 0.05 K/mm3 (0.00-0.031) H 07/11/24 09:38 Absolute Neuts (auto) 6.5 K/mm3 (1.3-6.7) 07/11/24 09:38 Absolute Nucleated RBC 0.000 K/mm3 (0.0-0.012) 07/11/24 09:38 Nucleated RBC % 0.0 % (0.0-0.2) 07/11/24 09:38 PT 13.6 Seconds (11.1-14.7) 07/11/24 09:37 INR 1.0 07/11/24 09:37 APTT 27.9 Seconds (22.3-36.8) 07/11/24 09:37 Sodium 138 mmol/L (137-145) 07/13/24 05:10 Potassium 3.4 mmol/L (3.4-5.0) 07/13/24 05:10 Chloride 100 mmol/L (98-107) 07/13/24 05:10 Carbon Dioxide 31 mmol/L (22-30) H 07/13/24 05:10 Anion Gap 7 mmol/L (4-12) 07/13/24 05:10 BUN 28 mg/dL (7-17) H D 07/13/24 05:10 Creatinine 1.00 mg/dL (0.7-1.0) 07/13/24 05:10 Estim Creat Clear Calc 53 ml/min 07/13/24 05:10 Estimated GFR 53 (59-) L 07/13/24 05:10 Glucose 92 mg/dL (65-110) 07/13/24 05:10 Calcium 10.0 mg/dL (8.4-10.2) 07/13/24 05:10 Phosphorus 4.0 mg/dL (2.5-4.5) 07/12/24 05:59 Magnesium 2.5 mg/dL (1.6-2.3) H 07/12/24 05:59 Total Bilirubin 0.7 mg/dL (0.2-1.3) 07/12/24 05:59 Direct Bilirubin 0.0 mg/dL (0-0.3) 07/12/24 05:59 AST 50 U/L (14-36) H 07/12/24 05:59 ALT 9 U/L (6-35) 07/12/24 05:59 Alkaline Phosphatase 111 U/L (38-126) 07/12/24 05:59 Total Creatine Kinase 47 U/L (30-135) 07/11/24 11:52 Troponin I 0.017 ng/mL (0.000-0.034) 07/11/24 11:53 Total Protein 7.0 g/dL (6.3-8.2) 07/12/24 05:59 Albumin 3.9 g/dL (3.5-5.1) 07/12/24 05:59 Lipase 139 U/L (23-300) 07/11/24 09:38 Procalcitonin 0.1 ng/mL 07/11/24 09:38 TSH (Reflex) 2.900 uIU/mL (0.465-4.68) 07/12/24 05:59 Urine Color Dark yellow (Yellow) 07/11/24 10:24 Urine Appearance Turbid (Clear) H 07/11/24 10:24 Urine pH 5.0 (5.0-9.0) 07/11/24 10:24 Ur Specific [place] 1.021 (1.001-1.035) 07/11/24 10:24 Urine Protein 1+ mg/dL (Negative) H 07/11/24 10:24 Urine Glucose (UA) Trace mg/dL (Negative) H 07/11/24 10:24 Urine Ketones Negative mg/dL (Negative) 07/11/24 10:24 Ur Blood (Man) 3+ (Negative) H 07/11/24 10:24 Urine Nitrate Negative (Negative) 07/11/24 10:24 Urine Bilirubin Negative (Negative) 07/11/24 10:24 Urine Urobilinogen 1.0 mg/dL (<2.0) 07/11/24 10:24 Add Ur Microanalysis Reviewed 07/11/24 10:24 Leukocyte Esterase Rfl 3+ GAVIN/UL (Negative) H 07/11/24 10:24 Urine RBC 6-10 /hpf (0-2) H 07/11/24 10:24 Urine WBC >100 /hpf (0-3) H 07/11/24 10:24 Ur Squamous Epith Cells Many /hpf (Few) H 07/11/24 10:24 Urine Bacteria 4+ /hpf H 07/11/24 10:24 Urine Casts >20 07/11/24 10:24 U Random Total Protein 12 mg/dL 07/11/24 14:35 Ur Random Sodium 93 meq/L 07/11/24 14:35 Ur Random Urea 888 MG/DL 07/11/24 14:35 Urine Creatinine 75.6 mg/dL 07/11/24 14:35 Protein/Creat Ratio 2 0.16 mg/mg (0-0.20) 07/11/24 14:35 Influenza A (RT-PCR) Negative (Negative) 07/11/24 09:44 Influenza B (RT-PCR) Negative (Negative) 07/11/24 09:44 RSV (RT-PCR) Negative (Negative) 07/11/24 09:44 SARS-CoV-2 RNA (RT-PCR) Negative (Negative) 07/11/24 09:44 Meds Home Medications Medication Instructions Recorded Confirmed Type acetaminophen 650 mg 650 mg PO Q8H PRN pain #10 tabs 05/25/20 07/11/24 Rx tablet,extended release (Tylenol Arthritis Pain) aspirin 81 mg tablet 81 mg PO BID 11/05/20 07/11/24 History empagliflozin 10 mg tablet 10 mg PO DAILY #30 tabs 12/30/21 07/11/24 Rx (Jardiance) sacubitril 24 mg-valsartan 26 mg 1 tablet PO BID 30 days #60 tabs 01/03/23 07/11/24 Rx tablet bumetanide 2 mg tablet 2 mg PO BID 08/20/23 07/11/24 History oxybutynin chloride 5 mg 5 mg PO DAILY #90 tabs 08/30/23 07/11/24 Rx tablet,extended release 24 hr lidocaine 5 % topical patch 1 patch topical DAILY #30 ea 01/16/24 07/11/24 Rx Adults Multivitamin 1 tablet PO DAILY 07/11/24 07/11/24 History atorvastatin 40 mg tablet 40 mg PO DAILY 07/11/24 07/11/24 History chlorthalidone 25 mg tablet 25 mg PO DAILY 07/11/24 07/11/24 History famotidine 20 mg tablet 20 mg PO DAILY 07/11/24 07/11/24 History nitroglycerin 0.4 mg sublingual 0.4 mg sublingual Q5MIN PRN Chest 07/11/24 07/11/24 History tablet Pain Allergies Allergy/AdvReac Type Severity Reaction Status Date / Time Penicillins Allergy Unknown Rash Verified 07/11/24 08:15 Results - Labs CBC & Chem 7: 07/12/24 05:59 07/13/24 05:10 Labs: BMP 07/13/24 05:10 Sodium 138 Potassium 3.4 Chloride 100 Carbon Dioxide 31 H BUN 28 H D Creatinine 1.00 Glucose 92 Calcium 10.0 Assessment and Plan (1) Bone lesion Code(s): M89.9 - Disorder of bone, unspecified Status: Acute Assessment and Plan: This is a 78-year-old female with a finding of lytic lesions in C2, C3, C4 region in the CT spine done 07/12/2024. A CT scan of abdomen and pelvis done 07/11/2024 shows mixed lytic and sclerotic bone lesion white spread in nature. There was chronic T7 and T12 compression fracture and there were healing rib pathologic fractures. Patient has a significant right breast mass which could be the primary for this suspected metastatic disease. I recommend performing targeted ultrasound of the right breast with a biopsy by radiologist while patient is inpatient. I also recommend getting a CT scan of the chest to evaluate the lungs as well as left scapular region. Post biopsy patient should follow-up with Dr. Johnson to go over the results and to formulate further management plan.
[2024-07-13 21:48] VITALS: BP 114/42; PULSE 74; RESP 16; TEMP 36.6; O2SAT 95
[2024-07-14] MEDS: MORPHINE SULFATE (*CRX) 2 MG/ML INJ IV PUSH ×4 (01:17→20:58)
[2024-07-14] MEDS: HYDROcodone/acetaminophen (*CRX) 5-325 MG TABLET 1 TAB PO (05:46)
[2024-07-14 06:00] VITALS: BP 129/46; PULSE 66; RESP 20; TEMP 36.1; O2SAT 98
--- NOTE | 2024-07-14 07:57 | P.PNIM_ITS ---
Progress Note: A&P Assessment and Plan (1) Acute kidney injury: Code(s): N17.9 - Acute kidney failure, unspecified Status: Acute Assessment and Plan: A contrast-enhanced CT of the chest, abdomen, and pelvis would be helpful however is unable to be performed at this time as she also has an acute kidney injury. Serum and urine protein electrophoresis and kappa lambda ratio are pending to evaluate for possible multiple myeloma. A renal ultrasound has been ordered. She may be over diuresed as she has several electrolyte abnormalities including a sodium of 135, potassium 3.1, and chloride of 95 (she is on bu metanide 2 mg b.i.d. and chlorthalidone 25 mg daily). Continue judicious IV fluid rehydration with close monitoring of volume status with daily weights and strict I/Os. Hold diuretics but continue sacubitril-valsartan for now as she is on a low dose. nephrology following (2) Bone lesion: Code(s): M89.9 - Disorder of bone, unspecified Status: Acute Assessment and Plan: will order ct chest/abd/pelvis- tomorrow- 48 h since kidney normalized 07/14- CT chest, abd/pelvis ordered (3) Mass of right breast: Code(s): N63.10 - Unspecified lump in the right breast, unspecified quadrant Status: Acute Assessment and Plan: Right breast mass is concerning for malignancy which could perhaps be biopsied during her stay or she could be referred to breast specialist Dr. Tara Weldon with [facility]; this could explain the bony lesions. will order ultrasound biopsy-unable to do it for some reason while in the hospital -oncology recommends biopsy while in the hospital- will order now- can be done here or if unable- needs to be schedule as outpt- scheduled per CLEOPATRA Romero (4) Electrolyte abnormality: Code(s): E87.8 - Other disorders of electrolyte and fluid balance, not elsewhere classified Status: Acute (5) Bacteriuria with pyuria: Code(s): R82.71 - Bacteriuria; R82.81 - Pyuria Status: Acute Assessment and Plan: repeat UA-ordered (6) Chronic pain syndrome: Code(s): G89.4 - Chronic pain syndrome Status: Acute Assessment and Plan: pain management need to find a good oral option she can go home on (7) Coronary artery disease: Code(s): I25.10 - Atherosclerotic heart disease of [place] coronary artery without angina pectoris Status: Acute (8) Chronic obstructive pulmonary disease: Code(s): J44.9 - Chronic obstructive pulmonary disease, unspecified Status: Acute (9) Combined systolic and diastolic congestive heart failure: Code(s): I50.40 - Unspecified combined systolic (congestive) and diastolic (congestive) heart failure Status: Acute (10) Hypertension: Code(s): I10 - Essential (primary) hypertension Status: Acute Plan The patient presented to the emergency department for evaluation of pain all over as detailed in HPI. Labs, imaging, EKG, and all reports were personally reviewed. Her chronic pain has been worsening and spreading recently and imaging shows widespread mixed lytic and sclerotic lesions of the bone consistent with metastatic disease versus multiple myeloma. She has pyuria with bacteriuria and has been started on ceftriaxone pending urine culture -ua is contaminated- will reorder clean catch or straight cath Analgesics are available as needed for pain. No recent or acute issues with regards to her coronary artery disease or chronic obstructive pulmonary disease. Time Spent With Patient Time with patient: Greater than 35 minutes Subjective Date/time seen: 07/14/24 07:57 Interval history: Narrative retrieved from H/P: This is a pleasant 78-year-old female with history of chronic back pain, ischemic cardiomyopathy, combined systolic and diastolic congestive heart failure, hypertension, chronic kidney disease, and chronic obstructive pulmonary disease who presented to the emergency department via private vehicle for evaluation of pain all over. The patient provides the following history. She endorses chronic left lower back pain for which she has previously seen pain management. For the last week or so she has noticed that the pain is more severe and seems to be occurring and places that she typically does not have pain. For instance in the neck and lower part of the base of the head and diffusely throughout her left side. The pains are sharp and do not necessarily radiate. They are worse with minimal movement to the point were she was not able to really get herself out of her chair this morning. She is taking acetaminophen and on rare occasion ibuprofen for the pain without much benefit. She also reports intermittent, painless hematuria and feelings as though she is not able to completely empty her bladder. She denies recent falls. She also denies fever, chills, sweats, weight loss, cold and flu symptoms, focal weakness, paresthesias, chest pain, pleuritic pain, palpitations, abdominal pain, nausea, vomiting, diarrhea, dysuria, calf pain, syncope, and near syncope. She has no known history of malignancy. On exam she was found to have a right breast mass and she admits that she has never had a mammogram. She has not noticed any nipple discharge. In the ED: She was afebrile on arrival with stable vital signs. Labs were significant for a sodium of 135, potassium 3.1, chloride 95, carbon dioxide 33, BUN 58, creatinine 1.90, AST 65, ALT 134. Urinalysis was positive for 1+ protein, trace glucose, 3+ blood, 3+ leukocyte esterase, 6 to 10 RBC, greater than 100 WBC, 4+ bacteria, many squamous cells, and greater than 20 casts per high-power field. She tested negative for influenza, RSV, and COVID. Chest x-ray showed mild atelectasis in left mid and lower lung zones and cardiomegaly. CT of the abdomen and pelvis showed widespread bone lesions consistent with metastatic disease versus multiple myeloma and healing bilateral pathologic rib fractures. She was given morphine for pain and ceftriaxone 1 g for a possible urinary tract infection and she is being admitted in this setting for further workup. 07/12- pt is seen and examined. she is up in the chair, receiving IV fluids, c/o back pain 07/13- labs better-cr is back to normal. she is depressed but doesnot want to start any medication. Encouraged to f/u with pcp for counselling/support group referral. 07/14- diagnostic mammogram is scheduled as an out as unable to do it now while in the hospital. CT chest, abd, pelvis today Review of Systems Review of Systems: 12 systems were reviewed and are negativ e except for as per HPI. Exam 2 Narrative: General: Chronically ill appearing female in the semi-Cage position in bed in no acute distress. Weight: 126.5 kg. BMI: 46.4. HEENT: PERRL, EOMI. Sclera anicteric. Tacky mucous membranes. Oropharynx is crowded. Neck: Supple. No lymphadenopathy. Mild tenderness to palpation over the cervical paraspinous muscles. No midline vertebral tenderness. Respiratory: Respirations are nonlabored. Lung sounds are a bit diminished at the bases but are otherwise clear to auscultation. Cardiovascular: Regular rate and rhythm with S1-S2. Soft murmur at the left sternal border. Chest: Firm, non mobile, nontender right outer quadrant breast mass with mild inversion of the nipple. Gastrointestinal: Abdomen is soft, obese, nontender, and nondistended with positive bowel sounds. Skin: Warm and dry. Chronic skin changes of the lower legs bilaterally Extremities: No cyanosis or clubbing. To 3+ pedal edema softening towards the knees. No palpable knots or cords. Neurological: Alert and oriented. Cranial nerves 2-12 are grossly intact. Generalized weakness without gross focal findings. Psychiatric: Pleasant and cooperative with appropriate mood and affect. Objective Data Vital Signs Vital Signs: Vital Signs - 24 hr 07/13/24 09:20 07/13/24 14:00 07/13/24 20:00 Temperature 97.3 F L Pulse Rate 74 Respiratory Rate 16 Blood Pressure 120/68 Pulse Oximetry 96 98 Oxygen Delivery Room Air Room Air 07/13/24 21:48 Temperature 97.8 F Pulse Rate 74 Respiratory Rate 16 Blood Pressure 114/42 L Pulse Oximetry 95 Oxygen Delivery Intake/Output Intake/Output: Intake & Output 07/11/24 07/12/24 07/13/24 07/14/24 23:59 23:59 23:59 23:59 Intake Total 1091.3 1120 1660 Output Total 300 1175 1910 450 Balance 791.3 -55 -250 -450 Meds/Results Medications: Active Medications Generic Name Dose Route Start Last Admin Trade Name Freq PRN Reason Stop Dose Admin Acetaminophen 650 mg 07/11/24 11:11 Acetaminophen 325 Mg Tablet PO Q4H PRN Mild Pain (1-3) or Fever Hydrocodone Bitart/Acetaminophen 1 tab 07/11/24 12:46 07/14/24 05:46 Hydrocodone/Acetaminophen (*Crx) 5-325 Mg Tablet PO 1 tab Q6H PRN Administration Pain Rated 4-6 Aspirin 81 mg 07/11/24 17:00 07/13/24 17:33 Aspirin 81 Mg Chewable Tablet PO 08/10/24 16:59 81 mg BID UBALDO Administration Atorvastatin Calcium 40 mg 07/12/24 09:00 07/13/24 09:20 Atorvastatin 40 Mg Tablet PO 40 mg DAILY UBALDO Administration Empagliflozin 10 mg 07/12/24 09:00 07/13/24 09:21 Empagliflozin 10 Mg Tablet PO 10 mg DAILY UBALDO Administration Famotidine 20 mg 07/12/24 09:00 07/13/24 09:20 Famotidine 20 Mg Tablet PO 20 mg DAILY UBALDO Administration Ceftriaxone Sodium 1 gm in 50 mls @ 100 mls/hr 07/12/24 09:00 07/13/24 09:21 Rocephin 1 Gm/Ns 50 Ml IVPB 100 mls/hr QAM UBALDO Administration Lidocaine 1 patch 07/12/24 09:00 07/13/24 09:21 Lidocaine 5% Patch TOPICAL 1 patch DAILY UBALDO Administration Morphine Sulfate 2 mg 07/11/24 11:11 07/14/24 01:17 Morphine Sulfate (*Crx) 2 Mg/Ml Inj IV PUSH 2 mg Q2H PRN Administration Pain Rated 7-10 Multivitamins Therapeutic 1 tablet 07/12/24 09:00 07/13/24 09:21 Multivitamins Therapeutic Tab (*Bkc) PO 08/11/24 08:59 1 tablet DAILY UBALDO Administration Oxybutynin Chloride 5 mg 07/12/24 09:00 07/13/24 09:21 Oxybutynin Chloride Xl 5 Mg Tab.Er.24 PO 5 mg DAILY UBALDO Administration Sacubitril/Valsartan 1 tab 07/11/24 17:00 07/13/24 17:33 Sacubitril/Valsartan 24-26 Mg Tablet PO 1 tab BID UBALDO Administration Radiology Results: ITS Impressions Abdomen/Pelvis CT 07/11/24 10:52 IMPRESSION: 1. Ventral hernias containing nonobstructed bowel. 2. Widespread bone lesions, consistent with metastatic disease versus multiple myeloma. Healing bilateral pathologic rib fractures. Chest X-Ray 07/11/24 11:01 IMPRESSION: 1. Mild atelectasis in left mid and lower lung zones. 2. Cardiomegaly. Renal Ultrasound 07/11/24 17:24 IMPRESSION: Renal cortical thinning, without hydronephrosis. Head CT 07/12/24 07:35 Impression: No intracranial abnormality. Possible subtle lytic left frontal bone lesion. Cervical Spine CT 07/12/24 07:40 Impression: No acute fracture. Lytic lesions in the spine, as above, most notably at the C2, C3, C4 vertebral bodies. Correlate for metastatic disease or multiple myeloma. Moderate to advanced degenerative spondylosis, as above. Labs Labs: Laboratory Results - last 24 hr 07/12/24 14:35 Ur 24 Hour Volume Cancelled U Protein 24 Hr Presump Cancelled U [place] Chn Compa 24hr Cancelled U Tot [place] Light 24h Cancelled U Lambda Chn Compa 24h Cancelled U Tot Lambda Light 24h Cancelled Ur ANTHONY Interpret 24 hr Cancelled Free [place] & Lambda LC Cancelled Quality VTE Prophylaxis VTE prophylaxis: mechanical ordered
[2024-07-14] MEDS: EMPAGLIFLOZIN 10 MG TABLET PO (08:22)
[2024-07-14] MEDS: FAMOTIDINE 20 MG TABLET PO (08:22)
[2024-07-14] MEDS: ATORVASTATIN 40 MG TABLET PO (08:22)
[2024-07-14] MEDS: LIDOCAINE 5% PATCH 1 PATCH TOPICAL (08:23)
[2024-07-14] MEDS: MULTIVITAMINS THERAPEUTIC TAB (*BKC) 1 TABLET PO (08:23)
[2024-07-14] MEDS: ASPIRIN 81 MG CHEWABLE TABLET PO ×2 (08:23→18:16)
[2024-07-14] MEDS: oxyBUTYnin CHLORIDE XL 5 MG TAB.ER.24 PO (08:23)
[2024-07-14] MEDS: SACUBITRIL/VALSARTAN 24-26 MG TABLET 1 TAB PO ×2 (08:23→18:19)
[2024-07-14 08:33] LABS: Anion Gap 4 mmol/L (4-12); Blood Urea Nitrogen 24 mg/dL (7-17); Calcium 10.1 mg/dL (8.4-10.2); Carbon Dioxide 33 mmol/L (22-30); Chloride 100 mmol/L (98-107); Estimated CRCL calculation 53 ml/min; Estimated Glomerular Filt Rate 53; Glucose 91 mg/dL (65-110); Potassium 3.7 mmol/L (3.4-5.0); Sodium 137 mmol/L (137-145)
--- NOTE | 2024-07-14 12:20 | PM.PNNEP ---
Progress Note: A&P Assessment and Plan (1) Acute kidney injury: Code(s): N17.9 - Acute kidney failure, unspecified Status: Acute Assessment and Plan: Patient has acute kidney injury. Her baseline creatinine is 0.8 but the admission creatinine was 1.9. Urine electrolytes are pending Ultrasound showed bilateral cortical thickening Most likely the patient was dehydrated. off IV fluids and patient is eating. creatinine stable at 1 point (2) Acute UTI: Code(s): N39.0 - Urinary tract infection, site not specified Status: Acute Assessment and Plan: The patient has pyuria. Urine culture negative On ceftriaxone (3) Hypertension: Code(s): I10 - Essential (primary) hypertension Status: Acute Assessment and Plan: Systolic ranging 114-139. Will follow this along . No changes in medications needed at this point (4) Combined systolic and diastolic congestive heart failure: Code(s): I50.40 - Unspecified combined systolic (congestive) and diastolic (congestive) heart failure Status: Acute Assessment and Plan: Volume status seems pretty good. She does have some swelling. She sees a cardiac/vascular sonographer (5) Bone lesion: Code(s): M89.9 - Disorder of bone, unspecified Status: Acute Assessment and Plan: Etiology of these are unclear. Will check an SPEP UPEP and kappa lambda ratio. She probably needs a urology consult as well. (6) Chronic obstructive pulmonary disease: Code(s): J44.9 - Chronic obstructive pulmonary disease, unspecified Status: Acute Assessment and Plan: She sees Pulmonary as an outpatient Subjective Date/time seen: 07/14/24 12:20 Interval history: Patient is alert. Still in pain She is going for a breast biopsy today. Exam Narrative: WDWN in NAD skin no rash or subcu nodules head ncat lungs clear to auscultation cor reg no rub or gallop abd BS+ nontender and soft ext no edema or cyanosis. Objective Data Vital Signs Vital Signs: Vital Signs - 24 hr 07/13/24 14:00 07/13/24 20:00 07/13/24 21:48 Temperature 97.3 F L 97.8 F Pulse Rate 74 74 Respiratory Rate 16 16 Blood Pressure 120/68 114/42 L Pulse Oximetry 98 95 Oxygen Delivery Room Air 07/14/24 06:00 Temperature 97.0 F L Pulse Rate 66 Respiratory Rate 20 Blood Pressure 129/46 L Pulse Oximetry 98 Oxygen Delivery Intake/Output Intake/Output: Intake & Output 07/11/24 07/12/24 07/13/24 07/14/24 23:59 23:59 23:59 23:59 Intake Total 1091.3 1120 1710 940 Output Total 300 1175 1910 1300 Balance 791.3 -55 -200 -360 Meds/Results Medications: Active Medications Generic Name Dose Route Start Last Admin Trade Name Freq PRN Reason Stop Dose Admin Acetaminophen 650 mg 07/11/24 11:11 Acetaminophen 325 Mg Tablet PO Q4H PRN Mild Pain (1-3) or Fever Hydrocodone Bitart/Acetaminophen 1 tab 07/11/24 12:46 07/14/24 05:46 Hydrocodone/Acetaminophen (*Crx) 5-325 Mg Tablet PO 1 tab Q6H PRN Administration Pain Rated 4-6 Aspirin 81 mg 07/11/24 17:00 07/14/24 08:23 Aspirin 81 Mg Chewable Tablet PO 08/10/24 16:59 81 mg BID UBALDO Administration Atorvastatin Calcium 40 mg 07/12/24 09:00 07/14/24 08:22 Atorvastatin 40 Mg Tablet PO 40 mg DAILY UBALDO Administration Empagliflozin 10 mg 07/12/24 09:00 07/14/24 08:22 Empagliflozin 10 Mg Tablet PO 10 mg DAILY UBALDO Administration Famotidine 20 mg 07/12/24 09:00 07/14/24 08:22 Famotidine 20 Mg Tablet PO 20 mg DAILY UBALDO Administration Ceftriaxone Sodium 1 gm in 50 mls @ 100 mls/hr 07/12/24 09:00 07/14/24 08:22 Rocephin 1 Gm/Ns 50 Ml IVPB 100 mls/hr QAM UABLDO Administration Lidocaine 1 patch 07/12/24 09:00 07/14/24 08:23 Lidocaine 5% Patch TOPICAL 1 patch DAILY UBALDO Administration Morphine Sulfate 2 mg 07/11/24 11:11 07/14/24 08:22 Morphine Sulfate (*Crx) 2 Mg/Ml Inj IV PUSH 2 mg Q2H PRN Administration Pain Rated 7-10 Multivitamins Therapeutic 1 tablet 07/12/24 09:00 07/14/24 08:23 Multivitamins Therapeutic Tab (*Bkc) PO 08/11/24 08:59 1 tablet DAILY UBALDO Administration Oxybutynin Chloride 5 mg 07/12/24 09:00 07/14/24 08:23 Oxybutynin Chloride Xl 5 Mg Tab.Er.24 PO 5 mg DAILY UBALDO Administration Sacubitril/Valsartan 1 tab 07/11/24 17:00 07/14/24 08:23 Sacubitril/Valsartan 24-26 Mg Tablet PO 1 tab BID UBALDO Administration Radiology Results: ITS Impressions Abdomen/Pelvis CT 07/11/24 10:52 IMPRESSION: 1. Ventral hernias containing nonobstructed bowel. 2. Widespread bone lesions, consistent with metastatic disease versus multiple myeloma. Healing bilateral pathologic rib fractures. Chest X-Ray 07/11/24 11:01 IMPRESSION: 1. Mild atelectasis in left mid and lower lung zones. 2. Cardiomegaly. Renal Ultrasound 07/11/24 17:24 IMPRESSION: Renal cortical thinning, without hydronephrosis. Head CT 07/12/24 07:35 Impression: No intracranial abnormality. Possible subtle lytic left frontal bone lesion. Cervical Spine CT 07/12/24 07:40 Impression: No acute fracture. Lytic lesions in the spine, as above, most notably at the C2, C3, C4 vertebral bodies. Correlate for metastatic disease or multiple myeloma. Moderate to advanced degenerative spondylosis, as above. Labs Labs: Laboratory Results - last 24 hr 07/12/24 07/14/24 14:35 08:16 Sodium 137 Potassium 3.7 Chloride 100 Carbon Dioxide 33 H Anion Gap 4 BUN 24 H Creatinine 1.00 Estim Creat Clear Calc 53 Estimated GFR 53 L Glucose 91 Calcium 10.1 Ur 24 Hour Volume Cancelled U Protein 24 Hr Presump Cancelled U [place] Chn Compa 24hr Cancelled U Tot [place] Light 24h Cancelled U Lambda Chn Compa 24h Cancelled U Tot [place] Light 24h Cancelled Ur ANTHONY Interpret 24 hr Cancelled Free [place] & Lambda LC Cancelled
[2024-07-14 14:00] VITALS: BP 130/60; PULSE 68; RESP 20; TEMP 36.1; O2SAT 98
[2024-07-14 15:18] LABS: Lambda Light Chain 33.1 mg/L (5.7-26.3)
[2024-07-14 20:02] VITALS: BP 146/56; PULSE 77; RESP 18; TEMP 36.6; O2SAT 100
[2024-07-14 21:11] LABS: Add Urine Microscopic? YES; Appearance Urine Clear (Clear); Bacteria Urine None Seen /hpf; Bilirubin Urine Negative (Negative); Blood Urine 2+ (Negative); Color Urine Yellow (Yellow); Glucose Urine UA 3+ mg/dL (Negative); Ketones Urine Negative (Negative); Leukocyte Esterase Ur 1+ LEU/UL (Negative); Nitrate Urine Negative (Negative); Non Pathogenic Casts 0-2; Protein Urine Negative (Negative); Specific Grav Ur 1.045 (1.001-1.035); Squamous Epithelial Cell Urine Few /hpf (Few); Urobilinogen Urine 0.2 mg/dL (<2.0); WBC Urine 21-50 /hpf (0-3); pH Urine 5.5 (5.0-9.0)
[2024-07-15] MEDS: MORPHINE SULFATE (*CRX) 2 MG/ML INJ IV PUSH ×5 (02:31→20:29)
[2024-07-15 04:23] VITALS: BP 152/83; PULSE 92; RESP 18; TEMP 36.2; O2SAT 96
[2024-07-15 06:50] LABS: Albumin Level 3.7 g/dL (3.5-5.1); Anion Gap 5 mmol/L (4-12); Blood Urea Nitrogen 19 mg/dL (7-17); Calcium 10.2 mg/dL (8.4-10.2); Carbon Dioxide 30 mmol/L (22-30); Chloride 100 mmol/L (98-107); Estimated CRCL calculation 58 ml/min; Estimated Glomerular Filt Rate 60; Glucose 89 mg/dL (65-110); Phosphorus 4.3 mg/dL (2.5-4.5); Potassium 3.5 mmol/L (3.4-5.0); Sodium 135 mmol/L (137-145)
[2024-07-15 07:24] LABS: Basophils Absolute Auto 0.1 K/mm3 (0.0-0.1); Basophils Percent Auto 0.8 % (0.2-1.2); Eosinophils Absolute Auto 0.7 K/mm3 (0-0.3); Eosinophils Percent Auto 7.4 % (0-4.4); Hematocrit 36.4 % (37.0-47.0); Hemoglobin 11.9 g/dL (12.0-15.0); Immature Granulocyte Absolute 0.04 K/mm3 (0.00-0.031); Immature Granulocyte Percent A 0.4 % (0-0.5); Lymphocytes Absolute Auto 1.33 K/mm3 (0.9-3.2); Lymphocytes Percent Auto 13.8 % (18.3-44.2); Mean Corpuscular HGB Conc 32.7 g/dl (32-36); Mean Corpuscular Hemoglobin 30.5 pg (26-34); Mean Corpuscular Volume 93.3 fl (80-100); Mean Platelet Volume 9.8 fl (7.4-10.4); Monocytes Absolute Auto 0.9 K/mm3 (0.1-0.6); Monocytes Percent Auto 8.9 % (2.6-8.5); Neutrophils Absolute Auto 6.6 K/mm3 (1.3-6.7); Neutrophils Percent Auto 68.7 % (45.5-73.1); Platelet Count Result 198 k/mm3 (150-375); White Blood Count 9.6 K/mm3 (4.5-10.0)
--- NOTE | 2024-07-15 08:00 | PM.IMPN ---
Progress Note: A&P Assessment and Plan (1) Acute kidney injury: Code(s): N17.9 - Acute kidney failure, unspecified Status: Acute Assessment and Plan: Creatinine 1.9 on admission, baseline WNL. - Resolved. BUN/Cr 19/0.9 on am labs - Serum and urine protein electrophoresis and kappa lambda ratio are pending to evaluate for possible multiple myeloma. - Renal ultrasound: Renal cortical thinning, without hydronephrosis - Possible dehydration vs over diuresed as she has several electrolyte abnormalities including a sodium of 135, potassium 3.1, and chloride of 95 (she is on bumetanide 2 mg b.i.d. and chlorthalidone 25 mg daily). - Close monitoring of volume status with daily weights and strict I/Os. - Hold diuretics but continue sacubitril-valsartan for now as she is on a low dose. - Nephrology following off IV fluids and patient is eating Cr back to baseline (2) Bacteriuria with pyuria: Code(s): R82.71 - Bacteriuria; R82.81 - Pyuria Status: Acute Assessment and Plan: - UA: Clear appearance with 3+ glucose, 2+ blood, 1+ leukocyte, 11-20 RBC, 21-50 BC, no bacteria. Few squamous, possible contamination. - UC obtained on 07/14: pending - No previous micro to be reviewed - started on Rocephin on 07/11, transition to cefdinir to complete course (3) Bone lesion: Code(s): M89.9 - Disorder of bone, unspecified Status: Acute Assessment and Plan: A contrast-enhanced CT of the chest, abdomen, and pelvis would be helpful however is unable to be performed at this time as she also has an acute kidney injury. Will order ct chest/abd/pelvis- tomorrow- 48 h since kidney normalized Head CT no acute intracranial abnormality. Possible subtle lytic left frontal pole lesion. C spine CT No acute fracture. Lytic lesions in the spine, as above, most notably at the C2, C3, C4 vertebral bodies. Correlate for metastatic disease or multiple myeloma. Moderate to advanced degenerative spondylosis, as above. CT chest, abd/pelvis ordered 1. Widespread bone lesions, consistent with metastatic disease versus multiple myeloma. 2. Acute fractures of left ninth and 11th ribs. Multiple healing bilateral pathologic rib fractures. 3. Thickening of the endometrial complex suspicious for endometrial carcinoma. 4. Umbilical and supraumbilical ventral hernias containing fat. Started on alendronate 10 mg daily - Oncology consulted Recommends biopsy while in the hospital- will order now- can be done here or if unable- needs to be schedule as outpt Patient's insurance is not going to cover biopsy inpatient and is requiring patient obtain and outpatient mammogram prior to the biopsy (4) Mass of right breast: Code(s): N63.10 - Unspecified lump in the right breast, unspecified quadrant Status: Acute Assessment and Plan: Right breast mass is concerning for malignancy which could perhaps be biopsied during her stay or she could be referred to breast specialist Dr. Tara Weldon with [facility]; this could explain the bony lesions. Will order ultrasound biopsy -oncology recommends biopsy while in the hospital- will order now- can be done here or if unable- needs to be schedule as outpt- scheduled per CLEOPATRA Romero (5) Chronic pain syndrome: Code(s): G89.4 - Chronic pain syndrome Status: Acute Assessment and Plan: pain management need to find a good oral option she can go home on (6) Chronic obstructive pulmonary disease: Code(s): J44.9 - Chronic obstructive pulmonary disease, unspecified Status: Acute Assessment and Plan: Chronic, in no acute exacerbation. 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 - monitor (8) Hypertension: Code(s): I10 - Essential (primary) hypertension Status: Acute Assessment and Plan: Chronic, well controlled on home medications. - Entresto BID - Monitor Time Spent With Patient Time with patient: 25 - 35 minutes Subjective Date/time seen: 07/15/24 08:00 Interval history: 78-year-old female with history of chronic back pain, ischemic cardiomyopathy, combined systolic and diastolic congestive heart failure, hypertension, chronic kidney disease, and chronic obstructive pulmonary disease who presented to the emergency department via private vehicle for evaluation of pain all over. patient is pleasant lying in bed with daughter at bedside. she is tearful when discussing her breast mass and bone lesions. She continues to endorse general pain with any movement. Started patient on alendronate and increase her [place] dose. Per chart review patient is unable to get a biopsy while inpatient and is to undergo a diagnostic mammogram 1st in the outpatient setting. from my understanding this is due to insurance coverage. A call was made to Dr. Johnson and he plans to later tonight to further discuss patient's plan of care. Patient has no other complaints chest pain, shortness a breath, nausea/vomiting, dysuria / hematuria/ burning sensation and abdominal pain. Discussed patient with [facility] pharmacy and will transition her to p.o. cefdinir to complete her antibiotic course for the urinary tract infection. Review of Systems Review of Systems: All systems reviewed & are unremarkable except as noted in HPI and below Exam Narrative: AF HR 76 RR 16 SpO2 97 BP 114/42 General: female in no acute respiratory distress who is nontoxic appearing, lying semi recumbent in bed. HEENT: Normocephalic. Atraumatic. Extraocular movement intact. Sclera clear and anicteric. No facial asymmetry. Chest: Lungs are clear to auscultation bilaterally. No wheezes or crackles. CV: Heart was regular rate and rhythm. S1-S2. No murmurs, gallops, or rubs. Abd: Abdomen was soft. Nontender. Nondistended. Positive bowel sounds. No organomegaly or masses. Ext: No clubbing, cyanosis, or edema. 2+ DP pulses bilaterally. Neuro: Patient is alert. Cranial nerves 2-12 are intact. Speech is clear. Objective Data Vital Signs Vital Signs: Vital Signs - 24 hr 07/14/24 14:00 07/14/24 20:02 07/14/24 20:00 Temperature 97 F L 97.9 F Pulse Rate 68 77 Respiratory Rate 20 18 Blood Pressure 130/60 146/56 H Pulse Oximetry 98 100 Oxygen Delivery Room Air 07/15/24 04:23 Temperature 97.2 F L Pulse Rate 92 Respiratory Rate 18 Blood Pressure 152/83 H Pulse Oximetry 96 Oxygen Delivery Intake/Output Intake/Output: Intake & Output 07/12/24 07/13/24 07/14/24 07/15/24 23:59 23:59 23:59 23:59 Intake Total 1120 1710 3490 250 Output Total 1175 1910 1600 500 Balance -55 -200 1890 -250 Meds/Results Medications: Active Medications Generic Name Dose Route Start Last Admin Trade Name Freq PRN Reason Stop Dose Admin Acetaminophen 650 mg 07/11/24 11:11 Acetaminophen 325 Mg Tablet PO Q4H PRN Mild Pain (1-3) or Fever Hydrocodone Bitart/Acetaminophen 1 tab 07/11/24 12:46 07/14/24 05:46 Hydrocodone/Acetaminophen (*Crx) 5-325 Mg Tablet PO 1 tab Q6H PRN Administration Pain Rated 4-6 Aspirin 81 mg 07/11/24 17:00 07/14/24 18:16 Aspirin 81 Mg Chewable Tablet PO 08/10/24 16:59 81 mg BID UBALDO Administration Atorvastatin Calcium 40 mg 07/12/24 09:00 07/14/24 08:22 Atorvastatin 40 Mg Tablet PO 40 mg DAILY UBALDO Administration Empagliflozin 10 mg 07/12/24 09:00 07/14/24 08:22 Empagliflozin 10 Mg Tablet PO 10 mg DAILY UBALDO Administration Famotidine 20 mg 07/12/24 09:00 07/14/24 08:22 Famotidine 20 Mg Tablet PO 20 mg DAILY UBALDO Administration Ceftriaxone Sodium 1 gm in 50 mls @ 100 mls/hr 07/12/24 09:00 07/14/24 08:52 Rocephin 1 Gm/Ns 50 Ml IVPB Infused QAM UBALDO Infusion Lidocaine 1 patch 07/12/24 09:00 07/14/24 08:23 Lidocaine 5% Patch TOPICAL 1 patch DAILY UBALDO Administration Morphine Sulfate 2 mg 07/11/24 11:11 07/15/24 02:31 Morphine Sulfate (*Crx) 2 Mg/Ml Inj IV PUSH 2 mg Q2H PRN Administration Pain Rated 7-10 Multivitamins Therapeutic 1 tablet 07/12/24 09:00 07/14/24 08:23 Multivitamins Therapeutic Tab (*Bkc) PO 08/11/24 08:59 1 tablet DAILY UBALDO Administration Oxybutynin Chloride 5 mg 07/12/24 09:00 07/14/24 08:23 Oxybutynin Chloride Xl 5 Mg Tab.Er.24 PO 5 mg DAILY UBALDO Administration Sacubitril/Valsartan 1 tab 07/11/24 17:00 07/14/24 18:19 Sacubitril/Valsartan 24-26 Mg Tablet PO 1 tab BID UBALDO Administration Radiology Results: ITS Impressions Abdomen/Pelvis CT 07/11/24 10:52 IMPRESSION: 1. Ventral hernias containing nonobstructed bowel. 2. Widespread bone lesions, consistent with metastatic disease versus multiple myeloma. Healing bilateral pathologic rib fractures. Chest X-Ray 07/11/24 11:01 IMPRESSION: 1. Mild atelectasis in left mid and lower lung zones. 2. Cardiomegaly. Renal Ultrasound 07/11/24 17:24 IMPRESSION: Renal cortical thinning, without hydronephrosis. Head CT 07/12/24 07:35 Impression: No intracranial abnormality. Possible subtle lytic left frontal bone lesion. Cervical Spine CT 07/12/24 07:40 Impression: No acute fracture. Lytic lesions in the spine, as above, most notably at the C2, C3, C4 vertebral bodies. Correlate for metastatic disease or multiple myeloma. Moderate to advanced degenerative spondylosis, as above. Chest/Abdomen/Pelvis CT 07/14/24 13:46 IMPRESSION: 1. Widespread bone lesions, consistent with metastatic disease versus multiple myeloma. 2. Acute fractures of left ninth and 11th ribs. Multiple healing bilateral pathologic rib fractures. 3. Thickening of the endometrial complex suspicious for endometrial carcinoma. 4. Umbilical and supraumbilical ventral hernias containing fat. Labs Labs: Laboratory Results - last 24 hr 07/11/24 07/14/24 07/14/24 09:37 08:16 19:59 WBC RBC Hgb Hct MCV MCH MCHC RDW Plt Count MPV Immature Gran % (Auto) Neut % (Auto) Lymph % (Auto) [place] % (Auto) Eos % (Auto) Baso % (Auto) Lymph # (Auto) [place] # (Auto) Eos # (Auto) Baso # (Auto) Abs Immat Gran (auto) Absolute Neuts (auto) Absolute Nucleated RBC Nucleated RBC % Sodium 137 Potassium 3.7 Chloride 100 Carbon Dioxide 33 H Anion Gap 4 BUN 24 H Creatinine 1.00 Estim Creat Clear Calc 53 Estimated GFR 53 L Glucose 91 Calcium 10.1 Phosphorus Albumin Urine Color Yellow Urine Appearance Clear Urine pH 5.5 Ur Specific [place] 1.045 H Urine Protein Negative Urine Glucose (UA) 3+ H Urine Ketones Negative Ur Blood (Man) 2+ H Urine Nitrate Negative Urine Bilirubin Negative Urine Urobilinogen 0.2 Leukocyte Esterase Rfl 1+ H Urine RBC 11-20 H Urine WBC 21-50 H Ur Squamous Epith Cells Few Urine Bacteria None seen Urine Casts 0-2 [place]/Lambda Ratio 2.00 H Free [place] Light Chains 66.3 H Free [place] Light Chain 33.1 H 07/15/24 05:47 WBC 9.6 RBC 3.90 L Hgb 11.9 L Hct 36.4 L MCV 93.3 MCH 30.5 MCHC 32.7 RDW 15.0 H Plt Count 198 MPV 9.8 Immature Gran % (Auto) 0.4 Neut % (Auto) 68.7 Lymph % (Auto) 13.8 L [place] % (Auto) 8.9 H Eos % (Auto) 7.4 H Baso % (Auto) 0.8 Lymph # (Auto) 1.33 [place] # (Auto) 0.9 H Eos # (Auto) 0.7 H Baso # (Auto) 0.1 Abs Immat Gran (auto) 0.04 H Absolute Neuts (auto) 6.6 Absolute Nucleated RBC 0.000 Nucleated RBC % 0.0 Sodium 135 L Potassium 3.5 Chloride 100 Carbon Dioxide 30 Anion Gap 5 BUN 19 H Creatinine 0.90 Estim Creat Clear Calc 58 Estimated GFR 60 Glucose 89 Calcium 10.2 Phosphorus 4.3 Albumin 3.7 Urine Color Urine Appearance Urine pH Ur Specific [place] Urine Protein Urine Glucose (UA) Urine Ketones Ur Blood (Man) Urine Nitrate Urine Bilirubin Urine Urobilinogen Leukocyte Esterase Rfl Urine RBC Urine WBC Ur Squamous Epith Cells Urine Bacteria Urine Casts [place]/Lambda Ratio Free [place] Light Chains Free Lambda Light Chain Quality VTE Prophylaxis VTE prophylaxis: pharmacologic ordered
[2024-07-15] MEDS: SACUBITRIL/VALSARTAN 24-26 MG TABLET 1 TAB PO ×2 (08:35→17:13)
[2024-07-15] MEDS: ASPIRIN 81 MG CHEWABLE TABLET PO ×2 (08:35→17:16)
[2024-07-15] MEDS: ATORVASTATIN 40 MG TABLET PO (08:35)
[2024-07-15] MEDS: MULTIVITAMINS THERAPEUTIC TAB (*BKC) 1 TABLET PO (08:35)
[2024-07-15] MEDS: EMPAGLIFLOZIN 10 MG TABLET PO (08:35)
[2024-07-15] MEDS: LIDOCAINE 5% PATCH 1 PATCH TOPICAL (08:35)
[2024-07-15] MEDS: FAMOTIDINE 20 MG TABLET PO (08:35)
[2024-07-15] MEDS: oxyBUTYnin CHLORIDE XL 5 MG TAB.ER.24 PO (08:50)
--- NOTE | 2024-07-15 11:55 | P.PNNP_ITS ---
Progress Note: A&P Assessment and Plan (1) Acute kidney injury: Code(s): N17.9 - Acute kidney failure, unspecified Status: Acute Assessment and Plan: * baseline creatinine runs ~ 0.8 - 1.0mg/dl * admission creatinine was 1.9mg/dl * evaluation to date noted: * renal u/s with bilateral cortical thickening * CPK okay * UA c/w infection * urine electrolytes (FeUrea) prerenal * improvement noted with IVFs * suspect ELANA due to volume depletion and continued diuretic therapy * follow trend of repeat labs and UOP (2) Acute UTI: Code(s): N39.0 - Urinary tract infection, site not specified Status: Acute Assessment and Plan: * admission UA suggestive * urine culture negative * on antibiotics (3) Hypertension: Code(s): I10 - Essential (primary) hypertension Status: Acute Assessment and Plan: * reasonable control at this time * follow trend of hemodynamics (4) Bone lesion: Code(s): M89.9 - Disorder of bone, unspecified Status: Acute Assessment and Plan: * as noted by recent imaging * suspicion falls on metastatic breast cancer given breast mass * Oncology following Not much else to add from renal standpoint -- will continue to follow from a distance. Subjective Date/time seen: 07/15/24 11:55 Interval history: Follow-up for acute kidney injury/acute renal failure Chart reviewed -- assuming care from Dr. Galvan; renal function/creatinine appears to have normalized/returned to baseline with ongoing therapy/interventions; no apparent distress other than generalized pain; no other issues/events overnight or earlier today. Exam Narrative: General: elderly but WD/WN female in NAD Heart: normal S1 and S2; no rub Lungs: clear to auscultation Abdomen: soft, nontender, nondistended, positive bowel sounds Extremities: no cyanosis or clubbing; no edema Skin: warm and dry Objective Data Vital Signs Vital Signs: Vital Signs 07/14/24 14:00 07/14/24 20:02 07/14/24 20:00 Temperature 97 F L 97.9 F Pulse Rate 68 77 Respiratory Rate 20 18 Blood Pressure 130/60 146/56 H Pulse Oximetry 98 100 Oxygen Delivery Room Air 07/15/24 04:23 07/15/24 11:32 07/15/24 12:13 Temperature 97.2 F L 98.2 F 98.8 F Pulse Rate 92 76 69 Respiratory Rate 18 16 20 Blood Pressure 152/83 H 114/42 L 115/55 L Pulse Oximetry 96 97 94 Oxygen Delivery Intake/Output Intake/Output: Intake & Output 07/13/24 07/14/24 07/15/24 07/16/24 23:59 23:59 23:59 23:59 Intake Total 1710 3490 1010 340 Output Total 1910 1600 1050 Balance -200 1890 -40 340 Meds/Results Medications: Active Medications Generic Name Dose Route Start Last Admin Trade Name Freq PRN Reason Stop Dose Admin Acetaminophen 650 mg 07/11/24 11:11 Acetaminophen 325 Mg Tablet PO Q4H PRN Mild Pain (1-3) or Fever Hydrocodone Bitart/Acetaminophen 1 tab 07/11/24 12:46 07/14/24 05:46 Hydrocodone/Acetaminophen (*Crx) 5-325 Mg Tablet PO 1 tab Q6H PRN Administration Pain Rated 4-6 Hydrocodone Bitart/Acetaminophen 1 tab 07/15/24 16:22 07/16/24 09:52 Hydrocodone/Acetaminophen (*Crx) 7.5-325 Mg Tablet PO 1 tab Q6H PRN Administration Pain Rated 7-10 Alendronate Sodium 10 mg 07/15/24 16:35 07/16/24 06:19 Alendronate Sodium 10 Mg Tablet PO 10 mg DAILY@0630 UBALDO Administration Aspirin 81 mg 07/11/24 17:00 07/16/24 09:35 Aspirin 81 Mg Chewable Tablet PO 08/10/24 16:59 81 mg BID UBALDO Administration Atorvastatin Calcium 40 mg 07/12/24 09:00 07/16/24 09:35 Atorvastatin 40 Mg Tablet PO 40 mg DAILY UBALDO Administration Cefdinir 300 mg 07/16/24 09:00 07/16/24 09:35 Cefdinir 300 Mg Capsule PO 07/17/24 21:01 300 mg Q12HR UBALDO Administration Empagliflozin 10 mg 07/12/24 09:00 07/16/24 09:35 Empagliflozin 10 Mg Tablet PO 10 mg DAILY UBALDO Administration Famotidine 20 mg 07/12/24 09:00 07/16/24 09:35 Famotidine 20 Mg Tablet PO 20 mg DAILY UBALDO Administration Fentanyl 50 mcg 07/16/24 15:20 Fentanyl (*Crx) 50 Mcg Patch TRANSDERM Q72HR UBALDO Lidocaine 1 patch 07/12/24 09:00 07/16/24 09:36 Lidocaine 5% Patch TOPICAL 1 patch DAILY UBALDO Administration Multivitamins Therapeutic 1 tablet 07/12/24 09:00 07/16/24 09:35 Multivitamins Therapeutic Tab (*Bkc) PO 08/11/24 08:59 1 tablet DAILY UBALDO Administration Oxybutynin Chloride 5 mg 07/12/24 09:00 07/16/24 09:35 Oxybutynin Chloride Xl 5 Mg Tab.Er.24 PO 5 mg DAILY UBALDO Administration Sacubitril/Valsartan 1 tab 07/11/24 17:00 07/16/24 09:34 Sacubitril/Valsartan 24-26 Mg Tablet PO 1 tab BID UBALDO Administration Senna/Docusate Sodium 1 tab 07/15/24 21:00 07/15/24 20:16 Senna/Docusate Sodium Tablet PO 1 tab HS UBALDO Administration Radiology Results: ITS Impressions Abdomen/Pelvis CT 07/11/24 10:52 IMPRESSION: 1. Ventral hernias containing nonobstructed bowel. 2. Widespread bone lesions, consistent with metastatic disease versus multiple myeloma. Healing bilateral pathologic rib fractures. Chest X-Ray 07/11/24 11:01 IMPRESSION: 1. Mild atelectasis in left mid and lower lung zones. 2. Cardiomegaly. Renal Ultrasound 07/11/24 17:24 IMPRESSION: Renal cortical thinning, without hydronephrosis. Head CT 07/12/24 07:35 Impression: No intracranial abnormality. Possible subtle lytic left frontal bone lesion. Cervical Spine CT 07/12/24 07:40 Impression: No acute fracture. Lytic lesions in the spine, as above, most notably at the C2, C3, C4 vertebral bodies. Correlate for metastatic disease or multiple myeloma. Moderate to advanced degenerative spondylosis, as above. Chest/Abdomen/Pelvis CT 07/14/24 13:46 IMPRESSION: 1. Widespread bone lesions, consistent with metastatic disease versus multiple myeloma. 2. Acute fractures of left ninth and 11th ribs. Multiple healing bilateral pathologic rib fractures. 3. Thickening of the endometrial complex suspicious for endometrial carcinoma. 4. Umbilical and supraumbilical ventral hernias containing fat. Labs Labs: Laboratory Results - last 28 hr 07/15/24 05:47 WBC 9.6 Hgb 11.9 L Hct 36.4 L Plt Count 198 Sodium 135 L Potassium 3.5 Chloride 100 Carbon Dioxide 30 Anion Gap 5 BUN 19 H Creatinine 0.90 Estim Creat Clear Calc 58 Estimated GFR 60 Glucose 89 Calcium 10.2 Phosphorus 4.3 Total Bilirubin 0.7 Direct Bilirubin 0.0 AST 43 H ALT 10 Alkaline Phosphatase 104 Total Protein 7.0 Albumin 3.7
[2024-07-15 15:32] VITALS: BP 114/42; PULSE 76; RESP 16; TEMP 36.8; O2SAT 97
[2024-07-15] MEDS: ALENDRONATE SODIUM 10 MG TABLET PO (17:14)
[2024-07-15] MEDS: HYDROcodone/acetaminophen (*CRX) 7.5-325 MG TABLET 1 TAB PO ×2 (17:15→23:13)
--- NOTE | 2024-07-15 19:55 | WPDONCPN ---
Progress Note: A/P - Additional Plan Likely metastatic breast cancer. Examination confirmed retraction of the nipple and the mass in the right breast at [address] scan finding also showed thickening of endometrium concerning for endometrial cancer. I will order CA 125 as well as CA 15-3. Patient need to have ultrasound-guided biopsy of the right breast mass as soon as possible for seems like due to insurance issues it can only be performed as an outpatient. I will see her back in 1 week after the biopsy. I have provided her my office information. Bone metastasis. Continue pain medicine for pain control. She needs to be started on Xgeva as an outpatient for metastatic disease. She may need palliative radiation therapy for bone metastasis. Endometrial mass. Patient may need to see a Gynecology for workup for endometrial mass. - Time Spent With Patient Total time spent is greater than 50% in coordination of care (as documented) at patient's floor/unit and/or counseling patient: 25 - 35 minutes Subjective Interval history: Likely metastatic breast cancer Review of Systems - Review of Systems Patient is lying down comfortably. She denies any previous history of malignancy. She denies any vaginal bleeding and discharge. She has been complaining of upper back pain. She noticed a lump in the right breast more than 6 months ago. No other new complaints. - Neurologic Reports system reviewed and no additional complaints, except as documented, Reports weakness Exam Vital signs: Temp Pulse Resp BP Pulse Ox O2 Del Method 36.8 C 76 16 114/42 L 97 Room Air 07/15/24 15:32 07/15/24 15:32 07/15/24 15:32 07/15/24 15:32 07/15/24 15:32 07/14/24 20:00 Narrative: Bilateral breast examination showed right breast lump at 9:00 a.m. position as well as retraction of the nipple without any axillary lymphadenopathy. Left breast no masses lymphadenopathy. Lungs clear to auscultation bilaterally Cardiovascular regular rate rhythm no murmurs Abdomen non tender non distended bowel sounds are positive Extremities no edema PN: Objective Data - Labs CBC & Chem 7: 07/15/24 05:47 07/15/24 05:47 Labs: Laboratory Results - last 24 hr 07/14/24 07/15/24 19:59 05:47 WBC 9.6 RBC 3.90 L Hgb 11.9 L Hct 36.4 L MCV 93.3 MCH 30.5 MCHC 32.7 RDW 15.0 H Plt Count 198 MPV 9.8 Immature Gran % (Auto) 0.4 Neut % (Auto) 68.7 Lymph % (Auto) 13.8 L [place] % (Auto) 8.9 H Eos % (Auto) 7.4 H Baso % (Auto) 0.8 Lymph # (Auto) 1.33 [place] # (Auto) 0.9 H Eos # (Auto) 0.7 H Baso # (Auto) 0.1 Abs Immat Gran (auto) 0.04 H Absolute Neuts (auto) 6.6 Absolute Nucleated RBC 0.000 Nucleated RBC % 0.0 Sodium 135 L Potassium 3.5 Chloride 100 Carbon Dioxide 30 Anion Gap 5 BUN 19 H Creatinine 0.90 Estim Creat Clear Calc 58 Estimated GFR 60 Glucose 89 Calcium 10.2 Phosphorus 4.3 Albumin 3.7 Urine Color Yellow Urine Appearance Clear Urine pH 5.5 Ur Specific [place] 1.045 H Urine Protein Negative Urine Glucose (UA) 3+ H Urine Ketones Negative Ur Blood (Man) 2+ H Urine Nitrate Negative Urine Bilirubin Negative Urine Urobilinogen 0.2 Leukocyte Esterase Rfl 1+ H Urine RBC 11-20 H Urine WBC 21-50 H Ur Squamous Epith Cells Few Urine Bacteria None seen Urine Casts 0-2
[2024-07-15 20:13] VITALS: BP 115/55; PULSE 69; RESP 20; TEMP 37.1; O2SAT 94
[2024-07-15] MEDS: SENNA/DOCUSATE SODIUM TABLET 1 TAB PO (20:16)
[2024-07-15 21:11] LABS: Alanine Aminotransferase 10 U/L (6-35); Albumin Level 3.4 g/dL (3.5-5.1); Alkaline Phosphatase 104 U/L (38-126); Aspartate Amino Transferase 43 U/L (14-36); Bilirubin,Total 0.7 mg/dL (0.2-1.3)
[2024-07-15 22:08] LABS: Immunofixation, Serum Normal pattern.
[2024-07-16] MEDS: MORPHINE SULFATE (*CRX) 2 MG/ML INJ IV PUSH ×2 (00:09→14:06)
[2024-07-16 06:00] VITALS: BP 151/69; PULSE 74; RESP 16; TEMP 36.6; O2SAT 97
[2024-07-16] MEDS: ALENDRONATE SODIUM 10 MG TABLET PO (06:19)
[2024-07-16 06:40] LABS: Basophils Absolute Auto 0.1 K/mm3 (0.0-0.1); Basophils Percent Auto 0.7 % (0.2-1.2); Eosinophils Absolute Auto 0.6 K/mm3 (0-0.3); Eosinophils Percent Auto 6.3 % (0-4.4); Hematocrit 34.2 % (37.0-47.0); Hemoglobin 11.1 g/dL (12.0-15.0); Immature Granulocyte Absolute 0.04 K/mm3 (0.00-0.031); Immature Granulocyte Percent A 0.5 % (0-0.5); Lymphocytes Absolute Auto 1.36 K/mm3 (0.9-3.2); Lymphocytes Percent Auto 15.5 % (18.3-44.2); Mean Corpuscular HGB Conc 32.5 g/dl (32-36); Mean Corpuscular Hemoglobin 30.6 pg (26-34); Mean Corpuscular Volume 94.2 fl (80-100); Mean Platelet Volume 9.5 fl (7.4-10.4); Monocytes Percent Auto 11.8 % (2.6-8.5); Neutrophils Absolute Auto 5.7 K/mm3 (1.3-6.7); Neutrophils Percent Auto 65.2 % (45.5-73.1); Platelet Count Result 202 k/mm3 (150-375); Red Blood Count 3.63 M/mm3 (4.2-5.4); Red Cell Distribution Width 15.2 % (11.5-14.5); White Blood Count 8.8 K/mm3 (4.5-10.0)
[2024-07-16 07:01] LABS: Alanine Aminotransferase 9 U/L (6-35); Albumin Level 3.4 g/dL (3.5-5.1); Alkaline Phosphatase 97 U/L (38-126); Anion Gap 4 mmol/L (4-12); Aspartate Amino Transferase 39 U/L (14-36); Bilirubin,Total 0.9 mg/dL (0.2-1.3); Blood Urea Nitrogen 18 mg/dL (7-17); Calcium 9.9 mg/dL (8.4-10.2); Carbon Dioxide 33 mmol/L (22-30); Chloride 98 mmol/L (98-107); Estimated CRCL calculation 53 ml/min; Estimated Glomerular Filt Rate 53; Glucose 91 mg/dL (65-110); Potassium 3.6 mmol/L (3.4-5.0); Sodium 135 mmol/L (137-145)
--- NOTE | 2024-07-16 09:18 | PCPTNOTE ---
Patient declined therapy 0917 due to too much pain and not wanting to get out of bed. Patient very tearful.
--- NOTE | 2024-07-16 09:26 | P.PNIM_ITS ---
Progress Note: A&P Assessment and Plan (1) Acute kidney injury: Code(s): N17.9 - Acute kidney failure, unspecified Status: Acute Assessment and Plan: Creatinine 1.9 on admission, baseline WNL. - Resolved. BUN/Cr 18/1.0 on am labs - Serum and urine protein electrophoresis and kappa lambda ratio are pending to evaluate for possible multiple myeloma. - Renal ultrasound: Renal cortical thinning, without hydronephrosis - Possible dehydration vs over diuresed as she has several electrolyte abnormalities including a sodium of 135, potassium 3.1, and chloride of 95 (she is on bumetanide 2 mg b.i.d. and chlorthalidone 25 mg daily). - Close monitoring of volume status with daily weights and strict I/Os. - Hold diuretics but continue sacubitril-valsartan for now as she is on a low dose. - Nephrology following off IV fluids and patient is eating Cr back to baseline (2) Bacteriuria with pyuria: Code(s): R82.71 - Bacteriuria; R82.81 - Pyuria Status: Acute Assessment and Plan: - UA: Clear appearance with 3+ glucose, 2+ blood, 1+ leukocyte, 11-20 RBC, 21- 50 BC, no bacteria. Few squamous, possible contamination. - UC obtained on 07/14: Negative - No previous micro to be reviewed - started on Rocephin on 07/11, transition to cefdinir to complete course (3) Bone lesion: Code(s): M89.9 - Disorder of bone, unspecified Status: Acute Assessment and Plan: A contrast-enhanced CT of the chest, abdomen, and pelvis would be helpful however is unable to be performed at this time as she also has an acute kidney injury. Head CT no acute intracranial abnormality. Possible subtle lytic left frontal pole lesion. C spine CT No acute fracture. Lytic lesions in the spine, as above, most notably at the C2, C3, C4 vertebral bodies. Correlate for metastatic disease or multiple myeloma. Moderate to advanced degenerative spondylosis, as above. CT chest, abd/pelvis ordered 1. Widespread bone lesions, consistent with metastatic disease versus multiple myeloma. 2. Acute fractures of left ninth and 11th ribs. Multiple healing bilateral pathologic rib fractures. 3. Thickening of the endometrial complex suspicious for endometrial carcinoma. 4. Umbilical and supraumbilical ventral hernias containing fat. Started on alendronate 10 mg daily - Oncology consulted Continue pain medicine for pain control. She needs to be started on Xgeva as an outpatient for metastatic disease. She may need palliative radiation therapy for bone metastasis. (4) Mass of right breast: Code(s): N63.10 - Unspecified lump in the right breast, unspecified quadrant Status: Acute Assessment and Plan: Right breast mass is concerning for malignancy which could perhaps be biopsied during her stay or she could be referred to breast specialist Dr. Tara Weldon with [facility]; this could explain the bony lesions. Will order ultrasound biopsy -Recommends biopsy while in the hospital- will order now- can be done here or if unable- needs to be schedule as outpt Patient's insurance is not going to cover biopsy inpatient and is requiring patient obtain and outpatient mammogram prior to the biopsy Ordered CA 125 as well as CA 15-3. Dr. Johnson will see her back in 1 week after the biopsy. Oncology has provided her with office information. (5) Endometrial mass: Code(s): N94.89 - Other specified conditions associated with female genital organs and menstrual cycle Status: Acute Assessment and Plan: CT chest/abd/pelvis ordered 1. Widespread bone lesions, consistent with metastatic disease versus multiple myeloma. 2. Acute fractures of left ninth and 11th ribs. Multiple healing bilateral pathologic rib fractures. 3. Thickening of the endometrial complex suspicious for endometrial carcinoma. 4. Umbilical and supraumbilical ventral hernias containing fat. Oncology consulted Patient may need to see a Gynecology for workup for endometrial mass. Gynecology consulted The patient and daughter preferred to workup the breast prior to any other procedures. If they decide to workup the abnormal uterine finding, they will call the office to schedule after discharge. (6) Chronic pain syndrome: Code(s): G89.4 - Chronic pain syndrome Status: Acute Assessment and Plan: Patient continues to endorse generalized pain Discussed patient with Dr. Johnson and will continue patient p.o. [place] and start fentanyl patch for pain control, DC morphine Patient may benefit from radiation oncology for bone metastasis however this will have to be done in the outpatient setting following pathology Will likely need to follow up with Pain Management (7) Chronic obstructive pulmonary disease: Code(s): J44.9 - Chronic obstructive pulmonary disease, unspecified Status: Acute Assessment and Plan: Chronic, in no acute exacerbation. 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 - monitor (9) Hypertension: Code(s): I10 - Essential (primary) hypertension Status: Acute Assessment and Plan: Chronic, well controlled on home medications. - Entresto BID - Monitor Time Spent With Patient Time with patient: 25 - 35 minutes Subjective Date/time seen: 07/16/24 09:26 Interval history: 78-year-old female with history of chronic back pain, ischemic cardiomyopathy, combined systolic and diastolic congestive heart failure, hypertension, chronic kidney disease, and chronic obstructive pulmonary disease who presented to the emergency department via private vehicle for evaluation of pain all over. Patient is pleasant sitting up in her chair with daughter at bedside. She continues to endorse generalized pain but was able to make it to her chair with therapy. Continue to encourage patient to work with therapy to prevent worsening weakness. She has no other complaints denying chest pain, shortness a breath, nausea / vomiting, and abdominal pain. Patient was evaluated by Gynecology today for the endometrial mass and no event intervention is needed at this time given that the patient and her daughter want the breast mass worked up 1st. Discussed patient with Oncology Dr. Johnson who states due to insurance not wanting to cover the inpatient biopsy patient will have to do so outpatient And follow-up with him in the office. He recommends starting patient on a fentanyl patch for the ongoing pain likely secondary to the bone metastasis. After patient's pathology has returned patient will likely benefit from going to radiation oncology for pain management. Review of Systems Review of Systems: All systems reviewed & are unremarkable except as noted in HPI and below Exam Narrative: AF HR 76 RR 16 SPO2 98 BP 148/68 General: female in no acute respiratory distress who is nontoxic appearing, lying semi recumbent in bed. HEENT: Normocephalic. Atraumatic. Extraocular movement intact. Sclera clear and anicteric. No facial asymmetry. Chest: Lungs are clear to auscultation bilaterally. No wheezes or crackles. CV: Heart was regular rate and rhythm. S1-S2. No murmurs, gallops, or rubs. Abd: Abdomen was soft. Nontender. Nondistended. Positive bowel sounds. No organomegaly or masses. Ext: No clubbing, cyanosis, or edema. 2+ DP pulses bilaterally. Neuro: Patient is alert. Cranial nerves 2-12 are intact. Speech is clear. Skin: Right breast mass to the lateral aspect with nipple retraction. No open wounds. No left breast mass. Objective Data Vital Signs Vital Signs: Vital Signs - 24 hr 07/15/24 15:32 07/15/24 20:13 07/15/24 20:00 Temperature 98.2 F 98.8 F Pulse Rate 76 69 Respiratory Rate 16 20 Blood Pressure 114/42 L 115/55 L Pulse Oximetry 97 94 Oxygen Delivery Room Air 07/16/24 06:00 Temperature 97.9 F Pulse Rate 74 Respiratory Rate 16 Blood Pressure 151/69 H Pulse Oximetry 97 Oxygen Delivery Intake/Output Intake/Output: Intake & Output 07/13/24 07/14/24 07/15/24 07/16/24 23:59 23:59 23:59 23:59 Intake Total 1710 3490 1010 100 Output Total 1910 1600 1050 Balance -200 1890 -40 100 Meds/Results Medications: Active Medications Generic Name Dose Route Start Last Admin Trade Name Freq PRN Reason Stop Dose Admin Acetaminophen 650 mg 07/11/24 11:11 Acetaminophen 325 Mg Tablet PO Q4H PRN Mild Pain (1-3) or Fever Hydrocodone Bitart/Acetaminophen 1 tab 07/11/24 12:46 07/14/24 05:46 Hydrocodone/Acetaminophen (*Crx) 5-325 Mg Tablet PO 1 tab Q6H PRN Administration Pain Rated 4-6 Hydrocodone Bitart/Acetaminophen 1 tab 07/15/24 16:22 07/15/24 23:13 Hydrocodone/Acetaminophen (*Crx) 7.5-325 Mg Tablet PO 1 tab Q6H PRN Administration Pain Rated 7-10 Alendronate Sodium 10 mg 07/15/24 16:35 07/16/24 06:19 Alendronate Sodium 10 Mg Tablet PO 10 mg DAILY@0630 UBALDO Administration Aspirin 81 mg 07/11/24 17:00 07/15/24 17:16 Aspirin 81 Mg Chewable Tablet PO 08/10/24 16:59 81 mg BID UBALDO Administration Atorvastatin Calcium 40 mg 07/12/24 09:00 07/15/24 08:35 Atorvastatin 40 Mg Tablet PO 40 mg DAILY UBALDO Administration Cefdinir 300 mg 07/16/24 09:00 Cefdinir 300 Mg Capsule PO 07/17/24 21:01 Q12HR UBALDO Empagliflozin 10 mg 07/12/24 09:00 07/15/24 08:35 Empagliflozin 10 Mg Tablet PO 10 mg DAILY UBALDO Administration Famotidine 20 mg 07/12/24 09:00 07/15/24 08:35 Famotidine 20 Mg Tablet PO 20 mg DAILY UBALDO Administration Lidocaine 1 patch 07/12/24 09:00 07/15/24 08:35 Lidocaine 5% Patch TOPICAL 1 patch DAILY UBALDO Administration Morphine Sulfate 2 mg 07/11/24 11:11 07/16/24 00:09 Morphine Sulfate (*Crx) 2 Mg/Ml Inj IV PUSH 2 mg Q2H PRN Administration Pain Rated 7-10 Multivitamins Therapeutic 1 tablet 07/12/24 09:00 07/15/24 08:35 Multivitamins Therapeutic Tab (*Bkc) PO 08/11/24 08:59 1 tablet DAILY UBALDO Administration Oxybutynin Chloride 5 mg 07/12/24 09:00 07/15/24 08:50 Oxybutynin Chloride Xl 5 Mg Tab.Er.24 PO 5 mg DAILY UBALDO Administration Sacubitril/Valsartan 1 tab 07/11/24 17:00 07/15/24 17:13 Sacubitril/Valsartan 24-26 Mg Tablet PO 1 tab BID UBALDO Administration Senna/Docusate Sodium 1 tab 07/15/24 21:00 07/15/24 20:16 Senna/Docusate Sodium Tablet PO 1 tab HS UBALDO Administration Radiology Results: ITS Impressions Abdomen/Pelvis CT 07/11/24 10:52 IMPRESSION: 1. Ventral hernias containing nonobstructed bowel. 2. Widespread bone lesions, consistent with metastatic disease versus multiple myeloma. Healing bilateral pathologic rib fractures. Chest X-Ray 07/11/24 11:01 IMPRESSION: 1. Mild atelectasis in left mid and lower lung zones. 2. Cardiomegaly. Renal Ultrasound 07/11/24 17:24 IMPRESSION: Renal cortical thinning, without hydronephrosis. Head CT 07/12/24 07:35 Impression: No intracranial abnormality. Possible subtle lytic left frontal bone lesion. Cervical Spine CT 07/12/24 07:40 Impression: No acute fracture. Lytic lesions in the spine, as above, most notably at the C2, C3, C4 vertebral bodies. Correlate for metastatic disease or multiple myeloma. Moderate to advanced degenerative spondylosis, as above. Chest/Abdomen/Pelvis CT 07/14/24 13:46 IMPRESSION: 1. Widespread bone lesions, consistent with metastatic disease versus multiple myeloma. 2. Acute fractures of left ninth and 11th ribs. Multiple healing bilateral pathologic rib fractures. 3. Thickening of the endometrial complex suspicious for endometrial carcinoma. 4. Umbilical and supraumbilical ventral hernias containing fat. Labs Labs: Laboratory Results - last 24 hr 07/11/24 07/15/24 07/16/24 09:37 05:47 05:58 WBC 8.8 RBC 3.63 L Hgb 11.1 L Hct 34.2 L MCV 94.2 MCH 30.6 MCHC 32.5 RDW 15.2 H Plt Count 202 MPV 9.5 Immature Gran % (Auto) 0.5 Neut % (Auto) 65.2 Lymph % (Auto) 15.5 L [place] % (Auto) 11.8 H Eos % (Auto) 6.3 H Baso % (Auto) 0.7 Lymph # (Auto) 1.36 [place] # (Auto) 1.0 H Eos # (Auto) 0.6 H Baso # (Auto) 0.1 Abs Immat Gran (auto) 0.04 H Absolute Neuts (auto) 5.7 Absolute Nucleated RBC 0.000 Nucleated RBC % 0.0 Sodium 135 L Potassium 3.6 Chloride 98 Carbon Dioxide 33 H Anion Gap 4 BUN 18 H Creatinine 1.00 Estim Creat Clear Calc 53 Estimated GFR 53 L Glucose 91 Calcium 9.9 Total Bilirubin 0.7 0.9 Direct Bilirubin 0.0 AST 43 H 39 H ALT 10 9 Alkaline Phosphatase 104 97 Total Protein 7.0 6.0 L Albumin 3.4 L 3.4 L Serum Immunofixation Normal pattern. Quality VTE Prophylaxis VTE prophylaxis: pharmacologic ordered
[2024-07-16] MEDS: SACUBITRIL/VALSARTAN 24-26 MG TABLET 1 TAB PO ×2 (09:34→16:34)
[2024-07-16] MEDS: MULTIVITAMINS THERAPEUTIC TAB (*BKC) 1 TABLET PO (09:35)
[2024-07-16] MEDS: oxyBUTYnin CHLORIDE XL 5 MG TAB.ER.24 PO (09:35)
[2024-07-16] MEDS: ATORVASTATIN 40 MG TABLET PO (09:35)
[2024-07-16] MEDS: CEFDINIR 300 MG CAPSULE PO ×2 (09:35→20:44)
[2024-07-16] MEDS: ASPIRIN 81 MG CHEWABLE TABLET PO ×2 (09:35→16:34)
[2024-07-16] MEDS: FAMOTIDINE 20 MG TABLET PO (09:35)
[2024-07-16] MEDS: EMPAGLIFLOZIN 10 MG TABLET PO (09:35)
[2024-07-16] MEDS: LIDOCAINE 5% PATCH 1 PATCH TOPICAL (09:36)
[2024-07-16] MEDS: HYDROcodone/acetaminophen (*CRX) 7.5-325 MG TABLET 1 TAB PO ×2 (09:52→16:34)
--- NOTE | 2024-07-16 13:08 | P.CONS_ITS ---
Assessment and Plan Assessment and plan (1) Endometrial thickening on ultrasound: Code(s): R93.89 - Abnormal findings on diagnostic imaging of other specified body structures Status: Acute Assessment and Plan: -endometrial thickening on CT scan not ultrasound -postmenopausal bleeding Discussion with patient and her daughter regarding options was held at length. If they decide to workup the abnormal uterine finding, they will call the office to schedule after discharge. Possible pathology was discussed including polyps, precancer, and cancerous changes. It was also discussed that the metastatic lesions are most likely from the breast not from the uterus. The patient and daughter preferred to workup the breast prior to any other procedures. HPI Data of Consult Date/Time: 07/16/24 13:08 Requesting Physician: Disha Giraldo PA-C Primary Care Provider: Shahana Bryant PA-C Consult Narrative Reason for consult: Thickened endometrium Narrative: Alyssa Hanson is a 78 year old female admitted with complex medical problems and likely metastatic breast cancer. On CT scan the endometrium appears thickened. Questioning the patient she states she has been having bleeding very lightly for years. She is a poor historian regarding this. She initially thought it was from her urine. Patient does not recall the last time she had a gynecology exam or Pap smear. She states she has not had prior abnormal Pap smears. [facility] Past Medical History Medical History (Updated 07/16/24 @ 13:11 by Fany Pemberton MD) Chronic obstructive pulmonary disease PFTs in July 2019 demonstrated moderate obstructive lung disease without bronchodilator response and moderately decreased diffusion capacity. Chronic pain syndrome Chronic renal failure, stage 3 (moderate) Combined systolic and diastolic congestive heart failure Coronary artery disease Hyperlipidemia Hypertension Ischemic cardiomyopathy Surgical History Surgical History (Updated 07/13/24 @ 15:31 by Naila Rizzo MD) History of appendectomy History of cataract extraction with lens replacement History of cholecystectomy History of heart artery stent patient had anterior lateral STEMI december 2016 with 2 stents to the mid LAD History of laparoscopic adjustable gastric banding History of left hip replacement (10/2017) History of lithotripsy History of total bilateral knee replacement (2002) with subsequent ORIF of periprosthetic fracture of the left knee in December 2012 Family History Family History Mother Cerebrovascular accident Thyroid disease Sibling Thyroid disease Social History Social History Social History: Surrogate decision maker: Dania John (daughter). Code status: Full code. Smoking status: Never smoker Second hand tobacco smoke exposure: No Alcohol intake: never Substance use: never Substance use type: does not use Do You Feel Safe in your Home?: Yes Lack of Transportation: No Lack of Food: Never True Current Housing: I Have Housing Concerned About Future Housing: No Difficulty Paying Gas/Electric Bills: No Difficulty Paying for Meds: No Currently Unemployed: No Education: Trade/Vocational Certificate Difficulty w/ Childcare or Family Care: No Additional living arrangements comments: as of 2018. Has 5 children. Lives in her own home in [place]. 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 Spiritual care concerns: No Meds Home Medications and Allergies Home Medications Medication Instructions Recorded Confirmed Type acetaminophen 650 mg 650 mg PO Q8H PRN pain #10 tabs 05/25/20 07/11/24 Rx tablet,extended release (Tylenol Arthritis Pain) aspirin 81 mg tablet 81 mg PO BID 11/05/20 07/11/24 History empagliflozin 10 mg tablet 10 mg PO DAILY #30 tabs 12/30/21 07/11/24 Rx (Jardiance) sacubitril 24 mg-valsartan 26 mg 1 tablet PO BID 30 days #60 tabs 01/03/23 07/11/24 Rx tablet bumetanide 2 mg tablet 2 mg PO BID 08/20/23 07/11/24 History oxybutynin chloride 5 mg 5 mg PO DAILY #90 tabs 08/30/23 07/11/24 Rx tablet,extended release 24 hr lidocaine 5 % topical patch 1 patch topical DAILY #30 ea 01/16/24 07/11/24 Rx Adults Multivitamin 1 tablet PO DAILY 07/11/24 07/11/24 History atorvastatin 40 mg tablet 40 mg PO DAILY 07/11/24 07/11/24 History chlorthalidone 25 mg tablet 25 mg PO DAILY 07/11/24 07/11/24 History famotidine 20 mg tablet 20 mg PO DAILY 07/11/24 07/11/24 History nitroglycerin 0.4 mg sublingual 0.4 mg sublingual Q5MIN PRN Chest 07/11/24 07/11/24 History tablet Pain Allergies Allergy/AdvReac Type Severity Reaction Status Date / Time Penicillins Allergy Unknown Rash Verified 07/14/24 10:56 Vital Signs Vital Signs - 24 hr 07/15/24 15:32 07/15/24 20:13 07/15/24 20:00 Temperature 98.2 F 98.8 F Pulse Rate 76 69 Respiratory Rate 16 20 Blood Pressure 114/42 L 115/55 L Pulse Oximetry 97 94 Oxygen Delivery Room Air 07/16/24 06:00 07/16/24 10:18 Temperature 97.9 F Pulse Rate 74 Respiratory Rate 16 Blood Pressure 151/69 H Pulse Oximetry 97 Oxygen Delivery Room Air Exam Const: General: comfortable, no acute distress, obese and other ( Sitting in chair) GI: Inspection: obesity GI Palp: No abdominal tenderness and Yes Soft to palpation : General: Yes deferred ( deferred to the office) Results Labs 07/16/24 05:58 07/16/24 05:58 Labs: Short CBC 07/16/24 Range/Units 05:58 WBC 8.8 (4.5-10.0) K/mm3 Hgb 11.1 L (12.0-15.0) g/dL Hct 34.2 L (37.0-47.0) % Plt Count 202 (150-375) k/mm3 BMP 07/16/24 05:58 Sodium 135 L Potassium 3.6 Chloride 98 Carbon Dioxide 33 H BUN 18 H Creatinine 1.00 Glucose 91 Calcium 9.9 Liver Function 07/15/24 07/16/24 Range/Units 05:47 05:58 Total Bilirubin 0.7 0.9 (0.2-1.3) mg/dL Direct Bilirubin 0.0 (0-0.3) mg/dL AST 43 H 39 H (14-36) U/L ALT 10 9 (6-35) U/L Alkaline Phosphatase 104 97 (38-126) U/L Albumin 3.4 L 3.4 L (3.5-5.1) g/dL
[2024-07-16 14:00] VITALS: BP 148/68; PULSE 76; RESP 16; TEMP 36.7; O2SAT 98
[2024-07-16] MEDS: fentaNYL (*CRX) 50 MCG PATCH TRANSDERM (16:35)
[2024-07-16 20:42] VITALS: BP 133/57; PULSE 77; RESP 16; TEMP 36.5; O2SAT 96
[2024-07-16] MEDS: SENNA/DOCUSATE SODIUM TABLET 1 TAB PO (20:44)
[2024-07-17] MEDS: HYDROcodone/acetaminophen (*CRX) 7.5-325 MG TABLET 1 TAB PO ×3 (02:45→16:24)
[2024-07-17 04:22] VITALS: BP 115/45; PULSE 70; RESP 18; TEMP 36.2; O2SAT 93
[2024-07-17 06:03] LABS: Basophils Absolute Auto 0.1 K/mm3 (0.0-0.1); Basophils Percent Auto 0.8 % (0.2-1.2); Eosinophils Absolute Auto 0.4 K/mm3 (0-0.3); Eosinophils Percent Auto 4.6 % (0-4.4); Hematocrit 33.7 % (37.0-47.0); Immature Granulocyte Absolute 0.04 K/mm3 (0.00-0.031); Immature Granulocyte Percent A 0.4 % (0-0.5); Lymphocytes Absolute Auto 0.98 K/mm3 (0.9-3.2); Lymphocytes Percent Auto 10.4 % (18.3-44.2); Mean Corpuscular HGB Conc 32.6 g/dl (32-36); Mean Corpuscular Hemoglobin 30.5 pg (26-34); Mean Corpuscular Volume 93.4 fl (80-100); Mean Platelet Volume 9.5 fl (7.4-10.4); Monocytes Absolute Auto 0.9 K/mm3 (0.1-0.6); Monocytes Percent Auto 9.7 % (2.6-8.5); Neutrophils Percent Auto 74.1 % (45.5-73.1); Platelet Count Result 203 k/mm3 (150-375); Red Blood Count 3.61 M/mm3 (4.2-5.4); Red Cell Distribution Width 15.1 % (11.5-14.5); White Blood Count 9.5 K/mm3 (4.5-10.0)
[2024-07-17 06:13] LABS: Alanine Aminotransferase 9 U/L (6-35); Albumin Level 3.5 g/dL (3.5-5.1); Alkaline Phosphatase 101 U/L (38-126); Anion Gap 5 mmol/L (4-12); Aspartate Amino Transferase 37 U/L (14-36); Blood Urea Nitrogen 20 mg/dL (7-17); Calcium 9.8 mg/dL (8.4-10.2); Carbon Dioxide 30 mmol/L (22-30); Chloride 99 mmol/L (98-107); Estimated CRCL calculation 58 ml/min; Estimated Glomerular Filt Rate 60; Glucose 95 mg/dL (65-110); Potassium 3.4 mmol/L (3.4-5.0); Sodium 134 mmol/L (137-145)
[2024-07-17] MEDS: ALENDRONATE SODIUM 10 MG TABLET PO (06:47)
--- NOTE | 2024-07-17 08:42 | PM.IMPN ---
Progress Note: A&P Assessment and Plan (1) Acute kidney injury: Code(s): N17.9 - Acute kidney failure, unspecified Status: Acute Assessment and Plan: Creatinine 1.9 on admission, baseline WNL. - Resolved. BUN/Cr 18/1.0 on am labs - Serum and urine protein electrophoresis and kappa lambda ratio are pending to evaluate for possible multiple myeloma. - Renal ultrasound: Renal cortical thinning, without hydronephrosis - Possible dehydration vs over diuresed as she has several electrolyte abnormalities including a sodium of 135, potassium 3.1, and chloride of 95 (she is on bumetanide 2 mg b.i.d. and chlorthalidone 25 mg daily). - Close monitoring of volume status with daily weights and strict I/Os. - Hold diuretics but continue sacubitril-valsartan for now as she is on a low dose. - Nephrology following off IV fluids and patient is eating Cr back to baseline (2) Bacteriuria with pyuria: Code(s): R82.71 - Bacteriuria; R82.81 - Pyuria Status: Acute Assessment and Plan: - UA: Clear appearance with 3+ glucose, 2+ blood, 1+ leukocyte, 11-20 RBC, 21-50 BC, no bacteria. Few squamous, possible contamination. - UC obtained on 07/14: Negative - No previous micro to be reviewed - started on Rocephin on 07/11, transition to cefdinir to complete course (3) Bone lesion: Code(s): M89.9 - Disorder of bone, unspecified Status: Acute Assessment and Plan: A contrast-enhanced CT of the chest, abdomen, and pelvis would be helpful however is unable to be performed at this time as she also has an acute kidney injury. Head CT no acute intracranial abnormality. Possible subtle lytic left frontal pole lesion. C spine CT No acute fracture. Lytic lesions in the spine, as above, most notably at the C2, C3, C4 vertebral bodies. Correlate for metastatic disease or multiple myeloma. Moderate to advanced degenerative spondylosis, as above. CT chest, abd/pelvis ordered 1. Widespread bone lesions, consistent with metastatic disease versus multiple myeloma. 2. Acute fractures of left ninth and 11th ribs. Multiple healing bilateral pathologic rib fractures. 3. Thickening of the endometrial complex suspicious for endometrial carcinoma. 4. Umbilical and supraumbilical ventral hernias containing fat. Started on alendronate 10 mg daily - Oncology consulted Continue pain medicine for pain control. She needs to be started on Xgeva as an outpatient for metastatic disease. She may need palliative radiation therapy for bone metastasis. (4) Mass of right breast: Code(s): N63.10 - Unspecified lump in the right breast, unspecified quadrant Status: Acute Assessment and Plan: Right breast mass is concerning for malignancy which could perhaps be biopsied during her stay or she could be referred to breast specialist Dr. Tara Weldon with [facility]; this could explain the bony lesions. Will order ultrasound biopsy -Recommends biopsy while in the hospital- will order now- can be done here or if unable- needs to be schedule as outpt Patient's insurance is not going to cover biopsy inpatient and is requiring patient obtain and outpatient mammogram prior to the biopsy Ordered CA 125 as well as CA 15-3. Dr. Johnson will see her back in 1 week after the biopsy. Oncology has provided her with office information. (5) Endometrial mass: Code(s): N94.89 - Other specified conditions associated with female genital organs and menstrual cycle Status: Acute Assessment and Plan: CT chest/abd/pelvis ordered 1. Widespread bone lesions, consistent with metastatic disease versus multiple myeloma. 2. Acute fractures of left ninth and 11th ribs. Multiple healing bilateral pathologic rib fractures. 3. Thickening of the endometrial complex suspicious for endometrial carcinoma. 4. Umbilical and supraumbilical ventral hernias containing fat. Oncology consulted Patient may need to see a Gynecology for workup for endometrial mass. Gynecology consulted The patient and daughter preferred to workup the breast prior to any other procedures. If they decide to workup the abnormal uterine finding, they will call the office to schedule after discharge. (6) Chronic pain syndrome: Code(s): G89.4 - Chronic pain syndrome Status: Acute Assessment and Plan: Patient continues to endorse generalized pain Discussed patient with Dr. Johnson and will continue patient p.o. Palisade and start fentanyl patch for pain control, DC morphine IV started on morphine PO BID Patient may benefit from radiation oncology for bone metastasis however this will have to be done in the outpatient setting following pathology Will likely need to follow up with Pain Management (7) Chronic obstructive pulmonary disease: Code(s): J44.9 - Chronic obstructive pulmonary disease, unspecified Status: Acute Assessment and Plan: Chronic, in no acute exacerbation. 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 - monitor (9) Hypertension: Code(s): I10 - Essential (primary) hypertension Status: Acute Assessment and Plan: Chronic, well controlled on home medications. - Entresto BID - Monitor Time Spent With Patient Time with patient: 25 - 35 minutes Subjective Date/time seen: 07/17/24 08:42 Interval history: 78-year-old female with history of chronic back pain, ischemic cardiomyopathy, combined systolic and diastolic congestive heart failure, hypertension, chronic kidney disease, and chronic obstructive pulmonary disease who presented to the emergency department via private vehicle for evaluation of pain all over. Patient is pleasant sitting up in her bed with family at bedside. She continues to endorse pain worse in her neck and left ribs. Again I discussed with her pain likely secondary to the bony lesions and rib fractures. Started patient on 15 mg b.i.d. morphine PO. she remains on the fentanyl patch and Palisade p.r.n.. Continue to encourage patient to work with physical therapy given she wants to return home at discharge. Patient has no other complaints denying chest pain, shortness a breath, palpitations, nausea / vomiting, and abdominal pain. Review of Systems Review of Systems: All systems reviewed & are unremarkable except as noted in HPI and below Exam Narrative: AF HR General: female in no acute respiratory distress who is nontoxic appearing, lying semi recumbent in bed. HEENT: Normocephalic. Atraumatic. Extraocular movement intact. Sclera clear and anicteric. No facial asymmetry. Chest: Lungs are clear to auscultation bilaterally. No wheezes or crackles. CV: Heart was regular rate and rhythm. S1-S2. No murmurs, gallops, or rubs. Abd: Abdomen was soft. Nontender. Nondistended. Positive bowel sounds. No organomegaly or masses. Ext: No clubbing, cyanosis, or edema. 2+ DP pulses bilaterally. Neuro: Patient is alert. Cranial nerves 2-12 are intact. Speech is clear. Skin: Right breast mass to the lateral aspect with nipple retraction. No open wounds. No left breast mass. Objective Data Vital Signs Vital Signs: Vital Signs - 24 hr 07/16/24 10:18 07/16/24 09:35 07/16/24 14:00 Temperature 98.0 F Pulse Rate 76 Respiratory Rate 16 Blood Pressure 148/68 H Pulse Oximetry 98 Oxygen Delivery Room Air Room Air 07/16/24 20:42 07/17/24 04:22 Temperature 97.7 F 97.2 F L Pulse Rate 77 70 Respiratory Rate 16 18 Blood Pressure 133/57 L 115/45 L Pulse Oximetry 96 93 Oxygen Delivery Intake/Output Intake/Output: Intake & Output 07/14/24 07/15/24 07/16/24 07/17/24 23:59 23:59 23:59 23:59 Intake Total 3490 1010 1180 250 Output Total 1600 1050 Balance 1890 -40 1180 250 Meds/Results Medications: Active Medications Generic Name Dose Route Start Last Admin Trade Name Freq PRN Reason Stop Dose Admin Acetaminophen 650 mg 07/11/24 11:11 Acetaminophen 325 Mg Tablet PO Q4H PRN Mild Pain (1-3) or Fever Hydrocodone Bitart/Acetaminophen 1 tab 07/11/24 12:46 07/14/24 05:46 Hydrocodone/Acetaminophen (*Crx) 5-325 Mg Tablet PO 1 tab Q6H PRN Administration Pain Rated 4-6 Hydrocodone Bitart/Acetaminophen 1 tab 07/15/24 16:22 07/17/24 02:45 Hydrocodone/Acetaminophen (*Crx) 7.5-325 Mg Tablet PO 1 tab Q6H PRN Administration Pain Rated 7-10 Alendronate Sodium 10 mg 07/15/24 16:35 07/17/24 06:47 Alendronate Sodium 10 Mg Tablet PO 10 mg DAILY@0630 UBALDO Administration Aspirin 81 mg 07/11/24 17:00 07/16/24 16:34 Aspirin 81 Mg Chewable Tablet PO 08/10/24 16:59 81 mg BID UBALDO Administration Atorvastatin Calcium 40 mg 07/12/24 09:00 07/16/24 09:35 Atorvastatin 40 Mg Tablet PO 40 mg DAILY UBALDO Administration Cefdinir 300 mg 07/16/24 09:00 07/16/24 20:44 Cefdinir 300 Mg Capsule PO 07/17/24 21:01 300 mg Q12HR UBALDO Administration Empagliflozin 10 mg 07/12/24 09:00 07/16/24 09:35 Empagliflozin 10 Mg Tablet PO 10 mg DAILY UBALDO Administration Famotidine 20 mg 07/12/24 09:00 07/16/24 09:35 Famotidine 20 Mg Tablet PO 20 mg DAILY UBALDO Administration Fentanyl 50 mcg 07/16/24 15:20 07/16/24 16:35 Fentanyl (*Crx) 50 Mcg Patch TRANSDERM 50 mcg Q72HR UBALDO Administration Lidocaine 1 patch 07/12/24 09:00 07/16/24 09:36 Lidocaine 5% Patch TOPICAL 1 patch DAILY UBALDO Administration Multivitamins Therapeutic 1 tablet 07/12/24 09:00 07/16/24 09:35 Multivitamins Therapeutic Tab (*Bkc) PO 08/11/24 08:59 1 tablet DAILY UBALDO Administration Oxybutynin Chloride 5 mg 07/12/24 09:00 07/16/24 09:35 Oxybutynin Chloride Xl 5 Mg Tab.Er.24 PO 5 mg DAILY UBALDO Administration Sacubitril/Valsartan 1 tab 07/11/24 17:00 07/16/24 16:34 Sacubitril/Valsartan 24-26 Mg Tablet PO 1 tab BID UBALDO Administration Senna/Docusate Sodium 1 tab 07/15/24 21:00 07/16/24 20:44 Senna/Docusate Sodium Tablet PO 1 tab HS UBALDO Administration Radiology Results: ITS Impressions Abdomen/Pelvis CT 07/11/24 10:52 IMPRESSION: 1. Ventral hernias containing nonobstructed bowel. 2. Widespread bone lesions, consistent with metastatic disease versus multiple myeloma. Healing bilateral pathologic rib fractures. Chest X-Ray 07/11/24 11:01 IMPRESSION: 1. Mild atelectasis in left mid and lower lung zones. 2. Cardiomegaly. Renal Ultrasound 07/11/24 17:24 IMPRESSION: Renal cortical thinning, without hydronephrosis. Head CT 07/12/24 07:35 Impression: No intracranial abnormality. Possible subtle lytic left frontal bone lesion. Cervical Spine CT 07/12/24 07:40 Impression: No acute fracture. Lytic lesions in the spine, as above, most notably at the C2, C3, C4 vertebral bodies. Correlate for metastatic disease or multiple myeloma. Moderate to advanced degenerative spondylosis, as above. Chest/Abdomen/Pelvis CT 07/14/24 13:46 IMPRESSION: 1. Widespread bone lesions, consistent with metastatic disease versus multiple myeloma. 2. Acute fractures of left ninth and 11th ribs. Multiple healing bilateral pathologic rib fractures. 3. Thickening of the endometrial complex suspicious for endometrial carcinoma. 4. Umbilical and supraumbilical ventral hernias containing fat. Labs Labs: Laboratory Results - last 24 hr 07/17/24 05:20 WBC 9.5 RBC 3.61 L Hgb 11.0 L Hct 33.7 L MCV 93.4 MCH 30.5 MCHC 32.6 RDW 15.1 H Plt Count 203 MPV 9.5 Immature Gran % (Auto) 0.4 Neut % (Auto) 74.1 H Lymph % (Auto) 10.4 L [place] % (Auto) 9.7 H Eos % (Auto) 4.6 H Baso % (Auto) 0.8 Lymph # (Auto) 0.98 [place] # (Auto) 0.9 H Eos # (Auto) 0.4 H Baso # (Auto) 0.1 Abs Immat Gran (auto) 0.04 H Absolute Neuts (auto) 7.0 H Absolute Nucleated RBC 0.000 Nucleated RBC % 0.0 Sodium 134 L Potassium 3.4 Chloride 99 Carbon Dioxide 30 Anion Gap 5 BUN 20 H Creatinine 0.90 Estim Creat Clear Calc 58 Estimated GFR 60 Glucose 95 Calcium 9.8 Total Bilirubin 1.0 AST 37 H ALT 9 Alkaline Phosphatase 101 Total Protein 7.0 Albumin 3.5 Quality VTE Prophylaxis VTE prophylaxis: pharmacologic ordered
[2024-07-17] MEDS: FAMOTIDINE 20 MG TABLET PO (08:44)
[2024-07-17] MEDS: ATORVASTATIN 40 MG TABLET PO (08:44)
[2024-07-17] MEDS: CEFDINIR 300 MG CAPSULE PO ×2 (08:44→20:42)
[2024-07-17] MEDS: EMPAGLIFLOZIN 10 MG TABLET PO (08:44)
[2024-07-17] MEDS: ASPIRIN 81 MG CHEWABLE TABLET PO ×2 (08:44→16:24)
[2024-07-17] MEDS: oxyBUTYnin CHLORIDE XL 5 MG TAB.ER.24 PO (08:45)
[2024-07-17] MEDS: MULTIVITAMINS THERAPEUTIC TAB (*BKC) 1 TABLET PO (08:45)
[2024-07-17] MEDS: SACUBITRIL/VALSARTAN 24-26 MG TABLET 1 TAB PO ×2 (08:45→16:24)
[2024-07-17 09:10] VITALS: BP 132/53; PULSE 65; RESP 16; TEMP 36.7; O2SAT 99
[2024-07-17 09:45] VITALS: PULSE 71; RESP 12; O2SAT 98
[2024-07-17] MEDS: MORPHINE SULFATE (*CRX) 15 MG TABCR PO ×2 (09:55→20:42)
[2024-07-17] MEDS: LIDOCAINE 5% PATCH 1 PATCH TOPICAL (09:59)
[2024-07-17 14:00] VITALS: BP 129/54; PULSE 69; RESP 20; TEMP 36.5; O2SAT 100
--- NOTE | 2024-07-17 14:47 | PCOTNOTE ---
Patient refused stated she had already did therapy this date, and is done, worn out and having to much pain.
[2024-07-17 20:17] VITALS: BP 120/42; PULSE 74; RESP 20; TEMP 36.6; O2SAT 98
[2024-07-17] MEDS: SENNA/DOCUSATE SODIUM TABLET 1 TAB PO (20:42)
[2024-07-17 22:00] VITALS: PULSE 74; RESP 20; O2SAT 99
[2024-07-18 05:15] VITALS: BP 146/66; PULSE 71; RESP 20; TEMP 36.4; O2SAT 99
[2024-07-18 05:48] LABS: Basophils Absolute Auto 0.1 K/mm3 (0.0-0.1); Basophils Percent Auto 0.9 % (0.2-1.2); Eosinophils Absolute Auto 0.5 K/mm3 (0-0.3); Eosinophils Percent Auto 6.3 % (0-4.4); Hematocrit 35.8 % (37.0-47.0); Hemoglobin 11.6 g/dL (12.0-15.0); Immature Granulocyte Absolute 0.03 K/mm3 (0.00-0.031); Immature Granulocyte Percent A 0.4 % (0-0.5); Lymphocytes Absolute Auto 1.23 K/mm3 (0.9-3.2); Lymphocytes Percent Auto 15.3 % (18.3-44.2); Mean Corpuscular HGB Conc 32.4 g/dl (32-36); Mean Corpuscular Hemoglobin 30.5 pg (26-34); Mean Corpuscular Volume 94.2 fl (80-100); Mean Platelet Volume 9.3 fl (7.4-10.4); Monocytes Absolute Auto 0.8 K/mm3 (0.1-0.6); Monocytes Percent Auto 9.9 % (2.6-8.5); Neutrophils Absolute Auto 5.4 K/mm3 (1.3-6.7); Neutrophils Percent Auto 67.2 % (45.5-73.1); Platelet Count Result 227 k/mm3 (150-375); Red Cell Distribution Width 15.3 % (11.5-14.5); White Blood Count 8.1 K/mm3 (4.5-10.0)
[2024-07-18 05:56] LABS: Alanine Aminotransferase 9 U/L (6-35); Albumin Level 3.5 g/dL (3.5-5.1); Alkaline Phosphatase 104 U/L (38-126); Anion Gap 5 mmol/L (4-12); Aspartate Amino Transferase 38 U/L (14-36); Blood Urea Nitrogen 20 mg/dL (7-17); Calcium 9.8 mg/dL (8.4-10.2); Carbon Dioxide 30 mmol/L (22-30); Chloride 99 mmol/L (98-107); Estimated CRCL calculation 64 ml/min; Estimated Glomerular Filt Rate > 60; Glucose 85 mg/dL (65-110); Potassium 3.5 mmol/L (3.4-5.0); Sodium 134 mmol/L (137-145)
[2024-07-18] MEDS: ALENDRONATE SODIUM 10 MG TABLET PO (07:04)
[2024-07-18 08:24] VITALS: PULSE 75; RESP 18; O2SAT 95
[2024-07-18] MEDS: oxyBUTYnin CHLORIDE XL 5 MG TAB.ER.24 PO (08:53)
[2024-07-18] MEDS: SACUBITRIL/VALSARTAN 24-26 MG TABLET 1 TAB PO ×2 (08:53→16:39)
[2024-07-18] MEDS: MORPHINE SULFATE (*CRX) 15 MG TABCR PO (08:53)
[2024-07-18] MEDS: ATORVASTATIN 40 MG TABLET PO (08:53)
[2024-07-18] MEDS: FAMOTIDINE 20 MG TABLET PO (08:53)
[2024-07-18] MEDS: MULTIVITAMINS THERAPEUTIC TAB (*BKC) 1 TABLET PO (08:53)
[2024-07-18] MEDS: EMPAGLIFLOZIN 10 MG TABLET PO (08:53)
[2024-07-18] MEDS: ASPIRIN 81 MG CHEWABLE TABLET PO ×2 (08:53→16:39)
[2024-07-18] MEDS: LIDOCAINE 5% PATCH 1 PATCH TOPICAL (08:54)
--- NOTE | 2024-07-18 13:02 | P.DS_ITS ---
DS: Admitting Diagnosis Discharge Date 07/21/2024 Admitting Diagnosis Acute kidney injury bacteriuria with pyuria bone lesion massive for breast endometrial mass chronic pain COPD combined systolic and diastolic CHF hypertension DS: Discharge Diagnosis Discharge Diagnosis (1) Acute kidney injury: Code(s): N17.9 - Acute kidney failure, unspecified Status: Acute (2) Bacteriuria with pyuria: Code(s): R82.71 - Bacteriuria; R82.81 - Pyuria Status: Acute (3) Bone lesion: Code(s): M89.9 - Disorder of bone, unspecified Status: Acute (4) Mass of right breast: Code(s): N63.10 - Unspecified lump in the right breast, unspecified quadrant Status: Acute (5) Endometrial mass: Code(s): N94.89 - Other specified conditions associated with female genital organs and menstrual cycle Status: Acute (6) Chronic pain syndrome: Code(s): G89.4 - Chronic pain syndrome Status: Acute (7) Chronic obstructive pulmonary disease: Code(s): J44.9 - Chronic obstructive pulmonary disease, unspecified Status: Acute (8) Combined systolic and diastolic congestive heart failure: Code(s): I50.40 - Unspecified combined systolic (congestive) and diastolic (congestive) heart failure Status: Acute (9) Hypertension: Code(s): I10 - Essential (primary) hypertension Status: Acute DS: Summary Hospital Course Reason for hospitalization: Acute kidney injury bacteriuria with pyuria bone lesion massive for breast endometrial mass chronic pain COPD combined systolic and diastolic CHF hypertension Hospital Course: 78-year-old female with history of chronic back pain, ischemic cardiomyopathy, combined systolic and diastolic congestive heart failure, hypertension, chronic kidney disease, and chronic obstructive pulmonary disease who presented to the emergency department via private vehicle for evaluation of pain all over. Imaging was obtained and showed widespread bone lesions, consistent with metastatic disease versus multiple myeloma, acute fractures of left ninth and 11th ribs. Multiple healing bilateral pathologic rib fractures, thickening of the endometrial complex suspicious for endometrial carcinoma, and umbilical and supraumbilical ventral hernias containing fat. Head CT showed no acute intracranial abnormality, but possible subtle lytic left frontal pole lesion. C spine CT showed Lytic lesions in the spine, as above, most notably at the C2, C3, C4 vertebral bodies. Patient also had a large right breast mass to the lateral aspect with nipple retraction on exam concerning for malignancy. Oncology was consulted and recommended biopsy while in the hospital however the patient's insurance refused to cover biopsy inpatient and is requiring patient obtain this outpatient. Per Dr. Johnson, he will see her in the office in 1 week after the biopsy. Oncology has provided her with office information. Gynecology was consulted for the endometrial mass and noted that the patient and daughter preferred to workup the breast prior to any other procedures. If the patient decides to workup the abnormal uterine finding, they will call the gynecology office to schedule after discharge. Patient continued to endorse generalized pain during admission. Discussed patient with Dr. Johnson and started patient on fentanyl patch, changed the IV morphine to ER orals and continued the norco for breakthrough. Patient was also started on alendronate. At time of discharge patient states that her pain is doing much better on the current regimen. Per oncology, patient may benefit from radiation oncology for bone metastasis however this will have to be done in the outpatient setting following pathology. During admission patient was also noted to have a slight ELANA and a urine sample concerning for infection. Patient was placed on antibiotics for the bacteruria and completed her course during the inpatient stay. Nephrology was consulted for the ELANA. The ELANA resolved with IV fluids. At time of discharge patient noted that she had not had a bowel movement in several days. she denied nausea/vomiting or abdominal pain. A KUB was obtained and showed no obstruction or ileus. Patient was prescribed a bowel regimen at time of discharge given that she is on pain medications that can cause increased risk of constipation. At time of discharge patient states that her pain is doing much better on the current regimen. She denied any chest pain, palpitations, shortness of, nausea/vomiting, and abdominal pain. Patient was discharged home in a stable condition. She was evaluated by Physical therapy and Occupational therapy throughout her admission who recommended home health therapy however after a long discussion with the patient she continued to refuse home health therapy. She plans to return home with plans to have her daughter Dania stay with her. Throughout admission I have had several discussions with the patient and her daughter about the pain medications she has been started on and attached information to the discharge paperwork about these medications as well. Discussed with the the patient that she will need to get these medications represcribed by her primary care provider or oncology as I have only given her 2 weeks supply. She stated understanding. Status at Discharge Functional status at discharge: uses cane/walker Time Spent with Patient Time attestation: Total time spent providing and/or coordinating discharge services: Time spent: Greater than 30 minutes Exam Narrative: AF HR 75 RR 18 SpO2 95 BP 146/66 General: female in no acute respiratory distress who is nontoxic appearing, sitting up in her chair HEENT: Normocephalic. Atraumatic. Extraocular movement intact. Sclera clear and anicteric. No facial asymmetry. Chest: Lungs are clear to auscultation bilaterally. No wheezes or crackles. CV: Heart was regular rate and rhythm. S1-S2. No murmurs, gallops, or rubs. Abd: Abdomen was soft. Nontender. Nondistended. Positive bowel sounds. No organomegaly or masses. Ext: No clubbing, cyanosis, or edema. 2+ DP pulses bilaterally. Neuro: Patient is alert. Cranial nerves 2-12 are intact. Speech is clear. Skin: Right breast mass to the lateral aspect with nipple retraction. No open wounds. No left breast mass. DS: Data Data Completed and Pending Completed studies during hospitalization: Abdomen/pelvis CT chest x-ray renal ultrasound head CT C-spine CT chest abdomen pelvis CT abdomen x-ray Labs on day of discharge: Labs from last 24 hours 07/18/24 05:11 WBC 8.1 RBC 3.80 L Hgb 11.6 L Hct 35.8 L MCV 94.2 MCH 30.5 MCHC 32.4 RDW 15.3 H Plt Count 227 MPV 9.3 Immature Gran % (Auto) 0.4 Neut % (Auto) 67.2 Lymph % (Auto) 15.3 L [place] % (Auto) 9.9 H Eos % (Auto) 6.3 H Baso % (Auto) 0.9 Lymph # (Auto) 1.23 [place] # (Auto) 0.8 H Eos # (Auto) 0.5 H Baso # (Auto) 0.1 Abs Immat Gran (auto) 0.03 Absolute Neuts (auto) 5.4 Absolute Nucleated RBC 0.000 Nucleated RBC % 0.0 Sodium 134 L Potassium 3.5 Chloride 99 Carbon Dioxide 30 Anion Gap 5 BUN 20 H Creatinine 0.80 Estim Creat Clear Calc 64 Estimated GFR > 60 Glucose 85 Calcium 9.8 Total Bilirubin 1.0 AST 38 H ALT 9 Alkaline Phosphatase 104 Total Protein 7.0 Albumin 3.5 Discharge Plan Discharge Attending physician on discharge: Carlos Alberto Warner Consulting providers: Jimmy Johnson; Malachi Galvan; Fany Pemberton; Ryan Keene Discharging Clinician: Disha Giraldo Anticipated Discharge Date/Time: 07/18/24 12:47 Patient Disposition: Home, Self-Care Activity: as tolerated Diet: as tolerated and heart healthy Discharge Instructions: Discharge disposition: Patient was admitted to the hospital for generalized pain She was found to have a large right breast mass concerning for malignancy Imaging was obtained and also showed several bone lesions and an endometrial mass Oncology Dr. Johnson was consulted at that time Patient was to undergo a biopsy during admission however insurance refused to cover Patient is to obtain the mammogram and biopsy in the outpatient setting Follow up with Dr. Johnson in 1 week after the biopsy. Oncology has provided her with office information. Patient was evaluated by Gynecology for the endometrial mass. If you decide to workup the abnormal uterine finding, call the office to schedule after discharge. Patients pain is likely due to the bone lesions She is on several medications for the pain, take these medications as prescribed. [place] as needed every 6 hours, morphine twice a day and fentanyl patch (patch to be changed every three days), attached is information on these medications Patient may benefit from radiation oncology for bone metastasis however this will have to be done in the outpatient setting following pathology Patient was started on a bowel regimen given that narcotics can lead to increased constipation Monitor stool output On admission patient was diagnosed with a urinary tract infection with an associated kidney injury Nephrology was consulted She was started on antibiotics and fluids at that time Patient completed her antibiotics during her inpatient stay Kidney injury resolved with fluids Eat well balanced meals and stay hydrated Keep active to remain strong Avoid use of diapers or pads Good ean Care every 2 hours Trend urine output Take medications as prescribed Monitor blood pressures Take caution while standing, rising, or moving Change positions slowly taking a break between each position change If you standing feel dizzy sit back down and take a break Patient was seen by therapy throughout her admission who recommended home health however patient refuses stating that family is able to care for her Encouraged to continue with yearly vaccinations Return to the emergency department if he developed sudden shortness of breath, chest pain, nausea, vomiting, upset stomach or intractable diarrhea Return to the emergency department if you develop fever greater than 101.5 Follow-up with the primary care physician within 1 weeks Thank you for choosing [facility] for your healthcare needs Patient Instructions: Hydrocodone/Acetaminophen (By mouth), Fentanyl (Absorbed through the skin), Morphine, Slow Release (By mouth), Heart Failure (DC), Acute Kidney Injury (DC), Pain Management (DC), Urinary Tract Infection in Older Adults (DC) Patient Language: Pakistani Stand Alone Forms: General Discharge Information Follow-up/Referrals: Jimmy Johnson MD [Physician] - Call for Appointment Shahana Bryant PA-C [Primary Care Provider] - 1 Week Fnay Pembertno MD [Physician] - Call for Appointment Discharge Medications: New alendronate 10 mg Tablet 10 mg PO DAILY@0630 Qty: 30 0RF sennosides-docusate sodium [Senokot-S] 8.6-50 mg Tablet 1 tab PO HS Qty: 30 0RF hydrocodone-acetaminophen 7.5-325 mg Tablet 1 tablet PO Q6H PRN (Reason: Pain Rated 7-10) 7 Days Qty: 28 0RF morphine 15 mg Tablet Extended Release 15 mg PO Q12HR Qty: 28 0RF fentanyl 50 mcg/hr patch 72 hour 1 patch transdermal Q72H Qty: 5 0RF polyethylene glycol 3350 [Miralax] 17 gram/dose powder 17 g PO BID Qty: 119 0RF Continued bumetanide 2 mg tablet 2 mg PO BID acetaminophen [Tylenol Arthritis Pain] 650 mg tablet extended release 650 mg PO Q8H PRN (Reason: pain) Qty: 10 0RF Jardiance 10 mg Tablet 10 mg PO DAILY Qty: 30 0RF Adults Multivitamin 1 tablet PO DAILY atorvastatin 40 mg tablet 40 mg PO DAILY chlorthalidone 25 mg tablet 25 mg PO DAILY famotidine 20 mg tablet 20 mg PO DAILY nitroglycerin 0.4 mg Tablet, Sublingual 0.4 mg sublingual Q5MIN PRN (Reason: Chest Pain) Rx Instructions: up to 3 doses total aspirin 81 mg Tablet 81 mg PO BID sacubitril-valsartan 24-26 mg tablet 1 tablet PO BID 30 Days Qty: 60 0RF Hold Instructions: Patient Condition Rx Instructions: Hold if your blood pressure is 90/40 or less. lidocaine 5 % adhesive patch,medicated 1 patch topical DAILY Qty: 30 0RF Rx Instructions: leave on most painful area for up to 12 hrs oxybutynin chloride 5 mg tablet extended release 24hr 5 mg PO DAILY Qty: 90 3RF Date of admission: 07/14/24 10:24 Primary Care Provider: Shahana Bryant Admitting Provider: Juan Beckwith Attending physician on admission: iDsha Giraldo Condition: Stable Hospitalist MIPS Heart Failure (Exclusion) Patient has history of Heart Transplant or Left Ventricular Assistive Device?: No IF YES, STOP HERE Heart Failure (Qualifier) Patient has current or prior documentation of LVEF less than or equal to 40%, or mod/servere depressed LVSF?: No IF NO, STOP HERE
--- NOTE | 2024-07-18 14:37 | PCPTNOTE ---
Addendum entered by Emily Monte, TELEGRAPHIC TYPEWRITER INSTALLER 07/18/24 14:38: Pt was encouraged to just walk and pt declined to save strength, pt was encourageed to perform seated exercises and declined. Original Note: Pt refused stating she was being DCd and needs her energy to get home.
[2024-07-18] MEDS: HYDROcodone/acetaminophen (*CRX) 5-325 MG TABLET 1 TAB PO (16:39)
[2024-07-18 19:58] LABS: CA 15-3 222 U/mL (<32)
--- NOTE | 2024-07-19 16:00 | PC.NURSE ---
Pt's daughter, Dania John calls with request for Pam to call the pharmacy re: Rx for fentanyl patch. I notified Pam who called the pharmacy at 1000 when they opened. Pam was going to call Dania & update her on the prescription. Dania called back, saying she was able to bean picker two of the five patches that were ordered. These patches are effective for 72 hours, giving her coverage for six days, but Dania was concerned because the order was for five patches & she would only have two. I communicated her concerns with Pam re: the discrepancy of the filled order. She did not feel comfortable writing another order for the fentanyl patches & wanted me to ask Dania to speak with Dr Johnson or her PCP to request additional fentanyl patches beyond the two that were dispensed from [facility] in [place]. Dania said she was going call Dr Johnson about follow up appointments tomorrow and will ask him if he would be able to prescribe additional fentanyl patches, if necessary.
== END 2024-07-18 16:55 | disposition home or self-care (01) | DRG 598 ==
LOC: ANHED 11:17 → ANH3MED 12:18
PROVIDERS: Internal Medicine Hematology & Oncology; Internal Medicine Nephrology; Nurse Practitioner; Physician Assistant; Admitting Provider General Practice; Emergency Provider Emergency Medicine; PCP Physician Assistant Medical; Visit Provider Student in an Organized Health Care Education/Training Program
DX: C50.911 Malignant neoplasm of unspecified site of right female breast (principal); C79.9 Secondary malignant neoplasm of unspecified site; I13.0 Hypertensive heart and chronic kidney disease with heart failure and stage 1 through stage 4 chronic kidney disease, or unspecified chronic kidney disease; N17.9 Acute kidney failure, unspecified; I50.42 Chronic combined systolic (congestive) and diastolic (congestive) heart failure; Z68.42 Body mass index [BMI] 45.0-49.9, adult; M89.9 Disorder of bone, unspecified; R82.81 Pyuria; R31.9 Hematuria, unspecified; R93.89 Abnormal findings on diagnostic imaging of other specified body structures; E66.9 Obesity, unspecified; E78.5 Hyperlipidemia, unspecified; E87.8 Other disorders of electrolyte and fluid balance, not elsewhere classified; G89.4 Chronic pain syndrome; I25.5 Ischemic cardiomyopathy; I25.10 Atherosclerotic heart disease of native coronary artery without angina pectoris; J44.9 Chronic obstructive pulmonary disease, unspecified; K43.9 Ventral hernia without obstruction or gangrene; M54.9 Dorsalgia, unspecified; M54.2 Cervicalgia; M84.48XD Pathological fracture, other site, subsequent encounter for fracture with routine healing; N18.30 Chronic kidney disease, stage 3 unspecified; Z90.49 Acquired absence of other specified parts of digestive tract; Z20.822 Contact with and (suspected) exposure to COVID-19; Z95.5 Presence of coronary angioplasty implant and graft; Z98.84 Bariatric surgery status; Z96.642 Presence of left artificial hip joint; Z96.653 Presence of artificial knee joint, bilateral; Z79.84 Long term (current) use of oral hypoglycemic drugs; Z79.82 Long term (current) use of aspirin; Z98.42 Cataract extraction status, left eye; Z96.1 Presence of intraocular lens; Z88.0 Allergy status to penicillin
CPT/HCPCS: 36415; 70450; 71045; 71260; 72125; 74018; 74176; 74177; 76775; 80048; 80053; 80069; 80076; 81001; 82550; 82570; 83690; 83735; 83883; 84145; 84156; 84300; 84443; 84484; 84540; 85025; 85027; 85610; 85730; 86300; 86334; 87086; 87637; 93005; 96361; 96365; 96366; 96375; 96376; 97161; 97166; 97535; 99285; A9270; G0378; J0696; J2270; J7030; Q9967

== ENCOUNTER 2024-07-21 10:51 | Outpatient (CLI) | payer MEDICARE, SELFPAY ==
--- NOTE | ~2024-07-21 | MMUS_ITS ---
EXAMINATION: MM diagnostic cande BI w ana, US breast RT limited HISTORY: Right breast mass TECHNIQUE: 3-D tomosynthesis images of the breasts were performed and synthetic 2-D images were gener ated. CAD analysis was submitted and interpreted. High resolution limited right breast ultrasound was performed. COMPARISON: None BREAST PARENCHYMAL COMPOSITION:Not Dense. The breasts are almost entirely fatty FINDINGS: MAMMOGRAPHIC FINDINGS: The right breast is relatively smaller as compared to the left, with extensive asymmetric increased d ensity in the central subareolar aspect extending to the outer portion. There is probable nipple retr action. Left breast parenchymal pattern is unremarkable. Bilateral benign vascular calcifications are present. No overtly suspicious microcalcification seen. ULTRASOUND: Sonographic imaging is difficult due to prominent breast tissue, but there is probable extensive ill- defined hypoechogenicity at the subareolar region in particular. IMPRESSION: Suspected asymmetric increased density and ill-defined hypoechogenicity in the central subareolar ri ght breast extending to the outer aspect. Findings are suspicious for malignant process. Biopsy recom mended to establish histologic diagnosis. Given the limitations of the imaging obtained, breast MRI s hould also be considered to further evaluate and better delineate the extent of suspected disease. BI-RADS category 5, highly suggestive of malignancy. Reviewed, dictated and finalized at location [facility]. [facility] IMPRESSION: Suspected asymmetric increased density and ill-defined hypoechogenicity in the central subareolar right breast extending to the outer aspect. Findings are alarcon spicious for malignant process. Biopsy recommended to establish histologic diag nosis. Given the limitations of the imaging obtained, breast MRI should also be considered to further evaluate and better delineate the extent of suspected di sease. BI-RADS category 5, highly suggestive of malignancy.
== END 2024-07-21 10:52 | disposition home or self-care (01) ==
PROVIDERS: PCP Physician Assistant Medical; Visit Provider Internal Medicine Hematology & Oncology
DX: N63.11 Unspecified lump in the right breast, upper outer quadrant (principal); R92.8 Other abnormal and inconclusive findings on diagnostic imaging of breast
CPT/HCPCS: 76642; 77062; 77066; G0279

== ENCOUNTER 2024-07-30 15:50 | Inpatient (IN) | payer MEDICARE, SELFPAY ==
[2024-07-30] VITALS (7 sets, daily range): BP systolic 109–125; BP diastolic 42–102; PULSE 66–85; RESP 12–20; TEMP 36.1–36.6; O2SAT 97–99; BMI 46.2
--- NOTE | 2024-07-30 16:40 | ECG_ITS ---
Test Date: 2024-07-30 16:43:36 Measurements Intervals [place] Rate: 84 P: 0 IN: 0 QRS: -51 QRSD: 122 T: 61 QT: 378 QTc: 448 Interpretive Statements SINUS RHYTHM BORDERLINE AV CONDUCTION DELAY LEFT ANTERIOR FASCICULAR BLOCK VOLTAGE CRITERIA FOR LVH CANNOT R/O SEPTAL INFARCT, AGE INDETERMINATE HIGH LATERAL INFARCT, AGE INDETERMINATE BASELINE ARTIFACT- I, II, III, AVR, AVL, AVF, V1-V6 ABNORMAL ECG Compared to ECG 07/11/2024 11:57:55 NO SIGNIFICANT CHANGE Electronically Signed On 07-30-2024 17:57:54 STUDENT DEVELOPMENT DEAN by Matt Yung D.O.
--- NOTE | 2024-07-30 16:45 | ECG_ITS ---
Test Date: 2024-07-30 16:45:52 Measurements Intervals [place] Rate: 83 P: 76 TX: 215 QRS: -55 QRSD: 119 T: 59 QT: 373 QTc: 439 Interpretive Statements SINUS RHYTHM WITH FIRST DEGREE AV BLOCK LEFT ANTERIOR FASCICULAR BLOCK VOLTAGE CRITERIA FOR LVH CANNOT R/O SEPTAL INFARCT, AGE INDETERMINATE HIGH LATERAL INFARCT, AGE INDETERMINATE BASELINE ARTIFACT- I, II, III, AVR, AVL, AVF, V1-V6 ABNORMAL ECG Compared to ECG 07/30/2024 16:43:36 First degree AV block now present Electronically Signed On 08-01-2024 07:36:31 ANNUAL GREENHOUSE MANAGER by Matt Yung D.O.
--- NOTE | 2024-07-30 17:20 | ED.GENADULT ---
HPI - General Adult General Chief complaint: Unspecified Stated complaint: PAIN ALL OVER History of Present Illness HPI narrative: 78-year-old female with history of COPD, CHF, ischemic cardiomyopathy, CAD, hyperlipidemia, recent admission for after presentation to the ED for pain all over for which CTs were obtained which revealed widespread bone lesions consistent with metastatic disease versus multiple myeloma, acute fracture of the left 9th and 11th ribs, multiple healing bilateral pathologic rib fractures, thickening of the endometrial complex suspicious for endometrial carcinoma and umbilical and supraumbilical ventral hernias containing fat. The head CT showed no acute intracranial abnormality but did reveal subtle lytic left frontal pole lesion. C-spine CT showed lytic lesions of the spine most notably at C2, C3 and C4 vertebral bodies. She was found to have a large right breast mass to the latter aspect with nipple retraction concerning for malignancy. Oncology consulted the patient was discharged home with plans for biopsy outpatient. She lives at home by herself her family presents several times a day and is very involved with her care. She presents today because she took a nap and was unable to get out of the bed due to generalized weakness. She contacted EMS was transferred to the ED. Upon my evaluation she is reporting pain all over and weakness. Her son, Seth, daughter, Dilia, and son-in-law are at bedside. She has a POA, daughter Dania, who unfortunately is not at bedside. Patient and family are desiring for the patient to be DNR, however she has not had paperwork sinuses 2003. Related Data Home Medications Medication Instructions Recorded Confirmed aspirin 81 mg tablet 81 mg PO BID 11/05/20 07/24/24 bumetanide 2 mg tablet 2 mg PO BID 08/20/23 07/24/24 Adults Multivitamin 1 tablet PO DAILY 07/11/24 07/24/24 atorvastatin 40 mg tablet 40 mg PO DAILY 07/11/24 07/24/24 chlorthalidone 25 mg tablet 25 mg PO DAILY 07/11/24 07/24/24 famotidine 20 mg tablet 20 mg PO DAILY 07/11/24 07/24/24 nitroglycerin 0.4 mg sublingual 0.4 mg sublingual Q5MIN PRN Chest 07/11/24 07/24/24 tablet Pain Allergies Allergy/AdvReac Type Severity Reaction Status Date / Time Penicillins Allergy Unknown Rash Verified 07/24/24 11:14 Review of Systems Review of Systems: All systems reviewed & are unremarkable except as noted in HPI and below PMFSH Past Medical History Medical History Chronic obstructive pulmonary disease PFTs in July 2019 demonstrated moderate obstructive lung disease without bronchodilator response and moderately decreased diffusion capacity. Chronic pain syndrome Chronic renal failure, stage 3 (moderate) Combined systolic and diastolic congestive heart failure Coronary artery disease Hyperlipidemia Hypertension Ischemic cardiomyopathy Surgical History Surgical History History of appendectomy History of cataract extraction with lens replacement History of cholecystectomy History of heart artery stent patient had anterior lateral STEMI december 2016 with 2 stents to the mid LAD History of laparoscopic adjustable gastric banding History of left hip replacement (10/2017) History of lithotripsy History of total bilateral knee replacement (2002) with subsequent ORIF of periprosthetic fracture of the left knee in December 2012 Family History Family History Mother Cerebrovascular accident Thyroid disease Sibling Thyroid disease Social History Social History Social History: 07/24/24 Patient declined SDOH Surrogate decision maker: Dania John (daughter). Code status: Full code. Smoking status: Never smoker Second hand tobacco smoke exposure: No Alcohol intake: never Substance use: never Substance use type: does not use Do You Feel Safe in your Home?: Yes Lack of Transportation: No Lack of Food: Never True Current Housing: I Have Housing Concerned About Future Housing: No Difficulty Paying Gas/Electric Bills: No Difficulty Paying for Meds: No Currently Unemployed: No Education: Trade/Vocational Certificate Difficulty w/ Childcare or Family Care: No Additional living arrangements comments: as of 2018. Has 5 children. Lives in her own home in [place]. 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 Spiritual care concerns: No Exam Narrative: GENERAL: Chronically ill-appearing, obese, NAD HEAD: Normocephalic, atraumatic. EYES: P EOMI. ENT: Nares clear, no rhinorrhea or epistaxis. Mucous membranes moist. NECK: Supple. CHEST: Clear to auscultation. No respiratory distress. HEART: Regular rate and rhythm. No murmur heard. Normal peripheral pulses. ABDOMEN: Soft, nontender, nondistended, normal active bowel sounds. periumbilical hernia, soft to palpation, nontender EXTREMITIES: Normal range of motion. SKIN: Warm, dry, no rash. NEURO: No focal deficits. Alert and oriented x2 Course Vital Signs Vital signs: Vital Signs Temperature 97.9 F 07/30/24 15:49 Pulse Rate 83 07/30/24 15:49 Respiratory Rate 20 07/30/24 15:49 Blood Pressure 115/47 L 07/30/24 15:49 Pulse Oximetry 99 07/30/24 15:49 Oxygen Delivery Nasal Cannula 07/30/24 15:49 Oxygen Flow Rate 4 07/30/24 15:49 Temperature 97.9 F 07/30/24 15:49 Pulse Rate 83 07/30/24 18:12 Respiratory Rate 16 07/30/24 18:12 Blood Pressure 109/42 L 07/30/24 18:12 Pulse Oximetry 97 07/30/24 18:12 Oxygen Delivery Nasal Cannula 07/30/24 15:49 Oxygen Flow Rate 4 07/30/24 15:49 Medical Decision Making MDM Narrative Medical decision making narrative: 78-year-old female with history of COPD, CHF, ischemic cardiomyopathy, CAD, hyperlipidemia, recent findings sugestive of widespread metastatic cancer presents to the ED via EMS from home for generalized weakness after being unable to get out of her bed from a nap. Vitals initially reveals soft blood pressure which has since resolved. family is at bedside. I had a long discussion with patient and family regarding goals of care today given recent diagnosis and current state of health. The patient repeatedly says I can not do this anymore... I can not live like this . I discussed comfort care options with the family verses further workup and attempt to find any acute issue to cause her current generalized weakness beyond the progression of her metastatic disease. Patient and family are agreeable with comfort care. I discussed the case with patient's POA on the phone, Dania pompa, who is also in agreement with this. During patient's stay, she did have a few episodes of V-tach /VFib. During these episodes the patient remained conscious. Dysrhythmias lasted less than 30 seconds. Family, POA and patient confirm that the patient has a DNR last signed in 2003 and are desiring to sign another DNR. Unfortunately we do not have care coordination here today to sign this paperwork. She is a DNR/DNI status. I discussed the case with hospitalist PATIENT DAY COORDINATOR, Rachelle, who agrees to the plan for admission to Med/surg for care coordination consult in the morning. Patient given morphine for pain. Vital Signs Vital Signs: Vital Signs Temperature 97.9 F 07/30/24 15:49 Pulse Rate 83 07/30/24 15:49 Respiratory Rate 20 07/30/24 15:49 Blood Pressure 115/47 L 07/30/24 15:49 Pulse Oximetry 99 07/30/24 15:49 Oxygen Delivery Nasal Cannula 07/30/24 15:49 Oxygen Flow Rate 4 07/30/24 15:49 Temperature 97.9 F 07/30/24 15:49 Pulse Rate 83 07/30/24 18:12 Respiratory Rate 16 07/30/24 18:12 Blood Pressure 109/42 L 07/30/24 18:12 Pulse Oximetry 97 07/30/24 18:12 Oxygen Delivery Nasal Cannula 07/30/24 15:49 Oxygen Flow Rate 4 07/30/24 15:49 Discharge Plan Discharge Clinical Impression: Adult failure to thrive Patient Disposition: Still a Patient Condition: Serious
[2024-07-30] MEDS: MORPHINE SULFATE (*CRX) 4 MG/ML INJ IV PUSH (17:44)
--- NOTE | 2024-07-30 18:36 | PC.NURSE ---
Addendum entered by Rosa Bush RN 07/30/24 18:37: Change time to 1745. Original Note: Peripheral IV infiltrated. CLEOPATRA Colin to bedside for ultrasound IV access.
--- NOTE | 2024-07-30 18:37 | PM.IMHP ---
H&P: HPI History of Present Illness Date/Time: 07/30/24 18:37 Chief Complaint: Diffuse Pain, Weakness Narrative: 78 y/o F presents here with diffuse pain and generalized weakness with PMH of COPD, chronic pain syndrome, CKD, CHF, CAD, HLD, HTN, and ischemic cardiomyopathy. The patient was recently admitted from 07/11/2024 to 07/18/2024 for diffuse pain. Imaging was obtained during initial workup which showed widespread bone lesions consistent with metastatic disease versus multiple myeloma, acute fractures of the left 9th and 11th ribs as well as multiple healing bilateral pathological rib fractures, thickening of the endometrial complex suspicious for endometrial carcinoma, and umbilical and supraumbilical ventral hernias containing fat. Head CT showed a possible subtle lytic lesion of the left frontal pole. CT spine showed lytic lesions at the C2, C3, C4 vertebral bodies. Patient also has a large right breast mass with retraction. After discussion with the patient and her family, they elected to have the breast biopsy prior to further investigation of the endometrial mass. She was discharged on a pain medication regimen (fentanyl, morphine, and [place]) and Narcan. Home health was offered at that time, however patient refused and believed her daughter would be able to help her. Since discharge she has been living at home by herself, family has been able to be present multiple times a day and very involved with her care. However, sought care today after she took a nap and was unable to get out of bed due to significant generalized weakness. ED provider discussed with the patient and the patient's daughter, Dilia, and her son-in-law, Seth, at the bedside what the patient's goals of care were given imaging is consistent with advanced metastatic cancer. They elected to make patient DNR and to move forward with comfort measures after the patient wished to defer this decision to her family. The patient's POA, Dania who is the patient's daughter, was in agreeance with the family at bedside. Patient was transitioned to DNR. Requesting admission for hospice and discussion with Care coordination of how to proceed forward and pain management. Initial VS at presentation: 97.9? F, HR 83, R 20, 99% on 4L NC. Review of Systems Review of Systems: All systems reviewed & are unremarkable except as noted in HPI and below PMFSH Past Medical History Medical History Chronic obstructive pulmonary disease PFTs in July 2019 demonstrated moderate obstructive lung disease without bronchodilator response and moderately decreased diffusion capacity. Chronic pain syndrome Chronic renal failure, stage 3 (moderate) Combined systolic and diastolic congestive heart failure Coronary artery disease Hyperlipidemia Hypertension Ischemic cardiomyopathy Surgical History Surgical History History of appendectomy History of cataract extraction with lens replacement History of cholecystectomy History of heart artery stent patient had anterior lateral STEMI december 2016 with 2 stents to the mid LAD History of laparoscopic adjustable gastric banding History of left hip replacement (10/2017) History of lithotripsy History of total bilateral knee replacement (2002) with subsequent ORIF of periprosthetic fracture of the left knee in December 2012 Family History Family History Mother Cerebrovascular accident Thyroid disease Sibling Thyroid disease Social History Social History Social History: 07/24/24 Patient declined SDOH Surrogate decision maker: Dania John (daughter). Code status: Full code. Smoking status: Never smoker Second hand tobacco smoke exposure: No Alcohol intake: never Substance use: never Substance use type: does not use Do You Feel Safe in your Home?: Yes Lack of Transportation: No Lack of Food: Never True Current Housing: I Have Housing Concerned About Future Housing: No Difficulty Paying Gas/Electric Bills: No Difficulty Paying for Meds: No Currently Unemployed: No Education: Trade/Vocational Certificate Difficulty w/ Childcare or Family Care: No Additional living arrangements comments: as of 2018. Has 5 children. Lives in her own home in [place]. 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 Spiritual care concerns: No Meds Home Medications and Allergies Home Medications Medication Instructions Recorded Confirmed Type acetaminophen 650 mg 650 mg PO Q8H PRN pain #10 tabs 05/25/20 07/30/24 Rx tablet,extended release (Tylenol Arthritis Pain) empagliflozin 10 mg tablet 10 mg PO DAILY #30 tabs 12/30/21 07/30/24 Rx (Jardiance) sacubitril 24 mg-valsartan 26 mg 1 tablet PO BID 30 days #60 tabs 01/03/23 07/30/24 Rx tablet bumetanide 2 mg tablet 2 mg PO BID 08/20/23 07/30/24 History lidocaine 5 % topical patch 1 patch topical DAILY #30 ea 01/16/24 07/30/24 Rx Adults Multivitamin 1 tablet PO DAILY 07/11/24 07/30/24 History atorvastatin 40 mg tablet 40 mg PO DAILY 07/11/24 07/30/24 History chlorthalidone 25 mg tablet 25 mg PO DAILY 07/11/24 07/30/24 History famotidine 20 mg tablet 20 mg PO DAILY 07/11/24 07/30/24 History nitroglycerin 0.4 mg sublingual 0.4 mg sublingual Q5MIN PRN Chest 07/11/24 07/30/24 History tablet Pain alendronate 10 mg tablet 10 mg PO DAILY@0630 #30 tabs 07/18/24 07/30/24 Rx polyethylene glycol 3350 17 17 g PO BID #119 grams 07/18/24 07/30/24 Rx gram/dose oral powder (Miralax) sennosides 8.6 mg-docusate sodium 1 tab PO HS #30 tabs 07/18/24 07/30/24 Rx 50 mg tablet (Senokot-S) naloxone 4 mg/actuation nasal 1 spray intranasal Q2-3M PRN 07/19/24 07/30/24 Rx spray (Narcan) opioid overdose #2 ea ondansetron 4 mg disintegrating 4 mg PO Q8H PRN nausea and 07/24/24 07/30/24 Rx tablet vomiting #20 tabs fentanyl 50 mcg/hr transdermal 1 patch transdermal Q72H #10 ea 07/28/24 07/30/24 Rx patch hydrocodone 7.5 mg-acetaminophen 1 tablet PO Q6H PRN Pain Rated 07/28/24 07/30/24 Rx 325 mg tablet 7-10 #60 tabs morphine 15 mg tablet,extended 15 mg PO Q12HR #60 tabs 07/28/24 07/30/24 Rx release Allergies Allergy/AdvReac Type Severity Reaction Status Date / Time Penicillins Allergy Unknown Rash Verified 07/30/24 18:52 Vital Signs Vital Signs - 24 hr 07/30/24 15:49 07/30/24 16:41 07/30/24 16:47 Temperature 97.9 F Pulse Rate 83 85 83 Respiratory Rate 20 17 12 Blood Pressure 115/47 L 118/60 122/70 Pulse Oximetry 99 Oxygen Delivery Nasal Cannula Oxygen Flow Rate 4 07/30/24 17:44 07/30/24 18:12 Temperature Pulse Rate 76 83 Respiratory Rate 16 16 Blood Pressure 125/102 H 109/42 L Pulse Oximetry 97 97 Oxygen Delivery Oxygen Flow Rate Assessment and Plan Assessment and plan (1) Adult failure to thrive: Code(s): R62.7 - Adult failure to thrive Status: Acute Assessment and Plan: - recent admission revealed bone lesions, endometrial thickening, and a right breast mass concerning for metastatic cancer. Patient now having diffuse pain all over. Would like to transition to comfort measures. - comfort measures: Ativan p.r.n. Morphine p.r.n. Atropine p.r.n. for secretions - care coordination consulted for referral to hospice. may need placement, currently too weak to care for self, despite heavy family assistance, at home (2) Endometrial mass: Code(s): N94.89 - Other specified conditions associated with female genital organs and menstrual cycle Status: Acute Assessment and Plan: - suspected to be possible endometrial cancer, patient foregoing further workup at this time in favor of comfort measures. See above. (3) Mass of right breast: Qualifiers: Breast mass location: unspecified quadrant Qualified Code(s): N63.10 - Unspecified lump in the right breast, unspecified quadrant Code(s): N63.10 - Unspecified lump in the right breast, unspecified quadrant Status: Acute Assessment and Plan: - possible breast cancer, patient would like to forego further workup at this time in favor of comfort measures. See above. (4) Bone lesion: Code(s): M89.9 - Disorder of bone, unspecified Status: Acute Assessment and Plan: - suspected metastatic cancer of unknown origin given patient has endometrial thickening and breast mass. Comfort measures at this time. See above. Plan Diet: Regular GI Prophylaxis: Not currently indicated DVT Prophylaxis: Not currently indicated Lines: Peripheral Code Status: DNR, comfort measures Quality If No VTE Prophylaxis Answer both mechanical and pharmacologic: Reason no mechanical VTE proph: low risk/not indicated (Elected to be comfort measures) Reason no pharmacologic proph: low risk/not indicated Hospitalist MIPS Advance Care Plan I have confirmed that the patient's Advanced Care Plan is present, code status is documented, or surrogate decision maker is listed in patient medical record.: Yes Medication Reconciliation I have utilized all available resources to obtain, update and review the patients current medications (includes all prescriptions, OTC, herbals, cannabis, and nutritional supplements).: Yes
[2024-07-30] MEDS: LORazepam INJ (*CRX) 2 MG/ML VIAL IV PUSH (20:15)
[2024-07-30] MEDS: MORPHINE SULFATE (*CRX) 2 MG/ML INJ 5 MG IV PUSH (20:16)
[2024-07-31 06:00] VITALS: BP 121/65; PULSE 72; RESP 16; TEMP 36.3; O2SAT 95
[2024-07-31] MEDS: MORPHINE SULFATE (*CRX) 2 MG/ML INJ IV PUSH (06:32)
--- NOTE | 2024-07-31 08:26 | PM.IMPN ---
Progress Note: A&P Assessment and Plan (1) Adult failure to thrive: Code(s): R62.7 - Adult failure to thrive Status: Acute Assessment and Plan: - recent admission revealed bone lesions, endometrial thickening, and a right breast mass concerning for metastatic cancer. Patient now having diffuse pain all over. Would like to transition to comfort measures. - comfort measures: Ativan p.r.n. Morphine p.r.n. Atropine p.r.n. for secretions patient has previously been on fentanyl patch, restarted - care coordination consulted for referral to hospice. may need placement, currently too weak to care for self, despite heavy family assistance, at home (2) Endometrial mass: Code(s): N94.89 - Other specified conditions associated with female genital organs and menstrual cycle Status: Acute Assessment and Plan: with presumed metastases - suspected to be possible endometrial cancer, patient foregoing further workup at this time in favor of comfort measures. See above. (3) Mass of right breast: Qualifiers: Breast mass location: unspecified quadrant Qualified Code(s): N63.10 - Unspecified lump in the right breast, unspecified quadrant Code(s): N63.10 - Unspecified lump in the right breast, unspecified quadrant Status: Acute Assessment and Plan: - possible breast cancer, patient would like to forego further workup at this time in favor of comfort measures. See above. (4) Bone lesion: Code(s): M89.9 - Disorder of bone, unspecified Status: Acute Assessment and Plan: - suspected metastatic cancer of unknown origin given patient has endometrial thickening and breast mass. Comfort measures at this time. See above. Plan Diet: Regular GI Prophylaxis: Not currently indicated DVT Prophylaxis: Not currently indicated Lines: Peripheral Code Status: DNR, comfort measures Time Spent With Patient Time: Includes review of chart, time spent family, consulting teams and nursing. Vital signs were reviewed and they are stable. His medications will be reviewed and resumed as appropriate. Findings and treatment plan were discussed with the patient. Questions were solicited and answered to satisfaction. Care plan was discussed with nursing. over 55 minutes Subjective Date/time seen: 07/31/24 08:26 Interval history: 78 y/o F presents here with diffuse pain and generalized weakness with PMH of COPD, chronic pain syndrome, CKD, CHF, CAD, HLD, HTN, and ischemic cardiomyopathy with failure to thrive likely with endometrial cancer with metastases. patient is on comfort measures only waiting for hospice evaluation and set up. patient is awake little drowsy, confused, appears to be comfortable. Review of Systems Review of Systems: ROS unobtainable: Yes unobtainable due to mental status Exam Narrative: General: well appearing, appears stated age. Drowsy HEENT: normocephalic, atraumatic. Mucous membranes moist. EOMI, PERRLA, bilateral sclera anicteric, no conjunctival injection. Neck supple without JVD, lymphadenopathy, or bruit. Respiratory: clear to ascultation bilaterally. No rales/rhonic/wheezes. Cardiovascular: Regular rate and rhythm, normal S1-S2 upon ascultation. No murmurs, rubs, or clicks. PMI is nondisplaced, capillary refill less than 3 second. Abdomen: Soft, round, no pulsatile masses, nondistended and nontender. No rebound, no guarding. No CVA tenderness, no hepatosplenomegaly. Bowel sounds present to all four quadrants. No high pitch or tinkling sounds, resonant to percussion. Extremities: No cyanosis, clubbing, or edema present. Pulses are palpable 2/2. Active ROM to all four extremities. Neuro: Alert and orientated x 1. Skin: Warm, dry, and intact, without rash, erythema, or lesion. Psych: pleasant, cooperative, normal speech, normal affect, no hallucinations, no dysarthia Objective Data Vital Signs Vital Signs: Vital Signs - 24 hr 07/30/24 15:49 07/30/24 16:41 07/30/24 16:47 Temperature 97.9 F Pulse Rate 83 85 83 Respiratory Rate 20 17 12 Blood Pressure 115/47 L 118/60 122/70 Pulse Oximetry 99 Oxygen Delivery Nasal Cannula Oxygen Flow Rate 4 07/30/24 17:44 07/30/24 18:12 07/30/24 20:10 Temperature Pulse Rate 76 83 83 Respiratory Rate 16 16 16 Blood Pressure 125/102 H 109/42 L Pulse Oximetry 97 97 98 Oxygen Delivery Nasal Cannula Oxygen Flow Rate 2 07/30/24 22:00 07/31/24 06:00 Temperature 97.0 F L 97.4 F L Pulse Rate 66 72 Respiratory Rate 18 16 Blood Pressure 115/49 L 121/65 Pulse Oximetry 98 95 Oxygen Delivery Oxygen Flow Rate Intake/Output Intake/Output: Intake & Output 07/28/24 07/29/24 07/30/24 07/31/24 23:59 23:59 23:59 23:59 Output Total 400 Balance -400 Meds/Results Medications: Active Medications Generic Name Dose Route Start Last Admin Trade Name Freq PRN Reason Stop Dose Admin Acetaminophen 650 mg 07/30/24 21:07 Acetaminophen 325 Mg Tablet PO Q6H PRN Mild Pain (1-3) or Fever Atropine Sulfate 1 - 2 drop 07/30/24 18:45 Atropine Sulfate 1% Ophth Soln 5 Ml Bottle SUBLINGUAL Q4H PRN Secretions Lidocaine 1 patch 07/31/24 09:00 Lidocaine 5% Patch TOPICAL DAILY UBALDO Lorazepam 2 mg 07/30/24 18:45 Lorazepam Inj (*Crx) 2 Mg/Ml Vial IV PUSH Q2H PRN Anxiety/Comfort Morphine Sulfate 2 mg 07/30/24 18:45 07/31/24 06:32 Morphine Sulfate (*Crx) 2 Mg/Ml Inj IV PUSH 2 mg Q30M PRN Administration COMFORT Ondansetron HCl 4 mg 07/30/24 21:06 Ondansetron Hcl Odt 4 Mg Tablet PO Q8H PRN nausea and vomiting Oxycodone HCl 5 mg 07/30/24 21:07 Oxycodone Hcl (*Crx) 5 Mg Tab Ir PO Q4H PRN Pain Rated 4-6 Oxycodone HCl 10 mg 07/30/24 21:07 Oxycodone Hcl (*Crx) 5 Mg Tab Ir PO Q4H PRN Pain Rated 7-10 Polyethylene Glycol 17 gm 07/31/24 09:00 Polyethylene Glycol 3350 17 Gm Powd.Pack PO BID UBALDO Quality If No VTE Prophylaxis Answer both mechanical and pharmacologic: Reason no mechanical VTE proph: patient/caregiver refusal Reason no pharmacologic proph: patient/caregiver refusal Hospitalist MIPS Advance Care Plan I have confirmed that the patient's Advanced Care Plan is present, code status is documented, or surrogate decision maker is listed in patient medical record.: Yes Medication Reconciliation I have utilized all available resources to obtain, update and review the patients current medications (includes all prescriptions, OTC, herbals, cannabis, and nutritional supplements).: Yes
[2024-07-31] MEDS: fentaNYL (*CRX) 50 MCG PATCH TRANSDERM (12:37)
[2024-07-31] MEDS: LORazepam INJ (*CRX) 2 MG/ML VIAL IV PUSH (12:43)
[2024-07-31 14:33] VITALS: BP 86/30; PULSE 70; RESP 12; TEMP 36.3; O2SAT 98
[2024-07-31 20:00] VITALS: PULSE 70; RESP 12; O2SAT 98
[2024-07-31 22:00] VITALS: BP 101/40; PULSE 73; RESP 16; TEMP 36.3; O2SAT 100
[2024-08-01] MEDS: MORPHINE SULFATE (*CRX) 2 MG/ML INJ IV PUSH ×4 (00:07→19:27)
[2024-08-01] MEDS: LORazepam INJ (*CRX) 2 MG/ML VIAL IV PUSH ×6 (00:07→21:47)
[2024-08-01 06:00] VITALS: BP 129/58; PULSE 91; RESP 16; TEMP 36.4; O2SAT 92
--- NOTE | 2024-08-01 08:08 | P.PNIM_ITS ---
Progress Note: A&P Assessment and Plan (1) Adult failure to thrive: Code(s): R62.7 - Adult failure to thrive Status: Acute Assessment and Plan: Recent admission revealed bone lesions, endometrial thickening, and a right breast mass concerning for metastatic cancer. Patient now having diffuse pain all over. Would like to transition to comfort measures. - comfort measures: Ativan p.r.n. Morphine p.r.n. Atropine p.r.n. for secretions patient has previously been on fentanyl patch, restarted - care coordination consulted for referral to hospice. may need placement, currently too weak to care for self, despite heavy family assistance, at home (2) Endometrial mass: Code(s): N94.89 - Other specified conditions associated with female genital organs and menstrual cycle Status: Acute Assessment and Plan: with presumed metastases - suspected to be possible endometrial cancer, patient foregoing further workup at this time in favor of comfort measures. See above. (3) Mass of right breast: Qualifiers: Breast mass location: unspecified quadrant Qualified Code(s): N63.10 - Unspecified lump in the right breast, unspecified quadrant Code(s): N63.10 - Unspecified lump in the right breast, unspecified quadrant Status: Acute Assessment and Plan: - possible breast cancer, patient would like to forego further workup at this time in favor of comfort measures. See above. (4) Bone lesion: Code(s): M89.9 - Disorder of bone, unspecified Status: Acute Assessment and Plan: - suspected metastatic cancer of unknown origin given patient has endometrial thickening and breast mass. Comfort measures at this time. See above. Plan Diet: Regular GI Prophylaxis: Not currently indicated DVT Prophylaxis: Not currently indicated Lines: Peripheral Code Status: DNR, comfort measures Time Spent With Patient Time: 45 minutes Subjective Date/time seen: 08/01/24 08:08 Interval history: Pain controlled. Patient comfort measures, DNR/DNI. No escalation to ICU Family spoke with hospice, planning comfort care/hospice. Haven't signed papers yet and if she would improve enough to have a biopsy and treatment they would have liked to do that, but she is less responsive and they know that she will likely worsen. Family expecting to transition to hospice and possibly discharge Saturday to SNF unless her status worsens, then might qualify for inpatient hospice. 78 y/o F presents here with diffuse pain and generalized weakness with PMH of COPD, chronic pain syndrome, CKD, CHF, CAD, HLD, HTN, and ischemic cardiomyopathy with failure to thrive likely with endometrial cancer with metastases. Pain controlled Review of Systems Review of Systems: All systems reviewed & are unremarkable except as noted in HPI and below ROS unobtainable: Yes unobtainable due to mental status Exam Narrative: General: ill appearing, appears stated age. Drowsy HEENT: normocephalic, atraumatic. Mucous membranes dry. EOMI, PERRLA, bilateral sclera anicteric, no conjunctival injection. Neck supple without JVD, lymphadenopathy, or bruit. Respiratory: clear to ascultation bilaterally. No rales/rhonic/wheezes. Cardiovascular: Regular rate and rhythm, normal S1-S2 upon ascultation. No murmurs, rubs, or clicks. PMI is nondisplaced, capillary refill less than 3 second. Abdomen: Soft, round, no pulsatile masses, nondistended and nontender. No rebound, no guarding. No CVA tenderness, no hepatosplenomegaly. Bowel sounds present to all four quadrants. No high pitch or tinkling sounds, resonant to percussion. Extremities: No cyanosis, clubbing, or edema present. Pulses are palpable 2/2. Active ROM to all four extremities. Neuro: Moves all extremities intermittently, nonverbal currently Skin: Warm, dry, and intact, without rash, erythema, or lesion. Psych: unable to assess due to lethargy Objective Data Vital Signs Vital Signs: Vital Signs - 24 hr 07/31/24 10:00 07/31/24 14:33 07/31/24 20:00 Temperature 97.4 F L Pulse Rate 70 70 Respiratory Rate 12 12 Blood Pressure 86/30 L Pulse Oximetry 98 98 Oxygen Delivery Room Air Room Air 07/31/24 22:00 08/01/24 06:00 Temperature 97.4 F L 97.6 F Pulse Rate 73 91 Respiratory Rate 16 16 Blood Pressure 101/40 L 129/58 L Pulse Oximetry 100 92 Oxygen Delivery Intake/Output Intake/Output: Intake & Output 07/29/24 07/30/24 07/31/24 08/01/24 23:59 23:59 23:59 23:59 Intake Total 0 Output Total 700 400 Balance -700 -400 Meds/Results Medications: Active Medications Generic Name Dose Route Start Last Admin Trade Name Freq PRN Reason Stop Dose Admin Acetaminophen 650 mg 07/30/24 21:07 Acetaminophen 325 Mg Tablet PO Q6H PRN Mild Pain (1-3) or Fever Atropine Sulfate 1 - 2 drop 07/30/24 18:45 Atropine Sulfate 1% Ophth Soln 5 Ml Bottle SUBLINGUAL Q4H PRN Secretions Fentanyl 50 mcg 07/31/24 12:20 07/31/24 12:37 Fentanyl (*Crx) 50 Mcg Patch TRANSDERM 50 mcg Q72H UBALDO Administration Lidocaine 1 patch 07/31/24 09:00 07/31/24 11:06 Lidocaine 5% Patch TOPICAL Not Given DAILY [facility] Lorazepam 2 mg 07/30/24 18:45 08/01/24 06:15 Lorazepam Inj (*Crx) 2 Mg/Ml Vial IV PUSH 2 mg Q2H PRN Administration Anxiety/Comfort Morphine Sulfate 2 mg 07/30/24 18:45 08/01/24 00:07 Morphine Sulfate (*Crx) 2 Mg/Ml Inj IV PUSH 2 mg Q30M PRN Administration COMFORT Morphine Sulfate 15 mg 07/31/24 12:25 07/31/24 20:44 Morphine Sulfate (*Crx) 15 Mg Tabcr PO Not Given Q12HR [facility] Ondansetron HCl 4 mg 07/30/24 21:06 Ondansetron Hcl Odt 4 Mg Tablet PO Q8H PRN nausea and vomiting Oxycodone HCl 5 mg 07/30/24 21:07 Oxycodone Hcl (*Crx) 5 Mg Tab Ir PO Q4H PRN Pain Rated 4-6 Oxycodone HCl 10 mg 07/30/24 21:07 Oxycodone Hcl (*Crx) 5 Mg Tab Ir PO Q4H PRN Pain Rated 7-10 Polyethylene Glycol 17 gm 07/31/24 09:00 07/31/24 18:47 Polyethylene Glycol 3350 17 Gm Powd.Pack PO Not Given BID [facility] Hospitalist MIPS Advance Care Plan I have confirmed that the patient's Advanced Care Plan is present, code status is documented, or surrogate decision maker is listed in patient medical record.: Yes Medication Reconciliation I have utilized all available resources to obtain, update and review the patients current medications (includes all prescriptions, OTC, herbals, cannabis, and nutritional supplements).: Yes
[2024-08-01 14:00] VITALS: BP 122/51; PULSE 88; RESP 14; TEMP 36.5; O2SAT 98
[2024-08-01 20:21] VITALS: BP 107/54; PULSE 79; RESP 16; TEMP 37.4; O2SAT 90
[2024-08-02] MEDS: LORazepam INJ (*CRX) 2 MG/ML VIAL IV PUSH ×4 (02:52→15:04)
[2024-08-02] MEDS: MORPHINE SULFATE (*CRX) 2 MG/ML INJ IV PUSH ×2 (04:23→08:44)
[2024-08-02] MEDS: LIDOCAINE 5% PATCH 1 PATCH TOPICAL (08:35)
--- NOTE | 2024-08-02 08:35 | PM.IMPN ---
Progress Note: A&P Assessment and Plan (1) Adult failure to thrive: Code(s): R62.7 - Adult failure to thrive Status: Acute Assessment and Plan: Recent admission revealed bone lesions, endometrial thickening, and a right breast mass concerning for metastatic cancer. Patient now having diffuse pain all over. Would like to transition to comfort measures. - comfort measures: Ativan p.r.n. Morphine p.r.n. Atropine p.r.n. for secretions patient has previously been on fentanyl patch, restarted - care coordination consulted for referral to hospice. may need placement, currently too weak to care for self, despite heavy family assistance, at home okay for Garcia (2) Endometrial mass: Code(s): N94.89 - Other specified conditions associated with female genital organs and menstrual cycle Status: Acute Assessment and Plan: with presumed metastases - suspected to be possible endometrial cancer, patient foregoing further workup at this time in favor of comfort measures. See above. (3) Mass of right breast: Qualifiers: Breast mass location: unspecified quadrant Qualified Code(s): N63.10 - Unspecified lump in the right breast, unspecified quadrant Code(s): N63.10 - Unspecified lump in the right breast, unspecified quadrant Status: Acute Assessment and Plan: - possible breast cancer, patient would like to forego further workup at this time in favor of comfort measures. See above. (4) Bone lesion: Code(s): M89.9 - Disorder of bone, unspecified Status: Acute Assessment and Plan: - suspected metastatic cancer of unknown origin given patient has endometrial thickening and breast mass. Comfort measures at this time. See above. Plan Diet: Regular GI Prophylaxis: Not currently indicated DVT Prophylaxis: Not currently indicated Lines: Peripheral Code Status: DNR, comfort measures Time Spent With Patient Time: Includes review of chart, time spent family, consulting teams and nursing. Vital signs were reviewed and they are stable. His medications will be reviewed and resumed as appropriate. Findings and treatment plan were discussed with the patient. Questions were solicited and answered to satisfaction. Care plan was discussed with nursing. over 55 minute Subjective Date/time seen: 08/02/24 08:35 Interval history: 78 y/o F presents here with diffuse pain and generalized weakness with PMH of COPD, chronic pain syndrome, CKD, CHF, CAD, HLD, HTN, and ischemic cardiomyopathy with failure to thrive likely with endometrial cancer with metastases. Pain controlled Patient comfort measures, DNR/DNI. No escalation to ICU Family spoke with hospice, planning comfort care/hospice. Haven't signed papers yet and if she would improve enough to have a biopsy and treatment they would have liked to do that, but she is less responsive and they know that she will likely worsen. waiting to talk hospice today patient seems to be restless and agitated, morphine increased and Ativan frequency increased Review of Systems Review of Systems: All systems reviewed & are unremarkable except as noted in HPI and below ROS unobtainable: Yes unobtainable due to mental status Exam Narrative: General: ill appearing, appears stated age. Drowsy HEENT: normocephalic, atraumatic. Mucous membranes dry. EOMI, PERRLA, bilateral sclera anicteric, no conjunctival injection. Neck supple without JVD, lymphadenopathy, or bruit. Respiratory: clear to ascultation bilaterally. No rales/rhonic/wheezes. Cardiovascular: Regular rate and rhythm, normal S1-S2 upon ascultation. No murmurs, rubs, or clicks. PMI is nondisplaced, capillary refill less than 3 second. Abdomen: Soft, round, no pulsatile masses, nondistended and nontender. No rebound, no guarding. No CVA tenderness, no hepatosplenomegaly. Bowel sounds present to all four quadrants. No high pitch or tinkling sounds, resonant to percussion. Extremities: No cyanosis, clubbing, or edema present. Pulses are palpable 2/2. Active ROM to all four extremities. Neuro: Moves all extremities intermittently, nonverbal currently Skin: Warm, dry, and intact, without rash, erythema, or lesion. Psych: unable to assess due to lethargy Objective Data Vital Signs Vital Signs: Vital Signs - 24 hr 08/01/24 14:00 08/01/24 20:21 08/01/24 20:00 Temperature 97.7 F 99.3 F Pulse Rate 88 79 Respiratory Rate 14 16 Blood Pressure 122/51 L 107/54 L Pulse Oximetry 98 90 Oxygen Delivery Room Air Intake/Output Intake/Output: Intake & Output 07/30/24 07/31/24 08/01/24 08/02/24 23:59 23:59 23:59 23:59 Intake Total 0 0 Output Total 700 1150 1000 Balance -700 -1150 -1000 Meds/Results Medications: Active Medications Generic Name Dose Route Start Last Admin Trade Name Freq PRN Reason Stop Dose Admin Acetaminophen 650 mg 07/30/24 21:07 Acetaminophen 325 Mg Tablet PO Q6H PRN Mild Pain (1-3) or Fever Atropine Sulfate 1 - 2 drop 07/30/24 18:45 Atropine Sulfate 1% Ophth Soln 5 Ml Bottle SUBLINGUAL Q4H PRN Secretions Fentanyl 50 mcg 07/31/24 12:20 07/31/24 12:37 Fentanyl (*Crx) 50 Mcg Patch TRANSDERM 50 mcg Q72H UBALDO Administration Lidocaine 1 patch 07/31/24 09:00 08/01/24 09:54 Lidocaine 5% Patch TOPICAL Not Given DAILY [facility] Lorazepam 2 mg 07/30/24 18:45 08/02/24 02:52 Lorazepam Inj (*Crx) 2 Mg/Ml Vial IV PUSH 2 mg Q2H PRN Administration Anxiety/Comfort Morphine Sulfate 2 mg 07/30/24 18:45 08/02/24 04:23 Morphine Sulfate (*Crx) 2 Mg/Ml Inj IV PUSH 2 mg Q30M PRN Administration COMFORT Morphine Sulfate 15 mg 07/31/24 12:25 08/02/24 08:35 Morphine Sulfate (*Crx) 15 Mg Tabcr PO Not Given Q12HR [facility] Ondansetron HCl 4 mg 07/30/24 21:06 Ondansetron Hcl Odt 4 Mg Tablet PO Q8H PRN nausea and vomiting Oxycodone HCl 5 mg 07/30/24 21:07 Oxycodone Hcl (*Crx) 5 Mg Tab Ir PO Q4H PRN Pain Rated 4-6 Oxycodone HCl 10 mg 07/30/24 21:07 Oxycodone Hcl (*Crx) 5 Mg Tab Ir PO Q4H PRN Pain Rated 7-10 Polyethylene Glycol 17 gm 07/31/24 09:00 08/02/24 08:35 Polyethylene Glycol 3350 17 Gm Powd.Pack PO Not Given BID UBALDO
[2024-08-02] MEDS: MORPHINE SULFATE (*CRX) 2 MG/ML INJ 4 MG IV PUSH ×2 (12:01→15:04)
[2024-08-02 15:06] VITALS: BP 90/40; PULSE 91; RESP 19; TEMP 36.6; O2SAT 90
--- NOTE | 2024-08-17 09:25 | P.DS_ITS ---
DS: Admitting Diagnosis Discharge Date 08/02/24 Admitting Diagnosis Acute kidney injury bacteriuria with pyuria bone lesion massive for breast endometrial mass chronic pain COPD combined systolic and diastolic CHF hypertension DS: Discharge Diagnosis Discharge Diagnosis (1) Acute kidney injury: Code(s): N17.9 - Acute kidney failure, unspecified Status: Acute (2) Bacteriuria with pyuria: Code(s): R82.71 - Bacteriuria; R82.81 - Pyuria Status: Acute (3) Bone lesion: Code(s): M89.9 - Disorder of bone, unspecified Status: Acute (4) Mass of right breast: Qualifiers: Breast mass location: unspecified quadrant Qualified Code(s): N63.10 - Unspecified lump in the right breast, unspecified quadrant Code(s): N63.10 - Unspecified lump in the right breast, unspecified quadrant Status: Acute (5) Endometrial mass: Code(s): N94.89 - Other specified conditions associated with female genital organs and menstrual cycle Status: Acute (6) Chronic pain syndrome: Code(s): G89.4 - Chronic pain syndrome Status: Acute (7) Chronic obstructive pulmonary disease: Code(s): J44.9 - Chronic obstructive pulmonary disease, unspecified Status: Acute (8) Combined systolic and diastolic congestive heart failure: Code(s): I50.40 - Unspecified combined systolic (congestive) and diastolic (congestive) heart failure Status: Acute (9) Hypertension: Code(s): I10 - Essential (primary) hypertension Status: Acute DS: Summary Hospital Course Reason for hospitalization: Acute kidney injury bacteriuria with pyuria bone lesion massive for breast endometrial mass chronic pain COPD combined systolic and diastolic CHF hypertension Hospital Course: 78 y/o F presents here with diffuse pain and generalized weakness with PMH of COPD, chronic pain syndrome, CKD, CHF, CAD, HLD, HTN, and ischemic cardiomyopathy. The patient was recently admitted from 07/11/2024 to 07/18/2024 for diffuse pain. Imaging was obtained during initial workup which showed widespread bone lesions consistent with metastatic disease versus multiple myeloma, acute fractures of the left 9th and 11th ribs as well as multiple healing bilateral pathological rib fractures, thickening of the endometrial complex suspicious for endometrial carcinoma, and umbilical and supraumbilical ventral hernias containing fat. Head CT showed a possible subtle lytic lesion of the left frontal pole. CT spine showed lytic lesions at the C2, C3, C4 vertebral bodies. Patient also has a large right breast mass with retraction. After discussion with the patient and her family, they elected to have the breast biopsy prior to further investigation of the endometrial mass. She was discharged on a pain medication regimen (fentanyl, morphine, and Deposit) and Narcan. Home health was offered at that time, however patient refused and believed her daughter would be able to help her. Since discharge she has been living at home by herself, family has been able to be present multiple times a day and very involved with her care. However, sought care today after she took a nap and was unable to get out of bed due to significant generalized weakness. ED provider discussed with the patient and the patient's daughter, Dilia, and her son-in-law, Seth, at the bedside what the patient's goals of care were given imaging is consistent with advanced metastatic cancer. They elected to make patient DNR and to move forward with comfort measures after the patient wished to defer this decision to her family. The patient's POA, Dania who is the patient's daughter, was in agreeance with the family at bedside. Patient was transitioned to DNR. Requesting admission for hospice and discussion with Care coordination of how to proceed forward and pain management. While in the hospital the patient acutely declined is with altered mental status night acute pain pain regiment was increased and patient was discharged to hospice services. Status at Discharge Functional status at discharge: bed bound Time Spent with Patient Time attestation: Total time spent providing and/or coordinating discharge services: Time spent: Greater than 30 minutes Exam Narrative: AF HR 75 RR 18 SpO2 95 BP 146/66 General: female in no acute respiratory distress who is nontoxic appearing, altered HEENT: Normocephalic. Atraumatic. Extraocular movement intact. Sclera clear and anicteric. No facial asymmetry. Chest: Lungs are clear to auscultation bilaterally. No wheezes or crackles. CV: Heart was regular rate and rhythm. S1-S2. No murmurs, gallops, or rubs. Abd: Abdomen was soft. Nontender. Nondistended. Positive bowel sounds. No organomegaly or masses. Ext: No clubbing, cyanosis, or edema. 2+ DP pulses bilaterally. Neuro: Altered mental status Skin: Right breast mass to the lateral aspect with nipple retraction. No open wounds. No left breast mass. DS: Data Data Completed and Pending Completed studies during hospitalization: Abdomen/pelvis CT chest x-ray renal ultrasound head CT C-spine CT chest abdomen pelvis CT abdomen x-ray Labs on day of discharge: Labs from last 24 hours 07/18/24 05:11 WBC 8.1 RBC 3.80 L Hgb 11.6 L Hct 35.8 L MCV 94.2 MCH 30.5 MCHC 32.4 RDW 15.3 H Plt Count 227 MPV 9.3 Immature Gran % (Auto) 0.4 Neut % (Auto) 67.2 Lymph % (Auto) 15.3 L Ransom % (Auto) 9.9 H Eos % (Auto) 6.3 H Baso % (Auto) 0.9 Lymph # (Auto) 1.23 Ransom # (Auto) 0.8 H Eos # (Auto) 0.5 H Baso # (Auto) 0.1 Abs Immat Gran (auto) 0.03 Absolute Neuts (auto) 5.4 Absolute Nucleated RBC 0.000 Nucleated RBC % 0.0 Sodium 134 L Potassium 3.5 Chloride 99 Carbon Dioxide 30 Anion Gap 5 BUN 20 H Creatinine 0.80 Estim Creat Clear Calc 64 Estimated GFR > 60 Glucose 85 Calcium 9.8 Total Bilirubin 1.0 AST 38 H ALT 9 Alkaline Phosphatase 104 Total Protein 7.0 Albumin 3.5 Discharge Plan Discharge Consulting providers: Liliana Biswas; Nasima Camacho; Matt Yung; Ronda Araiza; Yazmin Godfrey Discharging Clinician: Ronda Araiza Patient Disposition: Hospice [facility] Inpatient Activity: as tolerated Diet: regular Discharge Instructions: Discharge to hospice Patient Instructions: Heart Failure (DC) Patient Language: French Stand Alone Forms: General Discharge Information Follow-up/Referrals: Shahana Bryant PA-C [Primary Care Provider] - Date of admission: 08/02/24 15:37 Primary Care Provider: Shahana Bryant Admitting Provider: Carlos Alberto Warner Attending physician on admission: Carlos Alberto Warner Condition: Serious Quality If No VTE Prophylaxis Answer both mechanical and pharmacologic: Reason no mechanical VTE proph: medical contraindication Hospitalist MIPS Heart Failure (Exclusion) Patient has history of Heart Transplant or Left Ventricular Assistive Device?: No IF YES, STOP HERE Heart Failure (Qualifier) Patient has current or prior documentation of LVEF less than or equal to 40%, or mod/servere depressed LVSF?: No IF NO, STOP HERE
== END 2024-08-02 16:01 | disposition hospice, inpatient (51) | DRG 598 ==
LOC: ANHED 17:43 → ANH3MED 18:04
PROVIDERS: Admitting Provider Internal Medicine; Emergency Provider Physician Assistant; PCP Physician Assistant Medical; Visit Provider Internal Medicine
DX: C50.911 Malignant neoplasm of unspecified site of right female breast (principal); C79.9 Secondary malignant neoplasm of unspecified site; I13.0 Hypertensive heart and chronic kidney disease with heart failure and stage 1 through stage 4 chronic kidney disease, or unspecified chronic kidney disease; I50.42 Chronic combined systolic (congestive) and diastolic (congestive) heart failure; R62.7 Adult failure to thrive; N63.10 Unspecified lump in the right breast, unspecified quadrant; Z66 Do not resuscitate; E78.5 Hyperlipidemia, unspecified; G89.4 Chronic pain syndrome; I25.5 Ischemic cardiomyopathy; I25.10 Atherosclerotic heart disease of native coronary artery without angina pectoris; J44.9 Chronic obstructive pulmonary disease, unspecified; M89.9 Disorder of bone, unspecified; N18.30 Chronic kidney disease, stage 3 unspecified; N94.89 Other specified conditions associated with female genital organs and menstrual cycle; Z51.5 Encounter for palliative care; Z79.82 Long term (current) use of aspirin; Z88.0 Allergy status to penicillin; Z90.49 Acquired absence of other specified parts of digestive tract; Z95.5 Presence of coronary angioplasty implant and graft; Z98.84 Bariatric surgery status; Z96.642 Presence of left artificial hip joint; Z96.653 Presence of artificial knee joint, bilateral
CPT/HCPCS: 93005; 96374; 96375; 96376; 99212; 99285; A9270; G0378; G0463; J2060; J2270

== ENCOUNTER 2024-08-02 16:02 | HOS | payer OTHER, MEDICARE, SELFPAY ==
[2024-08-02 17:01] VITALS: RESP 20
[2024-08-02] MEDS: HYDROmorphone HCL/PF (*CRX) 50 MG in SODIUM CHLORIDE 0.9% IV 95 ML IV CONT (17:01)
[2024-08-02] MEDS: LORazepam INJ (*CRX) 2 MG/ML VIAL IV PUSH (17:03)
[2024-08-03] MEDS: HYDROmorphone HCL/PF (*CRX) 50 MG in SODIUM CHLORIDE 0.9% IV 95 ML IV CONT (16:03)
--- NOTE | 2024-08-03 17:22 | P.HP_ITS ---
H&P: HPI History of Present Illness Date/Time: 08/03/24 17:22 Chief Complaint: Uncontrolled pain Review of Systems Review of Systems: ROS unobtainable: Yes unobtainable due to medical condition [facility] Past Medical History Medical History Chronic obstructive pulmonary disease PFTs in July 2019 demonstrated moderate obstructive lung disease without bronchodilator response and moderately decreased diffusion capacity. Chronic pain syndrome Chronic renal failure, stage 3 (moderate) Combined systolic and diastolic congestive heart failure Coronary artery disease Hyperlipidemia Hypertension Ischemic cardiomyopathy Surgical History Surgical History History of appendectomy History of cataract extraction with lens replacement History of cholecystectomy History of heart artery stent patient had anterior lateral STEMI december 2016 with 2 stents to the mid LAD History of laparoscopic adjustable gastric banding History of left hip replacement (10/2017) History of lithotripsy History of total bilateral knee replacement (2002) with subsequent ORIF of periprosthetic fracture of the left knee in December 2012 Family History Family History Mother Cerebrovascular accident Thyroid disease Sibling Thyroid disease Social History Social History (Updated 08/03/24 @ 23:06 by Kameron Zimmerman MD) Social History: Surrogate decision maker: Dania John (daughter). Code status: DNR Smoking status: Never smoker Second hand tobacco smoke exposure: No Alcohol intake: never Substance use: never Substance use type: does not use Do You Feel Safe in your Home?: Yes Lack of Transportation: No Lack of Food: Never True Current Housing: I Have Housing Concerned About Future Housing: No Difficulty Paying Gas/Electric Bills: No Difficulty Paying for Meds: No Currently Unemployed: No Education: Trade/Vocational Certificate Difficulty w/ Childcare or Family Care: No Additional living arrangements comments: as of 2018. Has 5 children. Lives in her own home in [place]. 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 Spiritual care concerns: No Meds Home Medications and Allergies Home Medications Medication Instructions Recorded Confirmed Type acetaminophen 650 mg 650 mg PO Q8H PRN pain #10 tabs 05/25/20 07/30/24 Rx tablet,extended release (Tylenol Arthritis Pain) empagliflozin 10 mg tablet 10 mg PO DAILY #30 tabs 12/30/21 07/30/24 Rx (Jardiance) sacubitril 24 mg-valsartan 26 mg 1 tablet PO BID 30 days #60 tabs 01/03/23 07/30/24 Rx tablet bumetanide 2 mg tablet 2 mg PO BID 08/20/23 07/30/24 History lidocaine 5 % topical patch 1 patch topical DAILY #30 ea 01/16/24 07/30/24 Rx Adults Multivitamin 1 tablet PO DAILY 07/11/24 07/30/24 History atorvastatin 40 mg tablet 40 mg PO DAILY 07/11/24 07/30/24 History chlorthalidone 25 mg tablet 25 mg PO DAILY 07/11/24 07/30/24 History famotidine 20 mg tablet 20 mg PO DAILY 07/11/24 07/30/24 History nitroglycerin 0.4 mg sublingual 0.4 mg sublingual Q5MIN PRN Chest 07/11/24 07/30/24 History tablet Pain alendronate 10 mg tablet 10 mg PO DAILY@0630 #30 tabs 07/18/24 07/30/24 Rx polyethylene glycol 3350 17 17 g PO BID #119 grams 07/18/24 07/30/24 Rx gram/dose oral powder (Miralax) sennosides 8.6 mg-docusate sodium 1 tab PO HS #30 tabs 07/18/24 07/30/24 Rx 50 mg tablet (Senokot-S) naloxone 4 mg/actuation nasal 1 spray intranasal Q2-3M PRN 07/19/24 07/30/24 Rx spray (Narcan) opioid overdose #2 ea ondansetron 4 mg disintegrating 4 mg PO Q8H PRN nausea and 07/24/24 07/30/24 Rx tablet vomiting #20 tabs fentanyl 50 mcg/hr transdermal 1 patch transdermal Q72H #10 ea 07/28/24 07/30/24 Rx patch hydrocodone 7.5 mg-acetaminophen 1 tablet PO Q6H PRN Pain Rated 07/28/24 07/30/24 Rx 325 mg tablet 7-10 #60 tabs morphine 15 mg tablet,extended 15 mg PO Q12HR #60 tabs 07/28/24 07/30/24 Rx release Allergies Allergy/AdvReac Type Severity Reaction Status Date / Time Penicillins Allergy Unknown Rash Verified 07/30/24 18:52 Vital Signs Vital Signs - 24 hr 08/02/24 20:00 08/03/24 08:00 Oxygen Delivery Room Air Room Air Exam Narrative: Elderly female lying comfortably in hospital bed. Neck no JVD. Chest Mildly tachypneic, coarse BS throughout. Heart NL S1,2 RR, no murmur. Extr No edema. Abd Hypoactive BS, soft. MS no gross deformities to visual inspection. Neuro CN symmetric to visual inspection. Psych minimally responsive to tactile stimuli, unresponsive to verbal stimuli. Assessment and Plan Assessment and plan (1) Hospice care: Code(s): Z51.5 - Encounter for palliative care Status: Acute Assessment and Plan: * Meets inpatient hospice criteria due to requiring continuous IV hydromorphone for control of pain. * Adjuvant steroids ordered for bone pain. * PRN palliative regimen ordered. (2) Congestive heart failure: Qualifiers: Heart failure chronicity: acute on chronic Heart failure type: combined systolic and diastolic Qualified Code(s): I50.43 - Acute on chronic combined systolic (congestive) and diastolic (congestive) heart failure Code(s): I50.9 - Heart failure, unspecified Status: Chronic (3) COPD (chronic obstructive pulmonary disease): Qualifiers: COPD type: unspecified COPD Qualified Code(s): J44.9 - Chronic obstructive pulmonary disease, unspecified Code(s): J44.9 - Chronic obstructive pulmonary disease, unspecified Status: Chronic
[2024-08-03] MEDS: HYDROmorphone HCL INJ (*CRX) 1 MG/ML SYR 2 MG IV PUSH (18:45)
[2024-08-03] MEDS: GLYCOPYRROLATE INJ (*SP) 0.2 MG/ML VIAL 0.1 MG IV PUSH (21:17)
--- NOTE | 2024-08-04 17:28 | P.DN_ITS ---
Discharge Summary Date and Time Date of : 08/03/24 Time of : 22:45 Provider Pronounced By: 2 RNs Name of First RN That Pronounced: JESSIKA MARTINES RN Name of Second RN That Pronounced: MEEK XIAO Probable Cause of Probable Cause of : metastatic breast cancer Summary Hospital Course: Admitted to inpatient hospice service for uncontrolled pain. Palliative medications were titrated to comfort. Mrs. Hanson peacefully. Additional Data Confirmation of as documented by pronouncing clinician: Pupillary Reflex, Palpable Pulses, Response to Stimuli, Heart Tones and Breath Sounds Name of Provider Notified: NICO ESCOBEDO Time Provider Notified: 23:30 Provider Requests Autopsy: No Family Requests Autopsy: No Rivet Maker Notified: Yes Date [facility] Notified of : 08/03/24 Time [facility] Notified of : 23:20
== END 2024-08-03 22:45 | disposition expired | DRG 951 ==
LOC: ANH3MED 16:16
PROVIDERS: Admitting Provider Internal Medicine; PCP Physician Assistant Medical; Visit Provider Internal Medicine
DX: Z51.5 Encounter for palliative care (principal); I50.43 Acute on chronic combined systolic (congestive) and diastolic (congestive) heart failure; I13.0 Hypertensive heart and chronic kidney disease with heart failure and stage 1 through stage 4 chronic kidney disease, or unspecified chronic kidney disease; C50.919 Malignant neoplasm of unspecified site of unspecified female breast; J44.9 Chronic obstructive pulmonary disease, unspecified; Z66 Do not resuscitate; N18.30 Chronic kidney disease, stage 3 unspecified; I25.10 Atherosclerotic heart disease of native coronary artery without angina pectoris; E78.5 Hyperlipidemia, unspecified; G89.4 Chronic pain syndrome; Z96.653 Presence of artificial knee joint, bilateral; Z96.642 Presence of left artificial hip joint; Z90.49 Acquired absence of other specified parts of digestive tract; Z96.1 Presence of intraocular lens; Z98.49 Cataract extraction status, unspecified eye; Z95.5 Presence of coronary angioplasty implant and graft; I25.2 Old myocardial infarction; Z98.84 Bariatric surgery status
CPT/HCPCS: A9270; J1171; J1596; J2060